=== PATIENT | male | born 1965 | race Caucasian/White ===

== ENCOUNTER 2024-08-27 12:40 | Inpatient (IN) | payer MEDICAID ==
[~2024-08-27] VITALS: Ht 188 cm; Wt 114.0 kg
[~2024-08-27 12:40] MED LIST: CARV25TA55 PO; DILT30TA PO; ENAL1TAB42 PO; FURO20TA3 PO; WARF2.5T PO
--- NOTE | 2024-08-27 13:01 | ED.PDOC ---
History of Present Illness HPI Comments 59-year-old male brought by paramedics because of shortness a breath which started this morning. Patient does have a history of atrial fibrillation hypertension CHF. Patient using accessory muscles. Placed on 8 L oxygen. Patient does take Eliquis for his atrial fibrillation. He is mentating well. Denies any other symptoms. Chief Complaint: Shortness of Breath Time Seen by MD: 12:45 Primary Care Provider: OUT OF AREA Reviewed Notes: Nurses Notes, Medications, Allergies Allergies: Coded Allergies: Iodine (Verified Allergy, 01/06/12) Home Meds Reported Medications Enalapril Maleate (Enalapril Maleate) 2.5 Mg Tab, 1 TAB PO BID 01/06/12 Warfarin Sodium (Coumadin) 2.5 Mg Tab, 1.5 TABS PO 01/06/12 Warfarin Sodium (Coumadin) 2.5 Mg Tab, 3 TABS PO DAILY 01/06/12 Diltiazem Hcl (Diltiazem Hcl) 30 Mg Tab, 30 MG PO Q 8 HOURS 01/06/12 Furosemide (Furosemide) 20 Mg Tab, 20 MG PO BID 01/06/12 Carvedilol (Carvedilol) 25 Mg Tab, 25 MG PO BID 01/06/12 Information Source: Patient, Emergency Med Personnel Mode of Arrival: EMS Severity: Moderate Timing: Hours Duration: Since onset Past Medical History PAST MEDICAL HISTORY: AFIB, CHF, High Lipids, HTN, Kidney Stones Surgical History: Denies all surgeries Family History Family History: No family hx of Heart simone Social History Smoker: Cigarettes, Less Than 1 Pack/Day Alcohol: Denies ETOH Use Drugs: Marijuana Lives In: Home Constitutional: denies: chills, diaphoresis, fatigue, fever, malaise, sweats, weakness, others EENTM: denies: blurred vision, double vision, ear bleeding, ear discharge, ear drainage, ear pain, ear ringing, eye pain, eye redness, hearing loss, mouth pain, mouth swelling, nasal discharge, nose bleeding, nose congestion, nose pain, photophobia, tearing, throat pain, throat swelling, voice changes, others Respiratory: reports: shortness of breath; denies: cough, hemoptysis, orthopnea, SOB at rest, SOB with excertion, stridor, wheezing, others Cardiovascular: denies: chest pain, dizzy spells, diaphoresis, Dyspnea on exertion, edema, irregular heart beat, left arm pain, lightheadedness, pa lpitations, PND, syncope, others Gastrointestinal: denies: abdomen distended, abdominal pain, blood streaked bowels, constipated, diarrhea, dysphagia, difficulty swallowing, hematemesis, melena, nausea, poor appetite, poor fluid intake, rectal bleeding, rectal pain, vomiting, others Genitourinary: denies: burning, dysuria, flank pain, frequency, hematuria, incontinence, penile discharge, penile sore, pain, testicle pain, testicle swelling, urgency, others Neurological: denies: dizziness, fainting, headache, left sided numbness, left sided weakness, numbness, paresthesia, pre-existing deficit, right sided numbness, right sided weakness, seizure, speech problems, tingling, tremors, weakness, others Musculoskeletal: denies: back pain, gout, joint pain, joint swelling, muscle pain, muscle stiffness, neck pain, others Integumetry: denies: bruises, change in color, change in hair/nails, dryness, laceration, lesions, lumps, rash, wounds, others Allergic/Immunocompromised: denies: Difficulty Healing, Frequent Infections, Hives, Itching, others Hematologic/Lymphatic: denies: anemia, blood clots, easy bleeding, easy br uising, swollen glands, others Endocrine: denies: excessive hunger, excessive sweating, excessive thirst, excessive urination, flushing, intolerance to cold, intolerance to heat, unexplained weight gain, unexplained weight loss, others Psychiatric: denies: anxiety, bipolar disorder, depression, hopeless, panic disorder, schizophrenia, sleepless, suicidal, others Physical Exam General Appearance: Moderate Distress HEENT: Normal ENT Inspection, Pharynx Normal, TMs Normal Neck: Full Range of Motion, Non-Tender, Normal, Normal Inspection Respiratory: Accessory Muscle Use Cardiovascular: Irregular Breast Exam: Deferred Gastrointestinal: No Organomegaly, Non Tender, No Pulsatile Mass, Normal Bowel Sounds, Soft Genitalia: Deferred Pelvic: Deferred Rectal: Deferred Extremities: No calf tenderness Musculoskeletal : Apperance: Normal Neurologic: Alert Cerebellar Function: NOT DONE Reflexes: NOT DONE Skin: Dry, Normal Color, Warm Peripheral Pulses: 3+ Radial (R), 3+ Radial (L) Lymphatic: No Adenopathy Was a procedure done? Was a procedure done?: No EKG EKG : Pulse Rate (adult): 140 Cardiac Rhythm: Afib Differential Dx Considerations may include: Atrial fibrillation Hypertension X-Ray, Labs, Meds, VS Vital Signs Date Time Temp Pulse Resp B/P (MAP) Pulse Ox O2 Delivery O2 Flow Rate FiO2 08/27/24 16:12 20 94 Simple Mask* 10 99 08/27/24 13:34 126/84 08/27/24 13:16 145 22 95 Simple Mask* 8 60 08/27/24 13:16 98.2 146 22 126/84 (98) 95 98.2 08/27/24 13:15 140 08/27/24 12:45 97.8 121 16 133/100 (111) 96 97.8 Lab Test 08/27/24 16:15 08/27/24 13:08 Range/Units POC Glucose 123 H 70-106 mg/dl White Blood Count 9.4 4.4-10.8 10^3/uL Red Blood Count 4.58 4.5-5.90 10^6/uL Hemoglobin 11.7 L 13.5-17.5 g/dL Hematocrit 38.6 L 41.0-53.0 % Mean Corpuscular Volume 84.4 80.0-100.0 fL Mean Corpuscular Hemoglobin 25.6 L 28.0-32.0 pg Mean Corpuscular Hemoglobin Concent 30.3 L 32.0-36.0 g/dL Red Cell Distribution Width 20.6 H 11.8-14.3 % Platelet Count 267 140-450 10^3/uL Mean Platelet Volume 7.9 6.9-10.8 fL Neutrophils (%) (Auto) 70.4 37.0-80.0 % Lymphocytes (%) (Auto) 16.4 10.0-50.0 % Monocytes (%) (Auto) 12.0 0.0-12.0 % Eosinophils (%) (Auto) 0.5 0.0-7.0 % Basophils (%) (Auto) 0.7 0.0-2.0 % Neutrophils # (Auto) 6.6 1.6-8.6 10 ^3/uL Lymphocytes # (Auto) 1.5 0.4-5.4 10 ^3/uL Monocytes # (Auto) 1.1 0-1.3 10 ^3/uL Eosinophils # (Auto) 0 0-0.8 10 ^3/uL Basophils # (Auto) 0.1 0-0.2 10 ^3/uL Nucleated Red Blood Cells 0.9 % Sodium Level 138 136-145 mmol/L Potassium Level 5.8 *H 3.5-5.1 mmol/L Chloride Level 97 L 98-107 mmol/L Carbon Dioxide Level 33 H 20-31 mmol/L Anion Gap 8 5-15 Blood Urea Nitrogen 54 H 9-23 mg/dL Creatinine 1.29 0.700-1.30 mg/dL Glomerular Filtration Rate Calc 63 >90 mL/min BUN/Creatinine Ratio 41.9 H 10.0-20.0 Serum Glucose 78 74-106 mg/dL Calcium Level 9.5 8.7-10.4 mg/dL Troponin I High Sensitivity 47 </=54 ng/L B-Type Natriuretic Peptide 1327.86 0-100 pg/mL Current Medications Medications (Trade) Dose Ordered Sig/Renetta Route Start Time Stop Time Status Last Admin Amiodarone HCl 100 ml @ 600 mls/hr ONCE ONCE IV 08/27/24 13:15 08/27/24 13:24 DC 08/27/24 13:33 Furosemide (Lasix Injection) 20 mg ONCE ONCE IV 08/27/24 13:15 08/27/24 13:17 DC 08/27/24 13:34 Methylprednisolone Sodium Succinate (Solu Medrol) 125 mg ONCE ONCE IV 08/27/24 13:15 08/27/24 13:17 DC 08/27/24 13:33 Insulin Human Regular (InsuLIN R) 10 units ONCE ONCE IV 08/27/24 16:00 08/27/24 16:01 DC 08/27/24 16:20 Dextrose 50 ml ONCE ONCE IV 08/27/24 16:00 08/27/24 16:01 DC 08/27/24 16:19 Albuterol (Ventolin Medneb) 20 mg ONCE ONCE NEB 08/27/24 16:00 08/27/24 16:01 DC 08/27/24 16:10 Sodium Bicarbonate 50 ml ONCE ONCE IV 08/27/24 16:00 08/27/24 16:01 DC 08/27/24 16:19 Calcium Gluconate/ Sodium Chloride 50 ml @ 120 mls/hr ONCE ONCE IV 08/27/24 16:00 08/27/24 16:24 DC 08/27/24 16:19 Zirconium Oxide (Lokelma) 10 gm ONCE ONCE PO 08/27/24 16:00 08/27/24 16:01 DC 08/27/24 16:19 Patient alert pain Placed on oxygen. Complaining of shortness a breath. Had to increase the oxygen content. CHF. Possible pneumonitis. Atrial fibrillation. Started amiodarone. He is on Eliquis. Reviewed his history. Continues to be in respiratory distress. Explained to the patient. Time of 1ST Reevaluation: 13:12 Reevaluation 1ST: Unchanged Patient Education/Counseling: Diagnosis, Treatment, Prognosis Family Education/Counseling: No Family Present Departure 1 Departure Time of Disposition: 13:23 Impression: Primary Impression: Acute respiratory failure Qualified Codes: J96.01 - Acute respiratory failure with hypoxia Additional Impressions: Atrial fibrillation Qualified Codes: I48.0 - Paroxysmal atrial fibrillation Congestive heart failure Qualified Codes: I50.43 - Acute on chronic combined systolic (congestive) and diastolic (congestive) heart failure Hyperkalemia Disposition: ADMITTED INPATIENT Admit to: Med Surg Condition: Guarded Critical Care Note Critical Care Time?: Yes (90 min-critical care time only) Critical care comment: Shortness a breath placed on oxygen was given Lasix started amiodarone Stability Stability form required: No Heart Score Heart Score: Heart Score Response (Comments) Value History Slightly Suspicious 0 EKG Normal 0 Age 45-64 1 Risk Factors >3 or Hx ASHD 2 Troponin Normal limit 0 Total 3 JENNIFER CERVANTES MD Aug 27, 2024 13:01
[2024-08-27 13:16] VITALS: PULSE 145; RESP 22; O2SAT 95
[2024-08-27 13:25] LABS: Basophils # (auto) 0.1 10 ^3/uL (0-0.2); Eosinophils # (auto) 0 10 ^3/uL (0-0.8); Hematocrit 38.6 % (41.0-53.0); Hemoglobin 11.7 g/dL (13.5-17.5); Lymphocytes # (auto) 1.5 10 ^3/uL (0.4-5.4); Mean Corpuscular Hgb Conc. 30.3 g/dL (32.0-36.0); Neutrophils # (auto) 6.6 10 ^3/uL (1.6-8.6); White Blood Cell 9.4 10^3/uL (4.4-10.8)
[2024-08-27 13:27] LABS: Basophils % (auto) 0.7 % (0.0-2.0); Eosinophils % (auto) 0.5 % (0.0-7.0); Lymphocytes % (auto) 16.4 % (10.0-50.0); Mean Corpuscular Hemoglobin 25.6 pg (28.0-32.0); Mean Corpuscular Volume 84.4 fL (80.0-100.0); Monocytes # (auto) 1.1 10 ^3/uL (0-1.3); Neutrophils % (auto) 70.4 % (37.0-80.0); Nucleated Red Blood Cells % 0.9 %; Platelet Count (auto) 267 10^3/uL (140-450); Red Blood Cells 4.58 10^6/uL (4.5-5.90); Red Cell Distribution Width 20.6 % (11.8-14.3)
[2024-08-27] MEDS: AMIODARONE BOLUS KIT 100 ML IV ONE (13:33)
[2024-08-27] MEDS: methylPREDNISolone SOD SUCC 125 MG/2 ML VL IV ONE (13:33)
[2024-08-27] MEDS: FUROSEMIDE 20 MG/2 ML VIAL IV ONE (13:34)
[2024-08-27 13:35] LABS: Sodium 138 mmol/L (136-145)
[2024-08-27 13:36] LABS: Anion Gap 8 (5-15); Calcium 9.5 mg/dL (8.7-10.4)
--- NOTE | 2024-08-27 13:38 | DVH ---
EXAM: XY CHEST PORTABLE Indication: sob Technique: Single frontal view of the chest was obtained Comparison: None FINDINGS: Lines and Tubes: None Lungs: Pulmonary vascular congestion. Pleura: Possible trace right pleural effusion. No pneumothorax. Cardiomediastinal contours: Cardiomegaly. Bones: No acute osseous abnormality. IMPRESSION: Cardiomegaly with pulmonary vascular congestion. Possible trace right pleural effusion.
[2024-08-27 13:41] LABS: BUN/Creatinine Ratio 41.9 (10.0-20.0); Glucose 78 mg/dL (74-106)
[2024-08-27 13:43] LABS: Blood Urea Nitrogen 54 mg/dL (9-23); Carbon Dioxide 33 mmol/L (20-31); Chloride 97 mmol/L (98-107)
[2024-08-27 13:47] LABS: Potassium 5.8 mmol/L (3.5-5.1)
[2024-08-27] MEDS: AMIODARONE 360mg/200mL PREMIX 200 ML IV ONE (13:56)
[2024-08-27] MEDS: ALBUTEROL SULF 2.5 MG/0.5ML(0.5%) NEB SOLN NEB ONE (16:10)
[2024-08-27] MEDS: SODIUM BICARB 8.4% 50Meq/50ml SYR INJ IV ONE (16:19)
[2024-08-27] MEDS: SODIUM ZIRCONIUM CYCL 10 GM PAK PO ONE (16:19)
[2024-08-27] MEDS: DEXTROSE (50%) 50ML SYRG IV ONE (16:19)
[2024-08-27] MEDS: CALCIUM GLUC 1,000mg/50ml-NS 50 ML IV ONE (16:19)
[2024-08-27] MEDS: InsuLIN REG 1unit/0.01ml Soln (100units/ml) IV ONE (16:20)
[2024-08-27] MEDS ORDERED: ONDANSETRON HCL 4 MG/2 ML VIAL IV PRN (18:45)
[2024-08-27] MEDS ORDERED: DOCUSATE SOD 100 MG CAP PO PRN (18:45)
[2024-08-27] MEDS ORDERED: MORPHINE SULFATE INJ 2 MG/ml SYRG IV PRN (19:30)
[2024-08-27] MEDS ORDERED: NITROGLYCERIN 0.4 MG SL TAB SL PRN (19:30)
--- NOTE | 2024-08-27 19:33 | DVHHP2 ---
History of Present Illness Reason for Visit: Acute on chronic systolic congestive heart failure History of Present Illness The patient is a 59-year-old male with past medical history of AFib, CHF, hype rlipidemia, kidney stones, and hypertension who presented to [facility] ED with complaint of shortness of breaths. Patient reports having difficulty breathing, using accessory muscles, increased work of breathing, getting worse that prompted this visit. Patient was seen and evaluated in the ED, laboratory data shows WBC 9.4, hemoglobin 11.7, hematocrit 38.6, platelets 2 67, sodium 138, potassium 5.8, BUN 54, creatinine 1.29, glucose 78, BNP 1327.86, troponin 47, blood pressure 114/90, heart rate 103, temperature 98.2 F, O2 saturation 92% on oxygen. Chest x-ray revealing cardiomegaly with pulmonary vascular congestion, possible trace right pleural effusion. Patient was started on IV Lasix, please see medication orders section in the computer. On my assessment, patient denied chest pain, no headache, no dizziness, currently on oxygen, no diaphoresis, no nausea, no vomiting, no fever, no chills. Patient was admitted for further evaluation and medical management. Past Medical History AFIB, CHF, High Lipids, HTN, Kidney Stones Past Surgical History Denies all surgeries Family History Reviewed, noncontributory to the management of this case. Past Social History The patient lives at home, denies drinking, smokes cigarettes less than 1 pack per day, uses marijuana. Review of Systems Constitutional: Yes: Weakness; No: Fever, Chills, Sweats, Malaise, Other Eyes: No: Pain, Vision change, Conjunctivae inflammation, Eyelid inflammation, Other, Redness ENT: No: Ear pain, Ear discharge, Nose pain, Nose discharge, Nose congestion, Mouth pain, Mouth swelling, Throat pain, Throat swelling, Other Respiratory: Shortness of breath, Other (SOB at rest); No: Cough, Dry, SOB with excertion, Wheezing, Hemoptysis, Pleuritic Pain, Sputum, Wheezing Cardiovascular: No: Chest Pain, Palpitations, Orthopnea, Paroxysmal Noc. Dyspnea, Edema, Lt Headedness, Other Gastrointestinal: No: Nausea, Vomiting, Abdominal Pain, Diarrhea, Constipation, Melena, Hematochezia, Other Genitourinary: No Dysuria, No Frequency, No Incontinence, No Hematuria, No Retention, No Other Musculoskeletal: No: other, neck pain, shoulder pain, arm pain, back pain, hand pain, leg pain, foot pain Skin: No: Rash, Lesions, Jaundice, Bruising, Other Neurological: No: Weakness, Numbness, Incoordination, Change in speech, Confusion, Seizures, Other Allergies: Coded Allergies: Iodine (Verified Allergy, Unknown, 08/27/24) Medications Current Medications Medications Dose Ordered Sig/Renetta Route Start Time Stop Time Status Last Admin Dose Admin Carvedilol 3.125 mg Q12HR PO 08/27/24 22:00 Diltiazem HCl 30 mg Q8HR PO 08/27/24 22:00 Warfarin Sodium RX PROTOCOL PER PHARMACY PO 08/27/24 18:45 UNV Furosemide 20 mg DAILY IV 08/28/24 10:00 Levalbuterol HCl 0.625 mg Q6HR NEB 08/28/24 00:00 Sodium Chloride 10 ml Q8HR IV 08/27/24 22:00 Acetaminophen/ Hydrocodone Bitart 1 tab Q4HP PRN PO 08/27/24 18:45 Ondansetron HCl 4 mg Q4HP PRN IV 08/27/24 18:45 Docusate Sodium 100 mg BIDPRN PRN PO 08/27/24 18:45 Acetaminophen 650 mg Q6HP PRN PO 08/27/24 18:45 Exam Vital Signs Vital Signs Date Time Temp Pulse Resp B/P (MAP) Pulse Ox O2 Delivery O2 Flow Rate FiO2 08/27/24 19:00 85 22 119/84 (96) 94 08/27/24 16:12 Simple Mask* 10 99 08/27/24 13:16 98.2 98.2 General Appearance: Alert, Oriented X3, Cooperative, No acute distress HEENT: Atraumatic, PERRLA, EOMI, Mucous membr. moist/pink Respiratory: Normal air movement, Other (Diminished breath sounds) Cardiovascular: Regular rate, Normal S1, Normal S2, No murmurs Abdominal: Normal bowel sounds, Soft, No tenderness, No hepatospenomegaly, No masses Extremities: No clubbing, No cyanosis, No edema, Normal pulses, No tenderness/swelling Skin: No rashes, No breakdown, No significant lesion Neuro: Normal speech, Normal tone, Sensation intact, Cranial nerves 3-12 NL, Reflexes 2+, Other (Generalized weakness) Psych/Mental Status: Mental status NL, Mood NL Labs/Xrays Labs Test 08/27/24 16:15 08/27/24 13:08 Range/Units POC Glucose 123 H 70-106 mg/dl White Blood Count 9.4 4.4-10.8 10^3/uL Red Blood Count 4.58 4.5-5.90 10^6/uL Hemoglobin 11.7 L 13.5-17.5 g/dL Hematocrit 38.6 L 41.0-53.0 % Mean Corpuscular Volume 84.4 80.0-100.0 fL Mean Corpuscular Hemoglobin 25.6 L 28.0-32.0 pg Mean Corpuscular Hemoglobin Concent 30.3 L 32.0-36.0 g/dL Red Cell Distribution Width 20.6 H 11.8-14.3 % Platelet Count 267 140-450 10^3/uL Mean Platelet Volume 7.9 6.9-10.8 fL Neutrophils (%) (Auto) 70.4 37.0-80.0 % Lymphocytes (%) (Auto) 16.4 10.0-50.0 % Monocytes (%) (Auto) 12.0 0.0-12.0 % Eosinophils (%) (Auto) 0.5 0.0-7.0 % Basophils (%) (Auto) 0.7 0.0-2.0 % Neutrophils # (Auto) 6.6 1.6-8.6 10 ^3/uL Lymphocytes # (Auto) 1.5 0.4-5.4 10 ^3/uL Monocytes # (Auto) 1.1 0-1.3 10 ^3/uL Eosinophils # (Auto) 0 0-0.8 10 ^3/uL Basophils # (Auto) 0.1 0-0.2 10 ^3/uL Nucleated Red Blood Cells 0.9 % Sodium Level 138 136-145 mmol/L Potassium Level 5.8 *H 3.5-5.1 mmol/L Chloride Level 97 L 98-107 mmol/L Carbon Dioxide Level 33 H 20-31 mmol/L Anion Gap 8 5-15 Blood Urea Nitrogen 54 H 9-23 mg/dL Creatinine 1.29 0.700-1.30 mg/dL Glomerular Filtration Rate Calc 63 >90 mL/min BUN/Creatinine Ratio 41.9 H 10.0-20.0 Serum Glucose 78 74-106 mg/dL Calcium Level 9.5 8.7-10.4 mg/dL Troponin I High Sensitivity 47 </=54 ng/L B-Type Natriuretic Peptide 1327.86 0-100 pg/mL PATIENT: EPHRAIM HOLT ACCT: [id number] UNIT: [id number] : 1965 LOC: ER ROOM / BED: / AGE / SEX: 59 / M ADM STATUS: REG ER SERVICE 1245 ORDERING PHYSICIAN: JENNIFER CERVANTES MD PROCEDURE(s): CXRP - CHEST PORTABLE REASON: sob ORDER NUMBER(s): [id number], ACCESSION NUMBER(s): [id number] EXAM: XY CHEST PORTABLE Indication: sob Technique: Single frontal view of the chest was obtained Comparison: None FINDINGS: Lines and Tubes: None Lungs: Pulmonary vascular congestion. Pleura: Possible trace right pleural effusion. No pneumothorax. Cardiomediastinal contours: Cardiomegaly. Bones: No acute osseous abnormality. IMPRESSION: Cardiomegaly with pulmonary vascular congestion. Possible trace right pleural effusion. Assessment/Plan Assessment/Plan Acute respiratory failure Acute respiratory failure with hypoxia Hyperkalemia Atrial fibrillation Paroxysmal atrial fibrillation Acute exacerbation congestive heart failure Plan 1. Admit to telemetry unit 2. Breathing treatment 3. Pain control management 4. Management of fluids and electrolytes 5. Consultation for hospitalist 6. Diagnostic tests chest x-ray 7. DVT prophylaxis-on Eliquis 8. Repeat labs CBC, CMP in a.m. 9. Continue with current medical management 10. Treatment plan discussed with patient and RN. Patient verbalized understanding. Plan discussed with: Patient, Other (RN) My Orders Orders - NATALIA VELA DNP Procedure Category Date Status Time Carvedilol Tablet PHA 08/27/24 In Process (Coreg Tablet) 22:00 Diltiazem Immediate PHA 08/27/24 In Process Releas Tab (Cardizem 22:00 Warfarin Per Rx PHA 08/27/24 Pending Protocol (Coumadin 18:45 Furosemide Injection PHA 08/28/24 In Process (Lasix Injection) 10:00 Levalbuterol Hcl PHA 08/28/24 In Process (Xopenex Medneb) 00:00 Allergies JOSE 08/27/24 In Process 18:44 Code Status CODE 08/27/24 Transmitted 18:44 Sodium Chloride Lock PHA 08/27/24 In Process (Saline Lock Ns) 22:00 Oxygen Per Hour RT 08/27/24 Transmitted 18:44 Hydrocodone-Acet PHA 08/27/24 In Process 5/325mg Tab (Devol 18:45 Ondansetron Hcl PHA 08/27/24 In Process (Zofran) 18:45 Docusate Sodium PHA 08/27/24 In Process Capsule (Colace 18:45 Complete Blood Count LAB 08/28/24 Verified 04:00 Comprehensive LAB 08/28/24 Verified Metabolic Panel 04:00 Cardiac DIET 08/28/24 Transmitted Diet-2gna,Lofat,Lochol Breakfast Condition: Serious JOSE 08/27/24 In Process 18:44 Acetaminophen Tablet PHA 08/27/24 In Process (Tylenol Tablet) 18:45 Bedrest With Bathroom JOSE 08/27/24 In Process Privileg 18:44 Sequential JOSE 08/27/24 In Process Compression Device Prothrombin Time W/ LAB 08/28/24 Verified INR 04:00 Prothrombin Time W/ LAB 08/27/24 Logged INR 19:30 Problem List: (1) Acute respiratory failure (2) Acute respiratory failure with hypoxia (3) Hyperkalemia (4) Atrial fibrillation (5) Paroxysmal atrial fibrillation (6) Acute exacerbation of congestive heart failure Date of Service: Aug 27, 2024 Billing Provider: NATALIA VELA DNP Common Visit Codes: 14855-HPSPOFG INP/OBS CARE (HIGH) NATALIA VELA DNP Aug 27, 2024 19:32
[2024-08-27 19:51] VITALS: PULSE 97; RESP 26; O2SAT 95
[2024-08-27 20:19] LABS: INR 1.84 (0.9-1.15); Prothrombin Time 18.4 sec (9.3-11.8)
[2024-08-27] MEDS: SODIUM CHLOR 0.9% PF (SALINE LOCK) 10ML VIAL/SYR IV SCH (21:50)
[2024-08-27] MEDS: APIXABAN 5 MG TAB PO SCH (21:50)
[2024-08-27] MEDS: dilTIAZem HCL 60 MG TAB PO SCH (21:51)
[2024-08-27] MEDS: CARVEDILOL 3.125 MG TAB PO SCH (21:52)
[2024-08-28] VITALS (18 sets, daily range): BP systolic 100–127; BP diastolic 58–93; PULSE 53–97; RESP 16–24; TEMP 97.7–98; O2SAT 82–97
[2024-08-28] MEDS: LEVALBUTEROL HCL 1.25 MG/3 ML NEB NEB SCH (00:19)
[2024-08-28 07:02] LABS: Basophils # (auto) 0 10 ^3/uL (0-0.2); Eosinophils # (auto) 0 10 ^3/uL (0-0.8); Hemoglobin 11.6 g/dL (13.5-17.5); Mean Corpuscular Hemoglobin 25.1 pg (28.0-32.0)
[2024-08-28 07:03] LABS: Prothrombin Time 19.8 sec (9.3-11.8)
[2024-08-28 07:04] LABS: Hematocrit 38.3 % (41.0-53.0); Lymphocytes # (auto) 0.7 10 ^3/uL (0.4-5.4); Lymphocytes % (auto) 9.2 % (10.0-50.0); Mean Corpuscular Hgb Conc. 30.3 g/dL (32.0-36.0); Mean Corpuscular Volume 82.7 fL (80.0-100.0); Monocytes # (auto) 0.3 10 ^3/uL (0-1.3); Monocytes % (auto) 4.5 % (0.0-12.0); Neutrophils # (auto) 6.6 10 ^3/uL (1.6-8.6); Neutrophils % (auto) 86.3 % (37.0-80.0); Nucleated Red Blood Cells % 0.3 %; Platelet Count (auto) 272 10^3/uL (140-450); Red Blood Cells 4.63 10^6/uL (4.5-5.90); Red Cell Distribution Width 21.1 % (11.8-14.3); White Blood Cell 7.6 10^3/uL (4.4-10.8)
[2024-08-28 07:10] LABS: Alkaline Phosphatase 98 U/L (46-116); Anion Gap 6 (5-15); BUN/Creatinine Ratio 33.7 (10.0-20.0); Calcium 9.6 mg/dL (8.7-10.4); Sodium 137 mmol/L (136-145); Total Protein 6.9 g/dL (5.7-8.2)
[2024-08-28 07:15] LABS: Carbon Dioxide 36 mmol/L (20-31); Chloride 95 mmol/L (98-107); Glucose 152 mg/dL (74-106); Potassium 5.5 mmol/L (3.5-5.1)
[2024-08-28 07:16] LABS: Alanine Aminotransferase 143 U/L (7-40); Aspartate Aminotransferase 223 U/L (13-40); Bilirubin, Total 2.8 mg/dL (0.2-1.0); Blood Urea Nitrogen 57 mg/dL (9-23)
[2024-08-28] MEDS: FUROSEMIDE 20 MG/2 ML VIAL IV SCH (10:53)
[2024-08-28] MEDS: SODIUM ZIRCONIUM CYCL 10 GM PAK PO ONE (12:05)
--- NOTE | 2024-08-28 13:05 | DVH ---
INDICATION: elevated LFTs,FARAZ TECHNIQUE: Multiple real-time sonographic images of the abdomen were obtained. COMPARISON: None FINDINGS: The liver is coarsened in echogenicity. The liver measures 17 cm. No intrahepatic biliary ductal dilatation is noted. Small volume ascites. Partially visualized small bilateral pleural effusi ons. The gallbladder wall measures 0.2 cm and is unremarkable. No gallstones or sludge is seen. The com mon duct is not well visualized due to obscuration from bowel gas. The right kidney measures 10.0 cm. No hydronephrosis. The left kidney measures 10.0cm. No hydroneph rosis. The spleen measures 9.0 cm, within normal limits. The echogenicity is within normal limits. The pancreas is not well visualized due to obscuration from bowel gas. The visualized portions of the IVC and aorta are grossly unremarkable. IMPRESSION: Coarsened liver echotexture suggestive of hepatic cirrhosis. Small volume ascites. Partially visuali zed small bilateral pleural effusions.
--- NOTE | 2024-08-28 15:07 | DVHINCON2 ---
Date of service: Aug 28, 2024 Referring Physician Jose Carlos Forde, nurse practitioner Reason for Consultation Acute kidney injury History of Present Illness Patient is 59-year-old male with past medical history significant for CHF, atrial fibrillation High Lipids, HTN, and Kidney Stones is admitted for shortness of breath. On admission patient found to have elevated BUN creatinine nephrology is consulted for acute kidney injury Past Medical History PAST MEDICAL HISTORY: AFIB, CHF, High Lipids, HTN, Kidney Stones Past Surgical History Surgical History: Denies all surgeries Allergies: Coded Allergies: Iodine (Verified Allergy, Unknown, 08/27/24) Home Meds Reported Medications Enalapril Maleate (Enalapril Maleate) 2.5 Mg Tab, 1 TAB PO BID 01/06/12 Warfarin Sodium (Coumadin) 2.5 Mg Tab, 1.5 TABS PO 01/06/12 Warfarin Sodium (Coumadin) 2.5 Mg Tab, 3 TABS PO DAILY 01/06/12 Diltiazem Hcl (Diltiazem Hcl) 30 Mg Tab, 30 MG PO Q 8 HOURS 01/06/12 Furosemide (Furosemide) 20 Mg Tab, 20 MG PO BID 01/06/12 Carvedilol (Carvedilol) 25 Mg Tab, 25 MG PO BID 01/06/12 Current Medications Current Medications Medications (Trade) Dose Ordered Sig/Renetta Route PRN Reason Start Time Stop Time Status Last Admin Bumetanide (Bumex Injection) 1 mg BIDD IV 08/28/24 15:00 08/29/24 06:54 Lactulose 30 ml BID PO 08/29/24 10:00 08/29/24 09:12 Review of Systems All 12 item review of systems reviewed with the patient nonsignificant except what is mentioned in the history of present illness H&P Exam Vital Signs/I&O Vital Sign Date Time Temp Pulse Resp B/P (MAP) Pulse Ox O2 Delivery O2 Flow Rate FiO2 08/29/24 09:13 99 123/72 08/29/24 09:00 98.0 20 99 98.0 08/29/24 02:54 Facial BiPAP Mask 50 08/28/24 20:00 6 Intake and Output 08/28/24 08/29/24 18:59 06:59 Intake Total 450 ml Output Total 500 ml 2400 ml Balance -500 ml -1950 ml Intake Oral 450 ml Output Urine Total 500 ml 2400 ml # Bowel Movements 1 Physical Exam Obese male moderate respiratory distress Lungs bibasilar crackles Cardiac exam tachycardia GI obese nontender normal Extremity 1+ pitting edema Neuro nonfocal Labs/Diagnostic Data Labs/Diagnostic Data Laboratory Tests Test 08/29/24 05:24 08/28/24 16:44 08/28/24 15:58 08/28/24 05:51 Range/Units White Blood Count 13.2 #H 7.6 4.4-10.8 10^3/uL Red Blood Count 4.31 L 4.63 4.5-5.90 10^6/uL Hemoglobin 10.8 L 11.6 L 13.5-17.5 g/dL Hematocrit 35.3 L 38.3 L 41.0-53.0 % Mean Corpuscular Volume 81.8 82.7 80.0-100.0 fL Mean Corpuscular Hemoglobin 25.0 L 25.1 L 28.0-32.0 pg Mean Corpuscular Hemoglobin Concent 30.6 L 30.3 L 32.0-36.0 g/dL Red Cell Distribution Width 20.2 H 21.1 H 11.8-14.3 % Platelet Count 255 272 140-450 10^3/uL Mean Platelet Volume 8.1 8.0 6.9-10.8 fL Neutrophils (%) (Auto) 90.3 H 86.3 H 37.0-80.0 % Lymphocytes (%) (Auto) 2.3 L 9.2 L 10.0-50.0 % Monocytes (%) (Auto) 7.3 4.5 0.0-12.0 % Eosinophils (%) (Auto) 0.0 0.0 0.0-7.0 % Basophils (%) (Auto) 0.1 0.0 0.0-2.0 % Neutrophils # (Auto) 11.9 H 6.6 1.6-8.6 10 ^3/uL Lymphocytes # (Auto) 0.3 L 0.7 0.4-5.4 10 ^3/uL Monocytes # (Auto) 1.0 0.3 0-1.3 10 ^3/uL Eosinophils # (Auto) 0 0 0-0.8 10 ^3/uL Basophils # (Auto) 0 0 0-0.2 10 ^3/uL Nucleated Red Blood Cells 0.2 0.3 % Sodium Level 140 137 136-145 mmol/L Potassium Level 4.8 5.5 H 3.5-5.1 mmol/L Chloride Level 95 L 95 L 98-107 mmol/L Carbon Dioxide Level > 40 *H 36 H 20-31 mmol/L Anion Gap 4.37890 L 6 5-15 Blood Urea Nitrogen 55 H 57 H 9-23 mg/dL Creatinine 1.25 1.69 H 0.700-1.30 mg/dL Glomerular Filtration Rate Calc 66 46 >90 mL/min BUN/Creatinine Ratio 44.0 H 33.7 H 10.0-20.0 Serum Glucose 149 H 152 H 74-106 mg/dL Calcium Level 9.1 9.6 8.7-10.4 mg/dL Total Bilirubin 1.6 H 2.8 H 0.2-1.0 mg/dL Aspartate Amino Transferase (AST) 170 H 223 H 13-40 U/L Alanine Aminotransferase (ALT) 146 H 143 H 7-40 U/L Alkaline Phosphatase 89 98 46-116 U/L Total Protein 6.3 6.9 5.7-8.2 g/dL Albumin 3.6 4.0 3.2-4.8 g/dL Triglycerides Level 74 < 150 mg/dL Cholesterol Level 68 < 200 mg/dL LDL Cholesterol 44 < 100 mg/dL HDL Cholesterol 10 L 40-59 mg/dL Urine Color Yellow Yellow Urine Clarity Clear Clear Urine pH 5.5 5.0-9.0 Urine Specific Purcell 1.013 1.001-1.035 Urine Protein Negative Negative Urine Ketones Negative Negative Urine Blood 2+ H Negative /uL Urine Nitrite Negative Negative Urine Bilirubin Negative Negative Urine Urobilinogen Normal Negative mg/dL Urine Leukocyte Esterase 3+ Negative /uL Urine RBC 43 0 - 3 /hpf Urine Microscopic WBC 42 H 0-3 /HPF Urine Squamous Epithelial Cells Few <5 /hpf Urine Bacteria Few H None Seen /hpf Urine Hyaline Casts Mod 0 - 2 /lpf Urine Creatinine 59.42 30.0-125.0 mg/dL Urine Protein/Creatinine Ratio 0.33 Urine Sodium < 10 L 40-220 mmol/L Urine Glucose Normal Normal mg/dL Urine Total Protein 19.7 H 1-14 mg/dL Urine Opiates Screen Neg NEGATIVE Urine Fentanyl Screen Neg NEGATIVE Urine Barbiturates Screen Neg NEGATIVE Urine Phencyclidine Screen Neg NEGATIVE Urine Amphetamines Screen Neg NEGATIVE Urine Benzodiazepines Screen Neg NEGATIVE Urine Cocaine Screen Neg NEGATIVE Urine Cannabinoids Screen Neg NEGATIVE Ammonia 68 H 11-32 umol/L Vitamin D 25-Hydroxy 35.6 30.0-100 ng/mL Prothrombin Time 19.8 H 9.3-11.8 sec Prothrombin Time INR 2.00 H 0.9-1.15 Hemoglobin A1c 5.8 H <5.7 % A1C Uric Acid 9.6 H 3.7-9.2 mg/dL Phosphorus Level 6.1 H 2.4-5.1 mg/dL Magnesium Level 2.2 1.6-2.6 mg/dL Parathyroid Hormone (Intact) 65.9 18.4-80.1 pg/mL Test 08/27/24 19:33 08/27/24 16:15 08/27/24 13:08 Range/Units Prothrombin Time 18.4 H 9.3-11.8 sec Prothrombin Time INR 1.84 H 0.9-1.15 POC Glucose 123 H 70-106 mg/dl White Blood Count 9.4 4.4-10.8 10^3/uL Red Blood Count 4.58 4.5-5.90 10^6/uL Hemoglobin 11.7 L 13.5-17.5 g/dL Hematocrit 38.6 L 41.0-53.0 % Mean Corpuscular Volume 84.4 80.0-100.0 fL Mean Corpuscular Hemoglobin 25.6 L 28.0-32.0 pg Mean Corpuscular Hemoglobin Concent 30.3 L 32.0-36.0 g/dL Red Cell Distribution Width 20.6 H 11.8-14.3 % Platelet Count 267 140-450 10^3/uL Mean Platelet Volume 7.9 6.9-10.8 fL Neutrophils (%) (Auto) 70.4 37.0-80.0 % Lymphocytes (%) (Auto) 16.4 10.0-50.0 % Monocytes (%) (Auto) 12.0 0.0-12.0 % Eosinophils (%) (Auto) 0.5 0.0-7.0 % Basophils (%) (Auto) 0.7 0.0-2.0 % Neutrophils # (Auto) 6.6 1.6-8.6 10 ^3/uL Lymphocytes # (Auto) 1.5 0.4-5.4 10 ^3/uL Monocytes # (Auto) 1.1 0-1.3 10 ^3/uL Eosinophils # (Auto) 0 0-0.8 10 ^3/uL Basophils # (Auto) 0.1 0-0.2 10 ^3/uL Nucleated Red Blood Cells 0.9 % Sodium Level 138 136-145 mmol/L Potassium Level 5.8 *H 3.5-5.1 mmol/L Chloride Level 97 L 98-107 mmol/L Carbon Dioxide Level 33 H 20-31 mmol/L Anion Gap 8 5-15 Blood Urea Nitrogen 54 H 9-23 mg/dL Creatinine 1.29 0.700-1.30 mg/dL Glomerular Filtration Rate Calc 63 >90 mL/min BUN/Creatinine Ratio 41.9 H 10.0-20.0 Serum Glucose 78 74-106 mg/dL Calcium Level 9.5 8.7-10.4 mg/dL Troponin I High Sensitivity 47 </=54 ng/L B-Type Natriuretic Peptide 1327.86 0-100 pg/mL Assessment Acute kidney injury superimposed Chronic Kidney Disease secondary hemodynamic mediated Acute respiratory failure, on high flow oxygen Acute on chronic systolic Congestive heart failure AFib with RVR Liver cirrhosis Jaundice Hyperkalemia Anemia of chronic kidney disease Recommendations Closely monitor fluid and electrolytes Avoid nephrotoxic medications Strict I&Os Check urinalysis urine electrolytes and protein excretion Kidneys reported within normal limit on ultrasound Bumex 1 mg IV b.i.d. Lokelma 10 g p.o. x1 Cardiology consult Renal diet We will continue to follow Patient seen and examined by myself. I discussed my plan of care with the patient and primary nurse at the bedside Plan discussed with: Patient EDU AL MD Aug 28, 2024 15:07
--- NOTE | 2024-08-28 15:38 | DVHPN2 ---
Subjective Patient is somewhat encephalopathic Reviewed: Care Plan, H&P, Labs, Medications Changes from previous H/P or p: No Changes General: Per HPI Eyes: No Pain, No Vision change, No Conjunctivae inflammation, No Eyelid inflammation, No Other, No Redness ENT: No Ear pain, No Ear discharge, No Nose pain, No Nose discharge, No Nose congestion, No Mouth pain, No Mouth swelling, No Throat pain, No Throat swelling, No Other Cardiovascular: No Chest Pain, No Palpitations, No Orthopnea, No Paroxysmal Noc. Dyspnea, No Edema, No Lt Headedness, No Other Respiratory: No Cough, No Dry; Shortness of breath; No SOB with excertion, No Wheezing, No Hemoptysis, No Pleuritic Pain, No Sputum; Other (SOB at rest) Gastrointestinal: No Nausea, No Vomiting, No Abdominal Pain, No Diarrhea, No Constipation, No Melena, No Hematochezia, No Other Genitourinary: No Dysuria, No Frequency, No Incontinence, No Hematuria, No Retention, No Other Musculoskeletal: No other, No neck pain, No shoulder pain, No arm pain, No back pain, No hand pain, No leg pain, No foot pain Skin: No Rash, No Lesions, No Jaundice, No Bruising, No Other Objective Vitals Vital Signs Date Time Temp Pulse Resp B/P (MAP) Pulse Ox O2 Delivery O2 Flow Rate FiO2 08/28/24 14:55 92 101/63 08/28/24 14:00 18 95 08/28/24 13:26 Room Air* 0 21 08/28/24 12:01 97.7 97.7 Intake/Output Intake and Output 08/28/24 07:00 Intake Total 135.542 ml Balance 135.542 ml Intake IV Total 135.542 ml General Appearance: Alert, moderate distress, Other (Encephalopathic) HEENT: Atraumatic, PERRLA Lungs: Clear to auscultation, Normal air movement Cardiovascular: Normal S1, Normal S2, Other (Atrial fibrillation) Medications Current Medications Medications Dose Ordered Sig/Renetta Route Start Time Stop Time Status Last Admin Dose Admin Carvedilol 3.125 mg Q12HR PO 08/27/24 22:00 08/28/24 10:54 3.125 MG Diltiazem HCl 30 mg Q8HR PO 08/27/24 22:00 08/28/24 14:55 30 MG Levalbuterol HCl 0.625 mg Q6HR NEB 08/28/24 00:00 08/28/24 13:25 0.625 MG Sodium Chloride 10 ml Q8HR IV 08/27/24 22:00 08/28/24 14:55 10 ML Acetaminophen/ Hydrocodone Bitart 1 tab Q4HP PRN PO 08/27/24 18:45 Ondansetron HCl 4 mg Q4HP PRN IV 08/27/24 18:45 Docusate Sodium 100 mg BIDPRN PRN PO 08/27/24 18:45 Acetaminophen 650 mg Q6HP PRN PO 08/27/24 18:45 Nitroglycerin 0.4 mg Q5MINP PRN SL 08/27/24 19:30 Morphine Sulfate 2 mg Q30M PRN IV 08/27/24 19:30 Apixaban 5 mg BID PO 08/27/24 22:00 08/28/24 10:53 5 MG Bumetanide 1 mg BIDD IV 08/28/24 15:00 UNV Laboratory Results Laboratory Tests 08/28/24 05:51 Chemistry Test 08/28/24 05:51 Albumin 4.0 g/dL (3.2-4.8) Calcium Level 9.6 mg/dL (8.7-10.4) Magnesium Level Pending Phosphorus Level Pending Total Protein 6.9 g/dL (5.7-8.2) Coagulation Test 08/27/24 19:33 08/28/24 05:51 Prothrombin Time 18.4 sec (9.3-11.8) H 19.8 sec (9.3-11.8) H Prothrombin Time INR 1.84 (0.9-1.15) H 2.00 (0.9-1.15) H LFT Test 08/28/24 05:51 Alanine Aminotransferase (ALT) 143 U/L (7-40) H Alkaline Phosphatase 98 U/L (46-116) Aspartate Amino Transferase (AST) 223 U/L (13-40) H Total Bilirubin 2.8 mg/dL (0.2-1.0) H HgA1c, TSH Test 08/28/24 05:51 Hemoglobin A1c 5.8 % A1C (<5.7) H Labs and/or images reviewed: Labs reviewed by me, Image(s) reviewed by me Assessment/Plan Assessment/Plan Impression: -acute hypoxic respiratory failure -probable acute decompensated systolic heart failure with pulmonary vascular congestion -obesity -probable cirrhosis -acute kidney injury,? V MN. -hyperkalemia -rule out hepatic encephalopathy -obesity -primary hypertension -atrial fibrillation -primary hypertension Plan: -CT scan of the head -check ammonia level -liver ultrasound: Reviewed -nephrology consultation -potassium lowering agents -IV diuresis -echocardiogram, pending -repeat labs in a.m. Total time spent with patient discussing and formulating plan of care: 35 minutes. This medical document was created using an electronic medical record system with [employer] dictation system. Although this document has been carefully reviewed, there may still be some phonetic and typographical errors. These areas are purely typographical due to imperfections of the software programs, and do not reflect any compromise in the patient's medical care. Plan discussed with: Patient, Other (RN) My Orders Orders - YUMIKO FRANCISCO NP Procedure Category Date Status Time *[facility] CONS 08/28/24 Transmitted -[place] 11:09 Abdomen Complete US 08/28/24 Resulted Sonogram 11:09 Parathyroid Hormone LAB 08/28/24 In Process Intact 14:57 Ammonia LAB 08/28/24 Transmitted 15:32 Lipid Panel LAB 08/29/24 Verified 04:00 Complete Blood Count LAB 08/29/24 Verified 04:00 Comprehensive LAB 08/29/24 Verified Metabolic Panel 04:00 Chest Portable XY 08/29/24 Transmitted 04:00 Date of Service: Aug 28, 2024 Billing Provider: YUMIKO FRANCISCO NP Common Visit Codes: [id number] INP/OBS CARE([facility]) YUMIKO FRANCISCO NP Aug 28, 2024 15:38
[2024-08-28 16:00] LABS: Magnesium 2.2 mg/dL (1.6-2.6)
[2024-08-28 16:04] LABS: Phosphorus 6.1 mg/dL (2.4-5.1)
[2024-08-28] MEDS: BUMETANIDE 1mg/4ml VIAL (0.25mg/ml) IV SCH (16:19)
--- NOTE | 2024-08-28 16:55 | DVH ---
Procedure: CT HEAD WITHOUT CONTRAST Study Date and Requested Time: 08/28/2024 04:00 PM History: altered mental status Comparison: None Dose: CTDI: 65.42 mGy DLP: 1419.73 mGycm Technique: Multiplanar images obtained through the brain without intravenous contrast. Findings: Normal brain volume and formation. Mild chronic small vessel ischemic changes. Left frontal lobe hypodensity with associated asymmetric prominence of the sulci which may represent an area of encephalomalacia. No hemorrhages, masses, mass effect, midline shift, or herniation. No intra-axial or extra-axial flui d collections. No evidence of hydrocephalus. The basal cisterns are patent. The pituitary gland, sella and parasellar regions are unremarkable. The cerebellar tonsils are in nor mal position. The cerebellum is unremarkable. The orbits and globes are unremarkable. Partially imaged mucous retention cysts within the left maxil brandon sinus with minimal mucoperiosteal thickening of the anterior ethmoid air cells. Mucosal thickeni ng of the left mastoid. The right mastoid is clear. There are no worrisome calvarial lesions. Mild Ri [id number]-left facial soft tissue edema. Impression: Suggested area of encephalomalacia over the left frontal lobe. Superimposed acute infarct can not be excluded. If there is concern for acute infarct, MRI should be considered for further evaluation.
[2024-08-28 17:06] LABS: Urine Bacteria FEW /hpf (None Seen); Urine Blood 2+ /uL (Negative); Urine Clarity Clear (Clear); Urine Color Yellow (Yellow); Urine Hyaline Cast MOD /lpf (0 - 2); Urine Protein, UAD Negative (Negative); Urine Specific Gravity 1.013 (1.001-1.035); Urine Squamous Epithelial Cell FEW /hpf (<5); Urine Urobilinogen Normal (Negative); Urine WBC 42 /HPF (0-3); Urine pH 5.5 (5.0-9.0)
[2024-08-28 17:08] LABS: Sodium Urine < 10 mmol/L (40-220)
[2024-08-28 17:11] LABS: Protein, Urine 19.7 mg/dL (1-14)
[2024-08-28 17:13] LABS: Amphetamine Screen, Urine Neg (NEGATIVE)
[2024-08-28 17:14] LABS: Barbiturate Scree,Urine Neg (NEGATIVE); Benzodiazephine Screen, Urine Neg (NEGATIVE); Cannabinoid Screen, Urine Neg (NEGATIVE); Cocaine Screen, Urine Neg (NEGATIVE); Creatinine, Urine 59.42 mg/dL (30.0-125.0); Opiate Scree,Urine Neg (NEGATIVE); Phencyclidine Screen, Urine Neg (NEGATIVE); Urine Protein/Creatinine Ratio 0.33
--- NOTE | 2024-08-28 21:18 | DVH ---
EXAM: MRI BRAIN HEAD WO CONTRAST CLINICAL HISTORY: RULE OUT CVA COMPARISON: CT brain 08/28/2024 TECHNIQUE: Multiplanar, multisequence magnetic resonance imaging of the brain was performed after the administra tion of intravenous contrast. FINDINGS: Redemonstration of left high convexity frontal lobe encephalomalacia with associated adjacent gliosis . Minimal peripheral blooming over the area of encephalomalacia on GRE with no corresponding T1 abnor mality which is most consistent with chronic hemorrhage. Normal brain volume and formation. No hemorrhages, masses, mass effect, midline shift, herniation or cytotoxic edema following a large vascular territory. No intra-axial or extra-axial fluid collections . No evidence of hydrocephalus. The basal cisterns are patent. The pituitary gland, sella and parasellar regions are unremarkable. The cerebellar tonsils are normal position. The cerebellum is unremarkable. The orbits and globes are unremarkable. Mild mucoperiosteal thickening of the ethmoid air cells. Othe rwise, the paranasal sinuses and right mastoid are clear. Mucosal thickening of the left mastoid. The right mastoid is clear. No worrisome calvarial lesions. IMPRESSION: No evidence of acute intracranial abnormalities. Left Frontal lobe encephalomalacia. Left mastoid disease.
[2024-08-29] VITALS (21 sets, daily range): BP systolic 107–127; BP diastolic 72–86; PULSE 84–113; RESP 18–20; TEMP 96.7–98; O2SAT 90–99
[2024-08-29 06:30] LABS: Basophils # (auto) 0 10 ^3/uL (0-0.2); Eosinophils # (auto) 0 10 ^3/uL (0-0.8); Hemoglobin 10.8 g/dL (13.5-17.5); Lymphocytes # (auto) 0.3 10 ^3/uL (0.4-5.4); Lymphocytes % (auto) 2.3 % (10.0-50.0); Neutrophils # (auto) 11.9 10 ^3/uL (1.6-8.6); White Blood Cell 13.2 10^3/uL (4.4-10.8)
[2024-08-29 06:32] LABS: Basophils % (auto) 0.1 % (0.0-2.0); Hematocrit 35.3 % (41.0-53.0); Mean Corpuscular Hgb Conc. 30.6 g/dL (32.0-36.0); Mean Corpuscular Volume 81.8 fL (80.0-100.0); Monocytes % (auto) 7.3 % (0.0-12.0); Neutrophils % (auto) 90.3 % (37.0-80.0); Nucleated Red Blood Cells % 0.2 %; Platelet Count (auto) 255 10^3/uL (140-450); Red Blood Cells 4.31 10^6/uL (4.5-5.90); Red Cell Distribution Width 20.2 % (11.8-14.3)
[2024-08-29 06:33] LABS: Albumin 3.6 g/dL (3.2-4.8); Alkaline Phosphatase 89 U/L (46-116); Calcium 9.1 mg/dL (8.7-10.4); Potassium 4.8 mmol/L (3.5-5.1); Sodium 140 mmol/L (136-145); Total Protein 6.3 g/dL (5.7-8.2)
--- NOTE | 2024-08-29 06:46 | DVH ---
CHEST RADIOGRAPH Indication: chf Technique: Single frontal view of the chest was obtained Comparison: XY CHEST PORTABLE on DOS: 08/27/24 FINDINGS: Lines and Tubes: None Lungs: Bilateral interstitial prominence. No focal consolidation. Pleura: There is a layering right pleural effusion. No pneumothorax. Cardiomediastinal contours: Cardiomegaly. Bones: No acute osseous abnormality. IMPRESSION: 1. Pulmonary congestion. 2. Right pleural effusion. 3. Cardiomegaly.
[2024-08-29 07:05] LABS: Alanine Aminotransferase 146 U/L (7-40); Anion Gap 4.99999 (5-15); Aspartate Aminotransferase 170 U/L (13-40); Bilirubin, Total 1.6 mg/dL (0.2-1.0); Blood Urea Nitrogen 55 mg/dL (9-23); Chloride 95 mmol/L (98-107); Glucose 149 mg/dL (74-106)
[2024-08-29 07:07] LABS: Carbon Dioxide > 40 mmol/L (20-31)
[2024-08-29 07:37] LABS: Triglycerides 74 mg/dL (< 150)
[2024-08-29 07:38] LABS: LDL Cholesterol 44 mg/dL (< 100)
[2024-08-29 07:39] LABS: Cholesterol 68 mg/dL (< 200)
[2024-08-29 07:40] LABS: HDL Cholesterol 10 mg/dL (40-59)
[2024-08-29] MEDS: LACTULOSE 20Gm/30ML SOLN PO SCH (09:12)
[2024-08-29 11:24] LABS: Base Excess 16.1 mmol/L (-2.0-3.0)
--- NOTE | 2024-08-29 11:26 | DVHPN2 ---
Progress Note Date Seen: Aug 29, 2024 Medical Necessity Reason Pt with a Central, PICC or Fol: No Subjective Review of Systems: RESPIRATORY:Abnormal, NEURO:Abnormal Other Systems: Patient seen and examined by myself today in follow-up Objective vital signs Vital Sign Date Time Temp Pulse Resp B/P (MAP) Pulse Ox O2 Delivery O2 Flow Rate FiO2 08/29/24 09:13 99 123/72 08/29/24 09:00 98.0 20 99 98.0 08/29/24 02:54 Facial BiPAP Mask 50 08/28/24 20:00 6 Total Intake and Output 08/28/24 08/28/24 08/29/24 14:59 22:59 06:59 Intake Total 450 ml Output Total 500 ml 2400 ml Balance -500 ml -1950 ml medications Current Medications Medications Dose Ordered Sig/Renetta Route Start Time Stop Time Status Last Admin Dose Admin Carvedilol 3.125 mg Q12HR PO 08/27/24 22:00 08/29/24 09:13 Diltiazem HCl 30 mg Q8HR PO 08/27/24 22:00 08/29/24 06:49 Levalbuterol HCl 0.625 mg Q6HR NEB 08/28/24 00:00 08/29/24 06:36 Sodium Chloride 10 ml Q8HR IV 08/27/24 22:00 08/29/24 06:48 Acetaminophen/ Hydrocodone Bitart 1 tab Q4HP PRN PO 08/27/24 18:45 Ondansetron HCl 4 mg Q4HP PRN IV 08/27/24 18:45 Docusate Sodium 100 mg BIDPRN PRN PO 08/27/24 18:45 Acetaminophen 650 mg Q6HP PRN PO 08/27/24 18:45 Nitroglycerin 0.4 mg Q5MINP PRN SL 08/27/24 19:30 Morphine Sulfate 2 mg Q30M PRN IV 08/27/24 19:30 Apixaban 5 mg BID PO 08/27/24 22:00 08/29/24 09:13 Bumetanide 1 mg BIDD IV 08/28/24 15:00 08/29/24 06:54 Lactulose 30 ml BID PO 08/29/24 10:00 08/29/24 09:12 Examination: LUNGS:Normal, CVS:Normal, MSK:Abnormal laboratory and microbiology Laboratory Tests 08/29/24 05:24 Test 08/29/24 05:24 Range/Units Serum Glucose 149 H 74-106 mg/dL Problem List/Assessment/Plan Problem List/Assessment/Plan Acute kidney injury superimposed Chronic Kidney Disease secondary hemodynamic mediated, FeNa <1% Acute respiratory failure, on high flow oxygen Acute on chronic systolic Congestive heart failure Encephalopathy likely due to CO2 narcosis AFib with RVR Liver cirrhosis Jaundice Hyperkalemia Anemia of chronic kidney disease Metabolic alkalosis Recommendations Kidney function is improving Increased urine output Hyperkalemia resolved Strict I&Os Kidneys reported within normal limit on ultrasound Bumex 1 mg IV b.i.d. Check ABG rule out CO2 narcosis Pulmonary consult Renal diet We will continue to follow Plan discussed with: Other (Nurse) My Orders My Orders Orders - EDU AL MD Procedure Category Date Status Time Bumetanide Injection PHA 08/28/24 In Process (Bumex Injection) 15:00 Obtain Abg JOSE 08/29/24 In Process 10:06 EDU AL MD Aug 29, 2024 11:26
--- NOTE | 2024-08-29 12:58 | DVHSR ---
APPROVED REPORT EXAM: Two-dimensional and M-mode echocardiogram with Doppler, color Doppler and Bubble Study. Blood Pressure: 109/76 mmHg INDICATION chf exacerbation RISK FACTORS Obesity: Height: 5'11, Weight: 230 DIMENSIONS LVDd6.3 (3.8-5.7cm)LA (2D)5.7 (1.9-4.0cm)Aortic Root4.3 (2.0-3.7cm) LVDs4.7 (2.5-4.0cm)LA (MM) (1.9-4.0cm)Aortic Cusp Exc2.2 (1.5-2.0cm) EF (%) 50.5 (55-70%)Rt. Atrium7.5 (1.9-4.0cm)Asc. Aorta4.0 cm IVSd1.2 (0.7-1.1cm)RV (D)7.6 (1.8-2.4cm) PWd1.7 (0.7-1.1cm) Mitral Valve MitralMitral Stenosis E wavem/sMV Mean GR.5mmHg A wavem/sMV Peak GR.114mmHg E/A ratio0.02D MVAcm2 Aortic Valve Aortic ValveAortic Stenosis V10.94m/Kylie Mean GR.5mmHg V21.37m/Kylie Peak GR.8mmHg LVOT Diameter2.4 (1.8-2.4cm)Doppler AVA3.10cm2 Pulmonic Valve V20.78m/s Tricuspid Valve TR Velocity3.63m/s [id number] Other Information Technically limited study due to bubble at end of study Conclusion lvef 45% mild LV dysfunction RV not well seen severe biatrial enlargement moderate mitral stenosis, mean gradient 4.5 mmhg at least moderate eccentric posterior MR noted severe tricuspid regurg moderate pulm htn
[2024-08-29 13:48] LABS: Base Excess 15.4 mmol/L (-2.0-3.0)
--- NOTE | 2024-08-29 14:02 | DVHPN2 ---
Subjective Patient is somewhat encephalopathic Reviewed: Care Plan, H&P, Labs, Medications Changes from previous H/P or p: No Changes General: Per HPI Eyes: No Pain, No Vision change, No Conjunctivae inflammation, No Eyelid inflammation, No Other, No Redness ENT: No Ear pain, No Ear discharge, No Nose pain, No Nose discharge, No Nose congestion, No Mouth pain, No Mouth swelling, No Throat pain, No Throat swelling, No Other Cardiovascular: No Chest Pain, No Palpitations, No Orthopnea, No Paroxysmal Noc. Dyspnea, No Edema, No Lt Headedness, No Other Respiratory: No Cough, No Dry; Shortness of breath; No SOB with excertion, No Wheezing, No Hemoptysis, No Pleuritic Pain, No Sputum; Other (SOB at rest) Gastrointestinal: No Nausea, No Vomiting, No Abdominal Pain, No Diarrhea, No Constipation, No Melena, No Hematochezia, No Other Genitourinary: No Dysuria, No Frequency, No Incontinence, No Hematuria, No Retention, No Other Musculoskeletal: No other, No neck pain, No shoulder pain, No arm pain, No back pain, No hand pain, No leg pain, No foot pain Skin: No Rash, No Lesions, No Jaundice, No Bruising, No Other Objective Vitals Vital Signs Date Time Temp Pulse Resp B/P (MAP) Pulse Ox O2 Delivery O2 Flow Rate FiO2 08/29/24 13:00 98.0 84 20 127/74 (91) 96 98.0 08/29/24 12:35 Facial BiPAP Mask 30 08/29/24 08:00 6 Intake/Output Intake and Output 08/29/24 07:00 Intake Total 450 ml Output Total 2900 ml Balance -2450 ml Intake Oral 450 ml Output Urine Total 2900 ml # Bowel Movements 1 General Appearance: Alert, moderate distress, Other (Encephalopathic) HEENT: Atraumatic, PERRLA Lungs: Clear to auscultation, Normal air movement Cardiovascular: Normal S1, Normal S2, Other (Atrial fibrillation) Psych/Mental Status: Mental status NL, Mood NL Medications Current Medications Medications Dose Ordered Sig/Renetta Route Start Time Stop Time Status Last Admin Dose Admin Carvedilol 3.125 mg Q12HR PO 08/27/24 22:00 08/29/24 09:13 3.125 MG Diltiazem HCl 30 mg Q8HR PO 08/27/24 22:00 08/29/24 06:49 30 MG Levalbuterol HCl 0.625 mg Q6HR NEB 08/28/24 00:00 08/29/24 11:46 0.625 MG Sodium Chloride 10 ml Q8HR IV 08/27/24 22:00 08/29/24 06:48 10 ML Acetaminophen/ Hydrocodone Bitart 1 tab Q4HP PRN PO 08/27/24 18:45 Ondansetron HCl 4 mg Q4HP PRN IV 08/27/24 18:45 Docusate Sodium 100 mg BIDPRN PRN PO 08/27/24 18:45 Acetaminophen 650 mg Q6HP PRN PO 08/27/24 18:45 Nitroglycerin 0.4 mg Q5MINP PRN SL 08/27/24 19:30 Morphine Sulfate 2 mg Q30M PRN IV 08/27/24 19:30 Apixaban 5 mg BID PO 08/27/24 22:00 08/29/24 09:13 5 MG Bumetanide 1 mg BIDD IV 08/28/24 15:00 08/29/24 06:54 1 MG Lactulose 30 ml BID PO 08/29/24 10:00 08/29/24 09:12 30 ML Laboratory Results Laboratory Tests 08/29/24 05:24 Chemistry Test 08/29/24 05:24 Albumin 3.6 g/dL (3.2-4.8) Calcium Level 9.1 mg/dL (8.7-10.4) Total Protein 6.3 g/dL (5.7-8.2) Lipid panel Test 08/29/24 05:24 Cholesterol Level 68 mg/dL (< 200) HDL Cholesterol 10 mg/dL (40-59) L Triglycerides Level 74 mg/dL (< 150) LFT Test 08/29/24 05:24 Alanine Aminotransferase (ALT) 146 U/L (7-40) H Alkaline Phosphatase 89 U/L (46-116) Aspartate Amino Transferase (AST) 170 U/L (13-40) H Total Bilirubin 1.6 mg/dL (0.2-1.0) H Urinalysis Test 08/28/24 16:44 Urine Color Yellow (Yellow) Urine Clarity Clear (Clear) Urine pH 5.5 (5.0-9.0) Urine Specific [place] 1.013 (1.001-1.035) Urine Protein Negative (Negative) Urine Ketones Negative (Negative) Urine Blood 2+ /uL (Negative) H Urine Nitrite Negative (Negative) Urine Bilirubin Negative (Negative) Urine Urobilinogen Normal mg/dL (Negative) Urine Leukocyte Esterase 3+ /uL (Negative) Urine RBC 43 /hpf (0 - 3) Urine Microscopic WBC 42 /HPF (0-3) H Urine Squamous Epithelial Cells Few /hpf (<5) Urine Bacteria Few /hpf (None Seen) H Urine Hyaline Casts Mod /lpf (0 - 2) Urine Creatinine 59.42 mg/dL (30.0-125.0) Urine Protein/Creatinine Ratio 0.33 Urine Sodium < 10 mmol/L (40-220) L Urine Glucose Normal mg/dL (Normal) Urine Total Protein 19.7 mg/dL (1-14) H Blood Gas Results Test 08/29/24 11:16 08/29/24 13:29 Arterial Blood pH 7.302 (7.350-7.450) 7.347 (7.350-7.450) FiO2 % 52.0 40.0 Labs and/or images reviewed: Labs reviewed by me, Image(s) reviewed by me Assessment/Plan Assessment/Plan Impression: -acute hypoxic respiratory failure -probable acute decompensated systolic heart failure with pulmonary vascular congestion -obesity -probable cirrhosis -acute kidney injury,? V MN. -hyperkalemia -rule out hepatic encephalopathy -obesity -primary hypertension -atrial fibrillation -primary hypertension -pulmonary hypertension -acute hypercarbic respiratory failure with metabolic encephalopathy Plan: Events: CT scan of the head with questionable changes to the frontal lobe. MRI of the brain ruled out acute CVA and bleed. Patient had persistent altered mental status this a.m.. ABG reveals that the patient has hypercarbic respiratory failure. Patient placed on BiPAP. Reassess with the patient now alert and following commands. -liver ultrasound: Reviewed -nephrology consultation -potassium lowering agents -IV diuresis -echocardiogram reviewed Continue BiPAP at current settings -repeat labs in a.m. Total time spent with patient discussing and formulating plan of care: 35 minutes. This medical document was created using an electronic medical record system with [employer] dictation system. Although this document has been carefully reviewed, there may still be some phonetic and typographical errors. These areas are purely typographical due to imperfections of the software programs, and do not reflect any compromise in the patient's medical care. Plan discussed with: Patient, Other (RN) My Orders Orders - YUMIKO FRANCISCO NP Procedure Category Date Status Time Chest Portable XY 08/29/24 Resulted 04:[address] 08/28/24 Resulted 15:34 Brain Head Wo Contrast MRI 08/28/24 Resulted 17:37 Lactulose Oral PHA 08/29/24 In Process 10:00 Date of Service: Aug 29, 2024 Billing Provider: YUMIKO FRANCISCO NP Common Visit Codes: [id number] CARE 30-74 MIN YUMIKO FRANCISCO NP Aug 29, 2024 14:02
[2024-08-29] MEDS: HYDROcodone-ACET 5/325MG TAB PO PRN (20:40)
[2024-08-30] VITALS (17 sets, daily range): BP systolic 106–127; BP diastolic 69–81; PULSE 81–105; RESP 18–21; TEMP 98.1–98.7; O2SAT 90–98
--- NOTE | 2024-08-30 07:04 | ECG ---
[facility] Test Date: 2024-08-27 Test Time: 12:57:07 Pat Name: EPHRAIM HOLT Department: ED Room: [facility]6T B Gender: M Net M[employer] Developer: DR SMITH: 1965 Requested By: JENNIFER CERVANTES Order Number: [id number] Reading MD: Tj Ochoa Measurements Intervals [place] Rate: 145 P: 0 [place]: 0 QRS: 241 QRSD: 99 T: 38 QT: 280 QTc: 435 Interpretive Statements Atrial fibrillation Inferior infarct, old Electronically Signed On 08-30-2024 9:33:52 PDT by Tj Ochoa Please click the below link to view image of tracing.
[2024-08-30 07:20] LABS: Sodium 139 mmol/L (136-145)
[2024-08-30 07:21] LABS: Calcium 8.8 mg/dL (8.7-10.4)
[2024-08-30 07:26] LABS: BUN/Creatinine Ratio 43.3 (10.0-20.0); Glucose 91 mg/dL (74-106)
[2024-08-30 07:44] LABS: Anion Gap 8.99999 (5-15); Blood Urea Nitrogen 45 mg/dL (9-23); Chloride 90 mmol/L (98-107)
[2024-08-30 07:46] LABS: Carbon Dioxide > 40 mmol/L (20-31)
[2024-08-30 08:45] LABS: Base Excess 21.9 mmol/L (-2.0-3.0)
--- NOTE | 2024-08-30 10:30 | DVHPN2 ---
Progress Note Date Seen: Aug 30, 2024 Medical Necessity Reason Pt with a Central, PICC or Fol: No Subjective Review of Systems: RESPIRATORY:Abnormal Other Systems: Patient seen and examined by myself today in follow-up Objective vital signs Vital Sign Date Time Temp Pulse Resp B/P (MAP) Pulse Ox O2 Delivery O2 Flow Rate FiO2 08/30/24 10:19 89 128/80 08/30/24 09:03 98.7 18 97 98.7 08/30/24 06:42 Oxymizer 4 N/A Total Intake and Output 08/29/24 08/29/24 08/30/24 14:59 22:59 06:59 Intake Total 2280 ml 1040 ml Output Total 1550 ml 1200 ml Balance 730 ml -160 ml medications Current Medications Medications Dose Ordered Sig/Renetta Route Start Time Stop Time Status Last Admin Dose Admin Carvedilol 3.125 mg Q12HR PO 08/27/24 22:00 08/30/24 10:19 3.125 MG Diltiazem HCl 30 mg Q8HR PO 08/27/24 22:00 08/30/24 06:46 30 MG Levalbuterol HCl 0.625 mg Q6HR NEB 08/28/24 00:00 08/30/24 06:42 0.625 MG Sodium Chloride 10 ml Q8HR IV 08/27/24 22:00 08/30/24 06:45 10 ML Acetaminophen/ Hydrocodone Bitart 1 tab Q4HP PRN PO 08/27/24 18:45 08/29/24 20:40 1 TAB Ondansetron HCl 4 mg Q4HP PRN IV 08/27/24 18:45 Docusate Sodium 100 mg BIDPRN PRN PO 08/27/24 18:45 Acetaminophen 650 mg Q6HP PRN PO 08/27/24 18:45 Nitroglycerin 0.4 mg Q5MINP PRN SL 08/27/24 19:30 Morphine Sulfate 2 mg Q30M PRN IV 08/27/24 19:30 Apixaban 5 mg BID PO 08/27/24 22:00 08/30/24 10:19 5 MG Bumetanide 1 mg BIDD IV 08/28/24 15:00 08/30/24 06:44 1 MG Lactulose 30 ml BID PO 08/29/24 10:00 08/30/24 10:18 30 ML Examination: LUNGS:Normal, CVS:Normal, MSK:Abnormal laboratory and microbiology Laboratory Tests 08/30/24 05:44 08/29/24 05:24 Test 08/30/24 05:44 Range/Units Serum Glucose 91 74-106 mg/dL Problem List/Assessment/Plan Problem List/Assessment/Plan 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 Lactulose Pulmonary consult I will sign off this case, please reconsult as needed Thank you for the consult Plan discussed with: Patient, Other (Nurse) My Orders My Orders Orders - EDU AL MD Procedure Category Date Status Time BIPAP RT 08/29/24 Logged 11:26 Abg W/ Co-Ox RT 08/29/24 Logged 12:30 Abg W/ Co-Ox RT 08/29/24 Logged 11:00 EDU AL MD Aug 30, 2024 10:30
--- NOTE | 2024-08-30 17:10 | DVHPN2 ---
Subjective Patient is somewhat encephalopathic Reviewed: Care Plan, H&P, Labs, Medications Changes from previous H/P or p: No Changes General: Per HPI Eyes: No Pain, No Vision change, No Conjunctivae inflammation, No Eyelid inflammation, No Other, No Redness ENT: No Ear pain, No Ear discharge, No Nose pain, No Nose discharge, No Nose congestion, No Mouth pain, No Mouth swelling, No Throat pain, No Throat swelling, No Other Cardiovascular: No Chest Pain, No Palpitations, No Orthopnea, No Paroxysmal Noc. Dyspnea, No Edema, No Lt Headedness, No Other Respiratory: No Cough, No Dry; Shortness of breath; No SOB with excertion, No Wheezing, No Hemoptysis, No Pleuritic Pain, No Sputum; Other (SOB at rest) Gastrointestinal: No Nausea, No Vomiting, No Abdominal Pain, No Diarrhea, No Constipation, No Melena, No Hematochezia, No Other Genitourinary: No Dysuria, No Frequency, No Incontinence, No Hematuria, No Retention, No Other Musculoskeletal: No other, No neck pain, No shoulder pain, No arm pain, No back pain, No hand pain, No leg pain, No foot pain Skin: No Rash, No Lesions, No Jaundice, No Bruising, No Other Objective Vitals Vital Signs Date Time Temp Pulse Resp B/P (MAP) Pulse Ox O2 Delivery O2 Flow Rate FiO2 08/30/24 16:01 82 127/62 08/30/24 13:09 98.7 18 94 98.7 08/30/24 12:11 Oxymizer 3.0 08/30/24 12:11 32 Intake/Output Intake and Output 08/30/24 07:00 Intake Total 3320 ml Output Total 2750 ml Balance 570 ml Intake Oral 3320 ml Output Urine Total 2750 ml # Bowel Movements 2 General Appearance: Alert, Oriented X3, mild distress, Other (Encephalopathic) HEENT: Atraumatic, PERRLA Lungs: Clear to auscultation, Normal air movement Cardiovascular: Normal S1, Normal S2, Other (Atrial fibrillation) Skin: Dry, Intact Psych/Mental Status: Mental status NL, Mood NL Medications Current Medications Medications Dose Ordered Sig/Renetta Route Start Time Stop Time Status Last Admin Dose Admin Carvedilol 3.125 mg Q12HR PO 08/27/24 22:00 08/30/24 10:19 3.125 MG Diltiazem HCl 30 mg Q8HR PO 08/27/24 22:00 08/30/24 16:01 30 MG Levalbuterol HCl 0.625 mg Q6HR NEB 08/28/24 00:00 08/30/24 12:11 0.625 MG Sodium Chloride 10 ml Q8HR IV 08/27/24 22:00 08/30/24 14:00 10 ML Acetaminophen/ Hydrocodone Bitart 1 tab Q4HP PRN PO 08/27/24 18:45 08/29/24 20:40 1 TAB Ondansetron HCl 4 mg Q4HP PRN IV 08/27/24 18:45 Docusate Sodium 100 mg BIDPRN PRN PO 08/27/24 18:45 Acetaminophen 650 mg Q6HP PRN PO 08/27/24 18:45 Nitroglycerin 0.4 mg Q5MINP PRN SL 08/27/24 19:30 Morphine Sulfate 2 mg Q30M PRN IV 08/27/24 19:30 Apixaban 5 mg BID PO 08/27/24 22:00 08/30/24 10:19 5 MG Bumetanide 1 mg BIDD IV 08/28/24 15:00 08/30/24 06:44 1 MG Lactulose 30 ml BID PO 08/29/24 10:00 08/30/24 10:18 30 ML Diphenhydramine HCl 25 mg Q8HP PRN PO 08/30/24 17:15 UNV Laboratory Results Laboratory Tests 08/29/24 05:24 08/30/24 05:44 Chemistry Test 08/30/24 05:44 Calcium Level 8.8 mg/dL (8.7-10.4) Urinalysis Test 08/28/24 16:44 Urine Color Yellow (Yellow) Urine Clarity Clear (Clear) Urine pH 5.5 (5.0-9.0) Urine Specific [place] 1.013 (1.001-1.035) Urine Protein Negative (Negative) Urine Ketones Negative (Negative) Urine Blood 2+ /uL (Negative) H Urine Nitrite Negative (Negative) Urine Bilirubin Negative (Negative) Urine Urobilinogen Normal mg/dL (Negative) Urine Leukocyte Esterase 3+ /uL (Negative) Urine RBC 43 /hpf (0 - 3) Urine Microscopic WBC 42 /HPF (0-3) H Urine Squamous Epithelial Cells Few /hpf (<5) Urine Bacteria Few /hpf (None Seen) H Urine Hyaline Casts Mod /lpf (0 - 2) Urine Creatinine 59.42 mg/dL (30.0-125.0) Urine Protein/Creatinine Ratio 0.33 Urine Sodium < 10 mmol/L (40-220) L Urine Glucose Normal mg/dL (Normal) Urine Total Protein 19.7 mg/dL (1-14) H Blood Gas Results Test 08/30/24 08:26 Arterial Blood pH 7.376 (7.350-7.450) FiO2 % 36.0 Labs and/or images reviewed: Labs reviewed by me, Image(s) reviewed by me Assessment/Plan Assessment/Plan Impression: -acute hypoxic respiratory failure -probable acute decompensated systolic heart failure with pulmonary vascular congestion -obesity -probable cirrhosis -acute kidney injury,? V MN. -hyperkalemia -rule out hepatic encephalopathy -obesity -primary hypertension -atrial fibrillation -primary hypertension -pulmonary hypertension -acute hypercarbic respiratory failure with metabolic encephalopathy Plan: Events: Hypercarbic failure, compensated. Awake and following commands. -Bipap at night. O2 at 2-3 liters per minute to keep saturation between 88-91% -liver ultrasound: Reviewed -nephrology consultation -IV abx -IV diuresis -echocardiogram reviewed Continue BiPAP at current settings -repeat labs in a.m. Total time spent with patient discussing and formulating plan of care: 35 minutes. This medical document was created using an electronic medical record system with [employer] dictation system. Although this document has been carefully reviewed, there may still be some phonetic and typographical errors. These areas are purely typographical due to imperfections of the software programs, and do not reflect any compromise in the patient's medical care. Plan discussed with: Patient, Other (RN) My Orders Orders - YUMIKO FRANCISCO NP Procedure Category Date Status Time Abg W/ Co-Ox RT 08/30/24 Logged 08:15 Diphenhdramine PHA 08/30/24 Logged Capsule (Benadryl 17:15 Communication Order ORDERS 08/30/24 Transmitted 17:02 Date of Service: Aug 30, 2024 Billing Provider: YUMIKO FRANCISCO NP Common Visit Codes: [id number] INP/OBS CARE(HIGH) YUMIKO FRANCISCO NP Aug 30, 2024 17:10
[2024-08-30] MEDS ORDERED: diphenhdrAMINE HCL 25 MG CAP PO PRN (17:15)
[2024-08-31] VITALS (15 sets, daily range): BP systolic 106–127; BP diastolic 61–88; PULSE 80–105; RESP 18–24; TEMP 97.4–98.9; O2SAT 90–100
[2024-08-31 06:17] LABS: Basophils # (auto) 0 10 ^3/uL (0-0.2); Eosinophils # (auto) 0 10 ^3/uL (0-0.8); Eosinophils % (auto) 0.5 % (0.0-7.0); Lymphocytes # (auto) 0.7 10 ^3/uL (0.4-5.4); Mean Corpuscular Volume 81.4 fL (80.0-100.0); Neutrophils # (auto) 7.1 10 ^3/uL (1.6-8.6); Nucleated Red Blood Cells % 0.4 %; White Blood Cell 8.9 10^3/uL (4.4-10.8)
[2024-08-31 06:23] LABS: Basophils % (auto) 0.2 % (0.0-2.0); Hematocrit 36.1 % (41.0-53.0); Hemoglobin 11.1 g/dL (13.5-17.5); Mean Corpuscular Hgb Conc. 30.8 g/dL (32.0-36.0); Neutrophils % (auto) 80.3 % (37.0-80.0); Platelet Count (auto) 198 10^3/uL (140-450); Red Blood Cells 4.43 10^6/uL (4.5-5.90); Red Cell Distribution Width 20.4 % (11.8-14.3)
[2024-08-31 06:44] LABS: Potassium 3.9 mmol/L (3.5-5.1); Sodium 141 mmol/L (136-145)
[2024-08-31 06:45] LABS: Calcium 8.8 mg/dL (8.7-10.4)
[2024-08-31 06:50] LABS: BUN/Creatinine Ratio 36.2 (10.0-20.0); Glucose 92 mg/dL (74-106)
[2024-08-31 07:09] LABS: Anion Gap 12.99999 (5-15); Blood Urea Nitrogen 34 mg/dL (9-23); Chloride 88 mmol/L (98-107)
[2024-08-31 07:19] LABS: Carbon Dioxide > 40 mmol/L (20-31)
[2024-08-31] MEDS: cefTRIAXone 1GM/50ML D5W 50 ML IV SCH (09:46)
--- NOTE | 2024-08-31 10:17 | DVH ---
CHEST RADIOGRAPH Indication: pna Technique: Single frontal view of the chest was obtained Comparison: XY CHEST PORTABLE on DOS: 08/29/24, XY CHEST PORTABLE on DOS: 08/27/24, XY CHEST PORTABLE on DOS: 08/29/24 FINDINGS: Lines and Tubes: None Lungs: Bilateral interstitial prominence. No focal consolidation. Pleura: There is a layering right pleural effusion. No pneumothorax. Cardiomediastinal contours: Cardiomegaly. Bones: No acute osseous abnormality. IMPRESSION: 1. Pulmonary congestion. 2. Right pleural effusion. 3. Cardiomegaly.
[2024-08-31] MEDS: AZITHROMYCIN 500MG/ 250ML 250 ML IV SCH (11:34)
--- NOTE | 2024-08-31 13:19 | DVHPN2 ---
Subjective Patient is somewhat encephalopathic Reviewed: Care Plan, H&P, Labs, Medications Changes from previous H/P or p: No Changes General: Per HPI Eyes: No Pain, No Vision change, No Conjunctivae inflammation, No Eyelid inflammation, No Other, No Redness ENT: No Ear pain, No Ear discharge, No Nose pain, No Nose discharge, No Nose congestion, No Mouth pain, No Mouth swelling, No Throat pain, No Throat swelling, No Other Cardiovascular: No Chest Pain, No Palpitations, No Orthopnea, No Paroxysmal Noc. Dyspnea, No Edema, No Lt Headedness, No Other Respiratory: No Cough, No Dry; Shortness of breath; No SOB with excertion, No Wheezing, No Hemoptysis, No Pleuritic Pain, No Sputum; Other (SOB at rest) Gastrointestinal: No Nausea, No Vomiting, No Abdominal Pain, No Diarrhea, No Constipation, No Melena, No Hematochezia, No Other Genitourinary: No Dysuria, No Frequency, No Incontinence, No Hematuria, No Retention, No Other Musculoskeletal: No other, No neck pain, No shoulder pain, No arm pain, No back pain, No hand pain, No leg pain, No foot pain Skin: No Rash, No Lesions, No Jaundice, No Bruising, No Other Objective Vitals Vital Signs Date Time Temp Pulse Resp B/P (MAP) Pulse Ox O2 Delivery O2 Flow Rate FiO2 08/31/24 13:13 80 109/72 08/31/24 12:58 97.7 18 97 97.7 08/31/24 08:00 Oxymizer 4 N/A Intake/Output Intake and Output 08/31/24 07:00 Intake Total 3325 ml Output Total 5800 ml Balance -2475 ml Intake Oral 3325 ml Output Urine Total 5800 ml # Bowel Movements 1 General Appearance: Alert, Oriented X3, mild distress, Other (Encephalopathic) HEENT: Atraumatic, PERRLA Lungs: Clear to auscultation, Normal air movement Cardiovascular: Normal S1, Normal S2, Other (Atrial fibrillation) Skin: Dry, Intact Psych/Mental Status: Mental status NL, Mood NL Medications Current Medications Medications Dose Ordered Sig/Renetta Route Start Time Stop Time Status Last Admin Dose Admin Carvedilol 3.125 mg Q12HR PO 08/27/24 22:00 08/31/24 09:45 3.125 MG Diltiazem HCl 30 mg Q8HR PO 08/27/24 22:00 08/31/24 13:11 30 MG Levalbuterol HCl 0.625 mg Q6HR NEB 08/28/24 00:00 08/31/24 12:03 0.625 MG Sodium Chloride 10 ml Q8HR IV 08/27/24 22:00 08/31/24 05:10 10 ML Acetaminophen/ Hydrocodone Bitart 1 tab Q4HP PRN PO 08/27/24 18:45 08/31/24 05:15 1 TAB Ondansetron HCl 4 mg Q4HP PRN IV 08/27/24 18:45 Docusate Sodium 100 mg BIDPRN PRN PO 08/27/24 18:45 Acetaminophen 650 mg Q6HP PRN PO 08/27/24 18:45 Nitroglycerin 0.4 mg Q5MINP PRN SL 08/27/24 19:30 Morphine Sulfate 2 mg Q30M PRN IV 08/27/24 19:30 Apixaban 5 mg BID PO 08/27/24 22:00 08/31/24 09:45 5 MG Bumetanide 1 mg BIDD IV 08/28/24 15:00 08/31/24 05:16 1 MG Lactulose 30 ml BID PO 08/29/24 10:00 08/31/24 09:43 30 ML Diphenhydramine HCl 25 mg Q8HP PRN PO 08/30/24 17:15 Ceftriaxone Sodium 50 ml @ 100 mls/hr DAILY@09 IV 08/31/24 09:00 08/31/24 09:46 100 MLS/HR Azithromycin 250 ml @ 125 mls/hr DAILY IV 08/31/24 10:00 08/31/24 11:34 125 MLS/HR Laboratory Results Laboratory Tests 08/31/24 05:30 Chemistry Test 08/31/24 05:30 Calcium Level 8.8 mg/dL (8.7-10.4) Urinalysis Test 08/28/24 16:44 Urine Color Yellow (Yellow) Urine Clarity Clear (Clear) Urine pH 5.5 (5.0-9.0) Urine Specific [place] 1.013 (1.001-1.035) Urine Protein Negative (Negative) Urine Ketones Negative (Negative) Urine Blood 2+ /uL (Negative) H Urine Nitrite Negative (Negative) Urine Bilirubin Negative (Negative) Urine Urobilinogen Normal mg/dL (Negative) Urine Leukocyte Esterase 3+ /uL (Negative) Urine RBC 43 /hpf (0 - 3) Urine Microscopic WBC 42 /HPF (0-3) H Urine Squamous Epithelial Cells Few /hpf (<5) Urine Bacteria Few /hpf (None Seen) H Urine Hyaline Casts Mod /lpf (0 - 2) Urine Creatinine 59.42 mg/dL (30.0-125.0) Urine Protein/Creatinine Ratio 0.33 Urine Sodium < 10 mmol/L (40-220) L Urine Glucose Normal mg/dL (Normal) Urine Total Protein 19.7 mg/dL (1-14) H Labs and/or images reviewed: Labs reviewed by me, Image(s) reviewed by me Assessment/Plan Assessment/Plan Impression: -acute hypoxic respiratory failure -probable acute decompensated systolic heart failure with pulmonary vascular congestion -obesity -probable cirrhosis -acute kidney injury,? V MN. -hyperkalemia -rule out hepatic encephalopathy -obesity -primary hypertension -atrial fibrillation -primary hypertension -pulmonary hypertension -acute hypercarbic respiratory failure with metabolic encephalopathy Plan: Events: Patient oxygen saturation noted to be 98% while he was assessed on 3 L while sitting in a chair. Patient was more alert and oriented and following commands. Oxygen was decreased to 2 L by myself. Repeat ABG and ammonia level will be assessed. Continue current treatment plan. -Bipap at night. O2 at 2-3 liters per minute to keep saturation between 88-91% -liver ultrasound: Reviewed -nephrology consultation -IV abx -IV diuresis -echocardiogram reviewed Continue BiPAP at current settings -repeat labs in a.m. Total time spent with patient discussing and formulating plan of care: 35 minutes. This medical document was created using an electronic medical record system with [employer] dictation system. Although this document has been carefully reviewed, there may still be some phonetic and typographical errors. These areas are purely typographical due to imperfections of the software programs, and do not reflect any compromise in the patient's medical care. Plan discussed with: Patient, Other (RN) My Orders Orders - YUMIKO FRANCISCO NP Procedure Category Date Status Time Diphenhdramine PHA 08/30/24 In Process Capsule (Benadryl 17:15 Communication Order ORDERS 08/30/24 Transmitted 17:02 Ceftriaxone 1gm/50ml PHA 08/31/24 In Process D5w (Rocephin) 09:00 Azithromycin 500mg/ PHA 08/31/24 In Process 250ml (Zithromax 50 10:00 Chest Xray 1 View XY 08/31/24 Resulted 04:00 Abg W/ Co-Ox RT 08/31/24 Logged 12:27 Ammonia LAB 08/31/24 Logged 12:42 Date of Service: Aug 31, 2024 Billing Provider: YUMIKO FRANCISCO [employer]IA MARKETING COORDINATOR Common Visit Codes: [id number] INP/OBS CARE(HIGH) YUMIKO FRANCISCO NP Aug 31, 2024 13:19
[2024-08-31 15:30] LABS: Base Excess 16.7 mmol/L (-2.0-3.0)
[2024-09-01] VITALS (15 sets, daily range): BP systolic 106–129; BP diastolic 64–88; PULSE 84–117; RESP 17–20; TEMP 97.5–98.1; O2SAT 90–100
--- NOTE | 2024-09-01 17:02 | DVHPN2 ---
Subjective Feels better Reviewed: Care Plan, H&P, Labs, Medications, Previous Orders, Radiology Changes from previous H/P or p: No Changes General: Per HPI Objective Vitals Vital Signs Date Time Temp Pulse Resp B/P (MAP) Pulse Ox O2 Delivery O2 Flow Rate FiO2 09/01/24 16:51 97.7 85 18 129/85 (100) 96 97.7 09/01/24 11:35 Nasal Cannula* 3 32 Intake/Output Intake and Output 09/01/24 07:00 Intake Total 6430 ml Output Total 3975 ml Balance 2455 ml Intake Oral 6130 ml IV Total 300 ml Output Urine Total 3975 ml # Bowel Movements 2 General Appearance: Alert, Oriented X3, No acute distress HEENT: Atraumatic Lungs: Other (Few crackles bilateral lungs. Fair to good air entry) Cardiovascular: Other (Borderline tachycardia/irregular) Abdomen: Normal bowel sounds, Soft, No tenderness Extremities: Other (Bilateral lower extremity edema) Medications Current Medications Medications Dose Ordered Sig/Renetta Route Start Time Stop Time Status Last Admin Dose Admin Carvedilol 3.125 mg Q12HR PO 08/27/24 22:00 09/01/24 09:35 3.125 MG Diltiazem HCl 30 mg Q8HR PO 08/27/24 22:00 09/01/24 05:59 30 MG Levalbuterol HCl 0.625 mg Q6HR NEB 08/28/24 00:00 09/01/24 11:35 0.625 MG Sodium Chloride 10 ml Q8HR IV 08/27/24 22:00 09/01/24 06:00 10 ML Acetaminophen/ Hydrocodone Bitart 1 tab Q4HP PRN PO 08/27/24 18:45 09/01/24 04:47 1 TAB Ondansetron HCl 4 mg Q4HP PRN IV 08/27/24 18:45 Docusate Sodium 100 mg BIDPRN PRN PO 08/27/24 18:45 Acetaminophen 650 mg Q6HP PRN PO 08/27/24 18:45 Nitroglycerin 0.4 mg Q5MINP PRN SL 08/27/24 19:30 Morphine Sulfate 2 mg Q30M PRN IV 08/27/24 19:30 Apixaban 5 mg BID PO 08/27/24 22:00 09/01/24 09:35 5 MG Bumetanide 1 mg BIDD IV 08/28/24 15:00 09/01/24 05:59 1 MG Lactulose 30 ml BID PO 08/29/24 10:00 09/01/24 09:38 30 ML Diphenhydramine HCl 25 mg Q8HP PRN PO 08/30/24 17:15 Ceftriaxone Sodium 50 ml @ 100 mls/hr DAILY@09 IV 08/31/24 09:00 09/01/24 09:34 100 MLS/HR Azithromycin 250 ml @ 125 mls/hr DAILY IV 08/31/24 10:00 09/01/24 10:53 125 MLS/HR Laboratory Results Laboratory Tests 08/31/24 05:30 Urinalysis Test 08/28/24 16:44 Urine Color Yellow (Yellow) Urine Clarity Clear (Clear) Urine pH 5.5 (5.0-9.0) Urine Specific [place] 1.013 (1.001-1.035) Urine Protein Negative (Negative) Urine Ketones Negative (Negative) Urine Blood 2+ /uL (Negative) H Urine Nitrite Negative (Negative) Urine Bilirubin Negative (Negative) Urine Urobilinogen Normal mg/dL (Negative) Urine Leukocyte Esterase 3+ /uL (Negative) Urine RBC 43 /hpf (0 - 3) Urine Microscopic WBC 42 /HPF (0-3) H Urine Squamous Epithelial Cells Few /hpf (<5) Urine Bacteria Few /hpf (None Seen) H Urine Hyaline Casts Mod /lpf (0 - 2) Urine Creatinine 59.42 mg/dL (30.0-125.0) Urine Protein/Creatinine Ratio 0.33 Urine Sodium < 10 mmol/L (40-220) L Urine Glucose Normal mg/dL (Normal) Urine Total Protein 19.7 mg/dL (1-14) H Assessment/Plan Assessment/Plan Acute respiratory failure with hypoxemia Acute on chronic systolic heart failure UTI Pulmonary hypertension Hypertension AFib Acute kidney injury Obesity Questionable cirrhosis Pleural effusion and cardiomegaly Plan: Continue current plan of care. Further plan per orders Plan discussed with: Patient Date of Service: Sep 01, 2024 Billing Provider: SUSAN HERNANDEZ MD Common Visit Codes: [id number] INP/OBS CARE(HIGH) SUSAN HERNANDEZ MD Sep 01, 2024 17:02
[2024-09-02] VITALS (16 sets, daily range): BP systolic 113–128; BP diastolic 82–94; PULSE 85–113; RESP 18–20; TEMP 97.6–98.2; O2SAT 94–99
[2024-09-02] MEDS: ACETAMINOPHEN 325 MG TAB PO PRN (05:13)
[2024-09-02 06:11] LABS: Albumin 3.8 g/dL (3.2-4.8); Alkaline Phosphatase 102 U/L (46-116); BUN/Creatinine Ratio 28.4 (10.0-20.0); Blood Urea Nitrogen 23 mg/dL (9-23); Calcium 9.1 mg/dL (8.7-10.4); Glucose 86 mg/dL (74-106); Potassium 4.1 mmol/L (3.5-5.1); Sodium 139 mmol/L (136-145); Total Protein 6.6 g/dL (5.7-8.2)
[2024-09-02 06:27] LABS: Anion Gap 14.99999 (5-15); Chloride 84 mmol/L (98-107)
[2024-09-02 06:28] LABS: Alanine Aminotransferase 87 U/L (7-40); Aspartate Aminotransferase 61 U/L (13-40); Carbon Dioxide > 40 mmol/L (20-31)
--- NOTE | 2024-09-02 10:31 | DVH ---
CHEST RADIOGRAPH Indication: fu Technique: Single frontal view of the chest was obtained Comparison: XY CHEST XRAY 1 VIEW on DOS: 08/31/24 FINDINGS: Lines and Tubes: None Lungs: Bilateral interstitial prominence similar to prior study. Pleura: Stable right pleural effusion. No pneumothorax. Cardiomediastinal contours: Stable cardiomegaly. Bones: No acute osseous abnormality. IMPRESSION: 1. Pulmonary vascular congestion and right pleural effusion similar to prior study. 2. Stable cardiomegaly.
--- NOTE | 2024-09-02 16:10 | DVHPN2 ---
Subjective Feels better Reviewed: Care Plan, H&P, Labs, Medications, Previous Orders, Radiology Changes from previous H/P or p: No Changes General: Per HPI Objective Vitals Vital Signs Date Time Temp Pulse Resp B/P (MAP) Pulse Ox O2 Delivery O2 Flow Rate FiO2 09/02/24 14:55 95 120/85 09/02/24 12:54 97.6 18 97 97.6 09/02/24 12:03 Nasal Cannula 3.0 09/02/24 12:03 32 Intake/Output Intake and Output 09/02/24 07:00 Intake Total 2100 ml Output Total 4800 ml Balance -2700 ml Intake Oral 1800 ml IV Total 300 ml Output Urine Total 4800 ml # Bowel Movements 2 General Appearance: Alert, Oriented X3, No acute distress HEENT: Atraumatic Lungs: Other (Few crackles bilateral lungs. Fair to good air entry) Cardiovascular: Other (Irregular heart rhythm. Borderline tachycardia) Abdomen: Normal bowel sounds, Soft, No tenderness Extremities: Other (Bilateral lower extremity edema) Medications Current Medications Medications Dose Ordered Sig/Renetta Route Start Time Stop Time Status Last Admin Dose Admin Carvedilol 3.125 mg Q12HR PO 08/27/24 22:00 09/02/24 09:39 3.125 MG Diltiazem HCl 30 mg Q8HR PO 08/27/24 22:00 09/02/24 14:55 30 MG Levalbuterol HCl 0.625 mg Q6HR NEB 08/28/24 00:00 09/02/24 12:03 0.625 MG Sodium Chloride 10 ml Q8HR IV 08/27/24 22:00 09/02/24 14:55 10 ML Acetaminophen/ Hydrocodone Bitart 1 tab Q4HP PRN PO 08/27/24 18:45 09/02/24 01:57 1 TAB Ondansetron HCl 4 mg Q4HP PRN IV 08/27/24 18:45 Docusate Sodium 100 mg BIDPRN PRN PO 08/27/24 18:45 Acetaminophen 650 mg Q6HP PRN PO 08/27/24 18:45 09/02/24 05:13 650 MG Nitroglycerin 0.4 mg Q5MINP PRN SL 08/27/24 19:30 Morphine Sulfate 2 mg Q30M PRN IV 08/27/24 19:30 Apixaban 5 mg BID PO 08/27/24 22:00 09/02/24 09:38 5 MG Bumetanide 1 mg BIDD IV 08/28/24 15:00 09/02/24 05:38 1 MG Lactulose 30 ml BID PO 08/29/24 10:00 09/02/24 09:38 30 ML Diphenhydramine HCl 25 mg Q8HP PRN PO 08/30/24 17:15 Ceftriaxone Sodium 50 ml @ 100 mls/hr DAILY@09 IV 08/31/24 09:00 09/02/24 09:38 100 MLS/HR Azithromycin 250 ml @ 125 mls/hr DAILY IV 08/31/24 10:00 09/02/24 10:46 125 MLS/HR Laboratory Results Laboratory Tests 08/31/24 05:30 09/02/24 05:07 Chemistry Test 09/02/24 05:07 Albumin 3.8 g/dL (3.2-4.8) Calcium Level 9.1 mg/dL (8.7-10.4) Total Protein 6.6 g/dL (5.7-8.2) Cardiac Markers Test 09/02/24 05:07 B-Type Natriuretic Peptide 479.04 pg/mL (0-100) LFT Test 09/02/24 05:07 Alanine Aminotransferase (ALT) 87 U/L (7-40) H Alkaline Phosphatase 102 U/L (46-116) Aspartate Amino Transferase (AST) 61 U/L (13-40) H Total Bilirubin 2.0 mg/dL (0.2-1.0) H Urinalysis Test 08/28/24 16:44 Urine Color Yellow (Yellow) Urine Clarity Clear (Clear) Urine pH 5.5 (5.0-9.0) Urine Specific [place] 1.013 (1.001-1.035) Urine Protein Negative (Negative) Urine Ketones Negative (Negative) Urine Blood 2+ /uL (Negative) H Urine Nitrite Negative (Negative) Urine Bilirubin Negative (Negative) Urine Urobilinogen Normal mg/dL (Negative) Urine Leukocyte Esterase 3+ /uL (Negative) Urine RBC 43 /hpf (0 - 3) Urine Microscopic WBC 42 /HPF (0-3) H Urine Squamous Epithelial Cells Few /hpf (<5) Urine Bacteria Few /hpf (None Seen) H Urine Hyaline Casts Mod /lpf (0 - 2) Urine Creatinine 59.42 mg/dL (30.0-125.0) Urine Protein/Creatinine Ratio 0.33 Urine Sodium < 10 mmol/L (40-220) L Urine Glucose Normal mg/dL (Normal) Urine Total Protein 19.7 mg/dL (1-14) H Assessment/Plan Assessment/Plan Acute respiratory failure with hypoxemia Acute on chronic systolic heart failure UTI Pulmonary hypertension Hypertension AFib Acute kidney injury Obesity Questionable cirrhosis Pleural effusion and cardiomegaly Plan: Possible home tomorrow if stable Plan discussed with: Patient My Orders Orders - SUSAN HERNANDEZ MD Procedure Category Date Status Time Chest Portable XY 09/02/24 Resulted 06:00 Date of Service: Sep 02, 2024 Billing Provider: SUSAN HERNANDEZ MD Common Visit Codes: [id number] INP/OBS CARE(HIGH) SUSAN HERNANDEZ MD Sep 02, 2024 16:10
[2024-09-03] VITALS (14 sets, daily range): BP systolic 123–139; BP diastolic 86–98; PULSE 84–106; RESP 16–22; TEMP 97.4–98.8; O2SAT 90–100
[2024-09-03] MEDS ORDERED: CARV-214 OR (10:57)
[2024-09-03] MEDS ORDERED: LACT10SO3 PO (10:57)
[2024-09-03] MEDS ORDERED: APIX5TAB PO (10:57)
--- NOTE | 2024-09-03 11:02 | DVHDS2 ---
Discharge Summary Date of Admission Aug 27, 2024 at 19:30 Date of Discharge: Sep 03, 2024 Admitting Diagnosis Acute on chronic decompensated systolic and diastolic heart failure Labs/Diagnostic Data: Laboratory Results Test 09/02/24 05:07 08/31/24 13:27 08/31/24 13:25 08/31/24 05:30 Sodium Level 139 mmol/L (136-145) Potassium Level 4.1 mmol/L (3.5-5.1) Chloride Level 84 mmol/L (98-107) Carbon Dioxide Level > 40 mmol/L (20-31) Anion Gap 14.95715 (5-15) Blood Urea Nitrogen 23 mg/dL (9-23) Creatinine 0.81 mg/dL (0.700-1.30) Glomerular Filtration Rate Calc 100 mL/min (>90) BUN/Creatinine Ratio 28.4 (10.0-20.0) Serum Glucose 86 mg/dL (74-106) Calcium Level 9.1 mg/dL (8.7-10.4) Total Bilirubin 2.0 mg/dL (0.2-1.0) Aspartate Amino Transferase (AST) 61 U/L (13-40) Alanine Aminotransferase (ALT) 87 U/L (7-40) Alkaline Phosphatase 102 U/L (46-116) B-Type Natriuretic Peptide 479.04 pg/mL (0-100) Total Protein 6.6 g/dL (5.7-8.2) Albumin 3.8 g/dL (3.2-4.8) Blood Gas Specimen Type Arterial Blood Gas Sample Site Right radial Blood Gas Patient Temperature 37.0 Arterial Blood Date Drawn [id number] Arterial Blood pH 7.381 (7.350-7.450) Arterial Blood Partial Pressure CO2 78.0 mmHg (35.0-48.0) Arterial Blood Partial Pressure O2 59.9 mmHg (83.0-108.0) Arterial Blood HCO3 45.2 mmol/L (21.0-28.0) Arterial Blood Oxygen Saturation 89.4 % (94.0-98.0) Arterial Blood Base Excess 16.7 mmol/L (-2.0-3.0) Arterial Blood Oxyhemoglobin 87.9 % (94.0-98.0) Arterial Blood Carboxyhemoglobin 1.4 % (0.5-1.5) Arterial Blood Methemoglobin 0.3 % (0.0-1.5) Gerardo Test Yes Blood Gas Total Hemoglobin 11.60 g/dL (13.5-17.5) Blood Gas Liter Flow 2.00 Blood Gas Modality Nasal cannula FiO2 % 28.0 Blood Gas Critical Value Read Back Yes Blood Gas Notified Whom [employer] ron francisco Blood Gas Notified Time [id number] Blood Gas Notified By Ammonia 38 umol/L (11-32) White Blood Count 8.9 10^3/uL (4.4-10.8) Red Blood Count 4.43 10^6/uL (4.5-5.90) Hemoglobin 11.1 g/dL (13.5-17.5) Hematocrit 36.1 % (41.0-53.0) Mean Corpuscular Volume 81.4 fL (80.0-100.0) Mean Corpuscular Hemoglobin 25.0 pg (28.0-32.0) Mean Corpuscular Hemoglobin Concent 30.8 g/dL (32.0-36.0) Red Cell Distribution Width 20.4 % (11.8-14.3) Platelet Count 198 10^3/uL (140-450) Mean Platelet Volume 7.8 fL (6.9-10.8) Neutrophils (%) (Auto) 80.3 % (37.0-80.0) Lymphocytes (%) (Auto) 8.0 % (10.0-50.0) Monocytes (%) (Auto) 11.0 % (0.0-12.0) Eosinophils (%) (Auto) 0.5 % (0.0-7.0) Basophils (%) (Auto) 0.2 % (0.0-2.0) Neutrophils # (Auto) 7.1 10 ^3/uL (1.6-8.6) Lymphocytes # (Auto) 0.7 10 ^3/uL (0.4-5.4) Monocytes # (Auto) 1.0 10 ^3/uL (0-1.3) Eosinophils # (Auto) 0 10 ^3/uL (0-0.8) Basophils # (Auto) 0 10 ^3/uL (0-0.2) Nucleated Red Blood Cells 0.4 % Test 08/29/24 13:29 6/4/25 05:24 08/28/24 16:44 08/28/24 15:58 Blood Gas Set Respiration Rate 14.0 Blood Gas Spontaneous Rate 28 Blood Gas Spontaneous Tidal Volume 658 Blood Gas EPAP 7 Blood Gas IPAP 14 Triglycerides Level 74 mg/dL (< 150) Cholesterol Level 68 mg/dL (< 200) LDL Cholesterol 44 mg/dL (< 100) HDL Cholesterol 10 mg/dL (40-59) Urine Color Yellow (Yellow) Urine Clarity Clear (Clear) Urine pH 5.5 (5.0-9.0) Urine Specific [place] 1.013 (1.001-1.035) Urine Protein Negative (Negative) Urine Ketones Negative (Negative) Urine Blood 2+ /uL (Negative) Urine Nitrite Negative (Negative) Urine Bilirubin Negative (Negative) Urine Urobilinogen Normal mg/dL (Negative) Urine Leukocyte Esterase 3+ /uL (Negative) Urine RBC 43 /hpf (0 - 3) Urine Microscopic WBC 42 /HPF (0-3) Urine Squamous Epithelial Cells Few /hpf (<5) Urine Bacteria Few /hpf (None Seen) Urine Hyaline Casts Mod /lpf (0 - 2) Urine Creatinine 59.42 mg/dL (30.0-125.0) Urine Protein/Creatinine Ratio 0.33 Urine Sodium < 10 mmol/L (40-220) Urine Glucose Normal mg/dL (Normal) Urine Total Protein 19.7 mg/dL (1-14) Urine Opiates Screen Neg (NEGATIVE) Urine Fentanyl Screen Neg (NEGATIVE) Urine Barbiturates Screen Neg (NEGATIVE) Urine Phencyclidine Screen Neg (NEGATIVE) Urine Amphetamines Screen Neg (NEGATIVE) Urine Benzodiazepines Screen Neg (NEGATIVE) Urine Cocaine Screen Neg (NEGATIVE) Urine Cannabinoids Screen Neg (NEGATIVE) Vitamin D 25-Hydroxy 35.6 ng/mL (30.0-100) Test 08/28/24 05:51 08/27/24 16:15 08/27/24 13:08 Prothrombin Time 19.8 sec (9.3-11.8) Prothrombin Time INR 2.00 (0.9-1.15) Hemoglobin A1c 5.8 % A1C (<5.7) Uric Acid 9.6 mg/dL (3.7-9.2) Phosphorus Level 6.1 mg/dL (2.4-5.1) Magnesium Level 2.2 mg/dL (1.6-2.6) Parathyroid Hormone (Intact) 65.9 pg/mL (18.4-80.1) POC Glucose 123 mg/dl (70-106) Troponin I High Sensitivity 47 ng/L (</=54) Other Laboratory Tests 09/02/24 05:07 08/31/24 05:30 Brief Hx & Hospital Course: History of Present Illness The patient is a 59-year-old male with past medical history of AFib, CHF, hyperlipidemia, kidney stones, and hypertension who presented to [facility] ED with complaint of shortness of breaths. Patient reports having difficulty breathing, using accessory muscles, increased work of breathing, getting worse that prompted this visit. Patient was seen and evaluated in the ED, laboratory data shows WBC 9.4, hemoglobin 11.7, hematocrit 38.6, platelets 267, sodium 138, potassium 5.8, BUN 54, creatinine 1.29, glucose 78, BNP 1327.86, troponin 47, blood pressure 114/90, heart rate 103, temperature 98.2 F, O2 saturation 92% on oxygen. Chest x-ray revealing cardiomegaly with pulmonary vascular congestion, possible trace right pleural effusion. Patient was started on IV Lasix, please see medication orders section in the computer. On my assessment, patient denied chest pain, no headache, no dizziness, currently on oxygen, no diaphoresis, no nausea, no vomiting, no fever, no chills. Patient was admitted for further evaluation and medical management. Course of hospitalization: After assuming care of the patient, he was found to be somewhat obtunded. Patient has CT scan, followed by MRI with findings of encephalomalacia. Patient also had ABG which revealed the patient had hypercarbic respiratory failure. Patient was also assessed to have cirrhosis, on ultrasound in addition to having a component of hepatic encephalopathy with elevated ammonia level. All the previously mentioned conditions were addressed with the patient now alert and oriented, following commands, as well as on 2 L via nasal cannula. Patient states that he is stable to be discharged back to his facility. Patient will be discharged to [facility], and after having his medications reconciled, patient is Lasix and Vasotec will be continued. Anticoagulation we will be continued with Eliquis. Patient will also be continued on carvedilol at a lower dose of 3.125 mg p.o. b.i.d., as well as being prescribed lactulose 15 mL twice a day. Patient states that he has an oxygen concentrator at home as well as for transportation. Patient also reports having a BiPAP machine at home. He is instructed to follow up with the discharge Clinic in 1-2 weeks as well as his PCP at next available appointment. Patient was agreeable with discharge plan. All questions answered. Physical examination General: Alert and Oriented x3. No acute distress. Well-nourished. Eyes: EOMI. Anicteric. HENT: Moist mucous membranes. Lungs: Clear to auscultation bilaterally. No accessory muscle use. Cardiovascular: Regular rate and rhythm. No murmur. No JVD. Abdomen: Soft, non-tender and non-distended. No palpable masses. Extremities: No edema. Non-tender. Skin: No rashes or lesions. Warm. Neurologic: No focal neurological deficits. CN II-XII grossly intact, but not individually tested. Psychiatric: Cooperative. Appropriate mood and affect. Total time spent with patient discussing and formulating plan of care: 35 minutes. This medical document was created using an electronic medical record system with [employer] dictation system. Although this document has been carefully reviewed, there may still be some phonetic and typographical errors. These areas are purely typographical due to imperfections of the software programs, and do not reflect any compromise in the patient's medical care. Consults/Reason for consult Nephrology: Acute kidney injury Condition at Discharge: Guarded Final Diagnosis/Problems List Acute hypoxic and hypercarbic respiratory failure Secondary diagnosis: -acute hypoxic respiratory failure -probable acute decompensated systolic heart failure with pulmonary vascular congestion -obesity -probable cirrhosis -acute kidney injury,? V MN. -hyperkalemia -rule out hepatic encephalopathy -obesity -primary hypertension -atrial fibrillation -primary hypertension -pulmonary hypertension -acute hypercarbic respiratory failure with metabolic encephalopathy Discharge Disposition: Home Discharge Instruct/Medications Diet: Consistent carbohydrate, Cardiac 2g Na,low cholest Diet comment: Recommend fluid restriction of 1500 mL daily Activity: No Restrictions, As Tolerated Follow Up/Referral: Follow up with PCP in 1-2 weeks Follow up with discharge Clinic in one week Medications: Continue all medications per medication reconciliation form 36 Discharge Statement: "Patient was advised to return to the ER or call 911 if any headaches, dizziness, shortness of breath, chest pain, abdominal pain, bleeding, fevers, or worsening of medical condition. Patient was counseled about treatment plan, medications, possible side effects, patientverbalized understanding. All questions were answered to the best of my ability. This discharge took greater then 30 minutes in planning, reviewing documentation, counseling the patient, and discussing with other team members." ASSESSMENT ASSESSMENT Assessment Acute hypoxic and hypercarbic respiratory failure Date of Service: Sep 03, 2024 Billing Provider: YUMIKO FRANCISCO NP Common Visit Codes: [id number] DISCH DAY >30min YUMIKO FRANCISCO NP Sep 03, 2024 11:02
== END 2024-09-03 17:20 | disposition home or self-care (01) | DRG 133 ==
LOC: ER 12:40 → EDBD 12:40 → OVERFLOW 19:30 → TELE-WESTW 08-28 17:41
PROVIDERS: ADMIT Nurse Practitioner Acute Care; ATTEND Nurse Practitioner Acute Care
PROC: 5A09357 Assistance with Respiratory Ventilation, Less than 24 Consecutive Hours, Continuous Positive Airway Pressure (ICD-10-PCS; principal; 2024-08-28)
PROC: 5A09357 Assistance with Respiratory Ventilation, Less than 24 Consecutive Hours, Continuous Positive Airway Pressure (ICD-10-PCS; 2024-08-29)
PROC: 5A09357 Assistance with Respiratory Ventilation, Less than 24 Consecutive Hours, Continuous Positive Airway Pressure (ICD-10-PCS; 2024-09-02)
PROC: 5A09357 Assistance with Respiratory Ventilation, Less than 24 Consecutive Hours, Continuous Positive Airway Pressure (ICD-10-PCS; 2024-09-03)
DX: J96.01 Acute respiratory failure with hypoxia (principal); N17.0 Acute kidney failure with tubular necrosis; G93.41 Metabolic encephalopathy; I50.23 Acute on chronic systolic (congestive) heart failure; K76.82 Hepatic encephalopathy; I27.20 Pulmonary hypertension, unspecified; E87.3 Alkalosis; D63.1 Anemia in chronic kidney disease; G93.89 Other specified disorders of brain; I13.0 Hypertensive heart and chronic kidney disease with heart failure and stage 1 through stage 4 chronic kidney disease, or unspecified chronic kidney disease; K74.60 Unspecified cirrhosis of liver; N18.9 Chronic kidney disease, unspecified; E66.9 Obesity, unspecified; E87.5 Hyperkalemia; I48.0 Paroxysmal atrial fibrillation; N39.0 Urinary tract infection, site not specified; J96.02 Acute respiratory failure with hypercapnia; F17.210 Nicotine dependence, cigarettes, uncomplicated; E78.5 Hyperlipidemia, unspecified; Z68.29 Body mass index [BMI] 29.0-29.9, adult; Z91.041 Radiographic dye allergy status; Z87.442 Personal history of urinary calculi
CPT/HCPCS: 36415; 36600; 70450; 70551; 71045; 76700; 80048; 80053; 80061; 80307; 81001; 82140; 82306; 82570; 82805; 82962; 83036; 83735; 83880; 83970; 84100; 84156; 84300; 84484; 84550; 85025; 85610; 93005; 93306; 94640; 94660; 99291; 99292; G0378; J1815

== ENCOUNTER 2024-09-16 17:11 | Inpatient (IN) | payer MEDICAID ==
[~2024-09-16] VITALS: Ht 193 cm; Wt 109.7 kg
[2024-09-16] VITALS (7 sets, daily range): BP systolic 105–126; BP diastolic 73–92; PULSE 83–98; RESP 24; O2SAT 95–100
[~2024-09-16 17:11] MED LIST changes: +APIX5TAB PO; +CARV-214 OR; -CARV25TA55 PO; -DILT30TA PO; +LACT10SO3 PO; -WARF2.5T PO
[2024-09-16] MEDS: NOREPINEPHRINE 8 MG/250ML KIT 250 ML IV ONE (17:20)
[2024-09-16] MEDS: SODIUM CHLORIDE 0.9% 1,000 ML IV ONE (17:30)
[2024-09-16] MEDS: PROPOFOL 100 ML IV ONE (17:53)
[2024-09-16 17:54] LABS: Hemoglobin 11.4 g/dL (13.5-17.5)
[2024-09-16] MEDS: fentaNYL Drip 2500mCg/250mlNS 250 ML IV ONE (17:54)
[2024-09-16] MEDS: fentaNYL Drip 2500mCg/250mlNS 250 ML IV SCH (17:54)
[2024-09-16 17:55] LABS: Hematocrit 39.5 % (41.0-53.0); Mean Corpuscular Hemoglobin 24.9 pg (28.0-32.0); Mean Corpuscular Volume 85.8 fL (80.0-100.0)
[2024-09-16] MEDS: PROPOFOL 100 ML IV SCH (17:55)
--- NOTE | 2024-09-16 17:55 | ED.PDOC ---
CPR-HPI HPI Comments 59 y.o male with a PMHx of CHF, AFIB, hyperlipidemia, HTN and kidney stones, presents to the ED via EMS s/p cardiac arrest following ROSC en route. EMS reports patient initially experienced SOB prior to collapsing with a 5-7 minute down time before CPR was initiated. Resuscitation efforts included 4 doses of epinephrine and successful intubation with a 8.0 ETT secured at 24 at the lip. Total downtime approximately 15 minutes prior to medic arrival to the ER at which point ROSC was achieved while the ambulance as being parked in the ambulance bay. Point of care glucose 99 on arrival to the ER. History limited given patient condition. Chief Complaint: CPR Time Seen by MD: 17:13 Primary Care Provider: OUT OF AREA Reviewed Notes: Nurses Notes, Government Program Manager Notes, Medications, Allergies Allergies: Coded Allergies: Iodine (Verified Allergy, Unknown, 08/27/24) Home Meds Active Scripts Carvedilol (COREG) 3.125 Mg Tab, 3.125 MG OR BID for 30 Days, #60 TAB 2 Refills Prov:YUMIKO FRANCISCO CDL PROGRAM COORDINATOR 09/03/24 Apixaban Base (ELIQUIS) 5 Mg Tab, 5 MG PO BID for 30 Days, #60 TAB Prov:YUMIKO FRANCISCO CDL PROGRAM COORDINATOR 09/03/24 Lactulose (Lactulose) 10 Gm/15 Ml Jackeline, 30 ML PO BID for 30 Days, #15 ML 1 Refill Prov:YUMIKO FRANCISCO CDL PROGRAM COORDINATOR 09/03/24 Reported Medications Enalapril Maleate (Enalapril Maleate) 2.5 Mg Tab, 1 TAB PO BID 01/06/12 Furosemide (Furosemide) 20 Mg Tab, 20 MG PO BID 01/06/12 Information Source: Emergency Med Personnel Mode of Arrival: EMS Treatment: CPR, Intubation, Epinephrine (4) Response: Transient return of pulse Associated signs and symptoms: Dyspnea, Other (SOB ) Past Medical History PAST MEDICAL HISTORY: AFIB, CHF, High Lipids, HTN, Kidney Stones Surgical History: Denies all surgeries Family History Family History: No family hx of Heart simone Social History Smoker: Cigarettes, Less Than 1 Pack/Day Alcohol: Denies ETOH Use Drugs: Marijuana Lives In: Home Constitutional: reports: others (ROS limited given patient condition) Unable to Obtain due to: Medical Urgency, Intubated Physical Exam General Appearance: Other (Unresponsive, being ventilated via ETT and bag valve mask, GCS three) HEENT: Other (Pupils 4 mm bilaterally and nonreactive) Neck: Normal Inspection Respiratory: Other (Bilateral breath sounds via ET tube and bag valve mask, scattered crackles) Cardiovascular: Other (Irregularly irregular, tachycardic) Breast Exam: Deferred Gastrointestinal: Other (Abdomen soft, mildly distended, apparent right inguinal hernia without overlying skin changes) Genitalia: Other (Right inguinal hernia as above, otherwise unremarkable) Pelvic: None Rectal: None Extremities: Other (No trauma or evidence of rash or infection) Neurologic: Other (GCS of three, intubated and making minimal movements) Cerebellar Function: NOT DONE Reflexes: NOT DONE Skin: Other (Cool to touch) Lymphatic: NOT DONE EKG EKG : Comments EKG done at 5:56 p.m. with evidence of AFib at a rate of approximately 116, no STEMI Was a procedure done? Was a procedure done?: Yes Sedation Sedation?: No Central Line Recorder of insertion practice: Emissions Inspector Occupation of therapist radiation: Attending Physician Room prepared for procedure: Yes Emissions Inspector performed hand hygien: Yes Maximal sterile barrier precau: Mask/Eye shield, Cap, Sterlie gloves, Large sterlie drape Skin Preparation: Providine iodine Skin preparation completely dr: Yes Insertion site: Femoral Central line catheter type: [id number] dialysis Central line exchanged over a: Yes Antiseptic ointment applied to: Yes Post Assessment: Chest X-Ray, Proper placement Informed consent obtained: No (Emergent- patient is intubated ) Risks/benefits/alt described: No (Emergent- patient is intubated ) Differential Dx CPR Differential Diagnosis: Cardiopulmonary arrest, Electrolyte disorder, Heart Block, Myocardial Infarction, Pulmonary Embolus, Respiratory Failure X-Ray, Labs, Meds, VS Vital Signs Date Time Temp Pulse Resp B/P (MAP) Pulse Ox O2 Delivery O2 Flow Rate FiO2 09/16/24 18:45 98 18 81/49 (60) 99 09/16/24 18:30 104 18 90/70 (77) 99 09/16/24 18:15 111 17 91/60 (70) 99 09/16/24 18:00 118 13 93/72 (79) 97 09/16/24 17:55 117/80 09/16/24 17:54 117/80 09/16/24 17:51 121 09/16/24 17:45 115 17 106/84 (91) 98 09/16/24 17:30 104 13 122/72 (89) 98 09/16/24 17:28 111 19 122/72 (89) 99 100 09/16/24 17:25 117 13 117/80 (92) 98 09/16/24 17:20 97.8 127 17 88/74 (79) 86 97.8 09/16/24 17:11 97.0 125 15 88/74 (79) 100 97.0 Lab Test 09/16/24 17:44 Range/Units White Blood Count 7.8 4.4-10.8 10^3/uL Red Blood Count 4.60 4.5-5.90 10^6/uL Hemoglobin 11.4 L 13.5-17.5 g/dL Hematocrit 39.5 L 41.0-53.0 % Mean Corpuscular Volume 85.8 80.0-100.0 fL Mean Corpuscular Hemoglobin 24.9 L 28.0-32.0 pg Mean Corpuscular Hemoglobin Concent 29.0 L 32.0-36.0 g/dL Red Cell Distribution Width 23.0 H 11.8-14.3 % Platelet Count 270 140-450 10^3/uL Mean Platelet Volume 8.3 6.9-10.8 fL Neutrophils (%) (Auto) 37.0-80.0 % Lymphocytes (%) (Auto) 10.0-50.0 % Monocytes (%) (Auto) 0.0-12.0 % Basophils (%) (Auto) 0.0-2.0 % Neutrophils # (Auto) 1.6-8.6 10 ^3/uL Lymphocytes # (Auto) 0.4-5.4 10 ^3/uL Monocytes # (Auto) 0-1.3 10 ^3/uL Differential Total Cells Counted 100.0 100 Neutrophils % (Manual) 45 37.0-80.0 Band Neutrophils % (Manual) 4 Lymphocytes % (Manual) 37 10.0-50.0 Monocytes % (Manual) 14 H 0-12 Eosinophils % (Manual) 0 0-7 Basophils % (Manual) 0 0.0-2.0 Metamyelocytes % (manual) 0 Myelocytes % (Manual) 0 Promyelocytes % (Manual) 0 Blast Cells % (Manual) 0 Nucleated Red Blood Cells 4.0 % Reactive Lymphocytes 0 Platelet Estimate Adequate Hypochromasia (manual) Slight Anisocytosis (manual) Slight Prothrombin Time 14.9 H 9.3-11.8 sec Prothrombin Time INR 1.46 H 0.9-1.15 Activated Partial Thromboplast Time 27.4 24.5-34.5 SEC Sodium Level 143 136-145 mmol/L Potassium Level 5.3 H 3.5-5.1 mmol/L Chloride Level 98 98-107 mmol/L Carbon Dioxide Level 34 H 20-31 mmol/L Anion Gap 11 5-15 Blood Urea Nitrogen 43 H 9-23 mg/dL Creatinine 1.23 0.700-1.30 mg/dL Glomerular Filtration Rate Calc 67 >90 mL/min BUN/Creatinine Ratio 35.0 H 10.0-20.0 Serum Glucose 119 H 74-106 mg/dL Calcium Level 9.0 8.7-10.4 mg/dL Total Bilirubin 1.6 H 0.2-1.0 mg/dL Aspartate Amino Transferase (AST) 39 H <34 U/L Alanine Aminotransferase (ALT) 33 7-40 U/L Alkaline Phosphatase 140 H 46-116 U/L Troponin I High Sensitivity 46 </=54 ng/L B-Type Natriuretic Peptide 1337.19 0-100 pg/mL Total Protein 6.7 5.7-8.2 g/dL Albumin 3.8 3.2-4.8 g/dL Current Medications Medications (Trade) Dose Ordered Sig/Renetta Route Start Time Stop Time Status Last Admin Propofol 100 ml @ 2.658 mls/ hr Q24H IV 09/16/24 17:45 09/16/24 17:55 Fentanyl Citrate 250 ml @ 2.5 mls/hr Q24H IV 09/16/24 17:45 09/16/24 17:54 Sodium Chloride 1,000 ml @ 1,000 mls/hr Q1H ONCE IV 09/16/24 17:45 09/16/24 18:44 DC 09/16/24 17:30 X-Ray, Labs, Meds, VS Comment 59-year-old male here today status post witnessed cardiac arrest while at a nearby clinic. Initial rhythm was PEA. Total downtime approximately 15 minutes. Point of care glucose 99. Patient was intubated by EMS prior to arrival to the ER. I placed a right femoral central line as per procedure note above without complication. Patient had soft blood pressure so started on norepinephrine after receiving 1 L of normal saline. Patient was not given any further fluids given history of CHF. BNP 1300. No STEMI on EKG. Patient to be admitted to the ICU. Images Reviewed?: Images reviewed and evaluated by me Time of 1ST Reevaluation: 17:33 Reevaluation 1ST: Unchanged Time of 2ND Reevaluation: 19:19 Reevaluation 2ND: Improved Patient Education/Counseling: Pt Unresponsive Family Education/Counseling: No Family Present SEPSIS Sepsis Screen Physician Orders Chest Xray 1 View (09/16/24 17:17) Respiratory Culture W/ Gs (09/16/24 17:22) Abg W/ Co-Ox (09/16/24 18:00) Ventilator Orders (09/16/24 17:22) Norepinephrine 8 Mg/250ml Kit (Levophed) (09/16/24 17:45) Propofol (Diprivan) (09/16/24 17:45) Fentanyl Drip 2500mcg/250mlns (09/16/24 17:45) Rass Sedation Scale Q1HR (09/16/24 17:38) Bed Manager (09/16/24 17:43) Electrocardigram (09/16/24 18:43) Electrocardigram (09/16/24 20:43) Troponin-I Hs (09/16/24 18:43) Troponin-I Hs (09/16/24 20:43) Head Without Contrast (09/16/24 17:51) Vancomycin Per Pharmacy (09/16/24 18:00) Chst Ab Pel Wo Con-No Iv/Oral (09/16/24 17:51) Chest Portable (09/16/24 17:57) Vancomycin 1gm/200ml Pm (09/16/24 18:00) Basic Metabolic Panel (09/17/24 04:00) Vital Signs Date Time Temp Pulse Resp B/P (MAP) Pulse Ox O2 Delivery O2 Flow Rate FiO2 09/16/24 18:45 98 18 81/49 (60) 99 09/16/24 18:30 104 18 90/70 (77) 99 09/16/24 18:15 111 17 91/60 (70) 99 09/16/24 18:00 118 13 93/72 (79) 97 09/16/24 17:55 117/80 09/16/24 17:54 117/80 09/16/24 17:51 121 09/16/24 17:45 115 17 106/84 (91) 98 09/16/24 17:30 104 13 122/72 (89) 98 09/16/24 17:28 111 19 122/72 (89) 99 100 09/16/24 17:25 117 13 117/80 (92) 98 09/16/24 17:20 97.8 127 17 88/74 (79) 86 97.8 09/16/24 17:11 97.0 125 15 88/74 (79) 100 97.0 Laboratory Tests Test 09/16/24 17:44 White Blood Count 7.8 10^3/uL (4.4-10.8) Medications Medications Dose Ordered Sig/Renetta Route Start Time Stop Time Status Last Admin Dose Admin Fentanyl Citrate 250 ml @ 2.5 mls/hr Q24H IV 09/16/24 17:45 09/16/24 17:54 Propofol 100 ml @ 2.658 mls/ hr Q24H IV 09/16/24 17:45 09/16/24 17:55 Sodium Chloride 1,000 ml @ 1,000 mls/hr Q1H ONCE IV 09/16/24 17:45 09/16/24 18:44 DC 09/16/24 17:30 Departure 1 Departure Time of Disposition: 19:19 Impression: Primary Impression: Signs of return of spontaneous circulation Additional Impressions: Acute respiratory failure Atrial fibrillation Congestive heart failure Hyperkalemia Disposition: 02 SHORT TERM HOSPITAL Admit to: ICU Condition: Critical Critical Care Note Critical Care Time?: Yes (35 min-critical care time only) Heart Score Heart Score: Heart Score Response (Comments) Value History N/A 0 EKG N/A 0 Age N/A 0 Risk Factors N/A 0 Troponin N/A 0 Total 0 Stability Stability form required: No I personally scribed for BATSHEVA CARBAJAL MD ([email or web address]) on 09/16/24 at 17:55. Electronically submitted by Karen Rodrigez ([facility]). BATSHEVA CARBAJAL MD Sep 16, 2024 17:55
--- NOTE | 2024-09-16 17:57 | DVH ---
CHEST RADIOGRAPH Indication: ETT placement Technique: Single frontal view of the chest was obtained Comparison: XY CHEST PORTABLE on DOS: 09/02/24, XY CHEST XRAY 1 VIEW on DOS: 08/31/24, XY CHEST PORTABLE on DOS: 08/29/24 FINDINGS: Lines and Tubes: Tracheal tube in place 3.9 cm above the forest. Lungs: Airspace disease right lower lung field May actually represent a AED pad. Pleura: No effusion. No pneumothorax. Cardiomediastinal contours: Cardiomegaly Bones: No acute osseous abnormality. IMPRESSION: 1. Endotracheal tube 3.9 cm above the forest 2. Possible AED pads over the right lower lung field correlate clinically. HS:Y
--- NOTE | 2024-09-16 17:57 | ECG ---
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
[2024-09-16] MEDS ORDERED: VANCOMYCIN PER PHARMACY 0 MG IV SCH (18:00)
[2024-09-16] MEDS: VANCOMYCIN 1GM/200ML PM 250 ML IV SCH (18:00)
[2024-09-16 18:04] LABS: Alanine Aminotransferase 33 U/L (7-40); Anion Gap 11 (5-15); BUN/Creatinine Ratio 35.0 (10.0-20.0); Calcium 9.0 mg/dL (8.7-10.4); Sodium 143 mmol/L (136-145); Total Protein 6.7 g/dL (5.7-8.2)
[2024-09-16 18:05] LABS: Albumin 3.8 g/dL (3.2-4.8)
[2024-09-16 18:07] LABS: INR 1.46 (0.9-1.15); Partial Thromboplastin Time 27.4 SEC (24.5-34.5); Prothrombin Time 14.9 sec (9.3-11.8)
[2024-09-16 18:10] LABS: Alkaline Phosphatase 140 U/L (46-116); Bilirubin, Total 1.6 mg/dL (0.2-1.0); Blood Urea Nitrogen 43 mg/dL (9-23); Carbon Dioxide 34 mmol/L (20-31); Chloride 98 mmol/L (98-107); Glucose 119 mg/dL (74-106); Potassium 5.3 mmol/L (3.5-5.1)
[2024-09-16 18:22] LABS: Anisocytosis Slight; Nucleated Red Blood Cells % 4.0 %; Total Cells Counted 100.0 (100)
--- NOTE | 2024-09-16 18:35 | DVH ---
CHEST RADIOGRAPH Indication: S/P OG PLACEMENT VERIFICATION Technique: Single frontal view of the chest was obtained Comparison: XY CHEST XRAY 1 VIEW on DOS: 09/16/24, XY CHEST PORTABLE on DOS: 09/02/24, XY CHEST XRAY 1 V IEW on DOS: 08/31/24 FINDINGS: Lines and Tubes: Endotracheal tube 5 cm above the forest Lungs: Prominent pulmonary vascularity Pleura: No effusion. No pneumothorax. Cardiomediastinal contours: Cardiomegaly Bones: No acute osseous abnormality. IMPRESSION: 1. Findings may represent congestive failure 2. Endotracheal tube in place 5 cm above the forest. HS:Y
[2024-09-16] MEDS: NOREPINEPHRINE 8 MG/250ML KIT 250 ML IV SCH (18:45)
--- NOTE | 2024-09-16 19:18 | ECG ---
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
[2024-09-16 19:20] LABS: Base Excess 9.1 mmol/L (-2.0-3.0)
--- NOTE | 2024-09-16 19:23 | DVH ---
EXAM: CT HEAD WITHOUT CONTRAST INDICATION: rosc TECHNIQUE: CT of the head without intravenous contrast. Radiation Dose Information: CT Dose: CTDI volume is 48.65 mGy. Dose-length product is 1001.95 mGy*cm The dose indicators for CT are the volume Computed Tomography (CT) Dose Index (CTDIvol) and the Dose Length Product (DLP), and are measured in units of mGy and mGy-cm, respectively. These indicators are not patient dose, but values generated from the CT scanner acquisition factors. The report includes radiation exposure data for exposures received during this examination. COMPARISON: CT HEAD WITHOUT CONTRAST on DOS: 08/28/24 FINDINGS: There is no evidence of acute intracranial hemorrhage, extra-axial collection, mass effect, midline s hift, herniation or hydrocephalus. Encephalomalacia in the left frontal lobe unchanged from 08/28/2024. The ventricles, sulci and cisterns are age appropriate. The giron-white differentiation is intact. Patchy periventricular and subcortical white matter hypoattenuation is nonspecific but may be related to small vessel ischemic disease. The visualized paranasal sinuses and mastoid air cells are clear. The surrounding soft tissues and osseous structures are unremarkable. IMPRESSION: 1. No acute intracranial abnormality. 2. No significant change from 08/28/2024. HS:Y
[2024-09-16] MEDS: PIPERACILLIN-TAZOB 3.375GM 100 ML IV ONE (19:30)
--- NOTE | 2024-09-16 19:39 | DVH ---
COMPUTERIZED TOMOGRAPHY CHEST/ABDOMEN/PELVIS WITHOUT INTRAVENOUS CONTRAST CLINICAL HISTORY: rosc. Cardiac arrest. COMPARISON: None TECHNIQUE: Axial CT images of the chest, abdomen and pelvis were obtained. 2-D coronal and sagittal r eformatted images were provided. Radiation optimization: All CT scans at this facility use at least o ne of these dose optimization techniques: Automated exposure control mA and/or kV adjustment per mili ent size (includes targeted exams where dose is matched to clinical indication) or iterative reconstr uction. RADIATION DOSE: CTDI: 28 mGy DLP: 1988 mGy-cm FINDINGS: CHEST: There is moderate pulmonary edema. There is partial consolidation of bilateral lower lobes especially in the dependent portions, with air bronchograms. There is trace left and small to moderate-sized ri ght pleural effusion. There is no significant pericardial effusion. There are coronary artery calcif ications. There is no thoracic aortic aneurysm. The visualized thyroid gland is unremarkable. There is an endotracheal tube terminating in the upper trachea. There is an enteric tube coursing within th e esophagus and terminating within the stomach. No pathologic lymphadenopathy is identified in the ch est by size criteria. There is subtly increased density of the mediastinal fat which may represent mi cross roller nodularity versus edema. The heart is significantly enlarged. ABDOMEN/PELVIS: Evaluation of the abdomen and pelvis is degraded by the absence of intravenous contrast and streak ar tifact from the patient's arms. The spleen is not enlarged. The liver is normal in size and contour. The gallbladder is mostly collapsed. There is no calcified gallstone. There is a small amount of fr ee fluid distributed throughout the abdomen and pelvis and within the right inguinal canal. Unenhance d appearance of the pancreas is grossly unremarkable. There is a small diverticulum off the 2nd part of the duodenum. There is no pathologic distention of the small bowel to suggest obstruction. There i s no abdominal aortic aneurysm. The urinary bladder is collapsed about a [place] catheter balloon. Ther e are coarse calcifications within the prostate. The colonic stool burden is small. The appendix is n ot seen. No pathologic lymphadenopathy is identified in the abdomen or pelvis. No free air is identif ied in the abdomen or pelvis. There is partial visualization of right femur fixation hardware. There are acute fractures of the right 2nd, 3rd, 4th, 5th, 6th, 7th, and 8th ribs. There are acute fractur es of the left 1st, 2nd, 3rd, 4th, 5th, 6th, 7th, 8th, 9th, and 10th ribs. The left 6th, 9th, and 10t h ribs are fractured in 2 places. No acute fracture of the spine is identified. IMPRESSION: Moderate pulmonary edema. Trace left and small to moderate-sized right pleural effusions. Cardiomegaly. No significant pericardial effusion. Numerous acute rib fractures bilaterally, as described above. Small amount of free fluid in the abdomen and pelvis. No free air is identified in the abdomen or pel vis. Fluid in the right inguinal canal secondary to inguinal hernia.
[2024-09-16] MEDS: MIDAZOLAM DRIP 50 mg/50mL 50 ML IV SCH (19:45)
[2024-09-16] MEDS: MIDAZOLAM DRIP 50 mg/50mL 50 ML IV ONE (19:53)
[2024-09-16] MEDS ORDERED: ONDANSETRON HCL 4 MG/2 ML VIAL IV PRN (20:00)
[2024-09-16] MEDS ORDERED: MORPHINE SULFATE INJ 2 MG/ml SYRG IV PRN (20:00)
[2024-09-16] MEDS ORDERED: NITROGLYCERIN 0.4 MG SL TAB SL PRN (20:00)
[2024-09-16] MEDS ORDERED: ACETAMINOPHEN 325 MG TAB PO PRN (20:00)
[2024-09-16 20:37] LABS: Lactic Acid w/Reflex 8.0 mmol/L (0.4-2.0)
--- NOTE | 2024-09-16 20:45 | DVHHP2 ---
History of Present Illness Reason for Visit: Cardiopulmonary arrest History of Present Illness 59-year-old male presents for evaluation of cardiopulmonary arrest. Patient resides at a longterm. Patient was found unresponsive had a downtime of the proximally 5 minutes prior to EMS arriving. Patient was intubated on the field. No family at the bedside to provide further history. Past Medical History Congestive heart failure, dyslipidemia, hypertension, atrial fibrillation Past Surgical History None Family History Noncontributory Smoke: <1 pack per day ALCOHOL: none Drugs: Marijuana Lives: [facility] Review of Systems Review of Systems Unable to complete review of systems, patient is sedated and intubated. Allergies: Coded Allergies: Iodine (Verified Allergy, Unknown, 08/27/24) Medications Current Medications Medications Dose Ordered Sig/Renetta Route Start Time Stop Time Status Last Admin Dose Admin Norepinephrine Bitartrate 250 ml @ 3.75 mls/hr Q24H IV 09/16/24 17:45 09/16/24 18:45 3.75 MLS/HR Propofol 100 ml @ 2.658 mls/ hr Q24H IV 09/16/24 17:45 09/16/24 17:55 2.658 MLS/HR Fentanyl Citrate 250 ml @ 2.5 mls/hr Q24H IV 09/16/24 17:45 09/16/24 17:54 2.5 MLS/HR Midazolam HCl 50 ml @ 1 mls/hr Q24H IV 09/16/24 19:45 09/16/24 19:45 1 MLS/HR Nitroglycerin 0.4 mg Q5MINP PRN SL 09/16/24 20:00 Morphine Sulfate 2 mg Q30M PRN IV 09/16/24 20:00 Furosemide 20 mg BIDD IV 09/17/24 06:00 Ondansetron HCl 4 mg Q4HP PRN IV 09/16/24 20:00 Enoxaparin Sodium 40 mg DAILY SC 09/17/24 10:00 Acetaminophen 650 mg Q6HP PRN PO 09/16/24 20:00 Exam Vital Signs Vital Signs Date Time Temp Pulse Resp B/P (MAP) Pulse Ox O2 Delivery O2 Flow Rate FiO2 09/16/24 20:15 75 24 115/74 (88) 95 09/16/24 19:53 95 09/16/24 19:15 97.9 97.9 Exam Gen: 59-year-old male in mild distress Skin: Warm, dry, normal color and texture, no rash. HEENT: Normocephalic atraumatic, mucous membranes moist and pink. Neck: Cervical and supraclavicular nodes normal without enlargement, trachea is midline, thyroid gland is normal without masses. Pulmonary: Intubated, diminished breath sounds bilaterally Cardiac: Regular rate and rhythm. No murmur Abdomen: Soft, nontender, nondistended, bowel sounds present all 4 quadrants, no guarding, no rigidity, no organomegaly. Extremities: No cyanosis, clubbing, plus two bilateral pedal edema Neuro: Sedated, pupils equal and reactive. Labs/Xrays ORDERING PHYSICIAN: BATSHEVA CARBAJAL MD PROCEDURE(s): CTCAP - CHST AB PEL WO CON-NO IV/ORAL REASON: rosc ORDER NUMBER(s): [id number], ACCESSION NUMBER(s): [id number] COMPUTERIZED TOMOGRAPHY CHEST/ABDOMEN/PELVIS WITHOUT INTRAVENOUS CONTRAST CLINICAL HISTORY: rosc. Cardiac arrest. COMPARISON: None TECHNIQUE: Axial CT images of the chest, abdomen and pelvis were obtained. 2-D coronal and sagittal reformatted images were provided. Radiation optimization: All CT scans at this facility use at least one of these dose optimization techniques: Automated exposure control mA and/or kV adjustment per patient size (includes targeted exams where dose is matched to clinical indication) or iterat artemio reconstruction. RADIATION DOSE: CTDI: 28 mGy DLP: 1988 mGy-cm FINDINGS: CHEST: There is moderate pulmonary edema. There is partial consolidation of bilateral lower lobes especially in the dependent portions, with air bronchograms. There is trace left and small to moderate-sized right pleural effusion. There is no significant pericardial effusion. There are coronary artery calcifications. There is no thoracic aortic aneurysm. The visualized thyroid gland is unremarkable. There is an endotracheal tube terminating in the upper trachea. There is an enteric tube coursing within the esophagus and terminating within the stomach. No pathologic lymphadenopathy is identified in the chest by size criteria. There is subtly increased density of the mediastinal fat which may represent micro nodularity versus edema. The heart is significantly enlarged. ABDOMEN/PELVIS: Evaluation of the abdomen and pelvis is degraded by the absence of intravenous contrast and streak artifact from the patient's arms. The spleen is not enlarged. The liver is normal in size and contour. The gallbladder is mostly collapsed. There is no calcified gallstone. There is a small amount of free fluid distributed throughout the abdomen and pelvis and within the right inguin al canal. Unenhanced appearance of the pancreas is grossly unremarkable. There is a small diverticulum off the 2nd part of the duodenum. There is no pathologic distention of the small bowel to suggest obstruction. There is no abdominal aortic aneurysm. The urinary bladder is collapsed about a Mills catheter balloon. There are coarse calcifications within the prostate. The colonic stool burden is small. The appendix is not seen. No pathologic lymphadenopathy is identified in the abdomen or pelvis. No free air is identified in the abdomen or pelvis. There is partial visualization of right femur fixation hardware. There are acute fractures of the right 2nd, 3rd, 4th, 5th, 6th, 7th, and 8th ribs. There are acute fractures of the left 1st, 2nd, 3rd, 4th, 5th, 6th, 7th, 8th, 9th, and 10th ribs. The left 6th, 9th, and 10th ribs are fractured in 2 places. No acute fracture of the spine is identified. IMPRESSION: Moderate pulmonary edema. Trace left and small to moderate-sized right pleural effusions. Cardiomegaly. No significant pericardial effusion. Numerous acute rib fractures bilaterally, as described above. Small amount of free fluid in the abdomen and pelvis. No free air is identified in the abdomen or pelvis. Fluid in the right inguinal canal secondary to inguinal hernia. RING PHYSICIAN: BATSHEVA CARBAJAL MD PROCEDURE(s): HWOCT - HEAD WITHOUT CONTRAST REASON: rosc ORDER NUMBER(s): [id number], ACCESSION NUMBER(s): [id number] EXAM: CT HEAD WITHOUT CONTRAST INDICATION: rosc TECHNIQUE: CT of the head without intravenous contrast. Radiation Dose Information: CT Dose: CTDI volume is 48.65 mGy. Dose-length product is 1001.95 mGy*cm The dose indicators for CT are the volume Computed Tomography (CT) Dose Index (CTDIvol) and the Dose Length Product (DLP), and are measured in units of mGy and mGy-cm, respectively. These indicators are not patient dose, but values generated from the CT scanner acquisition factors. The report includes radiation exposure data for exposures received during this examination. COMPARISON: CT HEAD WITHOUT CONTRAST on DOS: 08/28/24 FINDINGS: There is no evidence of acute intracranial hemorrhage, extra-axial collection, mass effect, midline shift, herniation or hydrocephalus. Encephalomalacia in the left frontal lobe unchanged from 08/28/2024. The ventricles, sulci and cisterns are age appropriate. The giron-white differentiation is intact. Patchy periventricular and subcortical white matter hypoattenuation is nonspecific but may be related to small vessel ischemic disease. The visualized paranasal sinuses and mastoid air cells are clear. The surrounding soft tissues and osseous structures are unremarkable. IMPRESSION: 1. No acute intracranial abnormality. 2. No significant change from 08/28/2024. HS:Y RING PHYSICIAN: BATSHEVA CARBAJAL MD PROCEDURE(s): CXR1 - CHEST XRAY 1 VIEW REASON: ETT placement ORDER NUMBER(s): [id number], ACCESSION NUMBER(s): [id number] CHEST RADIOGRAPH Indication: ETT placement Technique: Single frontal view of the chest was obtained Comparison: XY CHEST PORTABLE on DOS: 09/02/24, XY CHEST XRAY 1 VIEW on DOS: 08/31/24, XY CHEST PORTABLE on DOS: 08/29/24 FINDINGS: Lines and Tubes: Tracheal tube in place 3.9 cm above the forest. Lungs: Airspace disease right lower lung field May actually represent a AED pad. Pleura: No effusion. No pneumothorax. Cardiomediastinal contours: Cardiomegaly Bones: No acute osseous abnormality. IMPRESSION: 1. Endotracheal tube 3.9 cm above the forest 2. Possible AED pads over the right lower lung field correlate clinically. HS:Y ATED BY: SOTERO ANTONY Jr., DO ORDERING PHYSICIAN: NATALIA VELA DNP PROCEDURE(s): ECIDC - ECHO 2D MODE CARDIAC DOP REASON: CHF exacerbation ORDER NUMBER(s): [id number], ACCESSION NUMBER(s): [id number] APPROVED REPORT EXAM: Two-dimensional and M-mode echocardiogram with Doppler, color Doppler and Bubble Study. Blood Pressure: 109/76 mmHg INDICATION chf exacerbation RISK FACTORS Obesity: Height: 5'11, Weight: 230 DIMENSIONS LVDd 6.3 (3.8-5.7cm) LA (2D) 5.7 (1.9-4.0cm) Aortic Root 4.3 (2.0- 3.7cm) LVDs 4.7 (2.5-4.0cm) LA (MM) (1.9-4.0cm) Aortic Cusp Exc 2.2 (1.5-2.0cm) EF (%) 50.5 (55-70%) Rt. Atrium 7.5 (1.9-4.0cm) Asc. Aorta 4.0 cm IVSd 1.2 (0.7-1.1cm) RV (D) 7.6 (1.8-2.4cm) PWd 1.7 (0.7-1.1cm) Mitral Valve Mitral Mitral Stenosis E wave m/s MV Mean GR. 5mmHg A wave m/s MV Peak GR. 114mmHg E/A ratio 0.0 2D MVA cm2 Aortic Valve Aortic Valve Aortic Stenosis V1 0.94m/s AO Mean GR. 5mmHg V2 1.37m/s AO Peak GR. 8mmHg LVOT Diameter 2.4 (1.8-2.4cm) Doppler MODE 3.10cm2 Pulmonic Valve V2 0.78m/s Tricuspid Valve TR Velocity 3.63m/s RVSP 78mmHg Other Information Technically limited study due to bubble at end of study Conclusion lvef 45% mild LV dysfunction RV not well seen severe biatrial enlargement moderate mitral stenosis, mean gradient 4.5 mmhg at least moderate eccentric posterior MR noted severe tricuspid regurg moderate pulm htn Labs Test 09/16/24 19:13 09/16/24 19:09 09/16/24 17:44 Range/Units Troponin I High Sensitivity 53 </=54 ng/L Blood Gas Specimen Type Arterial Blood Gas Sample Site Right radial Blood Gas Patient Temperature 37.0 Arterial Blood Date Drawn [id number] Arterial Blood pH 7.322 L 7.350-7.450 Arterial Blood Partial Pressure CO2 74.2 *H 35.0-48.0 mmHg Arterial Blood Partial Pressure O2 100.6 83.0-108.0 mmHg Arterial Blood HCO3 37.5 H 21.0-28.0 mmol/L Arterial Blood Oxygen Saturation 96.9 94.0-98.0 % Arterial Blood Base Excess 9.1 H -2.0-3.0 mmol/L Arterial Blood Oxyhemoglobin 94.4 94.0-98.0 % Arterial Blood Carboxyhemoglobin 2.0 H 0.5-1.5 % Arterial Blood Methemoglobin 0.6 0.0-1.5 % Gerardo Test Modified Blood Gas Total Hemoglobin 11.70 L 13.5-17.5 g/dL Blood Gas Set Respiration Rate 18.0 Blood Gas Modality Vent - ac Blood Gas Spontaneous Rate 18 FiO2 % 100.0 Blood Gas Tidal Volume 500.0 Blood Gas Spontaneous Tidal Volume 530 Blood Gas PEEP or CPAP 5.0 Bl Gas Inspiratory/Expiratory Ratio 1:2.7 Blood Gas Critical Value Read Back Yes Blood Gas Notified Whom barbara Mclean Blood Gas Notified Time [id number] Blood Gas Notified By marky Biswas White Blood Count 7.8 4.4-10.8 10^3/uL Red Blood Count 4.60 4.5-5.90 10^6/uL Hemoglobin 11.4 L 13.5-17.5 g/dL Hematocrit 39.5 L 41.0-53.0 % Mean Corpuscular Volume 85.8 80.0-100.0 fL Mean Corpuscular Hemoglobin 24.9 L 28.0-32.0 pg Mean Corpuscular Hemoglobin Concent 29.0 L 32.0-36.0 g/dL Red Cell Distribution Width 23.0 H 11.8-14.3 % Platelet Count 270 140-450 10^3/uL Mean Platelet Volume 8.3 6.9-10.8 fL Neutrophils (%) (Auto) 37.0-80.0 % Lymphocytes (%) (Auto) 10.0-50.0 % Monocytes (%) (Auto) 0.0-12.0 % Basophils (%) (Auto) 0.0-2.0 % Neutrophils # (Auto) 1.6-8.6 10 ^3/uL Lymphocytes # (Auto) 0.4-5.4 10 ^3/uL Monocytes # (Auto) 0-1.3 10 ^3/uL Differential Total Cells Counted 100.0 100 Neutrophils % (Manual) 45 37.0-80.0 Band Neutrophils % (Manual) 4 Lymphocytes % (Manual) 37 10.0-50.0 Monocytes % (Manual) 14 H 0-12 Eosinophils % (Manual) 0 0-7 Basophils % (Manual) 0 0.0-2.0 Metamyelocytes % (manual) 0 Myelocytes % (Manual) 0 Promyelocytes % (Manual) 0 Blast Cells % (Manual) 0 Nucleated Red Blood Cells 4.0 % Reactive Lymphocytes 0 Platelet Estimate Adequate Hypochromasia (manual) Slight Anisocytosis (manual) Slight Prothrombin Time 14.9 H 9.3-11.8 sec Prothrombin Time INR 1.46 H 0.9-1.15 Activated Partial Thromboplast Time 27.4 24.5-34.5 SEC Sodium Level 143 136-145 mmol/L Potassium Level 5.3 H 3.5-5.1 mmol/L Chloride Level 98 98-107 mmol/L Carbon Dioxide Level 34 H 20-31 mmol/L Anion Gap 11 5-15 Blood Urea Nitrogen 43 H 9-23 mg/dL Creatinine 1.23 0.700-1.30 mg/dL Glomerular Filtration Rate Calc 67 >90 mL/min BUN/Creatinine Ratio 35.0 H 10.0-20.0 Serum Glucose 119 H 74-106 mg/dL Calcium Level 9.0 8.7-10.4 mg/dL Total Bilirubin 1.6 H 0.2-1.0 mg/dL Aspartate Amino Transferase (AST) 39 H <34 U/L Alanine Aminotransferase (ALT) 33 7-40 U/L Alkaline Phosphatase 140 H 46-116 U/L B-Type Natriuretic Peptide 1337.19 0-100 pg/mL Total Protein 6.7 5.7-8.2 g/dL Albumin 3.8 3.2-4.8 g/dL Assessment/Plan Assessment/Plan Assessment Cardiopulmonary arrest Acute on chronic congestive heart failure Acute hypoxic hypercapnic respiratory failure History of atrial fibrillation Plan Admit the patient to ICU to the hospitalist Pulmonary consult Cardiology consult IV Lasix Continue treatment per orders Total critical care time excluding procedures performed this 50 minutes. Plan discussed with: Patient My Orders Orders - VAIL,GLADYS AGACNP Procedure Category Date Status Time Midazolam Drip 50 PHA 09/16/24 In Process Mg/50ml (Versed Drip 5 19:45 Rass Sedation Scale JOSE 09/16/24 In Process 19:40 Admit ADMIT 09/16/24 Transmitted 19:58 Nitroglycerin PHA 09/16/24 In Process Sublingual (Ntrostat 20:00 Morphine Sulfate PHA 09/16/24 In Process Injection 20:00 Stat Ekg For Chest JOSE 09/16/24 In Process Pain 19:58 Notify Of Changes JOSE 09/16/24 In Process From Base 19:58 Delivery Rn For JOSE 09/16/24 In Process 24 Hours 19:58 Emergency Dysrhythmia JOSE 09/16/24 In Process Protocol 19:58 Rhythm Strips Once JOSE 09/16/24 In Process Every Shift 19:58 Oxygen By Nasal RT 09/16/24 Transmitted Cannula 19:58 Lactic Acid W/ Reflex LAB 09/16/24 In Process Order 19:58 Furosemide Injection PHA 09/17/24 In Process (Lasix Injection) 06:00 * Cardiology Consult CONS 09/16/24 Transmitted 19:58 *Consult CONS 09/16/24 Transmitted / 19:58 Ondansetron Hcl PHA 09/16/24 In Process (Zofran) 20:00 Enoxaparin Sodium PHA 09/17/24 In Process (Lovenox) 10:00 Complete Blood Count LAB 09/17/24 Verified 04:00 Comprehensive LAB 09/17/24 Verified Metabolic Panel 04:00 Condition: Unstable JOSE 09/16/24 In Process 19:58 Acetaminophen Tablet PHA 09/16/24 In Process (Tylenol Tablet) 20:00 Maintain Bed Rest JOSE 09/16/24 In Process 19:58 Albuterol Medneb PHA 09/16/24 Verified (Ventolin Medneb) 20:45 Date of Service: Sep 16, 2024 Billing Provider: BECKY VAIL Common Visit Codes: [id number] CARE 30-74 MIN BECKY VAIL Sep 16, 2024 20:45
[2024-09-16 20:50] LABS: Base Excess 10.1 mmol/L (-2.0-3.0)
[2024-09-16] MEDS: FUROSEMIDE 40 MG/4 ML VIAL IV ONE (20:51)
[2024-09-16] MEDS: ALBUTEROL SULF 2.5 MG/0.5ML(0.5%) NEB SOLN NEB PRN (22:11)
[2024-09-16] MEDS: PIPERACILLIN-TAZOB 3.375GM 100 ML IV SCH (22:46)
[2024-09-17] VITALS (104 sets, daily range): BP systolic 85–124; BP diastolic 54–91; PULSE 86–140; RESP 16–25; TEMP 97.9–98.7; O2SAT 81–100
--- NOTE | 2024-09-17 05:36 | DVH ---
CHEST RADIOGRAPH Indication: intubated and sedated Technique: Single frontal view of the chest was obtained COMPARISON: XY CHEST PORTABLE on DOS: 09/16/24, XY CHEST XRAY 1 VIEW on DOS: 09/16/24, XY CHEST PORTABL E on DOS: 09/02/24, XY CHEST XRAY 1 VIEW on DOS: 08/31/24, XY CHEST PORTABLE on DOS: 08/29/24 FINDINGS: Lines and Tubes: Endotracheal tube and enteric catheter in satisfactory position Lungs: Right lower lobe airspace disease. Pleura: No effusion. No pneumothorax. Cardiomediastinal contours: Cardiomegaly Bones: Unremarkable IMPRESSION: Lines and tubes in satisfactory position. No significant interval change.
[2024-09-17] MEDS: FUROSEMIDE 20 MG/2 ML VIAL IV SCH (05:38)
[2024-09-17] MEDS: levETIRAcetam 1000 mg/100ml 100 ML IV ONE (05:38)
[2024-09-17 05:58] LABS: Hematocrit 33.5 % (41.0-53.0); Hemoglobin 10.3 g/dL (13.5-17.5); Mean Corpuscular Hemoglobin 24.8 pg (28.0-32.0); Mean Corpuscular Volume 80.3 fL (80.0-100.0); Nucleated Red Blood Cells % 0.5 %
[2024-09-17 06:14] LABS: Alanine Aminotransferase 30 U/L (7-40); Albumin 3.0 g/dL (3.2-4.8); Alkaline Phosphatase 91 U/L (46-116); Anion Gap 7 (5-15); BUN/Creatinine Ratio 33.9 (10.0-20.0); Bilirubin, Total 3.6 mg/dL (0.2-1.0); Blood Urea Nitrogen 42 mg/dL (9-23); Calcium 8.5 mg/dL (8.7-10.4); Carbon Dioxide 38 mmol/L (20-31); Chloride 99 mmol/L (98-107); Glucose 106 mg/dL (74-106); Potassium 4.2 mmol/L (3.5-5.1); Sodium 144 mmol/L (136-145); Total Protein 5.3 g/dL (5.7-8.2)
[2024-09-17 07:11] LABS: Base Excess 12.9 mmol/L (-2.0-3.0)
--- NOTE | 2024-09-17 08:56 | DVHINCON2 ---
Date of service: Sep 17, 2024 Referring Physician Morteza Reason for Consultation Seizure activity History of Present Illness Mr. Herrera is a 59 years old gentleman with a history of hypertension, dyslipidemia, cardiomyopathy, congestive heart failure, AFib, kidney stone, he was brought to the [facility] on 09/16/2024 with a chief company of cardiopulmonary arrest/status post CPR, the patient is intubated, no family is available for the history Apparently, the patient developed shortness breath, followed by collapsing with 5-7 minutes down before CPR was initiated. The patient's resuscitated on route. Overnight, three seizure activity was documented by his nurse, 09/17/2024 0045: Witnessed seizure-like activity, tremor in both shoulders and a hand, eyes looking upward, event was 1 minute. 09/17/2024 0120: Two episodes of generalized mild tonic clonic seizure lasting 1.5 minutes with heart rate up to 105-112. 09/14/2024 03:45: Another two episodes of generalized mild tonic- clonic seizure lasting 1 minute [phone], not in service. [phone] no answer ABG, 09/16/2024: Respiratory acidosis, WBC/HB/PLT/MCV, 09/17/2024: 8.9/10.3/248/80.3 PT/INR/PTT, 09/16/2024: 14.9/1.46/27.4 BUN/CR, 09/17/2019 43/1.23, 09/17/2024: 42/1.24 HCO3, 09/16/2024: 34, 09/17/2024: 38 GFR, 09/17/24: 66 TBI/AST/ALT/AP, 09/16/2024: 1.6/39/33/140, 09/17/2024: 3.6/46/30/91 Lactic acid, 09/16/24: 8, 2 TG/HDL/LDL/HDL, 08/29/24: 74/68/44/10 Chest X-ray, 09/17/2024: Lines and tubes in satisfactory position. No significant interval change. CT head, 09/16/2024: 1. No acute intracranial abnormality. 2. No significant change from 08/28/2024. (Encephalomalacia in the left frontal lobe unchanged from 08/28/2024) Past Medical History Hypertension, dyslipidemia, cardiomyopathy, congestive heart failure, AFib, kidney stone Past Surgical History Leg surgery Family History: Patient reports no known family medical history. Family History Heart disease Social History Smoker: Cigarettes, Less Than 1 Pack/Day Alcohol: Denies ETOH Use Drugs: Marijuana Lives In: Home Allergies: Coded Allergies: Iodine (Verified Allergy, Unknown, 08/27/24) Home Meds Active Scripts Carvedilol (COREG) 3.125 Mg Tab, 3.125 MG OR BID for 30 Days, #60 TAB 2 Refills Prov:YUMIKO FRANCISCO SUPERVISOR HARVESTING 09/03/24 Apixaban Base (ELIQUIS) 5 Mg Tab, 5 MG PO BID for 30 Days, #60 TAB Prov:YUMIKO FRANCISCO SUPERVISOR [employer] 09/03/24 Lactulose (Lactulose) 10 Gm/15 Ml Jackeline, 30 ML PO BID for 30 Days, #15 ML 1 Refill Prov:YUMIKO FRANCISCO SUPERVISOR [employer] 09/03/24 Reported Medications Enalapril Maleate (Enalapril Maleate) 2.5 Mg Tab, 1 TAB PO BID 01/06/12 Furosemide (Furosemide) 20 Mg Tab, 20 MG PO BID 01/06/12 Current Medications Current Medications Medications (Trade) Dose Ordered Sig/Renetta Route PRN Reason Start Time Stop Time Status Last Admin Norepinephrine Bitartrate 250 ml @ 3.75 mls/hr Q24H IV 09/16/24 17:45 09/16/24 18:45 Propofol 100 ml @ 2.658 mls/ hr Q24H IV 09/16/24 17:45 09/16/24 17:55 Fentanyl Citrate 250 ml @ 2.5 mls/hr Q24H IV 09/16/24 17:45 09/16/24 17:54 Vancomycin HCl 0 ml @ 0 mls/hr UD IV 09/16/24 18:00 09/16/24 20:03 DC Vancomycin HCl 250 ml @ 250 mls/hr Q1H IV 09/16/24 18:00 09/16/24 19:59 DC 09/16/24 21:53 Midazolam HCl 50 ml @ 1 mls/hr Q24H IV 09/16/24 19:45 09/17/24 07:30 Nitroglycerin (Ntrostat Sublingual) 0.4 mg Q5MINP PRN SL FOR CHEST PAIN 09/16/24 20:00 Morphine Sulfate 2 mg Q30M PRN IV FOR CHEST PAIN 09/16/24 20:00 Furosemide (Lasix Injection) 20 mg BIDD IV 09/17/24 06:00 09/17/24 05:38 Ondansetron HCl (Zofran) 4 mg Q4HP PRN IV NAUSEA / VOMITING 09/16/24 20:00 Enoxaparin Sodium (Lovenox) 40 mg DAILY SC 09/17/24 10:00 Acetaminophen (Tylenol Tablet) 650 mg Q6HP PRN PO PAIN SCALE 1-3 OR TEMP>100.4 09/16/24 20:00 Albuterol (Ventolin Medneb) 2.5 mg Q6HPRN PRN NEB SHORTNESS OF BREATH 09/16/24 20:45 09/17/24 05:52 Piperacillin Sod/ Tazobactam Sod 100 ml @ 25 mls/hr Q8HR IV 09/16/24 22:00 09/17/24 05:40 Levetiracetam 100 ml @ 400 mls/hr BID IV 09/17/24 22:00 Review of Systems Unobtainable Vital Signs Vital Signs Date Time Temp Pulse Resp B/P (MAP) Pulse Ox O2 Delivery O2 Flow Rate FiO2 09/17/24 07:30 112 24 103/76 (85) 97 09/17/24 07:05 40 09/17/24 06:00 Mechanical Ventilator+ 09/17/24 04:57 97.9 97.9 Physical Exam The patient is well-nourished and well-developed with no distress. The patient is intubated HEENT: Normocephalic, neck supple, no carotid bruits Lungs: Clear to auscultation Cardiovascular: Regular rate and region, S1, S2, no murmurs Abdomen: Soft, nontender, normal bowel sounds MENTAL STATUS: HPI CRANIAL NERVES: Pupils are equal, round and reactive.There are corneal reflexes and doll's eyes phenomenon. No signs of facial weakness. There are gagging or coughing reflexes SENSATION: No responses to pain stimuli. MOTOR: Normal tone in the upper and lower extremity. Normal muscle bulk. No fasciculations. No spontaneous movement. REFLEXES: Deep tendon reflexes are symmetrical. No pathological reflexes. CEREBELLAR/COORDINATION: Deferred GAIT/STATION: deferred. Labs/Diagnostic Data Labs Test 09/17/24 07:04 09/17/24 05:51 09/16/24 20:46 09/16/24 20:40 Range/Units Blood Gas Specimen Type Arterial Blood Gas Sample Site Left radial Blood Gas Patient Temperature 37.0 Arterial Blood Date Drawn [id number] Arterial Blood pH 7.504 H 7.350-7.450 Arterial Blood Partial Pressure CO2 49.0 H 35.0-48.0 mmHg Arterial Blood Partial Pressure O2 58.3 L 83.0-108.0 mmHg Arterial Blood HCO3 37.7 H 21.0-28.0 mmol/L Arterial Blood Oxygen Saturation 90.0 L 94.0-98.0 % Arterial Blood Base Excess 12.9 H -2.0-3.0 mmol/L Arterial Blood Oxyhemoglobin 88.2 L 94.0-98.0 % Arterial Blood Carboxyhemoglobin 1.9 H 0.5-1.5 % Arterial Blood Methemoglobin 0.1 0.0-1.5 % Gerardo Test Modified Blood Gas Total Hemoglobin 11.50 L 13.5-17.5 g/dL Blood Gas Set Respiration Rate 24.0 Blood Gas Modality Vent - ac FiO2 % 40.0 Blood Gas Tidal Volume 500.0 Blood Gas PEEP or CPAP 5.0 White Blood Count 8.9 4.4-10.8 10^3/uL Red Blood Count 4.17 L 4.5-5.90 10^6/uL Hemoglobin 10.3 L 13.5-17.5 g/dL Hematocrit 33.5 #L 41.0-53.0 % Mean Corpuscular Volume 80.3 # 80.0-100.0 fL Mean Corpuscular Hemoglobin 24.8 L 28.0-32.0 pg Mean Corpuscular Hemoglobin Concent 30.9 L 32.0-36.0 g/dL Red Cell Distribution Width 22.6 H 11.8-14.3 % Platelet Count 248 140-450 10^3/uL Mean Platelet Volume 7.6 6.9-10.8 fL Neutrophils (%) (Auto) 85.2 H 37.0-80.0 % Lymphocytes (%) (Auto) 5.8 L 10.0-50.0 % Monocytes (%) (Auto) 7.9 0.0-12.0 % Eosinophils (%) (Auto) 0.3 0.0-7.0 % Basophils (%) (Auto) 0.8 0.0-2.0 % Neutrophils # (Auto) 7.6 1.6-8.6 10 ^3/uL Lymphocytes # (Auto) 0.5 0.4-5.4 10 ^3/uL Monocytes # (Auto) 0.7 0-1.3 10 ^3/uL Eosinophils # (Auto) 0 0-0.8 10 ^3/uL Basophils # (Auto) 0.1 0-0.2 10 ^3/uL Nucleated Red Blood Cells 0.5 % Sodium Level 144 136-145 mmol/L Potassium Level 4.2 3.5-5.1 mmol/L Chloride Level 99 98-107 mmol/L Carbon Dioxide Level 38 H 20-31 mmol/L Anion Gap 7 5-15 Blood Urea Nitrogen 42 H 9-23 mg/dL Creatinine 1.24 0.700-1.30 mg/dL Glomerular Filtration Rate Calc 66 >90 mL/min BUN/Creatinine Ratio 33.9 H 10.0-20.0 Serum Glucose 106 74-106 mg/dL Calcium Level 8.5 L 8.7-10.4 mg/dL Total Bilirubin 3.6 H 0.2-1.0 mg/dL Aspartate Amino Transferase (AST) 46 H <34 U/L Alanine Aminotransferase (ALT) 30 7-40 U/L Alkaline Phosphatase 91 46-116 U/L Total Protein 5.3 L 5.7-8.2 g/dL Albumin 3.0 L 3.2-4.8 g/dL Lactic Acid Level 2.0 0.4-2.0 mmol/L Troponin I High Sensitivity 92 *H </=54 ng/L Blood Gas Spontaneous Rate 24 Blood Gas Spontaneous Tidal Volume 526 Bl Gas Inspiratory/Expiratory Ratio 1:2 Test 09/16/24 19:09 09/16/24 17:44 Range/Units Blood Gas Critical Value Read Back Yes Blood Gas Notified Whom barbara Mclean Blood Gas Notified Time [id number] Blood Gas Notified By marky Biswas Differential Total Cells Counted 100.0 100 Neutrophils % (Manual) 45 37.0-80.0 Band Neutrophils % (Manual) 4 Lymphocytes % (Manual) 37 10.0-50.0 Monocytes % (Manual) 14 H 0-12 Eosinophils % (Manual) 0 0-7 Basophils % (Manual) 0 0.0-2.0 Metamyelocytes % (manual) 0 Myelocytes % (Manual) 0 Promyelocytes % (Manual) 0 Blast Cells % (Manual) 0 Reactive Lymphocytes 0 Platelet Estimate Adequate Hypochromasia (manual) Slight Anisocytosis (manual) Slight Prothrombin Time 14.9 H 9.3-11.8 sec Prothrombin Time INR 1.46 H 0.9-1.15 Activated Partial Thromboplast Time 27.4 24.5-34.5 SEC B-Type Natriuretic Peptide 1337.19 0-100 pg/mL Assessment Coma Hypoxic encephalopathy Metabolic encephalopathy Toxic encephalopathy Cardiopulmonary arrest Respiratory failure Kidney failure Coagulopathy Elevated liver function tests Witnessed seizure/seizure-like activity Chronic stroke per CT scan AFib Plan/Recommendation Monitoring Supportive treatment ICU care Follow-up lab Stabilize vitals/pressor drip Referred support/vent management EEG MR head or Follow-up CT head Keppra 500 mg IV b.i.d. Ativan for seizure breakthrough IV antibiotics Lovenox 40 mg daily Pulmonary consultation Nephrology consultation More recommendation per clinical course Critical care time spent 45 minutes This medical document was created using an electronic medical record system with [employer] computerized dictation system. Although this document has been carefully reviewed, there may still be some phonetic and typographical errors. These areas are purely typographical due to imperfections of the software programs, and do not reflect any compromise in the patient's medical care. Plan discussed with: Other JOHNATHAN BRICEÑO MD Sep 17, 2024 08:56
[2024-09-17] MEDS: ENOXAPARIN SOD 40 MG/0.4 ML SYRINGE SC SCH (10:16)
--- NOTE | 2024-09-17 10:24 | DVHINCON2 ---
Date Seen: Sep 17, 2024 Referring Physician BARRETT Jensen Reason for Consultation Cardiopulmonary arrest History of Present Illness This is a 59-year-old male patient who presents to the emergency room status post cardiopulmonary arrest with return of spontaneous circulation. At the time of assessment, the patient is chemically sedated and mechanically ventilated. Patient's ex-girlfriend at bedside. History obtained from his ex-girlfriend, bedside RN and medical records. According to documentation, the patient was brought in via EMS status post cardiopulmonary arrest with CPR and return of spontaneous circulation. The patient was intubated in the field and given four rounds of epinephrine. ROS was achieved prior to emergency room arrival. Approximate downtime 5-7 minutes per documentation. Initial twelve lead electrocardiogram obtained in the emergency room reveals atrial fibrillation with prolonged QTc interval. Significant past medical history includes congestive heart failure, atrial fibrillation s/p cardioversion in 2011 (on Eliquis), hypertension, pulmonary hypertension, liver cirrhosis, and obesity. According to the patients ex-girlfriend, he follows up with a hot frame tender in [place]. Past Medical History Past medical history reviewed. No other significant than mentioned above. Past Surgical History Hernia repair-per patient's ex-girlfriend Family History: Patient reports no known family medical history. Family History Unable to obtain Social History Patient has a 22.5 pack-year history, quit smoking approximately one year ago- per patient's ex-girlfriend Denies alcohol or illicit drug use Allergies: Coded Allergies: Iodine (Verified Allergy, Unknown, 08/27/24) Home Meds Active Scripts Carvedilol (COREG) 3.125 Mg Tab, 3.125 MG OR BID for 30 Days, #60 TAB 2 Refills Prov:YUMIKO FRANCISCO BINDING PRINTER 09/03/24 Apixaban Base (ELIQUIS) 5 Mg Tab, 5 MG PO BID for 30 Days, #60 TAB Prov:YUMIKO FRANCISCO BINDING PRINTER 09/03/24 Lactulose (Lactulose) 10 Gm/15 Ml Jackeline, 30 ML PO BID for 30 Days, #15 ML 1 Refill Prov:YUMIKO FRANCISCO BINDING PRINTER 09/03/24 Reported Medications Pcpcscsrizm-Yemqsqeobrmr-Bgecz (Trelegy Ellipta 200-62.5-25 Mcg/INH) 1 Aer Aer, 1 AER IN DAILY, AER 09/17/24 Tamsulosin Hcl (Tamsulosin Hcl) 0.4 Mg Cap, 0.4 MG PO QPM for 30 Days, MG 09/17/24 Sildenafil Citrate (Viagra) 50 Mg Tab, 20 MG PO BID, TAB 09/17/24 Potassium Chloride (POTASSIUM CHLORIDE CR) 10 Meq Tb, 10 MEQ PO BID, TAB 09/17/24 Losartan Potassium (Losartan Potassium) 25 Mg Tab, 25 MG PO DAILY for 30 Days, MG 09/17/24 Donepezil Hydrochloride (DONEPEZIL HCL) 5 Mg Tab, 5 MG PO HS for 30 Days, MG 09/17/24 Digoxin (Digoxin) 250 Mcg Tab, 250 MCG PO DAILY, TAB 09/17/24 Atorvastatin Calcium (ATORVASTATIN CALCIUM) 40 Mg Tab, 1 TAB PO DAILY, #30 TAB 5 Refills 09/17/24 Aspirin (Aspir-Low) 81 Mg Tab, 81 MG PO DAILY for 30 Days, MG 09/17/24 Enalapril Maleate (Enalapril Maleate) 2.5 Mg Tab, 1 TAB PO BID 01/06/12 Furosemide (Furosemide) 20 Mg Tab, 40 MG PO BID 01/06/12 Home Meds Home medications reviewed. Current Medications Current Medications Medications (Trade) Dose Ordered Sig/Renetta Route PRN Reason Start Time Stop Time Status Last Admin Norepinephrine Bitartrate 250 ml @ 3.75 mls/hr Q24H IV 09/16/24 17:45 09/16/24 18:45 Propofol 100 ml @ 2.658 mls/ hr Q24H IV 09/16/24 17:45 09/16/24 17:55 Fentanyl Citrate 250 ml @ 2.5 mls/hr Q24H IV 09/16/24 17:45 09/16/24 17:54 Vancomycin HCl 0 ml @ 0 mls/hr UD IV 09/16/24 18:00 09/16/24 20:03 DC Vancomycin HCl 250 ml @ 250 mls/hr Q1H IV 09/16/24 18:00 09/16/24 19:59 DC 09/16/24 21:53 Midazolam HCl 50 ml @ 1 mls/hr Q24H IV 09/16/24 19:45 09/17/24 07:30 Nitroglycerin (Ntrostat Sublingual) 0.4 mg Q5MINP PRN SL FOR CHEST PAIN 09/16/24 20:00 Morphine Sulfate 2 mg Q30M PRN IV FOR CHEST PAIN 09/16/24 20:00 Furosemide (Lasix Injection) 20 mg BIDD IV 09/17/24 06:00 09/17/24 05:38 Ondansetron HCl (Zofran) 4 mg Q4HP PRN IV NAUSEA / VOMITING 09/16/24 20:00 Enoxaparin Sodium (Lovenox) 40 mg DAILY SC 09/17/24 10:00 Acetaminophen (Tylenol Tablet) 650 mg Q6HP PRN PO PAIN SCALE 1-3 OR TEMP>100.4 09/16/24 20:00 Albuterol (Ventolin Medneb) 2.5 mg Q6HPRN PRN NEB SHORTNESS OF BREATH 09/16/24 20:45 09/17/24 05:52 Piperacillin Sod/ Tazobactam Sod 100 ml @ 25 mls/hr Q8HR IV 09/16/24 22:00 09/17/24 05:40 Levetiracetam 100 ml @ 400 mls/hr BID IV 09/17/24 22:00 Review of Systems Constitutional: No symptom reported Ears, Nose, & Throat: No symptom reported Eyes: No symptom reported Neurological: No symptoms reported Pulmonary/Respiratory: Cardiopulmonary arrest Cardiovascular: Cardiopulmonary arrest Gastrointestinal: No symptom reported Genitourinary: No symptom reported Musculoskeletal: No symptom reported Skin: No symptom reported Psychiatric: No symptom reported Endocrine: No symptom reported Hematologic/Lymphatic: No symptom reported Vital Signs Vital Signs Date Time Temp Pulse Resp B/P (MAP) Pulse Ox O2 Delivery O2 Flow Rate FiO2 09/17/24 09:51 114 24 107/73 (84) 95 45 09/17/24 08:30 Mechanical Ventilator+ 09/17/24 04:57 97.9 97.9 Physical Exam General Appearance: Calm, relaxed. Obese Pulmonary/Respiratory: Clear, bilateral breaths sounds. Mechanically ventilated Cardiovascular/Chest: Irregularly irregular and rhythm. Peripheral Pulses: 2+ Radial (R). 2+ Radial (L). 2+ Pedal (R). 2+ Pedal (L) Abdominal Exam: Normal bowel sounds. Ankle Exam: 4+ pitting edema Lower extremities: 4+ pitting edema Neuro/Mental Status: Chemically sedated Thoughts/Psych: Deferred Appearance: No acute distress. Skin Exam: Normal inspection. Normal color. Warm and dry. Labs/Diagnostic Data Labs Test 09/17/24 07:04 09/17/24 05:51 09/16/24 20:46 09/16/24 20:40 Range/Units Blood Gas Specimen Type Arterial Blood Gas Sample Site Left radial Blood Gas Patient Temperature 37.0 Arterial Blood Date Drawn [id number] Arterial Blood pH 7.504 H 7.350-7.450 Arterial Blood Partial Pressure CO2 49.0 H 35.0-48.0 mmHg Arterial Blood Partial Pressure O2 58.3 L 83.0-108.0 mmHg Arterial Blood HCO3 37.7 H 21.0-28.0 mmol/L Arterial Blood Oxygen Saturation 90.0 L 94.0-98.0 % Arterial Blood Base Excess 12.9 H -2.0-3.0 mmol/L Arterial Blood Oxyhemoglobin 88.2 L 94.0-98.0 % Arterial Blood Carboxyhemoglobin 1.9 H 0.5-1.5 % Arterial Blood Methemoglobin 0.1 0.0-1.5 % Gerardo Test Modified Blood Gas Total Hemoglobin 11.50 L 13.5-17.5 g/dL Blood Gas Set Respiration Rate 24.0 Blood Gas Modality Vent - ac FiO2 % 40.0 Blood Gas Tidal Volume 500.0 Blood Gas PEEP or CPAP 5.0 White Blood Count 8.9 4.4-10.8 10^3/uL Red Blood Count 4.17 L 4.5-5.90 10^6/uL Hemoglobin 10.3 L 13.5-17.5 g/dL Hematocrit 33.5 #L 41.0-53.0 % Mean Corpuscular Volume 80.3 # 80.0-100.0 fL Mean Corpuscular Hemoglobin 24.8 L 28.0-32.0 pg Mean Corpuscular Hemoglobin Concent 30.9 L 32.0-36.0 g/dL Red Cell Distribution Width 22.6 H 11.8-14.3 % Platelet Count 248 140-450 10^3/uL Mean Platelet Volume 7.6 6.9-10.8 fL Neutrophils (%) (Auto) 85.2 H 37.0-80.0 % Lymphocytes (%) (Auto) 5.8 L 10.0-50.0 % Monocytes (%) (Auto) 7.9 0.0-12.0 % Eosinophils (%) (Auto) 0.3 0.0-7.0 % Basophils (%) (Auto) 0.8 0.0-2.0 % Neutrophils # (Auto) 7.6 1.6-8.6 10 ^3/uL Lymphocytes # (Auto) 0.5 0.4-5.4 10 ^3/uL Monocytes # (Auto) 0.7 0-1.3 10 ^3/uL Eosinophils # (Auto) 0 0-0.8 10 ^3/uL Basophils # (Auto) 0.1 0-0.2 10 ^3/uL Nucleated Red Blood Cells 0.5 % Sodium Level 144 136-145 mmol/L Potassium Level 4.2 3.5-5.1 mmol/L Chloride Level 99 98-107 mmol/L Carbon Dioxide Level 38 H 20-31 mmol/L Anion Gap 7 5-15 Blood Urea Nitrogen 42 H 9-23 mg/dL Creatinine 1.24 0.700-1.30 mg/dL Glomerular Filtration Rate Calc 66 >90 mL/min BUN/Creatinine Ratio 33.9 H 10.0-20.0 Serum Glucose 106 74-106 mg/dL Calcium Level 8.5 L 8.7-10.4 mg/dL Total Bilirubin 3.6 H 0.2-1.0 mg/dL Aspartate Amino Transferase (AST) 46 H <34 U/L Alanine Aminotransferase (ALT) 30 7-40 U/L Alkaline Phosphatase 91 46-116 U/L Total Protein 5.3 L 5.7-8.2 g/dL Albumin 3.0 L 3.2-4.8 g/dL Lactic Acid Level 2.0 0.4-2.0 mmol/L Troponin I High Sensitivity 92 *H </=54 ng/L Blood Gas Spontaneous Rate 24 Blood Gas Spontaneous Tidal Volume 526 Bl Gas Inspiratory/Expiratory Ratio 1:2 Test 09/16/24 19:09 09/16/24 17:44 Range/Units Blood Gas Critical Value Read Back Yes Blood Gas Notified Whom barbara Mclean Blood Gas Notified Time [id number] Blood Gas Notified By marky Biswas Differential Total Cells Counted 100.0 100 Neutrophils % (Manual) 45 37.0-80.0 Band Neutrophils % (Manual) 4 Lymphocytes % (Manual) 37 10.0-50.0 Monocytes % (Manual) 14 H 0-12 Eosinophils % (Manual) 0 0-7 Basophils % (Manual) 0 0.0-2.0 Metamyelocytes % (manual) 0 Myelocytes % (Manual) 0 Promyelocytes % (Manual) 0 Blast Cells % (Manual) 0 Reactive Lymphocytes 0 Platelet Estimate Adequate Hypochromasia (manual) Slight Anisocytosis (manual) Slight Prothrombin Time 14.9 H 9.3-11.8 sec Prothrombin Time INR 1.46 H 0.9-1.15 Activated Partial Thromboplast Time 27.4 24.5-34.5 SEC B-Type Natriuretic Peptide 1337.19 0-100 pg/mL Microbiology Date/Time Source Procedure Growth Status 09/16/24 17:22 Trachea Gram Stain - Final Resulted 09/16/24 17:22 Trachea Respiratory Culture - Preliminary Resulted Assessment Cardiopulmonary arrest status post CPR with ROSC Sepsis with pneumonia NSTEMI, likely type II secondary to above Atrial fibrillation, likely persistent (on Eliquis) Acute on chronic decompensated HFmrEF, NYHA class IV Moderate mitral stenosis Severe tricuspid regurgitation Moderate mitral regurgitation Hypertension Pulmonary hypertension Liver cirrhosis Seizures, ?new onset Obesity History of tobacco use Plan/Recommendation We will continue with the following plan/recommendations (Dr. Murrieta): * Echocardiogram to evaluate cardiac function * Echocardiogram from 08/28/2024 reveals an EF of 45% * Vasopressors for hemodynamic support * Unable to initiate guideline directed medical therapy for CHF as patient is on vasopressors * Strict intake and output, daily weights, maintain fluid restriction * Diuresis as tolerated * Avoid medications that prolong QTc interval * [id number] VASc score: 2 points, HAS-BLED score: 1 point * Therapeutic Lovenox while inpatient, transition back to Eliquis when appropriate * Initiate beta-vanessa when off of vasopressors * Close Cardiac surveillance Case reviewed and discussed with .At the time of assessment, the patient does not have a cough or gag reflex. Pupils appear fixed bilaterally. Given possible neurological insult, no plans for invasive cardiac workup at this time. Continue with conservative medical management for the time being. Neurology on board, plans for EEG and brain/head CT later today. Further recommendations per clinical course and progression. Thank you for allowing us to care for this patient. Please call with any questions or concerns. Critical care time spent: 44 minutes This medical document was created using an electronic medical record system with voice recognition software and computerized dictation system. Although this document has been carefully reviewed, there might still be some phonetic and typographical errors. Occasional wrong-word or ``sound-alike substitutions may have occurred due to the inherent limitations of voice recognition software. These areas are purely typographical due to imperfections of the software programs and do not reflect any compromise in the patient's medical care. Please read the chart carefully and recognize, using context, where these substitutions have occurred. Plan discussed with: Other (Bedside RN) NYHA Physical activity limitations: Class4(Severe)discomfort (w any activit,symptoms at rest) Date of Service: Sep 17, 2024 Billing Provider: SARBJIT WADE Cardiology Common Codes: 55369-ZMOWHQN INP/OBS CARE (High) Cardiology Consultation Codes: [id number] CONSULT <45MIN SARBJIT WADE Sep 17, 2024 10:24
[2024-09-17] MEDS ORDERED: DIGO0.25 PO (11:25)
[2024-09-17] MEDS ORDERED: FLUT1AER17 IN (11:25)
[2024-09-17] MEDS ORDERED: DONE5TAB80 PO (11:25)
[2024-09-17] MEDS ORDERED: ASPI-543 PO (11:25)
[2024-09-17] MEDS ORDERED: TAMS0.4C39 PO (11:25)
[2024-09-17] MEDS ORDERED: SILD50TA PO (11:25)
[2024-09-17] MEDS ORDERED: LOSA-533 PO (11:25)
[2024-09-17] MEDS ORDERED: POTA-36 PO (11:25)
[2024-09-17] MEDS ORDERED: ATOR40TA52 PO (11:25)
--- NOTE | 2024-09-17 12:39 | DVHPN2 ---
Progress Note Date Seen: Sep 17, 2024 Medical Necessity Reason Pt with a Central, PICC or Fol: Yes The following are medically ne: Central Line, Craft Catheter Reason for craft catheter: Strict I&O Subjective Patient reports: No new complaints Review of Systems: HEENT:Normal, CVS:Normal, RESPIRATORY:Normal, GI:Normal, :Normal, MSK:Normal, NEURO:Normal Objective vital signs Vital Sign Date Time Temp Pulse Resp B/P (MAP) Pulse Ox O2 Delivery O2 Flow Rate FiO2 09/17/24 11:38 102 24 103/71 (82) 96 45 09/17/24 10:30 Mechanical Ventilator+ 09/17/24 08:00 98.3 98.3 Total Intake and Output 09/16/24 09/16/24 09/17/24 15:00 23:00 07:00 Intake Total 178.4705 ml 569.5 ml Output Total 0 ml 3001 ml Balance 178.4705 ml -2431.5 ml medications Current Medications Medications Dose Ordered Sig/Renetta Route Start Time Stop Time Status Last Admin Dose Admin Norepinephrine Bitartrate 250 ml @ 3.75 mls/hr Q24H IV 09/16/24 17:45 09/16/24 18:45 3.75 MLS/HR Propofol 100 ml @ 2.658 mls/ hr Q24H IV 09/16/24 17:45 09/16/24 17:55 2.658 MLS/HR Fentanyl Citrate 250 ml @ 2.5 mls/hr Q24H IV 09/16/24 17:45 09/16/24 17:54 2.5 MLS/HR Midazolam HCl 50 ml @ 1 mls/hr Q24H IV 09/16/24 19:45 09/17/24 07:30 10 MLS/HR Nitroglycerin 0.4 mg Q5MINP PRN SL 09/16/24 20:00 Morphine Sulfate 2 mg Q30M PRN IV 09/16/24 20:00 Furosemide 20 mg BIDD IV 09/17/24 06:00 09/17/24 05:38 20 MG Ondansetron HCl 4 mg Q4HP PRN IV 09/16/24 20:00 Acetaminophen 650 mg Q6HP PRN PO 09/16/24 20:00 Albuterol 2.5 mg Q6HPRN PRN NEB 09/16/24 20:45 09/17/24 05:52 2.5 MG Piperacillin Sod/ Tazobactam Sod 100 ml @ 25 mls/hr Q8HR IV 09/16/24 22:00 09/17/24 05:40 25 MLS/HR Levetiracetam 100 ml @ 400 mls/hr BID IV 09/17/24 22:00 Enoxaparin Sodium 90 mg Q12HR SC 09/17/24 22:00 Examination: GENERAL:Normal, HEENT:Normal, NECK:Normal, LUNGS:Normal, LUNGS:Abnormal (intubated), CVS:Normal, ABDOMEN:Normal, MSK:Normal, MSK:Abnormal (edema++), SKIN:Normal, NEURO:Normal, NEURO:Abnormal (pupils 1 mm, sluggish reaction), :Normal laboratory and microbiology Laboratory Tests 09/17/24 05:51 Test 09/17/24 05:51 Range/Units Serum Glucose 106 74-106 mg/dL Microbiology Date/Time Source Procedure Growth Status 09/16/24 17:22 Trachea Gram Stain - Final Resulted 09/16/24 17:22 Trachea Respiratory Culture - Preliminary Resulted Problem List/Assessment/Plan Problem List/Assessment/Plan #1 acute resp failure: cont acv #2 s/p cpr: neuro following #3 acute on chronic systolic/diastolic heart failure: on lasix iv #4 shock ? cardiac ?septic: iv antibiotics, pressors #5 right pneumonia ?aspiration: on zosyn #6 a fib with rvr: adjust meds, lovenox #7 rib fractures #8 liver cirrhosis: check hep panel #9 seizures; on keppra #10 anemia dw girlfriend at bedside Plan discussed with: Other (rn) My Orders My Orders Orders - BECKY PAT MD Procedure Category Date Status Time Pantoprazole PHA 09/17/24 Verified (Protonix) 12:45 Pantoprazole PHA 09/18/24 Verified (Protonix) 10:00 Complete Blood Count LAB 09/18/24 Verified 06:00 Comprehensive LAB 09/18/24 Verified Metabolic Panel 06:00 Chest Portable XY 09/18/24 Verified 06:00 Abg W/ Co-Ox RT 09/18/24 Verified 06:00 Acute Hepatitis Panel LAB 09/17/24 Verified 12:32 Respiratory Culture PETEY 09/17/24 Verified W/ Gs 12:32 Urinalysis LAB 09/17/24 Uncollected 12:32 Critical Care Time (mins): 82 (critical care time excluding procedures is 82 mins) Date of Service: Sep 17, 2024 Billing Provider: BECKY PAT MD Common Visit Codes: [id number] CARE 30-74 MIN, 86676-VUGIANDL CARE-EACH +30MIN BECKY PAT MD Sep 17, 2024 12:39
[2024-09-17] MEDS ORDERED: MORPHINE SULFATE 4 MG/ML SYR/VIAL IV PRN (13:00)
[2024-09-17 14:05] LABS: Hepatitis B Surface Antigen Negative (Negative)
[2024-09-17 14:06] LABS: Hepatitis C Antibody Negative (Negative)
[2024-09-17] MEDS: PANTOPRAZOLE 40 MG/10 ML VIAL INJ IV ONE (14:48)
[2024-09-17 15:19] LABS: Amphetamine Screen, Urine Neg (NEGATIVE); Barbiturate Scree,Urine Neg (NEGATIVE)
[2024-09-17 15:20] LABS: Benzodiazephine Screen, Urine Pos (NEGATIVE); Cannabinoid Screen, Urine Neg (NEGATIVE); Cocaine Screen, Urine Neg (NEGATIVE); Opiate Scree,Urine Neg (NEGATIVE); Phencyclidine Screen, Urine Neg (NEGATIVE)
[2024-09-17 17:29] LABS: Urine Protein, UAD Negative (Negative)
[2024-09-17] MEDS: ENOXAPARIN SOD 100 MG/1 ML SYRINGE SC SCH (22:41)
[2024-09-17] MEDS: levETIRAcetam 500 mg/100ml 100 ML IV SCH (22:42)
[2024-09-18] VITALS (106 sets, daily range): BP systolic 81–112; BP diastolic 53–82; PULSE 83–160; RESP 17–25; TEMP 97.9–98.7; O2SAT 44–100
--- NOTE | 2024-09-18 01:00 | DVHEEG2 ---
Neurology EEG Procedural Note Procedural Note EXAM DATE: 09/17/2024 REFERRING DOCTOR: Dr. Briceño TECHNIQUE: Eighteen channels of EEG, 2 channels of EOG, and 1 channel of EKG were recorded using the International 10/20 system. CLINICAL DATA: The patient was referred for an EEG evaluation for the evidence of seizure disorder. MEDICATIONS: See the chart BACKGROUND ACTIVITY: This record showed diffuse low amplitude semirhythmic theta activity over both hemispheres, that was reactive to external stimuli ACTIVATION: Hyperventilation: Not done Photic Stimulation: Not done Sleep: Nonresponsiveness IMPRESSION: This is a mildly abnormal EEG, this EEG is seen in mild cerebral dysfunction due to metabolic/hypoxic encephalopathy or medication effects, please correlate clinically The EKG channel showed a regular heart rate of 108 [place] [address] JOHNATHAN BRICEÑO MD Sep 18, 2024 01:00
[2024-09-18 03:46] LABS: Nucleated Red Blood Cells % 0.5 %
[2024-09-18 03:48] LABS: Alanine Aminotransferase 28 U/L (7-40); Alkaline Phosphatase 86 U/L (46-116); Anion Gap 8 (5-15); BUN/Creatinine Ratio 28.5 (10.0-20.0); Chloride 99 mmol/L (98-107); Glucose 89 mg/dL (74-106); Potassium 3.7 mmol/L (3.5-5.1)
[2024-09-18 03:52] LABS: Hematocrit 34.6 % (41.0-53.0); Hemoglobin 10.9 g/dL (13.5-17.5); Mean Corpuscular Hemoglobin 25.0 pg (28.0-32.0); Mean Corpuscular Volume 79.4 fL (80.0-100.0)
[2024-09-18 03:56] LABS: Albumin 3.0 g/dL (3.2-4.8); Bilirubin, Total 3.5 mg/dL (0.2-1.0); Blood Urea Nitrogen 37 mg/dL (9-23); Calcium 8.4 mg/dL (8.7-10.4); Carbon Dioxide 39 mmol/L (20-31); Sodium 146 mmol/L (136-145); Total Protein 5.3 g/dL (5.7-8.2)
--- NOTE | 2024-09-18 05:34 | DVH ---
EXAM: XY CHEST PORTABLE Indication: chf Technique: Single frontal view of the chest was obtained Comparison: XY CHEST PORTABLE on DOS: 09/17/24, XY CHEST PORTABLE on DOS: 09/16/24, XY CHEST XRAY 1 VIE W on DOS: 09/16/24, XY CHEST PORTABLE on DOS: 09/02/24, XY CHEST XRAY 1 VIEW on DOS: 08/31/24, XY CHEST PO RTABLE on DOS: 09/17/24 FINDINGS: Lines and Tubes: Endotracheal tube and enteric catheter in satisfactory position Lungs: Right lower lobe airspace disease. Pleura: Possible small left pleural effusion. No pneumothorax. Cardiomediastinal contours: Cardiomegaly Bones: Unremarkable IMPRESSION: Lines and tubes in satisfactory position. No significant interval change.
[2024-09-18 06:43] LABS: Base Excess 11.9 mmol/L (-2.0-3.0)
[2024-09-18] MEDS: PANTOPRAZOLE 40 MG/10 ML VIAL INJ IV SCH (09:44)
--- NOTE | 2024-09-18 10:35 | DVHPN2 ---
Progress Note - Dictate Date Seen: Sep 18, 2024 Medical Necessity Reason Pt with a Central, PICC or Fol: Yes The following are medically ne: Central Line, Craft Catheter Reason for craft catheter: Strict I&O Subjective Mr. Herrera is a 59 years old gentleman with a history of hypertension, dyslipidemia, cardiomyopathy, congestive heart failure, AFib, kidney stone, he was brought to the [facility] on 09/16/2024 with a chief company of cardiopulmonary arrest/status post CPR I have seen and examined the patient, discussed with his nurse, no seizure-like activity noticed, the patient is intubated, sedated, but is responsive to painful stimuli, pupils are small and minimally reactive He desaturated with repositioning Levo 2 mcg/minute, fentanyl 200 mcg/hour, FiO2: 70% ABG, 09/16/2024: Respiratory acidosis, WBC/HB/PLT/MCV, 09/17/2024: 8.9/10.3/248/80.3 PT/INR/PTT, 09/16/2024: 14.9/1.46/27.4 BUN/CR, 09/17/2019 43/1.23, 09/17/2024: 42/1.24 HCO3, 09/16/2024: 34, 09/17/2024: 38 GFR, 09/17/24: 66 TBI/AST/ALT/AP, 09/16/2024: 1.6/39/33/140, 09/17/2024: 3.6/46/30/91 Lactic acid, 09/16/24: 8, 2 TG/HDL/LDL/HDL, 08/29/24: 74/68/44/10 EEG, 09/17/2024: Mildly abnormal Chest X-ray, 09/17/2024: Lines and tubes in satisfactory position. No significant interval change. CT head, 09/16/2024: 1. No acute intracranial abnormality. 2. No significant change from 08/28/2024. (Encephalomalacia in the left frontal lobe unchanged from 08/28/2024) vital signs Vital Sign Date Time Temp Pulse Resp B/P (MAP) Pulse Ox O2 Delivery O2 Flow Rate FiO2 09/18/24 10:15 98/67 09/18/24 09:22 92 24 99 75 09/18/24 06:00 Mechanical Ventilator+ 09/18/24 04:00 98.4 98.4 Total Intake and Output 09/17/24 09/17/24 09/18/24 15:00 23:00 07:00 Intake Total 287.5 ml 325.0 ml 248.00 ml Output Total 200 ml 1300 ml Balance 287.5 ml 125.0 ml -1052.00 ml medications Current Medications Medications Dose Ordered Sig/Renetta Route Start Time Stop Time Status Last Admin Dose Admin Norepinephrine Bitartrate 250 ml @ 3.75 mls/hr Q24H IV 09/16/24 17:45 09/18/24 00:42 3.75 MLS/HR Propofol 100 ml @ 2.658 mls/ hr Q24H IV 09/16/24 17:45 09/16/24 17:55 2.658 MLS/HR Fentanyl Citrate 250 ml @ 2.5 mls/hr Q24H IV 09/16/24 17:45 09/18/24 04:06 20 MLS/HR Midazolam HCl 50 ml @ 1 mls/hr Q24H IV 09/16/24 19:45 09/18/24 06:22 9 MLS/HR Nitroglycerin 0.4 mg Q5MINP PRN SL 09/16/24 20:00 Morphine Sulfate 2 mg Q30M PRN IV 09/16/24 20:00 Cancel Furosemide 20 mg BIDD IV 09/17/24 06:00 09/18/24 05:24 20 MG Ondansetron HCl 4 mg Q4HP PRN IV 09/16/24 20:00 Acetaminophen 650 mg Q6HP PRN PO 09/16/24 20:00 Albuterol 2.5 mg Q6HPRN PRN NEB 09/16/24 20:45 09/17/24 05:52 2.5 MG Piperacillin Sod/ Tazobactam Sod 100 ml @ 25 mls/hr Q8HR IV 09/16/24 22:00 09/18/24 05:26 25 MLS/HR Levetiracetam 100 ml @ 400 mls/hr BID IV 09/17/24 22:00 09/18/24 09:45 400 MLS/HR Enoxaparin Sodium 90 mg Q12HR SC 09/17/24 22:00 09/18/24 09:51 90 MG Pantoprazole Sodium 40 mg DAILY IV 09/18/24 10:00 09/18/24 09:44 40 MG Morphine Sulfate 2 mg Q30M PRN IV 09/17/24 13:00 objective The patient is well-nourished and well-developed with no distress. The patient is intubated MENTAL STATUS: Subjective CRANIAL NERVES: Pupils are equal, round and reactive.There are corneal reflexes and doll's eyes phenomenon. No signs of facial weakness. There are gagging or coughing reflexes SENSATION: No responses to pain stimuli. MOTOR: Normal tone in the upper and lower extremity. Normal muscle bulk. No fasciculations. No spontaneous movement. REFLEXES: Deep tendon reflexes are symmetrical. No pathological reflexes. CEREBELLAR/COORDINATION: Deferred GAIT/STATION: deferred. laboratory and microbiology Laboratory Tests 09/18/24 03:00 Test 09/18/24 03:00 Range/Units Serum Glucose 89 74-106 mg/dL Problem List Coma Hypoxic encephalopathy Metabolic encephalopathy Toxic encephalopathy Cardiopulmonary arrest Respiratory failure Kidney failure Coagulopathy Elevated liver function tests Witnessed seizure/seizure-like activity Chronic stroke per CT scan AFib Assessment/Plan Monitoring Supportive treatment ICU care Follow-up lab Stabilize vitals/pressor drip Respiratory support/vent management MR head or Follow-up CT head Keppra 500 mg IV b.i.d. Ativan for seizure breakthrough IV antibiotics Lovenox 40 mg daily Pulmonary consultation Nephrology consultation More recommendation per clinical course This medical document was created using an electronic medical record system with [employer] dictation system. Although this document has been carefully reviewed, there may still be some phonetic and typographical errors. These areas are purely typographical due to imperfections of the software programs, and do not reflect any compromise in the patient's medical care. Prognosis guarded Dietary Evaluation Review Comments: 1) TF Pivot 1.5 Guy @ 55ml/hr. Start @ 20ml/hr, increase 10ml/hr Q4H until goal is reached. TF @ goal volume provides 1980 kcal (100% energy needs), 124 gm protein (100% protein needs), 1002 ml free water. 2) Water flush 250ml Q6H 3) TPN if NPO > 7 days 4) Monitor NPO status, lab values, wt trend, I/O Expected Outcomes/Goals: To meet at [place] 75% estimated needs within 7 days Fu 2-3 days Plan discussed with: Other Critical Care Time(min): 35 JOHNATHAN BRICEÑO MD Sep 18, 2024 10:35
--- NOTE | 2024-09-18 11:32 | DVHPN2 ---
Consult Progress Note Date Seen: Sep 18, 2024 Subjective Other Systems: No overnight cardiac events reported Objective vital signs Vital Sign Date Time Temp Pulse Resp B/P (MAP) Pulse Ox O2 Delivery O2 Flow Rate FiO2 09/18/24 10:37 106/73 09/18/24 09:22 92 24 99 75 09/18/24 06:00 Mechanical Ventilator+ 09/18/24 04:00 98.4 98.4 Total Intake and Output 09/17/24 09/17/24 09/18/24 15:00 23:00 07:00 Intake Total 287.5 ml 325.0 ml 248.00 ml Output Total 200 ml 1300 ml Balance 287.5 ml 125.0 ml -1052.00 ml medications Current Medications Medications Dose Ordered Sig/Renetta Route Start Time Stop Time Status Last Admin Dose Admin Norepinephrine Bitartrate 250 ml @ 3.75 mls/hr Q24H IV 09/16/24 17:45 09/18/24 00:42 3.75 MLS/HR Propofol 100 ml @ 2.658 mls/ hr Q24H IV 09/16/24 17:45 09/16/24 17:55 2.658 MLS/HR Fentanyl Citrate 250 ml @ 2.5 mls/hr Q24H IV 09/16/24 17:45 09/18/24 04:06 20 MLS/HR Midazolam HCl 50 ml @ 1 mls/hr Q24H IV 09/16/24 19:45 09/18/24 10:37 9 MLS/HR Nitroglycerin 0.4 mg Q5MINP PRN SL 09/16/24 20:00 Morphine Sulfate 2 mg Q30M PRN IV 09/16/24 20:00 Cancel Furosemide 20 mg BIDD IV 09/17/24 06:00 09/18/24 05:24 20 MG Ondansetron HCl 4 mg Q4HP PRN IV 09/16/24 20:00 Acetaminophen 650 mg Q6HP PRN PO 09/16/24 20:00 Albuterol 2.5 mg Q6HPRN PRN NEB 09/16/24 20:45 09/17/24 05:52 2.5 MG Piperacillin Sod/ Tazobactam Sod 100 ml @ 25 mls/hr Q8HR IV 09/16/24 22:00 09/18/24 05:26 25 MLS/HR Levetiracetam 100 ml @ 400 mls/hr BID IV 09/17/24 22:00 09/18/24 09:45 400 MLS/HR Enoxaparin Sodium 90 mg Q12HR SC 09/17/24 22:00 09/18/24 09:51 90 MG Pantoprazole Sodium 40 mg DAILY IV 09/18/24 10:00 09/18/24 09:44 40 MG Morphine Sulfate 2 mg Q30M PRN IV 09/17/24 13:00 Examination: GENERAL:Abnormal, LUNGS:Abnormal (Endotracheally intubated 75% FiO2), CVS:Abnormal (A-fib with RVR 120s bpm. On low-dose single vasopressor), MSK:Abnormal (BLE edema 1+), NEURO:Abnormal (Chemically sedated. Intact cough reflex, reactive pinpoint pupils bilaterally) laboratory and microbiology Laboratory Tests 09/18/24 03:00 Test 09/18/24 03:00 Range/Units Serum Glucose 89 74-106 mg/dL Problem List/Assessment/Plan Problem List/Assessment/Plan Sepsis with pneumonia Cardiopulmonary arrestwith ROSC Non ST-elevation Myocardial Infarction, questionable Type I Atrial fibrillation, likely persistent (on Eliquis) Acute on chronic decompensated HFmrEF, NYHA class IV Mitral valve stenosis/regurgitation, moderate degree Tricuspid valve regurgitation, severe degree Pulmonary hypertension Liver cirrhosis Seizures, ?new onset Obesity History of tobacco use Plan/Recommendation (Dr. Murrieta) * Echocardiogram to evaluate cardiac function * Echocardiogram from 08/28/2024 reveals an EF of 45% * Vasopressors for hemodynamic support * Preload reduction as tolerated * Strict intake and output, daily weights, maintain fluid restriction * Therapeutic Lovenox, transition back to Eliquis when appropriate * [id number] VASc score: 2 points, HAS-BLED score: 1 point * Avoid antiarrhythmics, likely persistent A-fib * Replete electrolytes as necessary, K>4 and Mg>2 * Mg and TSH levels pending at this time * Close Cardiac surveillance Improved neurological status. Brain MRI pending at this time. Further recommendations per clinical course and progression. Thank you for allowing us to care for this patient. Please call with any questions or concerns. Critical care time spent: 35 minutes. This medical document was created using an electronic medical record system with voice recognition software and computerized dictation system. Although this document has been carefully reviewed, there might still be some phonetic and typographical errors. Occasional wrong-word or ``sound-alike substitutions may have occurred due to the inherent limitations of voice recognition software. These areas are purely typographical due to imperfections of the software programs and do not reflect any compromise in the patient's medical care. Please read the chart carefully and recognize, using context, where these substitutions have occurred. Plan discussed with: Other Dietary Evaluation Review Comments: 1) TF Pivot 1.5 Guy @ 55ml/hr. Start @ 20ml/hr, increase 10ml/hr Q4H until goal is reached. TF @ goal volume provides 1980 kcal (100% energy needs), 124 gm protein (100% protein needs), 1002 ml free water. 2) Water flush 250ml Q6H 3) TPN if NPO > 7 days 4) Monitor NPO status, lab values, wt trend, I/O Expected Outcomes/Goals: To meet at [place] 75% estimated needs within 7 days Fu 2-3 days Date of Service: Sep 18, 2024 Billing Provider: WILLA TOBAR Cardiology Common Codes: [id number] CARE 30-74 MIN WILLA TOBAR Sep 18, 2024 11:32
[2024-09-18 12:25] LABS: Triglycerides 78.0 mg/dL (< 150)
[2024-09-18 12:27] LABS: Cholesterol 69.0 mg/dL (< 200)
[2024-09-18 12:28] LABS: HDL Cholesterol 9.0 mg/dL (40-59)
[2024-09-18 12:39] LABS: Magnesium 1.6 mg/dL (1.6-2.6)
[2024-09-18] MEDS: POTASSIUM CHL 20MEQ/100ML 100 ML IV ONE (13:06)
--- NOTE | 2024-09-18 14:50 | DVHPN2 ---
Progress Note Date Seen: Sep 18, 2024 Medical Necessity Reason Pt with a Central, PICC or Fol: Yes The following are medically ne: Central Line, Craft Catheter Reason for craft catheter: Strict I&O Subjective Patient reports: No new complaints Review of Systems: HEENT:Normal, CVS:Normal, RESPIRATORY:Normal, GI:Normal, :Normal, MSK:Normal, NEURO:Normal Objective vital signs Vital Sign Date Time Temp Pulse Resp B/P (MAP) Pulse Ox O2 Delivery O2 Flow Rate FiO2 09/18/24 14:34 108/80 09/18/24 14:24 91 24 100 75 09/18/24 12:00 Mechanical Ventilator+ 09/18/24 08:00 98.7 98.7 Total Intake and Output 09/17/24 09/17/24 09/18/24 15:00 23:00 07:00 Intake Total 287.5 ml 325.0 ml 248.00 ml Output Total 200 ml 1300 ml Balance 287.5 ml 125.0 ml -1052.00 ml medications Current Medications Medications Dose Ordered Sig/Renetta Route Start Time Stop Time Status Last Admin Dose Admin Norepinephrine Bitartrate 250 ml @ 3.75 mls/hr Q24H IV 09/16/24 17:45 09/18/24 00:42 3.75 MLS/HR Propofol 100 ml @ 2.658 mls/ hr Q24H IV 09/16/24 17:45 09/16/24 17:55 2.658 MLS/HR Fentanyl Citrate 250 ml @ 2.5 mls/hr Q24H IV 09/16/24 17:45 09/18/24 14:34 25 MLS/HR Midazolam HCl 50 ml @ 1 mls/hr Q24H IV 09/16/24 19:45 09/18/24 10:37 9 MLS/HR Nitroglycerin 0.4 mg Q5MINP PRN SL 09/16/24 20:00 Morphine Sulfate 2 mg Q30M PRN IV 09/16/24 20:00 Cancel Furosemide 20 mg BIDD IV 09/17/24 06:00 09/18/24 05:24 20 MG Ondansetron HCl 4 mg Q4HP PRN IV 09/16/24 20:00 Acetaminophen 650 mg Q6HP PRN PO 09/16/24 20:00 Albuterol 2.5 mg Q6HPRN PRN NEB 09/16/24 20:45 09/18/24 12:20 2.5 MG Piperacillin Sod/ Tazobactam Sod 100 ml @ 25 mls/hr Q8HR IV 09/16/24 22:00 09/18/24 05:26 25 MLS/HR Levetiracetam 100 ml @ 400 mls/hr BID IV 09/17/24 22:00 09/18/24 09:45 400 MLS/HR Enoxaparin Sodium 90 mg Q12HR SC 09/17/24 22:00 09/18/24 09:51 90 MG Pantoprazole Sodium 40 mg DAILY IV 09/18/24 10:00 09/18/24 09:44 40 MG Morphine Sulfate 2 mg Q30M PRN IV 09/17/24 13:00 Examination: GENERAL:Normal, HEENT:Normal, NECK:Normal, LUNGS:Normal, LUNGS:Abnormal (intubated), CVS:Normal, ABDOMEN:Normal, MSK:Normal, MSK:Abnormal (edema++), SKIN:Normal, NEURO:Normal, :Normal laboratory and microbiology Laboratory Tests 09/18/24 03:00 Test 09/18/24 03:00 Range/Units Serum Glucose 89 74-106 mg/dL Microbiology Date/Time Source Procedure Growth Status 09/17/24 03:28 Nose MRSA Screen - Final Complete Problem List/Assessment/Plan Problem List/Assessment/Plan #1 acute resp failure: cont acv #2 s/p cpr: neuro following, brain mri #3 acute on chronic systolic/diastolic heart failure: on lasix iv #4 shock ? cardiac ?septic: iv antibiotics, off pressors #5 right pneumonia ?aspiration: on zosyn #6 a fib with rvr: adjust meds, lovenox #7 rib fractures #8 liver cirrhosis: check hep panel #9 seizures; on keppra #10 anemia #11 nutrition: tube feedings dw girlfriend at bedside Plan discussed with: Other (rn) Dietary Evaluation Review Comments: 1) TF Pivot 1.5 Guy @ 55ml/hr. Start @ 20ml/hr, increase 10ml/hr Q4H until goal is reached. TF @ goal volume provides 1980 kcal (100% energy needs), 124 gm protein (100% protein needs), 1002 ml free water. 2) Water flush 250ml Q6H 3) TPN if NPO > 7 days 4) Monitor NPO status, lab values, wt trend, I/O Expected Outcomes/Goals: To meet at [place] 75% estimated needs within 7 days Fu 2-3 days Critical Care Time (mins): 46 (critical care time excluding procedures is 46 mins) Date of Service: Sep 18, 2024 Billing Provider: BECKY PAT MD Common Visit Codes: [id number] CARE 30-74 MIN BECKY PAT MD Sep 18, 2024 14:50
[2024-09-18] MEDS: DIGOXIN (250MCG/ML) 2 ML AMPULE IV ONE (16:17)
[2024-09-18] MEDS: MAGNESIUM SULFATE 1GM/100ML 100 ML IV ONE (16:23)
[2024-09-18] MEDS: Jevity 1.2 Cal/Fiber 1 Liter GT SCH (18:43)
--- NOTE | 2024-09-18 19:02 | DVHSR ---
APPROVED REPORT EXAM: LIMITED Two-dimensional and M-mode echocardiogram with Doppler and color Doppler. Blood Pressure: 103/71 mmHg INDICATION S/P CPR RISK FACTORS Height: 6'4", Weight: 195 DIMENSIONS LVDd5.3 (3.8-5.7cm)LA (2D)6.9 (1.9-4.0cm)Aortic Root (2.0-3.7cm) LVDs3.5 (2.5-4.0cm)LA (MM) (1.9-4.0cm)Aortic Cusp Exc (1.5-2.0cm) EF (%) 64.0 (55-70%)Rt. Atrium6.0 (1.9-4.0cm)Asc. Aorta cm IVSd1.8 (0.7-1.1cm)RV (D)5.1 (1.8-2.4cm) PWd1.6 (0.7-1.1cm) Mitral Valve MitralMitral Stenosis E/A ratio0.02D MVAcm2 Tricuspid Valve TR Velocity3.01m/s [id number] Conclusion Technically good study. Atrial fibrillation. Biatrial enlargement with severe left atrial enlargement and concentric LVH. RV enlargement. Mild mitral annular calcification. The aortic is within normal limits. The tricuspid and pulmonic n ormal. Left ventricular systolic performance is preserved. EF is approximately 55%. Right ventricular func tion is mildly diminished. [id number] tricuspid insufficiency with mild to moderate mitral insufficiency. No pericardial effusion masses or vegetations.
[2024-09-19] VITALS (104 sets, daily range): BP systolic 89–123; BP diastolic 60–90; PULSE 75–152; RESP 10–21; TEMP 98–99.2; O2SAT 87–100
[2024-09-19 03:47] LABS: Hematocrit 34.0 % (41.0-53.0); Hemoglobin 10.6 g/dL (13.5-17.5); Mean Corpuscular Hemoglobin 24.7 pg (28.0-32.0); Mean Corpuscular Volume 78.9 fL (80.0-100.0); Nucleated Red Blood Cells % 0.2 %
[2024-09-19 03:50] LABS: INR 1.3 (0.9-1.15); Partial Thromboplastin Time 34.7 SEC (24.5-34.5); Prothrombin Time 13.4 sec (9.3-11.8)
[2024-09-19 04:06] LABS: Alanine Aminotransferase 22 U/L (7-40); Alkaline Phosphatase 77 U/L (46-116); Anion Gap 8 (5-15); BUN/Creatinine Ratio 24.8 (10.0-20.0); Chloride 101 mmol/L (98-107); Glucose 84 mg/dL (74-106); Magnesium 1.8 mg/dL (1.6-2.6); Potassium 3.7 mmol/L (3.5-5.1)
[2024-09-19 04:22] LABS: Albumin 2.9 g/dL (3.2-4.8); Bilirubin, Total 3.3 mg/dL (0.2-1.0); Blood Urea Nitrogen 32 mg/dL (9-23); Calcium 8.1 mg/dL (8.7-10.4); Carbon Dioxide 37 mmol/L (20-31); Sodium 146 mmol/L (136-145); Total Protein 5.2 g/dL (5.7-8.2)
--- NOTE | 2024-09-19 05:06 | DVH ---
EXAM: XY CHEST PORTABLE HISTORY: chf COMPARISON: XY CHEST PORTABLE on DOS: 09/18/24, XY CHEST PORTABLE on DOS: 09/17/24, XY CHEST PORTABLE o n DOS: 09/16/24, XY CHEST XRAY 1 VIEW on DOS: 09/16/24, XY CHEST PORTABLE on DOS: 09/02/24, CT scan of th e chest dated 09/16/2024. TECHNIQUE: Portable upright AP view of the chest was performed. FINDINGS: Endotracheal tube is re-identified with its tip 3.3 cm above the forest. OG tube is re-identified. Th ere are diffuse bilateral pulmonary opacities and bilateral pleural effusions obscuring the hemidiaph ragms. No pneumothorax. Emphysematous changes are better characterized on prior CT scan. The heart is enlarged. The central pulmonary arteries are ectatic. IMPRESSION: 1. Mechanical ventilation. 2. Diffuse bilateral pulmonary opacities and bilateral pleural effusions which may be due to pneumoni a and/or CHF. 3. Emphysema. 4. Cardiomegaly and pulmonary arterial hypertension.
[2024-09-19 07:29] LABS: Base Excess 11.0 mmol/L (-2.0-3.0)
--- NOTE | 2024-09-19 08:57 | DVHPN2 ---
Progress Note - Dictate Date Seen: Sep 19, 2024 Medical Necessity Reason Pt with a Central, PICC or Fol: Yes The following are medically ne: Central Line, Craft Catheter Reason for craft catheter: Strict I&O Subjective Mr. Herrera is a 59 years old gentleman with a history of hypertension, dyslipidemia, cardiomyopathy, congestive heart failure, AFib, kidney stone, he was brought to the [facility] on 09/16/2024 with a chief company of cardiopulmonary arrest/status post CPR I have seen and examined the patient, discussed with his nurse, no seizure-like activity noticed, the patient is intubated, sedated, but is responsive to light painful stimuli, there is intermittent blinking any jaw movement, but the pupils are small and minimally reactive He desaturated with repositioning RN: He may not stable enough for MR scan Fentanyl 125 mcg/hour, FiO2: 45% ABG, 09/16/2024: Respiratory acidosis, WBC/HB/PLT/MCV, 09/17/2024: 8.9/10.3/248/80.3 PT/INR/PTT, 09/16/2024: 14.9/1.46/27.4 BUN/CR, 09/17/2019 43/1.23, 09/17/2024: 42/1.24 HCO3, 09/16/2024: 34, 09/17/2024: 38 GFR, 09/17/24: 66 TBI/AST/ALT/AP, 09/16/2024: 1.6/39/33/140, 09/17/2024: 3.6/46/30/91 Lactic acid, 09/16/24: 8, 2 TG/HDL/LDL/HDL, 08/29/24: 74/68/44/10 EEG, 09/17/2024: Mildly abnormal Chest X-ray, 09/17/2024: Lines and tubes in satisfactory position. No significant interval change Chest x-ray, 09/19/2024: 1. Mechanical ventilation. 2. Diffuse bilateral pulmonary opacities and bilateral pleural effusions which may be due to pneumonia and/or CHF. 3. Emphysema. 4. Cardiomegaly and pulmonary arterial hypertension. CT head, 09/16/2024: 1. No acute intracranial abnormality. 2. No significant change from 08/28/2024. (Encephalomalacia in the left frontal lobe unchanged from 08/28/2024) vital signs Vital Sign Date Time Temp Pulse Resp B/P (MAP) Pulse Ox O2 Delivery O2 Flow Rate FiO2 09/19/24 08:15 89 20 109/70 (83) 97 45 09/19/24 06:00 Mechanical Ventilator+ 09/19/24 04:00 99.1 99.1 Total Intake and Output 09/18/24 09/18/24 09/19/24 15:00 23:00 07:00 Intake Total 485 ml 275 ml 432.5 ml Output Total 1000 ml 1200 ml Balance 485 ml -725 ml -767.5 ml medications Current Medications Medications Dose Ordered Sig/Renetta Route Start Time Stop Time Status Last Admin Dose Admin Norepinephrine Bitartrate 250 ml @ 3.75 mls/hr Q24H IV 09/16/24 17:45 09/18/24 00:42 3.75 MLS/HR Propofol 100 ml @ 2.658 mls/ hr Q24H IV 09/16/24 17:45 09/16/24 17:55 2.658 MLS/HR Fentanyl Citrate 250 ml @ 2.5 mls/hr Q24H IV 09/16/24 17:45 09/19/24 04:15 20 MLS/HR Midazolam HCl 50 ml @ 1 mls/hr Q24H IV 09/16/24 19:45 09/18/24 10:37 9 MLS/HR Nitroglycerin 0.4 mg Q5MINP PRN SL 09/16/24 20:00 Morphine Sulfate 2 mg Q30M PRN IV 09/16/24 20:00 Cancel Furosemide 20 mg BIDD IV 09/17/24 06:00 09/19/24 06:08 20 MG Ondansetron HCl 4 mg Q4HP PRN IV 09/16/24 20:00 Acetaminophen 650 mg Q6HP PRN PO 09/16/24 20:00 Albuterol 2.5 mg Q6HPRN PRN NEB 09/16/24 20:45 09/19/24 00:39 2.5 MG Piperacillin Sod/ Tazobactam Sod 100 ml @ 25 mls/hr Q8HR IV 09/16/24 22:00 09/19/24 06:08 25 MLS/HR Levetiracetam 100 ml @ 400 mls/hr BID IV 09/17/24 22:00 09/18/24 21:42 400 MLS/HR Enoxaparin Sodium 90 mg Q12HR SC 09/17/24 22:00 09/18/24 21:45 90 MG Pantoprazole Sodium 40 mg DAILY IV 09/18/24 10:00 09/18/24 09:44 40 MG Morphine Sulfate 2 mg Q30M PRN IV 09/17/24 13:00 Enteral Nutritional Formula 1,000 ml 30ML/HR GT 09/18/24 15:00 09/18/24 18:43 1,000 ML Digoxin 125 mcg DAILY IV 09/19/24 10:00 objective The patient is well-nourished and well-developed with no distress. The patient is intubated MENTAL STATUS: Subjective CRANIAL NERVES: Pupils are equal, round and reactive.There are corneal reflexes and doll's eyes phenomenon. No signs of facial weakness. There are gagging or coughing reflexes SENSATION: No responses to pain stimuli. MOTOR: Normal tone in the upper and lower extremity. Normal muscle bulk. No fasciculations. No spontaneous movement. REFLEXES: Deep tendon reflexes are symmetrical. No pathological reflexes. CEREBELLAR/COORDINATION: Deferred GAIT/STATION: deferred. laboratory and microbiology Laboratory Tests 09/19/24 02:40 Test 09/19/24 02:40 Range/Units Serum Glucose 84 74-106 mg/dL Problem List Coma Hypoxic encephalopathy Metabolic encephalopathy Toxic encephalopathy Cardiopulmonary arrest Respiratory failure Kidney failure Coagulopathy Elevated liver function tests Witnessed seizure/seizure-like activity Chronic stroke per CT scan AFib Assessment/Plan Monitoring Supportive treatment ICU care Follow-up lab Stabilize vitals/pressor drip Respiratory support/vent management Follow-up CT head Keppra 500 mg IV b.i.d. Ativan for seizure breakthrough IV antibiotics Lovenox 40 mg daily Pulmonary consultation Nephrology consultation More recommendation per clinical course This medical document was created using an electronic medical record system with [employer] dictation system. Although this document has been carefully reviewed, there may still be some phonetic and typographical errors. These areas are purely typographical due to imperfections of the software programs, and do not reflect any compromise in the patient's medical care. Prognosis guarded Dietary Evaluation Review Comments: 1) TF Pivot 1.5 Guy @ 55ml/hr. Start @ 20ml/hr, increase 10ml/hr Q4H until goal is reached. TF @ goal volume provides 1980 kcal (100% energy needs), 124 gm protein (100% protein needs), 1002 ml free water. 2) Water flush 250ml Q6H 3) TPN if NPO > 7 days 4) Monitor NPO status, lab values, wt trend, I/O Expected Outcomes/Goals: To meet at [facility] 75% estimated needs within 7 days Fu 2-3 days Plan discussed with: Other Critical Care Time(min): 30 JOHNATHAN BRICEÑO MD Sep 19, 2024 08:57
[2024-09-19] MEDS: DIGOXIN (250MCG/ML) 2 ML AMPULE IV SCH (09:48)
--- NOTE | 2024-09-19 10:05 | DVHPN2 ---
Consult Progress Note Date Seen: Sep 19, 2024 Subjective Other Systems: No overnight cardiac events reported Objective vital signs Vital Sign Date Time Temp Pulse Resp B/P (MAP) Pulse Ox O2 Delivery O2 Flow Rate FiO2 09/19/24 09:48 103 09/19/24 08:15 20 109/70 (83) 97 45 09/19/24 06:00 Mechanical Ventilator+ 09/19/24 04:00 99.1 99.1 Total Intake and Output 09/18/24 09/18/24 09/19/24 15:00 23:00 07:00 Intake Total 485 ml 275 ml 470.0 ml Output Total 1000 ml 1200 ml Balance 485 ml -725 ml -730.0 ml medications Current Medications Medications Dose Ordered Sig/Renetta Route Start Time Stop Time Status Last Admin Dose Admin Norepinephrine Bitartrate 250 ml @ 3.75 mls/hr Q24H IV 09/16/24 17:45 09/18/24 00:42 3.75 MLS/HR Propofol 100 ml @ 2.658 mls/ hr Q24H IV 09/16/24 17:45 09/16/24 17:55 2.658 MLS/HR Fentanyl Citrate 250 ml @ 2.5 mls/hr Q24H IV 09/16/24 17:45 09/19/24 04:15 20 MLS/HR Midazolam HCl 50 ml @ 1 mls/hr Q24H IV 09/16/24 19:45 09/18/24 10:37 9 MLS/HR Nitroglycerin 0.4 mg Q5MINP PRN SL 09/16/24 20:00 Morphine Sulfate 2 mg Q30M PRN IV 09/16/24 20:00 Cancel Furosemide 20 mg BIDD IV 09/17/24 06:00 09/19/24 06:08 20 MG Ondansetron HCl 4 mg Q4HP PRN IV 09/16/24 20:00 Acetaminophen 650 mg Q6HP PRN PO 09/16/24 20:00 Albuterol 2.5 mg Q6HPRN PRN NEB 09/16/24 20:45 09/19/24 00:39 2.5 MG Piperacillin Sod/ Tazobactam Sod 100 ml @ 25 mls/hr Q8HR IV 09/16/24 22:00 09/19/24 06:08 25 MLS/HR Levetiracetam 100 ml @ 400 mls/hr BID IV 09/17/24 22:00 09/19/24 09:34 400 MLS/HR Enoxaparin Sodium 90 mg Q12HR SC 09/17/24 22:00 09/19/24 09:36 90 MG Pantoprazole Sodium 40 mg DAILY IV 09/18/24 10:00 09/19/24 09:36 40 MG Morphine Sulfate 2 mg Q30M PRN IV 09/17/24 13:00 Enteral Nutritional Formula 1,000 ml 30ML/HR GT 09/18/24 15:00 09/18/24 18:43 1,000 ML Digoxin 125 mcg DAILY IV 09/19/24 10:00 09/19/24 09:48 125 MCG Examination: GENERAL:Abnormal, LUNGS:Abnormal (Endotracheally intubated 45% FiO2), CVS:Normal (A-fib controlled rate low 100s bpm. Off vasopressors), NEURO:Abnormal (Chemically sedated. +gag reflex. Reactive bilateral pupils, pinpoint) laboratory and microbiology Laboratory Tests 09/19/24 02:40 Test 09/19/24 02:40 Range/Units Serum Glucose 84 74-106 mg/dL Problem List/Assessment/Plan Problem List/Assessment/Plan Sepsis with pneumonia Cardiopulmonary arrest with ROSC Non ST-elevation Myocardial Infarction, questionable Type I Atrial fibrillation, likely persistent, controlled rate (on Eliquis) 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 Ochoa) * Transthoracic echocardiogram revealed LVEF 55% * Moderate to severe tricuspid insufficiency with mild to moderate mitral insufficiency * Preload reduction as tolerated * Strict intake and output, daily weights, maintain fluid restriction * Therapeutic Lovenox, transition back to Eliquis when appropriate * [id number] VASc score: 2 points, HAS-BLED score: 1 point * Avoid antiarrhythmics, likely persistent A-fib * Replete electrolytes as necessary, K>4 and Mg>2 * Close Cardiac surveillance Improved neurological status. Head CT pending at this time. Further recommendations per clinical course and progression. Thank you for allowing us to care for this patient. Please call with any questions or concerns. Critical care time spent: 35 minutes. This medical document was created using an electronic medical record system with voice recognition software and computerized dictation system. Although this document has been carefully reviewed, there might still be some phonetic and typographical errors. Occasional wrong-word or ``sound-alike substitutions may have occurred due to the inherent limitations of voice recognition software. These areas are purely typographical due to imperfections of the software programs and do not reflect any compromise in the patient's medical care. Please read the chart carefully and recognize, using context, where these substitutions have occurred. Plan discussed with: Other Dietary Evaluation Review Comments: 1) TF Pivot 1.5 Guy @ 55ml/hr. Start @ 20ml/hr, increase 10ml/hr Q4H until goal is reached. TF @ goal volume provides 1980 kcal (100% energy needs), 124 gm protein (100% protein needs), 1002 ml free water. 2) Water flush 250ml Q6H 3) TPN if NPO > 7 days 4) Monitor NPO status, lab values, wt trend, I/O Expected Outcomes/Goals: To meet at [facility] 75% estimated needs within 7 days Fu 2-3 days Date of Service: Sep 19, 2024 Billing Provider: WILLA TOBAR Cardiology Common Codes: [id number] CARE 30-74 MIN WILLA TOBAR Sep 19, 2024 10:05
--- NOTE | 2024-09-19 11:18 | DVH ---
CT HEAD WITHOUT CONTRAST INDICATION: S/P CPR, R/O ANOXIA/CVA EXAM DATE: 09/19/2024 10:38 AM COMPARISON: CT HEAD WITHOUT CONTRAST on DOS: 09/16/24, CT HEAD WITHOUT CONTRAST on DOS: 08/28/24 RADIATION DOSE: CTDIvol: 69.08 mGy, DLP: 1360.96 mGy*cm PROCEDURE: CT scans of the head were obtained from the vertex to the skull base. Sagittal and coronal reconstructions were provided. All CT scans at this medical facility are performed using dose modulation techniques as appropriate t o a performed exam including the following: Automated exposure control was utilized; adjustment of th e MA and/or KV according to patient size; and use of iterative reconstruction technique. FINDINGS: Similar encaphalomalacia of the left frontal lobe from an old infarct. There is sulcal and ventricular prominence. The brain otherwise shows normal morphology and giron-white matter differenti ation, without intracranial hemorrhage, extra-axial fluid collection, mass effect or acute large vess el infarct. The ventricles are normal in size. The basal cisterns are patent. The skull and visible f acial bones are intact. The paranasal sinuses, mastoid air cells and middle ear cavities are well-aer ated. The soft tissues of the scalp are unremarkable. 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 No acute intracranial abnormality. No acute interval change.
[2024-09-19] MEDS: MAGNESIUM SULFATE 1GM/100ML 100 ML IV ONE (12:49)
[2024-09-19] MEDS: POTASSIUM CHL 20MEQ/100ML 100 ML IV ONE (13:52)
--- NOTE | 2024-09-19 16:05 | DVHPN2 ---
Progress Note Date Seen: Sep 19, 2024 Medical Necessity Reason Pt with a Central, PICC or Fol: Yes The following are medically ne: Central Line, Craft Catheter Reason for craft catheter: Strict I&O Subjective Patient reports: No new complaints Review of Systems: HEENT:Normal, CVS:Normal, RESPIRATORY:Normal, GI:Normal, :Normal, MSK:Normal, NEURO:Normal Objective vital signs Vital Sign Date Time Temp Pulse Resp B/P (MAP) Pulse Ox O2 Delivery O2 Flow Rate FiO2 09/19/24 15:55 85 20 110/71 (84) 96 45 09/19/24 14:00 Mechanical Ventilator+ 09/19/24 12:00 98.6 98.6 Total Intake and Output 09/18/24 09/18/24 09/19/24 15:00 23:00 07:00 Intake Total 485 ml 275 ml 470.0 ml Output Total 1000 ml 1200 ml Balance 485 ml -725 ml -730.0 ml medications Current Medications Medications Dose Ordered Sig/Renetta Route Start Time Stop Time Status Last Admin Dose Admin Norepinephrine Bitartrate 250 ml @ 3.75 mls/hr Q24H IV 09/16/24 17:45 09/18/24 00:42 3.75 MLS/HR Propofol 100 ml @ 2.658 mls/ hr Q24H IV 09/16/24 17:45 09/16/24 17:55 2.658 MLS/HR Fentanyl Citrate 250 ml @ 2.5 mls/hr Q24H IV 09/16/24 17:45 09/19/24 04:15 20 MLS/HR Midazolam HCl 50 ml @ 1 mls/hr Q24H IV 09/16/24 19:45 09/18/24 10:37 9 MLS/HR Nitroglycerin 0.4 mg Q5MINP PRN SL 09/16/24 20:00 Morphine Sulfate 2 mg Q30M PRN IV 09/16/24 20:00 Cancel Furosemide 20 mg BIDD IV 09/17/24 06:00 09/19/24 06:08 20 MG Ondansetron HCl 4 mg Q4HP PRN IV 09/16/24 20:00 Acetaminophen 650 mg Q6HP PRN PO 09/16/24 20:00 Albuterol 2.5 mg Q6HPRN PRN NEB 09/16/24 20:45 09/19/24 00:39 2.5 MG Piperacillin Sod/ Tazobactam Sod 100 ml @ 25 mls/hr Q8HR IV 09/16/24 22:00 09/19/24 15:44 25 MLS/HR Levetiracetam 100 ml @ 400 mls/hr BID IV 09/17/24 22:00 09/19/24 09:34 400 MLS/HR Enoxaparin Sodium 90 mg Q12HR SC 09/17/24 22:00 09/19/24 09:36 90 MG Pantoprazole Sodium 40 mg DAILY IV 09/18/24 10:00 09/19/24 09:36 40 MG Morphine Sulfate 2 mg Q30M PRN IV 09/17/24 13:00 Enteral Nutritional Formula 1,000 ml 30ML/HR GT 09/18/24 15:00 09/18/24 18:43 1,000 ML Digoxin 125 mcg DAILY IV 09/19/24 10:00 09/19/24 09:48 125 MCG Examination: GENERAL:Normal, HEENT:Normal, NECK:Normal, LUNGS:Normal, LUNGS:Abnormal (intubated), CVS:Normal, ABDOMEN:Normal, MSK:Normal, SKIN:Normal, NEURO:Normal, :Normal laboratory and microbiology Laboratory Tests 09/19/24 02:40 Test 09/19/24 02:40 Range/Units Serum Glucose 84 74-106 mg/dL Microbiology Date/Time Source Procedure Growth Status 09/17/24 03:28 Nose MRSA Screen - Final Complete Problem List/Assessment/Plan Problem List/Assessment/Plan #1 acute resp failure: cont acv #2 s/p cpr: neuro following, brain mri #3 acute on chronic systolic/diastolic heart failure: increase lasix iv #4 shock ? cardiac ?septic: iv antibiotics, off pressors #5 right pneumonia ?aspiration: on zosyn #6 a fib with rvr: adjust meds, lovenox #7 rib fractures #8 liver cirrhosis: check hep panel #9 seizures; on keppra #10 anemia #11 nutrition: tube feedings dw girlfriend at bedside Plan discussed with: Other (rn) My Orders My Orders Orders - BECKY PAT MD Procedure Category Date Status Time Furosemide Injection PHA 09/19/24 Verified (Lasix Injection) 18:00 Free Water PHA 09/19/24 Verified 18:00 Basic Metabolic Panel LAB 09/20/24 Verified 06:00 Complete Blood Count LAB 09/20/24 Verified 06:00 Magnesium LAB 09/20/24 Verified 05:00 Chest Portable XY 09/20/24 Verified 06:00 Abg W/ Co-Ox RT 09/20/24 Verified 06:00 Dietary Evaluation Review Comments: 1) TF Pivot 1.5 Guy @ 55ml/hr. Start @ 20ml/hr, increase 10ml/hr Q4H until goal is reached. TF @ goal volume provides 1980 kcal (100% energy needs), 124 gm protein (100% protein needs), 1002 ml free water. 2) Water flush 250ml Q6H 3) TPN if NPO > 7 days 4) Monitor NPO status, lab values, wt trend, I/O Expected Outcomes/Goals: To meet at [facility] 75% estimated needs within 7 days Fu 2-3 days Critical Care Time (mins): 48 (critical care time excluding procedures is 48mins) Date of Service: Sep 19, 2024 Billing Provider: BECKY PAT MD Common Visit Codes: [id number] CARE 30-74 MIN BECKY PAT MD Sep 19, 2024 16:05
[2024-09-19] MEDS: FREE WATER GT SCH (17:27)
[2024-09-19] MEDS: FUROSEMIDE 40 MG/4 ML VIAL IV SCH (17:27)
[2024-09-20] VITALS (102 sets, daily range): BP systolic 99–139; BP diastolic 63–94; PULSE 74–181; RESP 19–22; TEMP 97.8–98.9; O2SAT 91–100
[2024-09-20] MEDS: LABETALOL HCL 20 MG/4 ML VL IV ONE (01:14)
[2024-09-20 03:27] LABS: Anion Gap 6 (5-15); Chloride 103 mmol/L (98-107); Potassium 3.7 mmol/L (3.5-5.1)
[2024-09-20 03:33] LABS: Glucose 98 mg/dL (74-106)
[2024-09-20 03:34] LABS: BUN/Creatinine Ratio 23.7 (10.0-20.0); Magnesium 2.0 mg/dL (1.6-2.6)
[2024-09-20 03:51] LABS: Hematocrit 34.4 % (41.0-53.0); Hemoglobin 10.5 g/dL (13.5-17.5); Mean Corpuscular Hemoglobin 24.5 pg (28.0-32.0); Mean Corpuscular Volume 80.2 fL (80.0-100.0); Nucleated Red Blood Cells % 0.4 %
[2024-09-20 03:53] LABS: Blood Urea Nitrogen 27 mg/dL (9-23); Calcium 8.3 mg/dL (8.7-10.4); Carbon Dioxide 38 mmol/L (20-31); Sodium 147 mmol/L (136-145)
--- NOTE | 2024-09-20 05:29 | DVH ---
EXAM: XR Chest, 1 View CLINICAL INDICATION: CHF TECHNIQUE: Frontal view of the chest. COMPARISON: No relevant prior studies available. FINDINGS: LUNGS AND PLEURAL SPACES: See below. HEART: Cardiomegaly with pulmonary congestion and edema. Superimposed pneumonia cannot be excluded. MEDIASTINUM: Unremarkable. Normal mediastinal contour. BONES/JOINTS: Unremarkable. No acute fracture. TUBES, LINES AND DEVICES: ETT is 2.7 cm from the forest. Enteric tube tip in the stomach. OTHER FINDINGS: Comparison XY CHEST PORTABLE on DOS: 09/19/24, XY CHEST PORTABLE on DOS: 09/18/24, XY CHEST PORTABLE on DOS: 09/17/24, XY CHEST PORTABLE on DOS: 09/16/24, XY CHEST XRAY 1 VIEW on DOS: 09/16. . IMPRESSION: 1. ETT is 2.7 cm from the forest. 2. Cardiomegaly with pulmonary congestion and edema. Superimposed pneumonia cannot be excluded. HS:Y
[2024-09-20 07:37] LABS: Base Excess 10.7 mmol/L (-2.0-3.0)
--- NOTE | 2024-09-20 10:11 | DVHPN2 ---
Progress Note - Dictate Date Seen: Sep 20, 2024 Medical Necessity Reason Pt with a Central, PICC or Fol: Yes The following are medically ne: Central Line, Craft Catheter Reason for craft catheter: Strict I&O Subjective Mr. Herrera is a 59 years old gentleman with a history of hypertension, dyslipidemia, cardiomyopathy, congestive heart failure, AFib, kidney stone, he was brought to the [facility] on 09/16/2024 with a chief company of cardiopulmonary arrest/status post CPR I have seen and examined the patient, discussed with his nurse, no seizure-like activity noticed, the patient is intubated, sedated, questionably responsive to light painful stimuli, there is occasional blinking and jaw movement, eyes are rolling back, but not as but not as much as before, the pupils are small and minimally reactive Fentanyl 25 mcg/hour, FiO2: 45% ABG, 09/16/2024: Respiratory acidosis, WBC/HB/PLT/MCV, 09/17/2024: 8.9/10.3/248/80.3 PT/INR/PTT, 09/16/2024: 14.9/1.46/27.4 BUN/CR, 09/17/2019 43/1.23, 09/17/2024: 42/1.24 HCO3, 09/16/2024: 34, 09/17/2024: 38 GFR, 09/17/24: 66 TBI/AST/ALT/AP, 09/16/2024: 1.6/39/33/140, 09/17/2024: 3.6/46/30/91 Lactic acid, 09/16/24: 8, 2 TG/HDL/LDL/HDL, 08/29/24: 74/68/44/10 EEG, 09/17/2024: Mildly abnormal Chest X-ray, 09/17/2024: Lines and tubes in satisfactory position. No significant interval change Chest x-ray, 09/19/2024: 1. Mechanical ventilation. 2. Diffuse bilateral pulmonary opacities and bilateral pleural effusions which may be due to pneumonia and/or CHF. 3. Emphysema. 4. Cardiomegaly and pulmonary arterial hypertension. CT head, 09/16/2024: 1. No acute intracranial abnormality. 2. No significant change from 08/28/2024. 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 No acute intracranial abnormality. No acute interval change. vital signs Vital Sign Date Time Temp Pulse Resp B/P (MAP) Pulse Ox O2 Delivery O2 Flow Rate FiO2 09/20/24 09:47 103 20 121/85 (97) 100 45 09/20/24 08:00 97.8 97.8 09/20/24 08:00 Mechanical Ventilator+ Total Intake and Output 09/19/24 09/19/24 09/20/24 15:00 23:00 07:00 Intake Total 265.06 ml 535.5 ml 705.0 ml Output Total 1300 ml 1600 ml Balance 265.06 ml -764.5 ml -895.0 ml medications Current Medications Medications Dose Ordered Sig/Renetta Route Start Time Stop Time Status Last Admin Dose Admin Norepinephrine Bitartrate 250 ml @ 3.75 mls/hr Q24H IV 09/16/24 17:45 09/18/24 00:42 3.75 MLS/HR Propofol 100 ml @ 2.658 mls/ hr Q24H IV 09/16/24 17:45 09/16/24 17:55 2.658 MLS/HR Fentanyl Citrate 250 ml @ 2.5 mls/hr Q24H IV 09/16/24 17:45 09/19/24 04:15 20 MLS/HR Midazolam HCl 50 ml @ 1 mls/hr Q24H IV 09/16/24 19:45 09/18/24 10:37 9 MLS/HR Nitroglycerin 0.4 mg Q5MINP PRN SL 09/16/24 20:00 Morphine Sulfate 2 mg Q30M PRN IV 09/16/24 20:00 Cancel Ondansetron HCl 4 mg Q4HP PRN IV 09/16/24 20:00 Acetaminophen 650 mg Q6HP PRN PO 09/16/24 20:00 Albuterol 2.5 mg Q6HPRN PRN NEB 09/16/24 20:45 09/19/24 00:39 2.5 MG Piperacillin Sod/ Tazobactam Sod 100 ml @ 25 mls/hr Q8HR IV 09/16/24 22:00 09/20/24 06:04 25 MLS/HR Levetiracetam 100 ml @ 400 mls/hr BID IV 09/17/24 22:00 09/20/24 09:09 400 MLS/HR Enoxaparin Sodium 90 mg Q12HR SC 09/17/24 22:00 09/20/24 09:10 90 MG Pantoprazole Sodium 40 mg DAILY IV 09/18/24 10:00 09/20/24 09:09 40 MG Morphine Sulfate 2 mg Q30M PRN IV 09/17/24 13:00 Enteral Nutritional Formula 1,000 ml 30ML/HR GT 09/18/24 15:00 09/18/24 18:43 1,000 ML Digoxin 125 mcg DAILY IV 09/19/24 10:00 09/20/24 09:09 125 MCG Furosemide 40 mg BIDD IV 09/19/24 18:00 09/20/24 06:05 40 MG Purified Water 100 ml Q6HR GT 09/19/24 18:00 09/20/24 06:05 100 ML objective The patient is well-nourished and well-developed with no distress. The patient is intubated MENTAL STATUS: Subjective CRANIAL NERVES: Pupils are equal, round and reactive.There are corneal reflexes and doll's eyes phenomenon. No signs of facial weakness. There are gagging or coughing reflexes SENSATION: No responses to pain stimuli. MOTOR: Normal tone in the upper and lower extremity. Normal muscle bulk. No fasciculations. No spontaneous movement. REFLEXES: Deep tendon reflexes are symmetrical. No pathological reflexes. CEREBELLAR/COORDINATION: Deferred GAIT/STATION: deferred. laboratory and microbiology Laboratory Tests 09/20/24 02:40 Test 09/20/24 02:40 Range/Units Serum Glucose 98 74-106 mg/dL Problem List Coma Hypoxic encephalopathy Metabolic encephalopathy Toxic encephalopathy Cardiopulmonary arrest Respiratory failure Kidney failure Coagulopathy Elevated liver function tests Witnessed seizure/seizure-like activity Chronic stroke per CT scan AFib Assessment/Plan Monitoring Supportive treatment ICU care Follow-up lab Stabilize vitals/pressor drip Respiratory support/vent management Keppra 500 mg IV b.i.d. Ativan for seizure breakthrough IV antibiotics Lovenox 40 mg daily Pulmonary consultation Nephrology consultation More recommendation per clinical course This medical document was created using an electronic medical record system with [employer] dictation system. Although this document has been carefully reviewed, there may still be some phonetic and typographical errors. These areas are purely typographical due to imperfections of the software programs, and do not reflect any compromise in the patient's medical care. Prognosis guarded Dietary Evaluation Review Comments: 1) TF Pivot 1.5 Guy @ 55ml/hr. Start @ 20ml/hr, increase 10ml/hr Q4H until goal is reached. TF @ goal volume provides 1980 kcal (100% energy needs), 124 gm protein (100% protein needs), 1002 ml free water. 2) Water flush 250ml Q6H 3) TPN if NPO > 7 days 4) Monitor NPO status, lab values, wt trend, I/O Expected Outcomes/Goals: To meet at [facility] 75% estimated needs within 7 days Fu 2-3 days Plan discussed with: Other Critical Care Time(min): 30 JOHNATHAN BRICEÑO MD Sep 20, 2024 10:11
--- NOTE | 2024-09-20 12:38 | DVHPN2 ---
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 Objective vital signs Vital Sign Date Time Temp Pulse Resp B/P (MAP) Pulse Ox O2 Delivery O2 Flow Rate FiO2 09/20/24 12:30 98 20 107/80 (89) 100 09/20/24 12:00 45 09/20/24 12:00 97.8 97.8 09/20/24 12:00 Mechanical Ventilator+ Total Intake and Output 09/19/24 09/19/24 09/20/24 15:00 23:00 07:00 Intake Total 265.06 ml 535.5 ml 705.0 ml Output Total 1300 ml 1600 ml Balance 265.06 ml -764.5 ml -895.0 ml medications Current Medications Medications Dose Ordered Sig/Renetta Route Start Time Stop Time Status Last Admin Dose Admin Norepinephrine Bitartrate 250 ml @ 3.75 mls/hr Q24H IV 09/16/24 17:45 09/18/24 00:42 3.75 MLS/HR Propofol 100 ml @ 2.658 mls/ hr Q24H IV 09/16/24 17:45 09/16/24 17:55 2.658 MLS/HR Fentanyl Citrate 250 ml @ 2.5 mls/hr Q24H IV 09/16/24 17:45 09/20/24 12:10 2.5 MLS/HR Midazolam HCl 50 ml @ 1 mls/hr Q24H IV 09/16/24 19:45 09/18/24 10:37 9 MLS/HR Nitroglycerin 0.4 mg Q5MINP PRN SL 09/16/24 20:00 Morphine Sulfate 2 mg Q30M PRN IV 09/16/24 20:00 Cancel Ondansetron HCl 4 mg Q4HP PRN IV 09/16/24 20:00 Acetaminophen 650 mg Q6HP PRN PO 09/16/24 20:00 Albuterol 2.5 mg Q6HPRN PRN NEB 09/16/24 20:45 09/19/24 00:39 2.5 MG Piperacillin Sod/ Tazobactam Sod 100 ml @ 25 mls/hr Q8HR IV 09/16/24 22:00 09/20/24 06:04 25 MLS/HR Levetiracetam 100 ml @ 400 mls/hr BID IV 09/17/24 22:00 09/20/24 09:09 400 MLS/HR Enoxaparin Sodium 90 mg Q12HR SC 09/17/24 22:00 09/20/24 09:10 90 MG Pantoprazole Sodium 40 mg DAILY IV 09/18/24 10:00 09/20/24 09:09 40 MG Morphine Sulfate 2 mg Q30M PRN IV 09/17/24 13:00 Enteral Nutritional Formula 1,000 ml 30ML/HR GT 09/18/24 15:00 09/18/24 18:43 1,000 ML Digoxin 125 mcg DAILY IV 09/19/24 10:00 09/20/24 09:09 125 MCG Furosemide 40 mg BIDD IV 09/19/24 18:00 09/20/24 06:05 40 MG Purified Water 100 ml Q6HR GT 09/19/24 18:00 09/20/24 12:10 100 ML Examination: GENERAL:Abnormal, LUNGS:Abnormal (Mechanically ventilated), CVS:Abnormal (Atrial fibrillation with periods of uncontrolled rate), NEURO:Abnormal (Chemically sedated) laboratory and microbiology Laboratory Tests 09/20/24 02:40 Test 09/20/24 02:40 Range/Units Serum Glucose 98 74-106 mg/dL Problem List/Assessment/Plan Problem List/Assessment/Plan Sepsis with pneumonia Cardiopulmonary arrest with ROSC Non ST-elevation Myocardial Infarction, questionable Type I Atrial fibrillation, likely persistent, controlled rate (on Eliquis) 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 Ochoa) * Transthoracic echocardiogram revealed LVEF 55% * Moderate to severe tricuspid insufficiency with mild to moderate mitral insufficiency * Preload reduction as tolerated * Strict intake and output, daily weights, maintain fluid restriction * Therapeutic Lovenox, transition back to Eliquis when appropriate * [id number] VASc score: 2 points, HAS-BLED score: 1 point * Avoid antiarrhythmics, likely persistent A-fib * Initiate beta-vanessa for rate control; up titrate as tolerated by BP * Replete electrolytes as necessary, K>4 and Mg>2 * Close Cardiac surveillance Case discussed with Dr. Ochoa. Improved neurological status noted (bilateral pupils reactive and positive cough and gag reflex). The patient is still not awake. We will plan for possible coronary angiogram with left heart catheterization on 09/25/24 with proven intact neurological function. Further recommendations per clinical course and progression. Thank you for allowing us to care for this patient. Please call with any questions or concerns. Critical care time spent: 35 minutes. This medical document was created using an electronic medical record system with voice recognition software and computerized dictation system. Although this document has been carefully reviewed, there might still be some phonetic and typographical errors. Occasional wrong-word or ``sound-alike substitutions may have occurred due to the inherent limitations of voice recognition software. These areas are purely typographical due to imperfections of the software programs and do not reflect any compromise in the patient's medical care. Please read the chart carefully and recognize, using context, where these substitutions have occurred. Plan discussed with: Other (Bedside RN) Dietary Evaluation Review Comments: 1) TF Pivot 1.5 Guy @ 55ml/hr. Start @ 20ml/hr, increase 10ml/hr Q4H until goal is reached. TF @ goal volume provides 1980 kcal (100% energy needs), 124 gm protein (100% protein needs), 1002 ml free water. 2) Water flush 250ml Q6H 3) TPN if NPO > 7 days 4) Monitor NPO status, lab values, wt trend, I/O Expected Outcomes/Goals: To meet at [facility] 75% estimated needs within 7 days Fu 2-3 days Date of Service: Sep 20, 2024 Billing Provider: SARBJIT WADE Common Visit Codes: [id number] CARE 30-74 MIN SARBJIT WADE Sep 20, 2024 12:38
--- NOTE | 2024-09-20 15:33 | DVHPN2 ---
Progress Note Date Seen: Sep 20, 2024 Medical Necessity Reason Pt with a Central, PICC or Fol: Yes The following are medically ne: Central Line, Craft Catheter Reason for craft catheter: Strict I&O Subjective Patient reports: No new complaints Review of Systems: HEENT:Normal, CVS:Normal, RESPIRATORY:Normal, GI:Normal, :Normal, MSK:Normal, NEURO:Normal Objective vital signs Vital Sign Date Time Temp Pulse Resp B/P (MAP) Pulse Ox O2 Delivery O2 Flow Rate FiO2 09/20/24 15:15 98.6 83 20 110/76 (87) 98 98.6 09/20/24 14:03 45 09/20/24 14:00 Mechanical Ventilator+ Total Intake and Output 09/19/24 09/19/24 09/20/24 15:00 23:00 07:00 Intake Total 265.06 ml 535.5 ml 705.0 ml Output Total 1300 ml 1600 ml Balance 265.06 ml -764.5 ml -895.0 ml medications Current Medications Medications Dose Ordered Sig/Renetta Route Start Time Stop Time Status Last Admin Dose Admin Norepinephrine Bitartrate 250 ml @ 3.75 mls/hr Q24H IV 09/16/24 17:45 09/18/24 00:42 3.75 MLS/HR Propofol 100 ml @ 2.658 mls/ hr Q24H IV 09/16/24 17:45 09/16/24 17:55 2.658 MLS/HR Fentanyl Citrate 250 ml @ 2.5 mls/hr Q24H IV 09/16/24 17:45 09/20/24 12:10 2.5 MLS/HR Midazolam HCl 50 ml @ 1 mls/hr Q24H IV 09/16/24 19:45 09/18/24 10:37 9 MLS/HR Nitroglycerin 0.4 mg Q5MINP PRN SL 09/16/24 20:00 Morphine Sulfate 2 mg Q30M PRN IV 09/16/24 20:00 Cancel Ondansetron HCl 4 mg Q4HP PRN IV 09/16/24 20:00 Acetaminophen 650 mg Q6HP PRN PO 09/16/24 20:00 Albuterol 2.5 mg Q6HPRN PRN NEB 09/16/24 20:45 09/19/24 00:39 2.5 MG Piperacillin Sod/ Tazobactam Sod 100 ml @ 25 mls/hr Q8HR IV 09/16/24 22:00 09/20/24 13:48 25 MLS/HR Levetiracetam 100 ml @ 400 mls/hr BID IV 09/17/24 22:00 09/20/24 09:09 400 MLS/HR Enoxaparin Sodium 90 mg Q12HR SC 09/17/24 22:00 09/20/24 09:10 90 MG Pantoprazole Sodium 40 mg DAILY IV 09/18/24 10:00 09/20/24 09:09 40 MG Morphine Sulfate 2 mg Q30M PRN IV 09/17/24 13:00 Enteral Nutritional Formula 1,000 ml 30ML/HR GT 09/18/24 15:00 09/18/24 18:43 1,000 ML Digoxin 125 mcg DAILY IV 09/19/24 10:00 09/20/24 09:09 125 MCG Furosemide 40 mg BIDD IV 09/19/24 18:00 09/20/24 06:05 40 MG Purified Water 100 ml Q6HR GT 09/19/24 18:00 09/20/24 12:10 100 ML Metoprolol Tartrate 25 mg BID PO 09/20/24 22:00 Examination: GENERAL:Normal, HEENT:Normal, NECK:Normal, LUNGS:Normal, LUNGS:Abnormal (intubated), CVS:Normal, ABDOMEN:Normal, MSK:Normal, MSK:Abnormal (anasarca), SKIN:Normal, NEURO:Normal, :Normal laboratory and microbiology Laboratory Tests 09/20/24 02:40 Test 09/20/24 02:40 Range/Units Serum Glucose 98 74-106 mg/dL Microbiology Date/Time Source Procedure Growth Status 09/17/24 03:28 Nose MRSA Screen - Final Complete Problem List/Assessment/Plan Problem List/Assessment/Plan #1 acute resp failure: cont acv #2 s/p cpr: neuro following, brain mri #3 acute on chronic systolic/diastolic heart failure: increase lasix iv #4 shock ? cardiac ?septic: iv antibiotics, off pressors #5 right pneumonia ?aspiration: on zosyn #6 a fib with rvr: adjust meds, lovenox #7 rib fractures #8 liver cirrhosis: check hep panel #9 seizures; on keppra #10 anemia #11 nutrition: tube feedings dw girlfriend at bedside Plan discussed with: Other (rn) My Orders My Orders Orders - BECKY PAT MD Procedure Category Date Status Time Free Water PHA 09/19/24 In Process 18:00 Chest Portable XY 09/20/24 Resulted 06:00 Abg W/ Co-Ox RT 09/20/24 Logged 06:00 Furosemide Injection PHA 09/19/24 In Process (Lasix Injection) 18:00 Dietary Evaluation Review Comments: 1) TF Pivot 1.5 Guy @ 55ml/hr. Start @ 20ml/hr, increase 10ml/hr Q4H until goal is reached. TF @ goal volume provides 1980 kcal (100% energy needs), 124 gm protein (100% protein needs), 1002 ml free water. 2) Water flush 250ml Q6H 3) TPN if NPO > 7 days 4) Monitor NPO status, lab values, wt trend, I/O Expected Outcomes/Goals: To meet at [facility] 75% estimated needs within 7 days Fu 2-3 days Critical Care Time (mins): 49 (critical care time excluding procedures 49 mins) Date of Service: Sep 20, 2024 Billing Provider: BECKY PAT MD Common Visit Codes: [id number] CARE 30-74 MIN BECKY PAT MD Sep 20, 2024 15:33
[2024-09-20] MEDS: POTASSIUM EFFERVESENT TAB 25 MEQ GT ONE (16:21)
[2024-09-20] MEDS: METOPROLOL TARTRATE 25 MG TAB PO SCH (21:01)
[2024-09-21] VITALS (116 sets, daily range): BP systolic 91–131; BP diastolic 63–98; PULSE 86–140; RESP 16–25; TEMP 98.2–100.5; O2SAT 81–100
[2024-09-21 02:34] LABS: Hematocrit 35.6 % (41.0-53.0); Hemoglobin 10.8 g/dL (13.5-17.5); Mean Corpuscular Hemoglobin 24.1 pg (28.0-32.0); Mean Corpuscular Volume 79.7 fL (80.0-100.0); Nucleated Red Blood Cells % 0.3 %
[2024-09-21 02:55] LABS: Alanine Aminotransferase 26 U/L (7-40); Alkaline Phosphatase 74 U/L (46-116); Anion Gap 6 (5-15); BUN/Creatinine Ratio 19.3 (10.0-20.0); Blood Urea Nitrogen 23 mg/dL (9-23); Chloride 103 mmol/L (98-107); Glucose 90 mg/dL (74-106); Potassium 4.1 mmol/L (3.5-5.1)
[2024-09-21 03:30] LABS: Albumin 3.0 g/dL (3.2-4.8); Bilirubin, Total 4.0 mg/dL (0.2-1.0); Calcium 8.4 mg/dL (8.7-10.4); Carbon Dioxide 36 mmol/L (20-31); Sodium 145 mmol/L (136-145); Total Protein 5.5 g/dL (5.7-8.2)
[2024-09-21] MEDS: Jevity 1.2 Cal/Fiber 1 Liter GT SCH (04:48)
--- NOTE | 2024-09-21 05:34 | DVH ---
CHEST RADIOGRAPH Indication: chf Technique: Single frontal view of the chest was obtained COMPARISON: XY CHEST PORTABLE on DOS: 09/20/24, XY CHEST PORTABLE on DOS: 09/19/24, XY CHEST PORTABLE o n DOS: 09/18/24, XY CHEST PORTABLE on DOS: 09/17/24, XY CHEST PORTABLE on DOS: 09/16/24 FINDINGS: Lines and Tubes: Endotracheal tube and enteric catheter in satisfactory position. Lungs: Congestion Pleura: Small bilateral pleural effusions. No pneumothorax. Cardiomediastinal contours: Cardiomegaly Bones: Unremarkable IMPRESSION: Pulmonary edema
[2024-09-21 06:59] LABS: Base Excess 10.8 mmol/L (-2.0-3.0)
--- NOTE | 2024-09-21 15:53 | DVHPN2 ---
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 Objective vital signs Vital Sign Date Time Temp Pulse Resp B/P (MAP) Pulse Ox O2 Delivery O2 Flow Rate FiO2 09/21/24 15:25 115 25 115/80 (92) 100 30 09/21/24 08:00 Mechanical Ventilator+ 09/21/24 06:45 98.2 98.2 Total Intake and Output 09/20/24 09/20/24 09/21/24 15:00 23:00 07:00 Intake Total 567.5 ml 958.0 ml 652.5 ml Output Total 2350 ml 1000 ml Balance 567.5 ml -1392.0 ml -347.5 ml medications Current Medications Medications Dose Ordered Sig/Renetta Route Start Time Stop Time Status Last Admin Dose Admin Norepinephrine Bitartrate 250 ml @ 3.75 mls/hr Q24H IV 09/16/24 17:45 09/18/24 00:42 3.75 MLS/HR Propofol 100 ml @ 2.658 mls/ hr Q24H IV 09/16/24 17:45 09/16/24 17:55 2.658 MLS/HR Fentanyl Citrate 250 ml @ 2.5 mls/hr Q24H IV 09/16/24 17:45 09/20/24 12:10 2.5 MLS/HR Midazolam HCl 50 ml @ 1 mls/hr Q24H IV 09/16/24 19:45 09/18/24 10:37 9 MLS/HR Nitroglycerin 0.4 mg Q5MINP PRN SL 09/16/24 20:00 Morphine Sulfate 2 mg Q30M PRN IV 09/16/24 20:00 Cancel Ondansetron HCl 4 mg Q4HP PRN IV 09/16/24 20:00 Acetaminophen 650 mg Q6HP PRN PO 09/16/24 20:00 Albuterol 2.5 mg Q6HPRN PRN NEB 09/16/24 20:45 09/19/24 00:39 2.5 MG Piperacillin Sod/ Tazobactam Sod 100 ml @ 25 mls/hr Q8HR IV 09/16/24 22:00 09/21/24 14:27 25 MLS/HR Levetiracetam 100 ml @ 400 mls/hr BID IV 09/17/24 22:00 09/21/24 10:15 400 MLS/HR Enoxaparin Sodium 90 mg Q12HR SC 09/17/24 22:00 09/21/24 10:16 90 MG Pantoprazole Sodium 40 mg DAILY IV 09/18/24 10:00 09/21/24 10:14 40 MG Morphine Sulfate 2 mg Q30M PRN IV 09/17/24 13:00 Digoxin 125 mcg DAILY IV 09/19/24 10:00 09/21/24 10:15 125 MCG Furosemide 40 mg BIDD IV 09/19/24 18:00 09/21/24 05:01 40 MG Purified Water 100 ml Q6HR GT 09/19/24 18:00 09/21/24 05:01 100 ML Metoprolol Tartrate 25 mg BID PO 09/20/24 22:00 09/21/24 10:15 25 MG Enteral Nutritional Formula 1,000 ml 40ML/HR GT 09/20/24 15:30 09/21/24 04:48 1,000 ML Examination: GENERAL:Abnormal, LUNGS:Abnormal (Mechanically ventilated, Fio2 30%, PEEP 5.0), CVS:Abnormal (Atrial fibrillation), NEURO:Abnormal (Chemically sedated) laboratory and microbiology Laboratory Tests 09/21/24 02:17 Test 09/21/24 02:17 Range/Units Serum Glucose 90 74-106 mg/dL Problem List/Assessment/Plan Problem List/Assessment/Plan Sepsis with pneumonia Cardiopulmonary arrest with ROSC Non ST-elevation Myocardial Infarction, questionable Type I Atrial fibrillation, likely persistent, controlled rate (on Eliquis) 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 Ochoa) * Transthoracic echocardiogram revealed LVEF 55% * Moderate to severe tricuspid insufficiency with mild to moderate mitral insufficiency * Preload reduction as tolerated * Strict intake and output, daily weights, maintain fluid restriction * Therapeutic Lovenox, transition back to Eliquis when appropriate * [id number] VASc score: 2 points, HAS-BLED score: 1 point * Avoid antiarrhythmics, likely persistent A-fib * Initiate beta-vanessa for rate control; up titrate as tolerated by BP * Replete electrolytes as necessary, K>4 and Mg>2 * Close Cardiac surveillance Case discussed with Dr. Ochoa. Improved neurological status noted (bilateral pupils reactive and positive cough and gag reflex). The patient is still not awake or able to follow commands. We will plan for possible coronary angiogram with left heart catheterization on 09/25/24 with proven intact neurological function. Pending possible brain MRI. Further recommendations per clinical course and progression. Thank you for allowing us to care for this patient. Please call with any questions or concerns. Critical care time spent: 35 minutes. This medical document was created using an electronic medical record system with voice recognition software and computerized dictation system. Although this document has been carefully reviewed, there might still be some phonetic and typographical errors. Occasional wrong-word or ``sound-alike substitutions may have occurred due to the inherent limitations of voice recognition software. These areas are purely typographical due to imperfections of the software programs and do not reflect any compromise in the patient's medical care. Please read the chart carefully and recognize, using context, where these substitutions have occurred. Plan discussed with: Other (Bedside RN) Dietary Evaluation Review Comments: 1) TF Pivot 1.5 Guy @ 55ml/hr. Start @ 20ml/hr, increase 10ml/hr Q4H until goal is reached. TF @ goal volume provides 1980 kcal (100% energy needs), 124 gm protein (100% protein needs), 1002 ml free water. 2) Water flush 250ml Q6H 3) TPN if NPO > 7 days 4) Monitor NPO status, lab values, wt trend, I/O Expected Outcomes/Goals: To meet at [facility] 75% estimated needs within 7 days Fu 2-3 days Date of Service: Sep 21, 2024 Billing Provider: SABRJIT WADE Common Visit Codes: [id number] CARE 30-74 MIN SARBJIT WADE Sep 21, 2024 15:53
--- NOTE | 2024-09-21 22:24 | DVHPN2 ---
Progress Note - Dictate Date Seen: Sep 21, 2024 Medical Necessity Reason Pt with a Central, PICC or Fol: Yes The following are medically ne: Central Line, Craft Catheter Reason for craft catheter: Strict I&O Subjective Mr. Herrera is a 59 years old gentleman with a history of hypertension, dyslipidemia, cardiomyopathy, congestive heart failure, AFib, kidney stone, he was brought to the [facility] on 09/16/2024 with a chief company of cardiopulmonary arrest/status post CPR I have seen and examined the patient, discussed with his nurse, no seizure-like activity noticed, the patient is intubated, sedated, responsive to light painful stimuli, RN reports that the patient woke up early but did not follow verbal commands Fentanyl 25 mcg/hour, ABG, 09/16/2024: Respiratory acidosis, WBC/HB/PLT/MCV, 09/17/2024: 8.9/10.3/248/80.3 PT/INR/PTT, 09/16/2024: 14.9/1.46/27.4 BUN/CR, 09/17/2019 43/1.23, 09/17/2024: 42/1.24 HCO3, 09/16/2024: 34, 09/17/2024: 38 GFR, 09/17/24: 66 TBI/AST/ALT/AP, 09/16/2024: 1.6/39/33/140, 09/17/2024: 3.6/46/30/91 Lactic acid, 09/16/24: 8, 2 TG/HDL/LDL/HDL, 08/29/24: 74/68/44/10 EEG, 09/17/2024: Mildly abnormal Chest X-ray, 09/17/2024: Lines and tubes in satisfactory position. No significant interval change Chest x-ray, 09/19/2024: 1. Mechanical ventilation. 2. Diffuse bilateral pulmonary opacities and bilateral pleural effusions which may be due to pneumonia and/or CHF. 3. Emphysema. 4. Cardiomegaly and pulmonary arterial hypertension. CT head, 09/16/2024: 1. No acute intracranial abnormality. 2. No significant change from 08/28/2024. 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 No acute intracranial abnormality. No acute interval change. vital signs Vital Sign Date Time Temp Pulse Resp B/P (MAP) Pulse Ox O2 Delivery O2 Flow Rate FiO2 09/21/24 22:00 108 20 105/78 (87) 97 09/21/24 21:43 Mechanical Ventilator+ 30 30 09/21/24 20:30 98.2 98.2 Total Intake and Output 09/20/24 09/20/24 09/21/24 15:00 23:00 07:00 Intake Total 567.5 ml 958.0 ml 680.0 ml Output Total 2350 ml 1000 ml Balance 567.5 ml -1392.0 ml -320.0 ml medications Current Medications Medications Dose Ordered Sig/Renetta Route Start Time Stop Time Status Last Admin Dose Admin Norepinephrine Bitartrate 250 ml @ 3.75 mls/hr Q24H IV 09/16/24 17:45 09/18/24 00:42 3.75 MLS/HR Propofol 100 ml @ 2.658 mls/ hr Q24H IV 09/16/24 17:45 09/16/24 17:55 2.658 MLS/HR Fentanyl Citrate 250 ml @ 2.5 mls/hr Q24H IV 09/16/24 17:45 09/21/24 18:37 2.5 MLS/HR Midazolam HCl 50 ml @ 1 mls/hr Q24H IV 09/16/24 19:45 09/18/24 10:37 9 MLS/HR Nitroglycerin 0.4 mg Q5MINP PRN SL 09/16/24 20:00 Morphine Sulfate 2 mg Q30M PRN IV 09/16/24 20:00 Cancel Ondansetron HCl 4 mg Q4HP PRN IV 09/16/24 20:00 Acetaminophen 650 mg Q6HP PRN PO 09/16/24 20:00 Albuterol 2.5 mg Q6HPRN PRN NEB 09/16/24 20:45 09/19/24 00:39 2.5 MG Piperacillin Sod/ Tazobactam Sod 100 ml @ 25 mls/hr Q8HR IV 09/16/24 22:00 09/21/24 22:04 25 MLS/HR Levetiracetam 100 ml @ 400 mls/hr BID IV 09/17/24 22:00 09/21/24 21:34 400 MLS/HR Enoxaparin Sodium 90 mg Q12HR SC 09/17/24 22:00 09/21/24 10:16 90 MG Pantoprazole Sodium 40 mg DAILY IV 09/18/24 10:00 09/21/24 10:14 40 MG Morphine Sulfate 2 mg Q30M PRN IV 09/17/24 13:00 Digoxin 125 mcg DAILY IV 09/19/24 10:00 09/21/24 10:15 125 MCG Furosemide 40 mg BIDD IV 09/19/24 18:00 09/21/24 18:45 40 MG Purified Water 100 ml Q6HR GT 09/19/24 18:00 09/21/24 18:00 100 ML Metoprolol Tartrate 25 mg BID PO 09/20/24 22:00 09/21/24 21:34 25 MG Enteral Nutritional Formula 1,000 ml 40ML/HR GT 09/20/24 15:30 09/21/24 04:48 1,000 ML objective The patient is well-nourished and well-developed with no distress. The patient is intubated MENTAL STATUS: Subjective CRANIAL NERVES: Pupils are equal, round and reactive.There are corneal reflexes and doll's eyes phenomenon. No signs of facial weakness. There are gagging or coughing reflexes SENSATION: No responses to pain stimuli. MOTOR: Normal tone in the upper and lower extremity. Normal muscle bulk. No fasciculations. No spontaneous movement. REFLEXES: Deep tendon reflexes are symmetrical. No pathological reflexes. CEREBELLAR/COORDINATION: Deferred GAIT/STATION: deferred. laboratory and microbiology Laboratory Tests 09/21/24 02:17 Test 09/21/24 02:17 Range/Units Serum Glucose 90 74-106 mg/dL Problem List Coma Hypoxic encephalopathy Metabolic encephalopathy Toxic encephalopathy Cardiopulmonary arrest Respiratory failure Kidney failure Coagulopathy Elevated liver function tests Witnessed seizure/seizure-like activity Chronic stroke per CT scan AFib Assessment/Plan Monitoring Supportive treatment ICU care Follow-up lab Stabilize vitals/pressor drip Respiratory support/vent management Keppra 500 mg IV b.i.d. Ativan for seizure breakthrough IV antibiotics Lovenox 40 mg daily Pulmonary consultation Nephrology consultation More recommendation per clinical course This medical document was created using an electronic medical record system with Dragon computerized dictation system. Although this document has been carefully reviewed, there may still be some phonetic and typographical errors. These areas are purely typographical due to imperfections of the software programs, and do not reflect any compromise in the patient's medical care. Prognosis guarded Dietary Evaluation Review Comments: 1) TF Pivot 1.5 Guy @ 55ml/hr. Start @ 20ml/hr, increase 10ml/hr Q4H until goal is reached. TF @ goal volume provides 1980 kcal (100% energy needs), 124 gm protein (100% protein needs), 1002 ml free water. 2) Water flush 250ml Q6H 3) TPN if NPO > 7 days 4) Monitor NPO status, lab values, wt trend, I/O Expected Outcomes/Goals: To meet at [place] 75% estimated needs within 7 days Fu 2-3 days Plan discussed with: Other JOHNATHAN BRICEÑO MD Sep 21, 2024 22:24
[2024-09-21] MEDS ORDERED: LORazepam 2MG/ML-1ML VIAL IV PRN (22:30)
[2024-09-22] VITALS (111 sets, daily range): BP systolic 91–153; BP diastolic 52–99; PULSE 95–162; RESP 17–26; TEMP 97.7–99.8; O2SAT 88–100
[2024-09-22 04:29] LABS: Hematocrit 27.4 % (41.0-53.0); Hemoglobin 8.8 g/dL (13.5-17.5); Mean Corpuscular Hemoglobin 25.1 pg (28.0-32.0); Mean Corpuscular Volume 78.6 fL (80.0-100.0); Nucleated Red Blood Cells % 0.0 %
[2024-09-22 04:46] LABS: Chloride 103 mmol/L (98-107); Potassium 3.6 mmol/L (3.5-5.1)
[2024-09-22 04:47] LABS: Anion Gap 5 (5-15); Calcium 9.1 mg/dL (8.7-10.4)
[2024-09-22 04:53] LABS: BUN/Creatinine Ratio 23.9 (10.0-20.0); Magnesium 2.1 mg/dL (1.6-2.6)
[2024-09-22 04:57] LABS: Blood Urea Nitrogen 27 mg/dL (9-23); Carbon Dioxide 37 mmol/L (20-31); Glucose 122 mg/dL (74-106); Sodium 145 mmol/L (136-145)
--- NOTE | 2024-09-22 05:51 | DVH ---
CHEST RADIOGRAPH Indication: RE-CHECK PULM EDEMA, PLEURAL EFFUSIONS Technique: Single frontal view of the chest was obtained COMPARISON: XY CHEST PORTABLE on DOS: 09/21/24, XY CHEST PORTABLE on DOS: 09/20/24, XY CHEST PORTABLE o n DOS: 09/19/24, XY CHEST PORTABLE on DOS: 09/18/24, XY CHEST PORTABLE on DOS: 09/17/24 FINDINGS: Lines and Tubes: Endotracheal tube and enteric catheter in satisfactory position. Lungs: Multifocal airspace disease Pleura: No effusion. No pneumothorax. Cardiomediastinal contours: Cardiomegaly Bones: Unremarkable IMPRESSION: Lines and tubes in satisfactory position. No significant interval change.
[2024-09-22 06:26] LABS: Base Excess 12.0 mmol/L (-2.0-3.0)
[2024-09-22] MEDS: dilTIAZem 25 MG/5 ML VIAL IV ONE ×2 (06:55→06:56)
[2024-09-22] MEDS: POTASSIUM CHL 20 Meq TABLET PO ONE (07:15)
[2024-09-22] MEDS: POTASSIUM CHL 20MEQ/100ML 100 ML IV SCH ×2 (09:15→16:41)
[2024-09-22] MEDS: LIDOCAINE 1% (LOCAL ANESTH.) PF 5ml SDV ID ONE (10:35)
--- NOTE | 2024-09-22 11:05 | DVH ---
Right lower extremity venous duplex Clinical History: SWELLING Comparison: None Findings and technique: Duplex doppler evaluation of the deep venous system of the right lower extremity from the common femo ral vein to the popliteal vein including color doppler and spectral/pulsed waveform analysis was perf ormed. Right lower extremity central venous catheter in place significantly limits evaluation of the right c ommon femoral and proximal femoral veins. No definite deep venous thrombus seen in the right femoral or profound femoral veins. The popliteal vein demonstrates appropriate compressibility and waveform variability. There is normal compressibility at the tibioperoneal trunk. There is a 2.1 x 2.5 cm anechoic fluid collection in the right lower extremity . The location of this fluid collection was not described on the ultrasound. There is a small subcutaneous hematoma in the proximal right thigh. Impression: 1. Significantly limited evaluation with poor visualization of the right common femoral and proximal femoral veins due to the central venous catheter. No definite evidence of deep venous thrombosis on t his significantly limited study. If clinical concern/symptoms persist or worsen, short-interval follo w-up study is suggested. 2. A 2.1 x 2.5 cm anechoic fluid collection in the right lower extremity, the location of which was n ot described on the ultrasound. 3. Small subcutaneous hematoma in the proximal right thigh.
--- NOTE | 2024-09-22 11:57 | DVHPN2 ---
Consult Progress Note Subjective Patient reports: Other (intubated) Objective vital signs Vital Sign Date Time Temp Pulse Resp B/P (MAP) Pulse Ox O2 Delivery O2 Flow Rate FiO2 09/22/24 11:20 128 20 109/78 (88) 100 30 09/22/24 05:54 Mechanical Ventilator+ 09/22/24 04:00 99.8 99.8 Total Intake and Output 09/21/24 09/21/24 09/22/24 15:00 23:00 07:00 Intake Total 95.0 ml 1165.0 ml 812.5 ml Output Total 1500 ml 1450 ml Balance 95.0 ml -335.0 ml -637.5 ml medications Current Medications Medications Dose Ordered Sig/Renetta Route Start Time Stop Time Status Last Admin Dose Admin Norepinephrine Bitartrate 250 ml @ 3.75 mls/hr Q24H IV 09/16/24 17:45 09/18/24 00:42 3.75 MLS/HR Propofol 100 ml @ 2.658 mls/ hr Q24H IV 09/16/24 17:45 09/16/24 17:55 2.658 MLS/HR Fentanyl Citrate 250 ml @ 2.5 mls/hr Q24H IV 09/16/24 17:45 09/21/24 18:37 2.5 MLS/HR Midazolam HCl 50 ml @ 1 mls/hr Q24H IV 09/16/24 19:45 09/18/24 10:37 9 MLS/HR Nitroglycerin 0.4 mg Q5MINP PRN SL 09/16/24 20:00 Morphine Sulfate 2 mg Q30M PRN IV 09/16/24 20:00 Cancel Ondansetron HCl 4 mg Q4HP PRN IV 09/16/24 20:00 Acetaminophen 650 mg Q6HP PRN PO 09/16/24 20:00 Albuterol 2.5 mg Q6HPRN PRN NEB 09/16/24 20:45 09/22/24 11:24 2.5 MG Piperacillin Sod/ Tazobactam Sod 100 ml @ 25 mls/hr Q8HR IV 09/16/24 22:00 09/22/24 05:43 25 MLS/HR Levetiracetam 100 ml @ 400 mls/hr BID IV 09/17/24 22:00 09/21/24 21:34 400 MLS/HR Enoxaparin Sodium 90 mg Q12HR SC 09/17/24 22:00 09/21/24 10:16 90 MG Pantoprazole Sodium 40 mg DAILY IV 09/18/24 10:00 09/21/24 10:14 40 MG Morphine Sulfate 2 mg Q30M PRN IV 09/17/24 13:00 Digoxin 125 mcg DAILY IV 09/19/24 10:00 09/21/24 10:15 125 MCG Furosemide 40 mg BIDD IV 09/19/24 18:00 09/22/24 05:42 40 MG Purified Water 100 ml Q6HR GT 09/19/24 18:00 09/22/24 05:43 100 ML Metoprolol Tartrate 25 mg BID PO 09/20/24 22:00 09/21/24 21:34 25 MG Enteral Nutritional Formula 1,000 ml 40ML/HR GT 09/20/24 15:30 09/22/24 05:42 1,000 ML Lorazepam 1 mg ONCE PRN IV 09/21/24 22:30 Diltiazem HCl 100 ml @ 5 mls/hr Q20H IV 09/22/24 06:45 09/22/24 07:07 5 MLS/HR Potassium Chloride 100 ml @ 50 mls/hr Q2H IV 09/22/24 09:15 09/22/24 13:14 Sodium Chloride 10 ml QSHIFT@10,22 IV 09/22/24 22:00 Examination: LUNGS:Abnormal (vent, Fio2 30%), CVS:Abnormal, NEURO:Abnormal laboratory and microbiology Laboratory Tests 09/22/24 03:18 Test 09/22/24 03:18 Range/Units Serum Glucose 122 H 74-106 mg/dL Problem List/Assessment/Plan Problem List/Assessment/Plan Sepsis with pneumonia Cardiopulmonary arrest with ROSC Non ST-elevation Myocardial Infarction, questionable Type I Atrial fibrillation, likely persistent, controlled rate (on Eliquis), episode of RVR 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 Ochoa) * Transthoracic echocardiogram revealed LVEF 55% * Moderate to severe tricuspid insufficiency with mild to moderate mitral insufficiency * Preload reduction as tolerated * Strict intake and output, daily weights, maintain fluid restriction * Therapeutic Lovenox, transition back to Eliquis when appropriate * [id number] VASc score: 2 points, HAS-BLED score: 1 point * Avoid antiarrhythmics, likely persistent A-fib * Initiate beta-vanessa for rate control; up titrate as tolerated by BP * Replete electrolytes as necessary, K>4 and Mg>2 * Close Cardiac surveillance * Continue on Cardizem drip, titrate as tolerated. Case discussed with Dr. Ochoa. Improved neurological status noted (bilateral pupils reactive and positive cough and gag reflex). The patient is still not awake or able to follow commands. We will plan for possible coronary angiogram with left heart catheterization on 09/25/24 with proven intact neurological function. Pending possible brain MRI. Further recommendations per clinical course and progression. Patient with episode of RVR, initiated on Cardizem drip titrate as tolerated. Patient also found to have increased edema to the right thigh area, possible infiltration from central venous line versus occlusion. Good pulses. Ultrasound pending. Thank you for allowing us to care for this patient. Please call with any questions or concerns. Critical care time spent: 35 minutes. This medical document was created using an electronic medical record system with voice recognition software and computerized dictation system. Although this document has been carefully reviewed, there might still be some phonetic and typographical errors. Occasional wrong-word or ``sound-alike substitutions may have occurred due to the inherent limitations of voice recognition software. These areas are purely typographical due to imperfections of the software programs and do not reflect any compromise in the patient's medical care. Please read the chart carefully and recognize, using context, where these substitutions have occurred. Plan discussed with: Other (bedside RN Kaity) Dietary Evaluation Review Comments: 1) TF Pivot 1.5 Guy @ 55ml/hr. Start @ 20ml/hr, increase 10ml/hr Q4H until goal is reached. TF @ goal volume provides 1980 kcal (100% energy needs), 124 gm protein (100% protein needs), 1002 ml free water. 2) Water flush 250ml Q6H 3) TPN if NPO > 7 days 4) Monitor NPO status, lab values, wt trend, I/O Expected Outcomes/Goals: To meet at leasy 75% estimated needs within 7 days Fu 2-3 days Date of Service: Sep 22, 2024 Billing Provider: GIL OLMSTEAD Common Visit Codes: [id number] INP/OBS CARE(HIGH), [id number] CARE 30-74 MIN GIL OLMSTEAD Sep 22, 2024 11:57
--- NOTE | 2024-09-22 12:42 | DVH ---
CHEST RADIOGRAPH Indication: CHECK PLACEMENT OF PICC LINE AND NG TUBE Technique: Single frontal view of the chest was obtained COMPARISON: XY CHEST PORTABLE on DOS: 09/22/24, XY CHEST PORTABLE on DOS: 09/21/24, XY CHEST PORTABLE o n DOS: 09/20/24, XY CHEST PORTABLE on DOS: 09/19/24, XY CHEST PORTABLE on DOS: 09/18/24 FINDINGS: Lines and Tubes: Endotracheal tube 6. cm above the forest. Lungs: Clear Pleura: No effusion. No pneumothorax. Cardiomediastinal contours: Severe cardiomegaly, stable Bones: Unremarkable IMPRESSION: 1. No acute changes
--- NOTE | 2024-09-22 15:59 | DVH ---
INDICATION: RIGHT GROIN/THIGH SWELLING COMPARISON: None TECHNIQUE: CT of the right was performed without contrast. Volume transverse images were obtained and reconstructed in multiple planes using bone and soft tissue algorithms. CONTRAST: None Radiation Dose Information: CT Dose: CTDI volume is 21.84 mGy. Dose-length product is 1023.75 mGy*cm FINDINGS: The alignment is normal. The joint spaces are normal. There is no fracture, dislocation, or focal osseous lesions. Large heterogeneous soft tissue mass in the proximal medial aspect of the thigh adjacent to the femor al prosthesis suggestive of a hematoma. Measures a proximally 26.3 cm length and 11.6 cm in transvers e dimension and 12 cm in AP dimension. Most likely represents a large soft tissue hematoma. There is extensive subcutaneous edema associated with this. IMPRESSION: 1. Large heterogeneous soft tissue mass in the proximal medial thigh adjacent to the femoral prosthes is measuring 26 cm in length by 11.6 cm in transverse dimension 12 cm in AP dimension. This most like ly represents a large hematoma. 2. All CT scans at this medical facility are performed using dose modulation techniques as appropriat e to a performed exam including the following: Automated exposure control was utilized; adjustment of the MA and/or KV according to patient size; and use of iterative reconstruction technique.
[2024-09-22] MEDS: levETIRAcetam 500 mg/100ml 100 ML IV SCH (16:04)
--- NOTE | 2024-09-22 16:49 | DVHPN2 ---
Progress Note - Dictate Date Seen: Sep 22, 2024 Medical Necessity Reason Pt with a Central, PICC or Fol: Yes The following are medically ne: Central Line, Craft Catheter Reason for craft catheter: Strict I&O Subjective Mr. Herrera is a 59 years old gentleman with a history of hypertension, dyslipidemia, cardiomyopathy, congestive heart failure, AFib, kidney stone, he was brought to the [facility] on 09/16/2024 with a chief company of cardiopulmonary arrest/status post CPR I have seen and examined the patient, discussed with his nurse, no seizure-like activity noticed, the patient is intubated, sedated, she open her eyes to touch, he blinks, and moves the jaw, but he is nonresponsive to verbal stimuli RN reports and confirmed swelling and firm feeling in the right thigh Fentanyl 25 mcg/hour, ABG, 09/16/2024: Respiratory acidosis, WBC/HB/PLT/MCV, 09/17/2024: 8.9/10.3/248/80.3 PT/INR/PTT, 09/16/2024: 14.9/1.46/27.4 BUN/CR, 09/17/2019 43/1.23, 09/17/2024: 42/1.24 HCO3, 09/16/2024: 34, 09/17/2024: 38 GFR, 09/17/24: 66 TBI/AST/ALT/AP, 09/16/2024: 1.6/39/33/140, 09/17/2024: 3.6/46/30/91 Lactic acid, 09/16/24: 8, 2 TG/HDL/LDL/HDL, 08/29/24: 74/68/44/10 EEG, 09/17/2024: Mildly abnormal Chest X-ray, 09/17/2024: Lines and tubes in satisfactory position. No significant interval change Chest x-ray, 09/19/2024: 1. Mechanical ventilation. 2. Diffuse bilateral pulmonary opacities and bilateral pleural effusions which may be due to pneumonia and/or CHF. 3. Emphysema. 4. Cardiomegaly and pulmonary arterial hypertension. CT head, 09/16/2024: 1. No acute intracranial abnormality. 2. No significant change from 08/28/2024. 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 No acute intracranial abnormality. No acute interval change. CT, right thigh 09/22/2024: Large heterogeneous soft tissue mass in the proximal medial thigh adjacent to the femoral prosthesis measuring 26 cm in length by 11.6 cm in transverse dimension 12 cm in AP dimension. This most likely represents a large hematoma. vital signs Vital Sign Date Time Temp Pulse Resp B/P (MAP) Pulse Ox O2 Delivery O2 Flow Rate FiO2 09/22/24 15:36 113 09/22/24 15:25 20 105/73 (84) 96 30 09/22/24 08:00 Mechanical Ventilator+ 09/22/24 04:00 99.8 99.8 Total Intake and Output 09/21/24 09/21/24 09/22/24 14:59 22:59 06:59 Intake Total 95.0 ml 1165.0 ml 840.0 ml Output Total 1500 ml 1450 ml Balance 95.0 ml -335.0 ml -610.0 ml medications Current Medications Medications Dose Ordered Sig/Renetta Route Start Time Stop Time Status Last Admin Dose Admin Norepinephrine Bitartrate 250 ml @ 3.75 mls/hr Q24H IV 09/16/24 17:45 09/18/24 00:42 3.75 MLS/HR Propofol 100 ml @ 2.658 mls/ hr Q24H IV 09/16/24 17:45 09/16/24 17:55 2.658 MLS/HR Fentanyl Citrate 250 ml @ 2.5 mls/hr Q24H IV 09/16/24 17:45 09/21/24 18:37 2.5 MLS/HR Midazolam HCl 50 ml @ 1 mls/hr Q24H IV 09/16/24 19:45 09/18/24 10:37 9 MLS/HR Nitroglycerin 0.4 mg Q5MINP PRN SL 09/16/24 20:00 Morphine Sulfate 2 mg Q30M PRN IV 09/16/24 20:00 Cancel Ondansetron HCl 4 mg Q4HP PRN IV 09/16/24 20:00 Acetaminophen 650 mg Q6HP PRN PO 09/16/24 20:00 Albuterol 2.5 mg Q6HPRN PRN NEB 09/16/24 20:45 09/22/24 11:24 2.5 MG Piperacillin Sod/ Tazobactam Sod 100 ml @ 25 mls/hr Q8HR IV 09/16/24 22:00 09/22/24 16:41 25 MLS/HR Enoxaparin Sodium 90 mg Q12HR SC 09/17/24 22:00 09/21/24 10:16 90 MG Pantoprazole Sodium 40 mg DAILY IV 09/18/24 10:00 09/22/24 14:15 40 MG Morphine Sulfate 2 mg Q30M PRN IV 09/17/24 13:00 Digoxin 125 mcg DAILY IV 09/19/24 10:00 09/22/24 15:36 125 MCG Furosemide 40 mg BIDD IV 09/19/24 18:00 09/22/24 05:42 40 MG Purified Water 100 ml Q6HR GT 09/19/24 18:00 09/22/24 05:43 100 ML Metoprolol Tartrate 25 mg BID PO 09/20/24 22:00 09/21/24 21:34 25 MG Enteral Nutritional Formula 1,000 ml 40ML/HR GT 09/20/24 15:30 09/22/24 05:42 1,000 ML Lorazepam 1 mg ONCE PRN IV 09/21/24 22:30 Diltiazem HCl 100 ml @ 5 mls/hr Q20H IV 09/22/24 06:45 09/22/24 07:07 5 MLS/HR Sodium Chloride 10 ml QSHIFT@10,22 IV 09/22/24 22:00 Levetiracetam 100 ml @ 400 mls/hr Q12H IV 09/22/24 15:00 09/22/24 16:04 400 MLS/HR Potassium Chloride 100 ml @ 50 mls/hr Q2H IV 09/22/24 16:15 09/22/24 20:14 09/22/24 16:41 50 MLS/HR objective The patient is well-nourished and well-developed with no distress. The patient is intubated MENTAL STATUS: Subjective CRANIAL NERVES: Pupils are equal, round and reactive.There are corneal reflexes and doll's eyes phenomenon. No signs of facial weakness. There are gagging or coughing reflexes SENSATION: No responses to pain stimuli. MOTOR: Normal tone in the upper and lower extremity. Normal muscle bulk. No fasciculations. No spontaneous movement. REFLEXES: Deep tendon reflexes are symmetrical. No pathological reflexes. CEREBELLAR/COORDINATION: Deferred GAIT/STATION: deferred. laboratory and microbiology Laboratory Tests 09/22/24 03:18 Test 09/22/24 03:18 Range/Units Serum Glucose 122 H 74-106 mg/dL Problem List Coma Hypoxic encephalopathy Metabolic encephalopathy Toxic encephalopathy Cardiopulmonary arrest Respiratory failure Kidney failure Coagulopathy Elevated liver function tests Witnessed seizure/seizure-like activity Chronic stroke per CT scan AFib Right-sided swelling, cellulitis versus hematoma Assessment/Plan Monitoring Supportive treatment ICU care Follow-up lab Stabilize vitals/pressor drip Respiratory support/vent management Keppra 500 mg IV b.i.d. Ativan for seizure breakthrough IV antibiotics Lovenox 40 mg daily Pulmonary consultation Nephrology consultation More recommendation per clinical course This medical document was created using an electronic medical record system with [employer] dictation system. Although this document has been carefully reviewed, there may still be some phonetic and typographical errors. These areas are purely typographical due to imperfections of the software programs, and do not reflect any compromise in the patient's medical care. Prognosis guarded Dietary Evaluation Review Comments: 1) TF Pivot 1.5 Guy @ 55ml/hr. Start @ 20ml/hr, increase 10ml/hr Q4H until goal is reached. TF @ goal volume provides 1980 kcal (100% energy needs), 124 gm protein (100% protein needs), 1002 ml free water. 2) Water flush 250ml Q6H 3) TPN if NPO > 7 days 4) Monitor NPO status, lab values, wt trend, I/O Expected Outcomes/Goals: To meet at leasy 75% estimated needs within 7 days Fu 2-3 days Plan discussed with: Other Critical Care Time(min): 30 JOHNATHAN BRICEÑO MD Sep 22, 2024 16:49
[2024-09-22 17:16] LABS: Nucleated Red Blood Cells % 0.1 %
[2024-09-22 17:18] LABS: Hematocrit 23.3 % (41.0-53.0); Hemoglobin 7.2 g/dL (13.5-17.5); Mean Corpuscular Hemoglobin 24.4 pg (28.0-32.0); Mean Corpuscular Volume 79.4 fL (80.0-100.0)
[2024-09-22 17:28] LABS: INR 1.16 (0.9-1.15); Partial Thromboplastin Time 28.2 SEC (24.5-34.5); Prothrombin Time 12.1 sec (9.3-11.8)
--- NOTE | 2024-09-22 17:28 | DVH ---
EXAM: US RT LOW EXT ART DUPLEX INDICATION: <[id number]:Reason For Study> TECHNIQUE: Grayscale and color Doppler sonographic imaging evaluation of the right lower extremity ar terial system. Spectral analysis was performed. COMPARISON: None available at the time of dictation. FINDINGS: RIGHT LOWER EXTREMITY ARTERIES: Common femoral artery: 154 cm/s, biphasic Proximal femoral artery: 88 cm/s, monophasic Mid femoral artery: 39 cm/s, biphasic Distal femoral artery: 31 cm/s, biphasic Popliteal artery: 50 cm/s, biphasic Posterior tibial artery: 84 cm/s, triphasic Dorsalis pedis artery: 40 cm/s, biphasic REFERENCE VALUES: Normal velocity ranges (in cm/sec) are as follows: WINE STEWARD 95-140, SFA 75-105, popliteal 54-84, tibial 41-81 cm/sec. Stenosis categories: 1.5-2.0 x normal velocity = 30-49%, 2.0-4.0 x normal velocity = 50-75%, >4.0 x normal velocity = >75%. IMPRESSION: 1. Difficult examination due to subcutaneous edema. 2. Greater than 50% stenosis at the common femoral artery. 3. No occlusion seen at this time.
[2024-09-22 20:17] LABS: Urine Protein, UAD TRACE (Negative)
[2024-09-22 20:52] LABS: Hematocrit 22.8 % (41.0-53.0); Hemoglobin 7.2 g/dL (13.5-17.5)
[2024-09-22] MEDS: SODIUM CHLOR 0.9% PF (SALINE LOCK) 10ML VIAL/SYR IV SCH (21:41)
--- NOTE | 2024-09-22 23:53 | DVHINCON2 ---
Date of service: Sep 22, [address] Cobb Reason for Consultation Acute hypoxic respiratory failure requiring mechanical ventilator and pneumonia. History of Present Illness A 59-year-old man with past medical history of congestive heart failure, dyslipidemia, hypertension, and atrial fibrillation who was brought in to ED via EMS on 09/16/24 status post cardiopulmonary arrest. Patient resides at a [facility] where he was found unresponsive. Apparently, the patient developed shortness breath followed by collapsing, with 5-7 minutes down time before CPR was initiated. Patient was resuscitated en route, brought in to ED and admitted for further care. Pulmonary consultation is requested for evaluation and management due to acute hypoxic respiratory failure requiring mechanical ventila tor and pneumonia. Review of Systems: Unable to obtain d/t intubated status. Past Medical History: Congestive heart failure, dyslipidemia, hypertension, atrial fibrillation Past Surgical History: None Medications: Reviewed. Allergies: Iodine. Family History: No family history of premature CAD. No family history of lung disorders. Social History: Former smoker. No alcohol use. No illicit drug use Family History: Patient reports no known family medical history. Allergies: Coded Allergies: Iodine (Verified Allergy, Unknown, 08/27/24) Home Meds Active Scripts Carvedilol (COREG) 3.125 Mg Tab, 3.125 MG OR BID for 30 Days, #60 TAB 2 Refills Prov:YUMIKO FRANCISCO COMPUTER ASSISTANT 09/03/24 Apixaban Base (ELIQUIS) 5 Mg Tab, 5 MG PO BID for 30 Days, #60 TAB Prov:YUMIKO FRANCISCO COMPUTER ASSISTANT 09/03/24 Lactulose (Lactulose) 10 Gm/15 Ml Jackeline, 30 ML PO BID for 30 Days, #15 ML 1 Refill Prov:YUMIKO FRANCISCO COMPUTER ASSISTANT 09/03/24 Reported Medications Ixyxapvnion-Vydgobccnglb-Usnjn (Trelegy Ellipta 200-62.5-25 Mcg/INH) 1 Aer Aer, 1 AER IN DAILY, AER 09/17/24 Tamsulosin Hcl (Tamsulosin Hcl) 0.4 Mg Cap, 0.4 MG PO QPM for 30 Days, MG 09/17/24 Sildenafil Citrate (Viagra) 50 Mg Tab, 20 MG PO BID, TAB 09/17/24 Potassium Chloride (POTASSIUM CHLORIDE CR) 10 Meq Tb, 10 MEQ PO BID, TAB 09/17/24 Losartan Potassium (Losartan Potassium) 25 Mg Tab, 25 MG PO DAILY for 30 Days, MG 09/17/24 Donepezil Hydrochloride (DONEPEZIL HCL) 5 Mg Tab, 5 MG PO HS for 30 Days, MG 09/17/24 Digoxin (Digoxin) 250 Mcg Tab, 250 MCG PO DAILY, TAB 09/17/24 Atorvastatin Calcium (ATORVASTATIN CALCIUM) 40 Mg Tab, 1 TAB PO DAILY, #30 TAB 5 Refills 09/17/24 Aspirin (Aspir-Low) 81 Mg Tab, 81 MG PO DAILY for 30 Days, MG 09/17/24 Enalapril Maleate (Enalapril Maleate) 2.5 Mg Tab, 1 TAB PO BID 01/06/12 Furosemide (Furosemide) 20 Mg Tab, 40 MG PO BID 01/06/12 Current Medications Current Medications Medications (Trade) Dose Ordered Sig/Renetta Route PRN Reason Start Time Stop Time Status Last Admin Diltiazem HCl 100 ml @ 5 mls/hr Q20H IV 09/22/24 06:45 09/22/24 18:47 Potassium Chloride 100 ml @ 50 mls/hr Q2H IV 09/22/24 09:15 09/22/24 13:14 DC Sodium Chloride (Saline Lock Ns) 10 ml QSHIFT@10,22 IV 09/22/24 22:00 09/22/24 21:41 Levetiracetam 100 ml @ 400 mls/hr Q12H IV 09/22/24 15:00 09/22/24 16:04 Potassium Chloride 100 ml @ 50 mls/hr Q2H IV 09/22/24 16:15 09/22/24 20:14 DC 09/22/24 18:48 Ceftriaxone Sodium 50 ml @ 100 mls/hr DAILY@09 IV 09/23/24 09:00 Vital Signs Vital Signs Date Time Temp Pulse Resp B/P (MAP) Pulse Ox O2 Delivery O2 Flow Rate FiO2 09/22/24 22:27 101 107/71 09/22/24 22:15 26 97 09/22/24 22:15 30 09/22/24 22:00 Mechanical Ventilator+ 09/22/24 20:00 98.6 98.6 Physical Exam Gen.: Patient lying in bed in medical ICU. Sedated, intubated on mechanical ventilator. Head: Normocephalic, atraumatic. Eyes: PERRLA. Ears: Normal external anatomy. Throat: Endotracheal tube and orogastric tube in place. Neck: Supple, trachea midline. Chest: Transmitted breath sounds bilaterally. Decreased air entry bilaterally. No wheezing. Bibasilar crackles. Cardiovascular: Positive S1, positive S2. Regular rate and rhythm. Abdomen: Positive bowel sounds in all 4 quadrants. Soft, nontender, nondistended. : Mills in place. Normal external genitalia. Rectal: Deferred. Skin: Warm, dry. Intact. Extremities: 2+ radial pulses bilaterally. No lower extremity edema. Neuro: Sedated. Labs/Diagnostic Data Labs Test 09/22/24 20:16 09/22/24 19:40 09/22/24 16:40 09/22/24 13:40 Range/Units Hemoglobin 7.2 L 13.5-17.5 g/dL Hematocrit 22.8 L 41.0-53.0 % Urine Color Dark-yellow Yellow Urine Clarity Turbid H Clear Urine pH 5.0 5.0-9.0 Urine Specific [place] 1.022 1.001-1.035 Urine Protein Trace H Negative Urine Ketones Negative Negative Urine Blood 2+ H Negative /uL Urine Nitrite Negative Negative Urine Bilirubin Negative Negative Urine Urobilinogen Normal Negative mg/dL Urine Leukocyte Esterase 1+ Negative /uL Urine RBC 103 0 - 3 /hpf Urine Microscopic WBC 24 H 0-3 /HPF Urine Squamous Epithelial Cells None seen <5 /hpf Urine Bacteria None seen None Seen /hpf Urine Glucose Normal Normal mg/dL White Blood Count 11.2 #H 4.4-10.8 10^3/uL Red Blood Count 2.93 L 4.5-5.90 10^6/uL Mean Corpuscular Volume 79.4 L 80.0-100.0 fL Mean Corpuscular Hemoglobin 24.4 L 28.0-32.0 pg Mean Corpuscular Hemoglobin Concent 30.7 L 32.0-36.0 g/dL Red Cell Distribution Width 24.2 H 11.8-14.3 % Platelet Count 149 140-450 10^3/uL Mean Platelet Volume 8.5 6.9-10.8 fL Neutrophils (%) (Auto) 76.9 37.0-80.0 % Lymphocytes (%) (Auto) 10.6 10.0-50.0 % Monocytes (%) (Auto) 11.7 0.0-12.0 % Eosinophils (%) (Auto) 0.4 0.0-7.0 % Basophils (%) (Auto) 0.4 0.0-2.0 % Neutrophils # (Auto) 8.6 1.6-8.6 10 ^3/uL Lymphocytes # (Auto) 1.2 0.4-5.4 10 ^3/uL Monocytes # (Auto) 1.3 0-1.3 10 ^3/uL Eosinophils # (Auto) 0 0-0.8 10 ^3/uL Basophils # (Auto) 0 0-0.2 10 ^3/uL Nucleated Red Blood Cells 0.1 % Prothrombin Time 12.1 H 9.3-11.8 sec Prothrombin Time INR 1.16 H 0.9-1.15 Activated Partial Thromboplast Time 28.2 24.5-34.5 SEC Lactic Acid Level 1.3 0.4-2.0 mmol/L Test 09/22/24 06:05 09/22/24 03:18 09/21/24 02:17 09/20/24 07:29 Range/Units Blood Gas Specimen Type Arterial Blood Gas Sample Site Left radial Blood Gas Patient Temperature 37.0 Arterial Blood Date Drawn [id number] Arterial Blood pH 7.495 H 7.350-7.450 Arterial Blood Partial Pressure CO2 48.6 H 35.0-48.0 mmHg Arterial Blood Partial Pressure O2 60.9 L 83.0-108.0 mmHg Arterial Blood HCO3 36.6 H 21.0-28.0 mmol/L Arterial Blood Oxygen Saturation 89.4 L 94.0-98.0 % Arterial Blood Base Excess 12.0 H -2.0-3.0 mmol/L Arterial Blood Oxyhemoglobin 88.1 L 94.0-98.0 % Arterial Blood Carboxyhemoglobin 1.1 0.5-1.5 % Arterial Blood Methemoglobin 0.3 0.0-1.5 % Gerardo Test Modified Blood Gas Total Hemoglobin 9.50 L 13.5-17.5 g/dL Blood Gas Set Respiration Rate 20.0 Blood Gas Modality Vent - ac FiO2 % 30.0 Blood Gas Tidal Volume 500.0 Blood Gas PEEP or CPAP 5.0 Sodium Level 145 136-145 mmol/L Potassium Level 3.6 3.5-5.1 mmol/L Chloride Level 103 98-107 mmol/L Carbon Dioxide Level 37 H 20-31 mmol/L Anion Gap 5 5-15 Blood Urea Nitrogen 27 H 9-23 mg/dL Creatinine 1.13 0.700-1.30 mg/dL Glomerular Filtration Rate Calc 74 >90 mL/min BUN/Creatinine Ratio 23.9 H 10.0-20.0 Serum Glucose 122 H 74-106 mg/dL Calcium Level 9.1 8.7-10.4 mg/dL Magnesium Level 2.1 1.6-2.6 mg/dL Total Bilirubin 4.0 H 0.2-1.0 mg/dL Aspartate Amino Transferase (AST) 62 H <34 U/L Alanine Aminotransferase (ALT) 26 7-40 U/L Alkaline Phosphatase 74 46-116 U/L Total Protein 5.5 L 5.7-8.2 g/dL Albumin 3.0 L 3.2-4.8 g/dL Blood Gas Spontaneous Rate 20 Test 09/20/24 02:40 09/19/24 02:40 09/18/24 06:32 09/18/24 03:00 Range/Units Digoxin Level 0.91 0.8-2 ng/mL Ammonia 31 11-32 umol/L Blood Gas Critical Value Read Back Yes Blood Gas Notified Whom sujit Lord md Blood Gas Notified Time [id number] Blood Gas Notified By Remedios yeh i. Triglycerides Level 78 < 150 mg/dL Cholesterol Level 69 < 200 mg/dL LDL Cholesterol 48 < 100 mg/dL HDL Cholesterol 9 L 40-59 mg/dL Thyroid Stimulating Hormone (TSH) 3.05 0.55-4.78 uIU/mL Test 09/17/24 12:52 09/17/24 12:30 09/16/24 20:46 09/16/24 20:40 Range/Units Urine Opiates Screen Neg NEGATIVE Urine Fentanyl Screen Pos NEGATIVE Urine Barbiturates Screen Neg NEGATIVE Urine Phencyclidine Screen Neg NEGATIVE Urine Amphetamines Screen Neg NEGATIVE Urine Benzodiazepines Screen Pos NEGATIVE Urine Cocaine Screen Neg NEGATIVE Urine Cannabinoids Screen Neg NEGATIVE Hepatitis A IgM Antibody Negative Hepatitis B Surface Antigen Negative Negative Hepatitis B Core IgM Antibody Negative Negative Hepatitis C Antibody Negative Negative Troponin I High Sensitivity 92 *H </=54 ng/L Blood Gas Spontaneous Tidal Volume 526 Bl Gas Inspiratory/Expiratory Ratio 1:2 Test 09/16/24 17:44 Range/Units Differential Total Cells Counted 100.0 100 Neutrophils % (Manual) 45 37.0-80.0 Band Neutrophils % (Manual) 4 Lymphocytes % (Manual) 37 10.0-50.0 Monocytes % (Manual) 14 H 0-12 Eosinophils % (Manual) 0 0-7 Basophils % (Manual) 0 0.0-2.0 Metamyelocytes % (manual) 0 Myelocytes % (Manual) 0 Promyelocytes % (Manual) 0 Blast Cells % (Manual) 0 Reactive Lymphocytes 0 Platelet Estimate Adequate Hypochromasia (manual) Slight Anisocytosis (manual) Slight B-Type Natriuretic Peptide 1337.19 0-100 pg/mL Microbiology Date/Time Source Procedure Growth Status 09/17/24 03:28 Nose MRSA Screen - Final Complete Assessment Impression: Acute hypoxic respiratory failure On mechanical ventilator Cardiopulmonary arrest, s/p CPR with ROSC. Acute on chronic systolic/diastolic CHF Pneumonia Atrial fibrillation with RVR Liver cirrhosis Hx of nicotine dependence Obesity Plan: s/p intubation on mechanical ventilator. CXR image and report reviewed. Devices in place. No acute changes. ABG reviewed, notable for alkalemia. On AC mode; RR 20-->18, VT 500, PEEP 5, FiO2 30% Titrate FIO2 to keep O2 saturation above 90%. VAP bundle. Daily ABG and CXR while intubated Sedate for ventilator synchrony NGT in place. Bronchodilators PRN Continue antibiotics. F/u cultures. Follow up Cardiology recommendations. Diltiazem drip Monitor blood pressure Antiepileptic - on Keppra Monitor hemoglobin - currently 8.8 g/dL Pressors as necessary for hemodynamic support Titrate to keep mean arterial pressure greater than 65 mmHg. Diurese with Lasix BID Monitor renal function Monitor electrolytes. Supplement as necessary. Monitor ins and outs. Free water via NGT. Therapeutic Lovenox. Obesity - complicates all care. GI prophylaxis - Protonix. DVT prophylaxis - Lovenox. Prognosis: Poor given patient's multiple co-morbidities. Condition: Critical Rest of plan per hospitalist and other consultants. A total of 35 minutes of critical care time was spent reviewing the patient record, examining the patient, making a diagnostic and therapeutic plan, discussing this plan with the medical personnel, following up on diagnostic studies and following the patient for clinical stability excluding any and all procedures. At least 50% of this time was spent in direct, [id number] contact. Thank you, Dr. Cobb, for allowing me to participate in this patient's care. Further recommendations will depend on the patient's clinical course. Please do not hesitate to contact me if you have any questions or concerns. This medical document was created using an electronic medical record system with [employer] dictation system. Although these documentations are being carefully reviewed, there may still be some phonetic and typographical changes. The errors are purely typographical, due to imperfection on the software program, and do not reflect any compromise in the patient's medical care. Plan discussed with: Other (DELPHINE Loya/Dr. Cobb) TIBURCIO GAITAN MD Sep 22, 2024 23:53
[2024-09-23] VITALS (110 sets, daily range): BP systolic 66–125; BP diastolic 52–79; PULSE 70–128; RESP 15–30; TEMP 98.4–99.4; O2SAT 90–100
[2024-09-23 03:45] LABS: Nucleated Red Blood Cells % 0.2 %
[2024-09-23 03:48] LABS: Hematocrit 21.2 % (41.0-53.0); Mean Corpuscular Hemoglobin 25.0 pg (28.0-32.0); Mean Corpuscular Volume 79.5 fL (80.0-100.0)
[2024-09-23 04:09] LABS: Hemoglobin 6.7 g/dL (13.5-17.5)
[2024-09-23 04:15] LABS: Alanine Aminotransferase 38 U/L (7-40); Alkaline Phosphatase 83 U/L (46-116); Anion Gap 7 (5-15); BUN/Creatinine Ratio 23.2 (10.0-20.0); Calcium 9.0 mg/dL (8.7-10.4); Chloride 103 mmol/L (98-107); Potassium 4.4 mmol/L (3.5-5.1)
[2024-09-23 04:20] LABS: Albumin 2.8 g/dL (3.2-4.8); Bilirubin, Total 2.7 mg/dL (0.2-1.0); Blood Urea Nitrogen 38 mg/dL (9-23); Carbon Dioxide 36 mmol/L (20-31); Glucose 132 mg/dL (74-106); Sodium 146 mmol/L (136-145); Total Protein 5.0 g/dL (5.7-8.2)
[2024-09-23 06:46] LABS: Base Excess 7.5 mmol/L (-2.0-3.0)
--- NOTE | 2024-09-23 08:47 | DVHINCON2 ---
Date of service: Sep 23, 2024 Family History: Patient reports no known family medical history. Allergies: Coded Allergies: Iodine (Verified Allergy, Unknown, 08/27/24) Home Meds Active Scripts Carvedilol (COREG) 3.125 Mg Tab, 3.125 MG OR BID for 30 Days, #60 TAB 2 Refills Prov:YUMIKO FRANCISCO POKE IN 09/03/24 Apixaban Base (ELIQUIS) 5 Mg Tab, 5 MG PO BID for 30 Days, #60 TAB Prov:YUMIKO FRANCISCO POKE IN 09/03/24 Lactulose (Lactulose) 10 Gm/15 Ml Jackeline, 30 ML PO BID for 30 Days, #15 ML 1 Refill Prov:YUMIKO FRANCISCO POKE IN 09/03/24 Reported Medications Zhwldjztlms-Wugpnyfurheo-Dyvom (Trelegy Ellipta 200-62.5-25 Mcg/INH) 1 Aer Aer, 1 AER IN DAILY, AER 09/17/24 Tamsulosin Hcl (Tamsulosin Hcl) 0.4 Mg Cap, 0.4 MG PO QPM for 30 Days, MG 09/17/24 Sildenafil Citrate (Viagra) 50 Mg Tab, 20 MG PO BID, TAB 09/17/24 Potassium Chloride (POTASSIUM CHLORIDE CR) 10 Meq Tb, 10 MEQ PO BID, TAB 09/17/24 Losartan Potassium (Losartan Potassium) 25 Mg Tab, 25 MG PO DAILY for 30 Days, MG 09/17/24 Donepezil Hydrochloride (DONEPEZIL HCL) 5 Mg Tab, 5 MG PO HS for 30 Days, MG 09/17/24 Digoxin (Digoxin) 250 Mcg Tab, 250 MCG PO DAILY, TAB 09/17/24 Atorvastatin Calcium (ATORVASTATIN CALCIUM) 40 Mg Tab, 1 TAB PO DAILY, #30 TAB 5 Refills 09/17/24 Aspirin (Aspir-Low) 81 Mg Tab, 81 MG PO DAILY for 30 Days, MG 09/17/24 Enalapril Maleate (Enalapril Maleate) 2.5 Mg Tab, 1 TAB PO BID 01/06/12 Furosemide (Furosemide) 20 Mg Tab, 40 MG PO BID 01/06/12 Current Medications Current Medications Medications (Trade) Dose Ordered Sig/Renetta Route PRN Reason Start Time Stop Time Status Last Admin Potassium Chloride 100 ml @ 50 mls/hr Q2H IV 09/22/24 09:15 09/22/24 13:14 DC Sodium Chloride (Saline Lock Ns) 10 ml QSHIFT@10,22 IV 09/22/24 22:00 09/22/24 21:41 Levetiracetam 100 ml @ 400 mls/hr Q12H IV 09/22/24 15:00 09/23/24 02:30 Potassium Chloride 100 ml @ 50 mls/hr Q2H IV 09/22/24 16:15 09/22/24 20:14 DC 09/22/24 18:48 Ceftriaxone Sodium 50 ml @ 100 mls/hr DAILY@09 IV 09/23/24 09:00 Vital Signs Vital Signs Date Time Temp Pulse Resp B/P (MAP) Pulse Ox O2 Delivery O2 Flow Rate FiO2 09/23/24 08:03 98.4 101 23 110/78 98.4 09/23/24 07:20 100 30 09/23/24 06:00 Mechanical Ventilator+ Labs/Diagnostic Data Labs Test 09/23/24 06:35 09/23/24 03:23 09/22/24 19:40 09/22/24 16:40 Range/Units Blood Gas Specimen Type Arterial Blood Gas Sample Site Left radial Blood Gas Patient Temperature 37.0 Arterial Blood Date Drawn [id number] Arterial Blood pH 7.432 7.350-7.450 Arterial Blood Partial Pressure CO2 50.3 H 35.0-48.0 mmHg Arterial Blood Partial Pressure O2 61.3 L 83.0-108.0 mmHg Arterial Blood HCO3 32.8 H 21.0-28.0 mmol/L Arterial Blood Oxygen Saturation 88.9 L 94.0-98.0 % Arterial Blood Base Excess 7.5 H -2.0-3.0 mmol/L Arterial Blood Oxyhemoglobin 87.2 L 94.0-98.0 % Arterial Blood Carboxyhemoglobin 1.6 H 0.5-1.5 % Arterial Blood Methemoglobin 0.3 0.0-1.5 % Gerardo Test Modified Blood Gas Total Hemoglobin 9.10 L 13.5-17.5 g/dL Blood Gas Set Respiration Rate 18.0 Blood Gas Modality Vent - ac FiO2 % 30.0 Blood Gas Tidal Volume 500.0 Blood Gas PEEP or CPAP 5.0 White Blood Count 10.5 4.4-10.8 10^3/uL Red Blood Count 2.67 L 4.5-5.90 10^6/uL Hemoglobin 6.7 *L 13.5-17.5 g/dL Hematocrit 21.2 L 41.0-53.0 % Mean Corpuscular Volume 79.5 L 80.0-100.0 fL Mean Corpuscular Hemoglobin 25.0 L 28.0-32.0 pg Mean Corpuscular Hemoglobin Concent 31.4 L 32.0-36.0 g/dL Red Cell Distribution Width 24.2 H 11.8-14.3 % Platelet Count 136 L 140-450 10^3/uL Mean Platelet Volume 8.6 6.9-10.8 fL Neutrophils (%) (Auto) 77.2 37.0-80.0 % Lymphocytes (%) (Auto) 10.0 10.0-50.0 % Monocytes (%) (Auto) 11.6 0.0-12.0 % Eosinophils (%) (Auto) 0.8 0.0-7.0 % Basophils (%) (Auto) 0.4 0.0-2.0 % Neutrophils # (Auto) 8.1 1.6-8.6 10 ^3/uL Lymphocytes # (Auto) 1.1 0.4-5.4 10 ^3/uL Monocytes # (Auto) 1.2 0-1.3 10 ^3/uL Eosinophils # (Auto) 0.1 0-0.8 10 ^3/uL Basophils # (Auto) 0 0-0.2 10 ^3/uL Nucleated Red Blood Cells 0.2 % Sodium Level 146 H 136-145 mmol/L Potassium Level 4.4 3.5-5.1 mmol/L Chloride Level 103 98-107 mmol/L Carbon Dioxide Level 36 H 20-31 mmol/L Anion Gap 7 5-15 Blood Urea Nitrogen 38 #H 9-23 mg/dL Creatinine 1.64 H 0.700-1.30 mg/dL Glomerular Filtration Rate Calc 47 >90 mL/min BUN/Creatinine Ratio 23.2 H 10.0-20.0 Serum Glucose 132 H 74-106 mg/dL Calcium Level 9.0 8.7-10.4 mg/dL Total Bilirubin 2.7 H 0.2-1.0 mg/dL Aspartate Amino Transferase (AST) 75 H <34 U/L Alanine Aminotransferase (ALT) 38 7-40 U/L Alkaline Phosphatase 83 46-116 U/L Total Protein 5.0 L 5.7-8.2 g/dL Albumin 2.8 L 3.2-4.8 g/dL Urine Color Dark-yellow Yellow Urine Clarity Turbid H Clear Urine pH 5.0 5.0-9.0 Urine Specific [place] 1.022 1.001-1.035 Urine Protein Trace H Negative Urine Ketones Negative Negative Urine Blood 2+ H Negative /uL Urine Nitrite Negative Negative Urine Bilirubin Negative Negative Urine Urobilinogen Normal Negative mg/dL Urine Leukocyte Esterase 1+ Negative /uL Urine RBC 103 0 - 3 /hpf Urine Microscopic WBC 24 H 0-3 /HPF Urine Squamous Epithelial Cells None seen <5 /hpf Urine Bacteria None seen None Seen /hpf Urine Glucose Normal Normal mg/dL Prothrombin Time 12.1 H 9.3-11.8 sec Prothrombin Time INR 1.16 H 0.9-1.15 Activated Partial Thromboplast Time 28.2 24.5-34.5 SEC Test 09/22/24 13:40 09/22/24 03:18 09/20/24 07:29 09/20/24 02:40 Range/Units Lactic Acid Level 1.3 0.4-2.0 mmol/L Magnesium Level 2.1 1.6-2.6 mg/dL Blood Gas Spontaneous Rate 20 Digoxin Level 0.91 0.8-2 ng/mL Test 09/19/24 02:40 09/18/24 06:32 09/18/24 03:00 09/17/24 12:52 Range/Units Ammonia 31 11-32 umol/L Blood Gas Critical Value Read Back Yes Blood Gas Notified Whom sujit Lord md Blood Gas Notified Time [id number] Blood Gas Notified By Remedios yeh i. Triglycerides Level 78 < 150 mg/dL Cholesterol Level 69 < 200 mg/dL LDL Cholesterol 48 < 100 mg/dL HDL Cholesterol 9 L 40-59 mg/dL Thyroid Stimulating Hormone (TSH) 3.05 0.55-4.78 uIU/mL Urine Opiates Screen Neg NEGATIVE Urine Fentanyl Screen Pos NEGATIVE Urine Barbiturates Screen Neg NEGATIVE Urine Phencyclidine Screen Neg NEGATIVE Urine Amphetamines Screen Neg NEGATIVE Urine Benzodiazepines Screen Pos NEGATIVE Urine Cocaine Screen Neg NEGATIVE Urine Cannabinoids Screen Neg NEGATIVE Test 09/17/24 12:30 6/22/25 20:46 09/16/24 20:40 09/16/24 17:44 Range/Units Hepatitis A IgM Antibody Negative Hepatitis B Surface Antigen Negative Negative Hepatitis B Core IgM Antibody Negative Negative Hepatitis C Antibody Negative Negative Troponin I High Sensitivity 92 *H </=54 ng/L Blood Gas Spontaneous Tidal Volume 526 Bl Gas Inspiratory/Expiratory Ratio 1:2 Differential Total Cells Counted 100.0 100 Neutrophils % (Manual) 45 37.0-80.0 Band Neutrophils % (Manual) 4 Lymphocytes % (Manual) 37 10.0-50.0 Monocytes % (Manual) 14 H 0-12 Eosinophils % (Manual) 0 0-7 Basophils % (Manual) 0 0.0-2.0 Metamyelocytes % (manual) 0 Myelocytes % (Manual) 0 Promyelocytes % (Manual) 0 Blast Cells % (Manual) 0 Reactive Lymphocytes 0 Platelet Estimate Adequate Hypochromasia (manual) Slight Anisocytosis (manual) Slight B-Type Natriuretic Peptide 1337.19 0-100 pg/mL Microbiology Date/Time Source Procedure Growth Status 09/17/24 03:28 Nose MRSA Screen - Final Complete Assessment patient had triple lumen venous catheter inserted into the femoral vein the ER and now has significant swelling in the right thigh, probably a mixture of hematoma and fluid extravasation. his distal arterial perfusion seems to be intact.Complete evacuation of the blood and fluid from the thigh would require an operation for which this patient s/p cardiac arrest and CPR, is a poor candidate. There has been suggestion that the patient's family want to stop any further treatments and make patient DNR (verbal communication from nurse).consideration could be given to I.R. attempt at evacuating the fluid however I do not believe that would be entirely successful as some of the hematoma is probably organized. If family decides to continue aggressive therapy I would reconsider evacuating the swelling surgically.Please advise. Plan discussed with: Other GENARO ROLAND MD Sep 23, 2024 08:47
[2024-09-23] MEDS ORDERED: cefTRIAXone 1GM/50ML D5W 50 ML IV SCH (09:00)
--- NOTE | 2024-09-23 10:33 | DVHPN2 ---
Consult Progress Note Subjective Review of Systems: Not Done (Intubated) Objective vital signs Vital Sign Date Time Temp Pulse Resp B/P (MAP) Pulse Ox O2 Delivery O2 Flow Rate FiO2 09/23/24 09:19 95 21 115/69 (84) 99 30 09/23/24 09:18 98.7 98.7 09/23/24 06:00 Mechanical Ventilator+ Total Intake and Output 09/22/24 09/22/24 09/23/24 15:00 23:00 07:00 Intake Total 145.0 ml 725.0 ml 947.5 ml Output Total 325 ml 450 ml Balance 145.0 ml 400.0 ml 497.5 ml medications Current Medications Medications Dose Ordered Sig/Renetta Route Start Time Stop Time Status Last Admin Dose Admin Norepinephrine Bitartrate 250 ml @ 3.75 mls/hr Q24H IV 09/16/24 17:45 09/18/24 00:42 3.75 MLS/HR Propofol 100 ml @ 2.658 mls/ hr Q24H IV 09/16/24 17:45 09/16/24 17:55 2.658 MLS/HR Fentanyl Citrate 250 ml @ 2.5 mls/hr Q24H IV 09/16/24 17:45 09/22/24 20:37 2.5 MLS/HR Midazolam HCl 50 ml @ 1 mls/hr Q24H IV 09/16/24 19:45 09/18/24 10:37 9 MLS/HR Nitroglycerin 0.4 mg Q5MINP PRN SL 09/16/24 20:00 Morphine Sulfate 2 mg Q30M PRN IV 09/16/24 20:00 Cancel Ondansetron HCl 4 mg Q4HP PRN IV 09/16/24 20:00 Acetaminophen 650 mg Q6HP PRN PO 09/16/24 20:00 Albuterol 2.5 mg Q6HPRN PRN NEB 09/16/24 20:45 09/23/24 09:26 2.5 MG Piperacillin Sod/ Tazobactam Sod 100 ml @ 25 mls/hr Q8HR IV 09/16/24 22:00 09/23/24 05:42 25 MLS/HR Enoxaparin Sodium 90 mg Q12HR SC 09/17/24 22:00 09/21/24 10:16 90 MG Pantoprazole Sodium 40 mg DAILY IV 09/18/24 10:00 09/22/24 14:15 40 MG Morphine Sulfate 2 mg Q30M PRN IV 09/17/24 13:00 Digoxin 125 mcg DAILY IV 09/19/24 10:00 09/22/24 15:36 125 MCG Furosemide 40 mg BIDD IV 09/19/24 18:00 09/23/24 05:41 40 MG Purified Water 100 ml Q6HR GT 09/19/24 18:00 09/23/24 05:42 100 ML Metoprolol Tartrate 25 mg BID PO 09/20/24 22:00 09/22/24 21:41 25 MG Enteral Nutritional Formula 1,000 ml 40ML/HR GT 09/20/24 15:30 09/22/24 05:42 1,000 ML Lorazepam 1 mg ONCE PRN IV 09/21/24 22:30 Diltiazem HCl 100 ml @ 5 mls/hr Q20H IV 09/22/24 06:45 09/22/24 18:47 5 MLS/HR Sodium Chloride 10 ml QSHIFT@10,22 IV 09/22/24 22:00 09/22/24 21:41 10 ML Levetiracetam 100 ml @ 400 mls/hr Q12H IV 09/22/24 15:00 09/23/24 02:30 400 MLS/HR Ceftriaxone Sodium 50 ml @ 100 mls/hr DAILY@09 IV 09/23/24 09:00 Examination: LUNGS:Abnormal (Vent, FiO2 30%.), CVS:Abnormal (Telemetry consistent with atrial fibrillation controlled rate at 89 beats per minute), MSK:Abnormal (Right thigh edema suspected hematoma), NEURO:Abnormal (Intubated) laboratory and microbiology Laboratory Tests 09/23/24 03:23 Test 09/23/24 03:23 Range/Units Serum Glucose 132 H 74-106 mg/dL Problem List/Assessment/Plan Problem List/Assessment/Plan Sepsis with pneumonia Cardiopulmonary arrest with ROSC Non ST-elevation Myocardial Infarction, questionable Type I Atrial fibrillation, likely persistent, controlled rate (on Eliquis), episode of RVR Acute on chronic decompensated HFimprEF, NYHA class IV Mitral valve stenosis/regurgitation, moderate degree Tricuspid valve regurgitation, severe degree Pulmonary hypertension Liver cirrhosis Seizures, ?new onset Obesity History of tobacco use Right thigh hematoma, extravasation, triple-lumen catheter placement FARAZ Plan/Recommendation (Dr. Ochoa) * Transthoracic echocardiogram revealed LVEF 55% * Moderate to severe tricuspid insufficiency with mild to moderate mitral insufficiency * Preload reduction as tolerated * Strict intake and output, daily weights, maintain fluid restriction * Therapeutic Lovenox, transition back to Eliquis when appropriate * [id number] VASc score: 2 points, HAS-BLED score: 1 point * Avoid antiarrhythmics, likely persistent A-fib * Initiate beta-vanessa for rate control; up titrate as tolerated by BP * Replete electrolytes as necessary, K>4 and Mg>2 * Close Cardiac surveillance * Continue on Cardizem drip, titrate as tolerated. * Elevated kidney function this morning, Lasix decreased to 40 mg IV daily. Case discussed with Dr. Ochoa. Improved neurological status noted (bilateral pupils reactive and positive cough and gag reflex). The patient is still not awake or able to follow commands. We will plan for possible coronary angiogram with left heart catheterization on 09/25/24 with proven intact neurological function. Pending possible brain MRI. Further recommendations per clinical course and progression. Patient with episode of RVR, initiated on Cardizem drip titrate as tolerated. Continue metoprolol via OGT as BP allows. Titrate Cardizem as needed. Patient also found to have increased edema to the right thigh area, possible infiltration from central venous line versus occlusion. CT showing suspected hematoma, no bruising noted, surgical consult with Dr. Jacobsen at this time not candidate for intervention. Good pulses. Thank you for allowing us to care for this patient. Please call with any questions or concerns. Critical care time spent: 35 minutes. This medical document was created using an electronic medical record system with voice recognition software and computerized dictation system. Although this document has been carefully reviewed, there might still be some phonetic and typographical errors. Occasional wrong-word or ``sound-alike substitutions may have occurred due to the inherent limitations of voice recognition software. These areas are purely typographical due to imperfections of the software programs and do not reflect any compromise in the patient's medical care. Please read the chart carefully and recognize, using context, where these substitutions have occurred. Plan discussed with: Other (Bedside RN) Dietary Evaluation Review Comments: 1) TF Pivot 1.5 Guy @ 55ml/hr. Start @ 20ml/hr, increase 10ml/hr Q4H until goal is reached. TF @ goal volume provides 1980 kcal (100% energy needs), 124 gm protein (100% protein needs), 1002 ml free water. 2) Water flush 250ml Q6H 3) TPN if NPO > 7 days 4) Monitor NPO status, lab values, wt trend, I/O Expected Outcomes/Goals: To meet at leasy 75% estimated needs within 7 days Fu 2-3 days Date of Service: Sep 23, 2024 Billing Provider: GIL OLMSTEAD Common Visit Codes: [id number] INP/OBS CARE(HIGH), [id number] CARE 30-74 MIN GIL OLMSTEAD Sep 23, 2024 10:33
--- NOTE | 2024-09-23 12:02 | MEDREC ---
[facility] Intervention Section I [facility] Intervention: Review courses of therapy (DUPLICATION CEFTRIAXONE / ZOSYN - PLEASE CONSIDER D/C ZOSYN ) JIMBO JACKSON PHARMACIST Sep 23, 2024 12:02
[2024-09-23] MEDS ORDERED: InsuLIN REG 1unit/0.01ml Soln (100units/ml) ONE (12:45)
[2024-09-23 13:05] LABS: Hemoglobin 8.0 g/dL (13.5-17.5)
[2024-09-23 13:06] LABS: Hematocrit 24.6 % (41.0-53.0); Mean Corpuscular Hemoglobin 26.1 pg (28.0-32.0); Mean Corpuscular Volume 80.6 fL (80.0-100.0); Nucleated Red Blood Cells % 0.3 %
--- NOTE | 2024-09-23 14:47 | DVH ---
EXAM: MRI BRAIN HEAD WO CONTRAST HISTORY: ALOC TECHNIQUE: Multiplanar and multisequence MR imaging of the head was performed. COMPARISON: MRI BRAIN HEAD WO CONTRAST on DOS: 08/28/24 FINDINGS: There is a tiny acute/ recent infarct in the right caudate body on series 6, image 43. Tiny acute/rec ent acute cortical infarct in the high right parietal lobe on series 6, image 49. There are multiple tiny scattered acute bilateral cerebellar infarcts. There is a tiny slightly water restricting lesion in the left caudate head on series 6, image 42 likely a recent/subacute infarct. Tiny recent appeari ng infarct is seen in the posterior left occipital lobe on series 6, image 37. There is a tiny acute/ recent cortical infarct in the left parietal lobe on series 6, image 46. Small acute/ recent infarct in the anterior right frontal lobe on series 6, image 47. The ventricles and subarachnoid spaces are normal in size and configuration. There is a small chronic infarct in the left frontal lobe. Mild patchy FLAIR hyperintensities in the supratentorial white mat ter consistent with nonspecific white matter disease. There is no midline shift or mass effect. The v ascular flow-voids are unremarkable. Bilateral mastoid air cell effusions in trace paranasal sinus m ucosal thickening. IMPRESSION: 1. Multiple scattered Tiny acute/recent infarcts: Right caudate body, high right parietal lobe, multi ple in the bilateral cerebellar hemispheres, left caudate head, posterior left occipital lobe, high l eft parietal lobe, and anterior right frontal lobe. 2. Small chronic infarct in the left frontal lobe. 3. Mild chronic microvascular ischemic change. 4. Bilateral mastoid air cell effusions.
--- NOTE | 2024-09-23 19:47 | DVH ---
EXAM: MRI MRI R FEMUR WO CONTRAST INDICATION: RIGHT GROIN/THIGH SWELLING with abnormal CT TECHNIQUE: Multiplanar, multisequence imaging of the right femur without contrast COMPARISON: None FINDINGS: BONES: No MR evidence of an acute fracture, osseous contusion, or aggressive focal osseous lesion. Capellan sceptibility artifact related to hardware placement of the proximal femur. MUSCLES: Large intramuscular hematoma predominantly along the right adductor compartment limited eval uation without axial plane of view. Hematoma measures 12.6 cm and imaging finding likely related to h igh-grade tear of the presumably adductor ashwin. JOINT SPACES: No joint effusion. NEUROVASCULAR: Limited evaluation of the sciatic nerve OTHER: Mills catheter in place. IMPRESSION: 1. Large intramuscular hematoma predominantly along the right adductor compartment limited evaluation without axial plane of view. Hematoma measures 12.6 cm and imaging finding likely related to high-gr gladis tear of the presumably adductor ashwin.
--- NOTE | 2024-09-23 23:52 | DVHPN2 ---
Progress Note - Dictate Date Seen: Sep 23, 2024 Medical Necessity Reason Pt with a Central, PICC or Fol: Yes The following are medically ne: Central Line, Craft Catheter Reason for craft catheter: Strict I&O Subjective Patient seen and examined at bedside. Intubated on mechanical ventilator. Overnight events reviewed. vital signs Vital Sign Date Time Temp Pulse Resp B/P (MAP) Pulse Ox O2 Delivery O2 Flow Rate FiO2 09/23/24 22:16 75 20 90/61 (71) 95 30 09/23/24 22:00 Mechanical Ventilator+ 09/23/24 20:00 98.8 98.8 Total Intake and Output 09/22/24 09/22/24 09/23/24 15:00 23:00 07:00 Intake Total 145.0 ml 725.0 ml 980.0 ml Output Total 325 ml 450 ml Balance 145.0 ml 400.0 ml 530.0 ml medications Current Medications Medications Dose Ordered Sig/Renetta Route Start Time Stop Time Status Last Admin Dose Admin Norepinephrine Bitartrate 250 ml @ 3.75 mls/hr Q24H IV 09/16/24 17:45 09/23/24 21:21 3.75 MLS/HR Fentanyl Citrate 250 ml @ 2.5 mls/hr Q24H IV 09/16/24 17:45 09/22/24 20:37 2.5 MLS/HR Midazolam HCl 50 ml @ 1 mls/hr Q24H IV 09/16/24 19:45 09/18/24 10:37 9 MLS/HR Nitroglycerin 0.4 mg Q5MINP PRN SL 09/16/24 20:00 Morphine Sulfate 2 mg Q30M PRN IV 09/16/24 20:00 Cancel Ondansetron HCl 4 mg Q4HP PRN IV 09/16/24 20:00 Acetaminophen 650 mg Q6HP PRN PO 09/16/24 20:00 Albuterol 2.5 mg Q6HPRN PRN NEB 09/16/24 20:45 09/23/24 09:26 2.5 MG Piperacillin Sod/ Tazobactam Sod 100 ml @ 25 mls/hr Q8HR IV 09/16/24 22:00 09/23/24 21:54 25 MLS/HR Enoxaparin Sodium 90 mg Q12HR SC 09/17/24 22:00 09/23/24 21:49 90 MG Pantoprazole Sodium 40 mg DAILY IV 09/18/24 10:00 09/23/24 11:00 40 MG Morphine Sulfate 2 mg Q30M PRN IV 09/17/24 13:00 Digoxin 125 mcg DAILY IV 09/19/24 10:00 09/23/24 10:59 125 MCG Purified Water 100 ml Q6HR GT 09/19/24 18:00 09/23/24 18:46 100 ML Metoprolol Tartrate 25 mg BID PO 09/20/24 22:00 09/23/24 11:04 25 MG Enteral Nutritional Formula 1,000 ml 40ML/HR GT 09/20/24 15:30 09/23/24 11:22 1,000 ML Lorazepam 1 mg ONCE PRN IV 09/21/24 22:30 Diltiazem HCl 100 ml @ 5 mls/hr Q20H IV 09/22/24 06:45 09/22/24 18:47 5 MLS/HR Sodium Chloride 10 ml QSHIFT@10,22 IV 09/22/24 22:00 09/23/24 22:05 10 ML Levetiracetam 100 ml @ 400 mls/hr Q12H IV 09/22/24 15:00 09/23/24 18:42 400 MLS/HR Furosemide 40 mg DAILY IV 09/24/24 10:00 objective Gen.: Patient lying in bed in medical ICU. Intubated on mechanical ventilator. Head: Normocephalic, atraumatic. Eyes: PERRLA. Ears: Normal external anatomy. Throat: Endotracheal tube and orogastric tube in place. Neck: Supple, trachea midline. Chest: Transmitted breath sounds bilaterally. Decreased air entry bilaterally. No wheezing. Bibasilar crackles. Cardiovascular: Positive S1, positive S2. Regular rate and rhythm. Abdomen: Positive bowel sounds in all 4 quadrants. Soft, nontender, nondistended. : Craft in place. Normal external genitalia. Rectal: Deferred. Skin: Warm, dry. Intact. Extremities: 2+ radial pulses bilaterally. No lower extremity edema. Neuro: Off sedation laboratory and microbiology Laboratory Tests 09/23/24 13:00 09/23/24 03:23 Test 09/23/24 03:23 Range/Units Serum Glucose 132 H 74-106 mg/dL Assessment/Plan Impression: Acute hypoxic respiratory failure On mechanical ventilator Cardiopulmonary arrest, s/p CPR with ROSC. Acute on chronic systolic/diastolic CHF Pneumonia Atrial fibrillation with RVR Liver cirrhosis Hx of nicotine dependence Obesity Events: Remains on vent support On AC mode; RR 18, VT 500, PEEP 5, FiO2 30% On Fentanyl drip, increased dose. Continue antibiotics Tube feeds for nutritional support Follow up report of MRI brain Follow up Neuro recommendations. Off pressors, hemodynamically stable. Diltiazem drip due to RVR - off this PM. ABG reviewed, compensated. Labs and imaging reviewed. Rest of plan as noted below. Plan: s/p intubation on mechanical ventilator. On AC mode; RR 18, VT 500, PEEP 5, FiO2 30% Titrate FIO2 to keep O2 saturation above 90%. VAP bundle. Daily ABG and CXR while intubated Off sedation NGT in place. Bronchodilators PRN Continue antibiotics. F/u cultures. Follow up Cardiology recommendations. Monitor blood pressure Antiepileptic - on Keppra Monitor hemoglobin Pressors as necessary for hemodynamic support Titrate to keep mean arterial pressure greater than 65 mmHg. Free water via NGT Diurese with Lasix BID Monitor renal function Monitor electrolytes. Supplement as necessary. Monitor ins and outs. Therapeutic Lovenox. Obesity - complicates all care. GI prophylaxis - Protonix. DVT prophylaxis - Lovenox. Prognosis: Poor given patient's multiple co-morbidities. Condition: Critical Rest of plan per hospitalist and other consultants. A total of 35 minutes of critical care time was spent reviewing the patient record, examining the patient, making a diagnostic and therapeutic plan, discussing this plan with the medical personnel, following up on diagnostic studies and following the patient for clinical stability excluding any and all procedures. At least 50% of this time was spent in direct, [id number] contact. Thank you, Dr. Cobb, for allowing me to participate in this patient's care. Further recommendations will depend on the patient's clinical course. Please do not hesitate to contact me if you have any questions or concerns. This medical document was created using an electronic medical record system with [employer] system. Although these documentations are being carefully reviewed, there may still be some phonetic and typographical changes. The errors are purely typographical, due to imperfection on the software program, and do not reflect any compromise in the patient's medical care. Dietary Evaluation Review Comments: 1) TF Pivot 1.5 Guy @ 55ml/hr. Start @ 20ml/hr, increase 10ml/hr Q4H until goal is reached. TF @ goal volume provides 1980 kcal (100% energy needs), 124 gm protein (100% protein needs), 1002 ml free water. 2) Water flush 250ml Q6H 3) TPN if NPO > 7 days 4) Monitor NPO status, lab values, wt trend, I/O Expected Outcomes/Goals: To meet at leasy 75% estimated needs within 7 days Fu 2-3 days Plan discussed with: Other (DELPHINE Bah) Critical Care Time(min): 35 TIBURCIO GAITAN MD Sep 23, 2024 23:52
[2024-09-24] VITALS (106 sets, daily range): BP systolic 94–145; BP diastolic 59–94; PULSE 73–129; RESP 12–37; TEMP 97.5–99.2; O2SAT 83–99
[2024-09-24 04:17] LABS: Hematocrit 24.5 % (41.0-53.0); Hemoglobin 7.9 g/dL (13.5-17.5); Mean Corpuscular Hemoglobin 25.9 pg (28.0-32.0); Mean Corpuscular Volume 80.8 fL (80.0-100.0); Nucleated Red Blood Cells % 0.5 %
[2024-09-24 04:20] LABS: Alanine Aminotransferase 38 U/L (7-40); Alkaline Phosphatase 92 U/L (46-116); Anion Gap 8 (5-15); BUN/Creatinine Ratio 28.8 (10.0-20.0); Chloride 104 mmol/L (98-107); Potassium 3.7 mmol/L (3.5-5.1)
[2024-09-24 04:37] LABS: Albumin 2.8 g/dL (3.2-4.8); Bilirubin, Total 2.7 mg/dL (0.2-1.0); Blood Urea Nitrogen 38 mg/dL (9-23); Calcium 8.3 mg/dL (8.7-10.4); Carbon Dioxide 36 mmol/L (20-31); Glucose 110 mg/dL (74-106); Sodium 148 mmol/L (136-145); Total Protein 5.1 g/dL (5.7-8.2)
--- NOTE | 2024-09-24 05:10 | DVH ---
EXAM: XR Chest, 1 View CLINICAL INDICATION: Pain TECHNIQUE: Frontal view of the chest. COMPARISON: XR Chest dated 09/22/2024 FINDINGS: LUNGS AND PLEURAL SPACES: See below. HEART: Cardiomegaly with mild congestion. MEDIASTINUM: Unremarkable. Normal mediastinal contour. BONES/JOINTS: Unremarkable. No acute fracture. TUBES, LINES AND DEVICES: The endotracheal tube (ETT) is in satisfactory position. Enteric tube tip cannot be seen but is below the diaphragm. Right peripherally inserted central catheter (PICC) tip in the superior vena cava. IMPRESSION: Cardiomegaly with mild congestion.
[2024-09-24 07:05] LABS: Base Excess 5.3 mmol/L (-2.0-3.0)
--- NOTE | 2024-09-24 09:12 | DVHPN2 ---
Progress Note - Dictate Date Seen: Sep 24, 2024 Medical Necessity Reason Pt with a Central, PICC or Fol: Yes The following are medically ne: Central Line, Craft Catheter Reason for craft catheter: Strict I&O Subjective Mr. Herrera is a 59 years old gentleman with a history of hypertension, dyslipidemia, cardiomyopathy, congestive heart failure, AFib, kidney stone, he was brought to the [facility] on 09/16/2024 with a chief company of cardiopulmonary arrest/status post CPR I have seen and examined the patient, discussed with his nurse, no seizure-like activity noticed, the patient is intubated, eyes open, and the eyes are mostly deviated to the upper right corner He is nonresponsive to verbal stimuli, visual thread Not on sedation ABG, 09/16/2024: Respiratory acidosis, WBC/HB/PLT/MCV, 09/17/2024: 8.9/10.3/248/80.3 PT/INR/PTT, 09/16/2024: 14.9/1.46/27.4 BUN/CR, 09/17/2019 43/1.23, 09/17/2024: 42/1.24 HCO3, 09/16/2024: 34, 09/17/2024: 38 GFR, 09/17/24: 66 TBI/AST/ALT/AP, 09/16/2024: 1.6/39/33/140, 09/17/2024: 3.6/46/30/91 Lactic acid, 09/16/24: 8, 2 TG/HDL/LDL/HDL, 08/29/24: 74/68/44/10 EEG, 09/17/2024: Mildly abnormal Chest X-ray, 09/17/2024: Lines and tubes in satisfactory position. No significant interval change Chest x-ray, 09/19/2024: 1. Mechanical ventilation. 2. Diffuse bilateral pulmonary opacities and bilateral pleural effusions which may be due to pneumonia and/or CHF. 3. Emphysema. 4. Cardiomegaly and pulmonary arterial hypertension. CT head, 09/16/2024: 1. No acute intracranial abnormality. 2. No significant change from 08/28/2024. 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 No acute intracranial abnormality. No acute interval change. CT, right thigh 09/22/2024: Large heterogeneous soft tissue mass in the proximal medial thigh adjacent to the femoral prosthesis measuring 26 cm in length by 11.6 cm in transverse dimension 12 cm in AP dimension. This most likely represents a large hematoma. MRI head, 09/23/2024: 1. Multiple scattered Tiny acute/recent infarcts: Right caudate body, high right parietal lobe, multiple in the bilateral cerebellar hemispheres, left caudate head, posterior left occipital lobe, high left parietal lobe, and anterior right frontal lobe. 2. Small chronic infarct in the left frontal lobe. 3. Mild chronic microvascular ischemic change. 4. Bilateral mastoid air cell effusions. MRI, right femur, 09/23/2024: Large intramuscular hematoma predominantly along the right adductor compartment limited evaluation without axial plane of view. Hematoma measures 12.6 cm and imaging finding likely related to high-grade tear of the presumably adductor ashwin vital signs Vital Sign Date Time Temp Pulse Resp B/P (MAP) Pulse Ox O2 Delivery O2 Flow Rate FiO2 09/24/24 07:26 108 18 129/81 (97) 96 30 09/24/24 06:00 Mechanical Ventilator+ 09/24/24 06:00 97.5 97.5 Total Intake and Output 09/23/24 09/23/24 09/24/24 15:00 23:00 07:00 Intake Total 147.5 ml 731 ml 1010 ml Output Total 1175 ml 750 ml Balance 147.5 ml -444 ml 260 ml medications Current Medications Medications Dose Ordered Sig/Renetta Route Start Time Stop Time Status Last Admin Dose Admin Norepinephrine Bitartrate 250 ml @ 3.75 mls/hr Q24H IV 09/16/24 17:45 09/23/24 21:21 3.75 MLS/HR Fentanyl Citrate 250 ml @ 2.5 mls/hr Q24H IV 09/16/24 17:45 09/24/24 00:06 15 MLS/HR Midazolam HCl 50 ml @ 1 mls/hr Q24H IV 09/16/24 19:45 09/18/24 10:37 9 MLS/HR Nitroglycerin 0.4 mg Q5MINP PRN SL 09/16/24 20:00 Morphine Sulfate 2 mg Q30M PRN IV 09/16/24 20:00 Cancel Ondansetron HCl 4 mg Q4HP PRN IV 09/16/24 20:00 Acetaminophen 650 mg Q6HP PRN PO 09/16/24 20:00 Albuterol 2.5 mg Q6HPRN PRN NEB 09/16/24 20:45 09/23/24 09:26 2.5 MG Piperacillin Sod/ Tazobactam Sod 100 ml @ 25 mls/hr Q8HR IV 09/16/24 22:00 09/24/24 06:05 25 MLS/HR Enoxaparin Sodium 90 mg Q12HR SC 09/17/24 22:00 09/23/24 21:49 90 MG Pantoprazole Sodium 40 mg DAILY IV 09/18/24 10:00 09/23/24 11:00 40 MG Morphine Sulfate 2 mg Q30M PRN IV 09/17/24 13:00 Digoxin 125 mcg DAILY IV 09/19/24 10:00 09/23/24 10:59 125 MCG Purified Water 100 ml Q6HR GT 09/19/24 18:00 09/24/24 06:06 100 ML Metoprolol Tartrate 25 mg BID PO 09/20/24 22:00 09/24/24 04:50 25 MG Enteral Nutritional Formula 1,000 ml 40ML/HR GT 09/20/24 15:30 09/23/24 11:22 1,000 ML Lorazepam 1 mg ONCE PRN IV 09/21/24 22:30 Diltiazem HCl 100 ml @ 5 mls/hr Q20H IV 09/22/24 06:45 09/22/24 18:47 5 MLS/HR Sodium Chloride 10 ml QSHIFT@10,22 IV 09/22/24 22:00 09/23/24 22:05 10 ML Levetiracetam 100 ml @ 400 mls/hr Q12H IV 09/22/24 15:00 09/24/24 02:30 400 MLS/HR Furosemide 40 mg DAILY IV 09/24/24 10:00 objective The patient is well-nourished and well-developed with no distress. The patient is intubated MENTAL STATUS: Subjective CRANIAL NERVES: Pupils are equal, round and reactive.There are corneal reflexes and doll's eyes phenomenon. No signs of facial weakness. There are gagging or coughing reflexes SENSATION: No responses to pain stimuli. MOTOR: Normal tone in the upper and lower extremity. Normal muscle bulk. No fasciculations. No spontaneous movement. REFLEXES: Deep tendon reflexes are symmetrical. No pathological reflexes. CEREBELLAR/COORDINATION: Deferred GAIT/STATION: deferred. laboratory and microbiology Laboratory Tests 09/24/24 03:10 Test 09/24/24 03:10 Range/Units Serum Glucose 110 H 74-106 mg/dL Problem List Coma, resolved Hypoxic encephalopathy Metabolic encephalopathy Toxic encephalopathy Cardiopulmonary arrest Respiratory failure Kidney failure Coagulopathy Elevated liver function tests Witnessed seizure/seizure-like activity Chronic stroke per CT scan AFib Right-sided hematoma Strokes ? Permanent vegetative status Assessment/Plan Monitoring Supportive treatment ICU care Follow-up EEG Follow-up lab Stabilize vitals/pressor drip Respiratory support/vent management Keppra 500 mg IV b.i.d. Ativan for seizure breakthrough IV antibiotics DVT prophylaxis/SCD Pulmonary consultation Nephrology consultation More recommendation per clinical course This medical document was created using an electronic medical record system with [employer] dictation system. Although this document has been carefully reviewed, there may still be some phonetic and typographical errors. These areas are purely typographical due to imperfections of the software programs, and do not reflect any compromise in the patient's medical care. Prognosis guarded Dietary Evaluation Review Comments: 1) TF Pivot 1.5 Guy @ 55ml/hr. Start @ 20ml/hr, increase 10ml/hr Q4H until goal is reached. TF @ goal volume provides 1980 kcal (100% energy needs), 124 gm protein (100% protein needs), 1002 ml free water. 2) Water flush 250ml Q6H 3) TPN if NPO > 7 days 4) Monitor NPO status, lab values, wt trend, I/O Expected Outcomes/Goals: To meet at leasy 75% estimated needs within 7 days Fu 2-3 days Plan discussed with: JOHNATHAN Chow MD Sep 24, 2024 09:12
[2024-09-24] MEDS: FUROSEMIDE 40 MG/4 ML VIAL IV SCH (11:07)
--- NOTE | 2024-09-24 11:58 | DVHPN2 ---
Consult Progress Note Date Seen: Sep 24, 2024 Subjective Other Systems: No overnight cardiac events reported Objective vital signs Vital Sign Date Time Temp Pulse Resp B/P (MAP) Pulse Ox O2 Delivery O2 Flow Rate FiO2 09/24/24 11:09 122 19 134/82 (99) 94 30 09/24/24 06:00 Mechanical Ventilator+ 09/24/24 06:00 97.5 97.5 Total Intake and Output 09/23/24 09/23/24 09/24/24 15:00 23:00 07:00 Intake Total 147.5 ml 1331 ml 1035 ml Output Total 1175 ml 750 ml Balance 147.5 ml 156 ml 285 ml medications Current Medications Medications Dose Ordered Sig/Renetta Route Start Time Stop Time Status Last Admin Dose Admin Norepinephrine Bitartrate 250 ml @ 3.75 mls/hr Q24H IV 09/16/24 17:45 09/23/24 21:21 3.75 MLS/HR Fentanyl Citrate 250 ml @ 2.5 mls/hr Q24H IV 09/16/24 17:45 09/24/24 00:06 15 MLS/HR Midazolam HCl 50 ml @ 1 mls/hr Q24H IV 09/16/24 19:45 09/18/24 10:37 9 MLS/HR Nitroglycerin 0.4 mg Q5MINP PRN SL 09/16/24 20:00 Morphine Sulfate 2 mg Q30M PRN IV 09/16/24 20:00 Cancel Ondansetron HCl 4 mg Q4HP PRN IV 09/16/24 20:00 Acetaminophen 650 mg Q6HP PRN PO 09/16/24 20:00 Albuterol 2.5 mg Q6HPRN PRN NEB 09/16/24 20:45 09/23/24 09:26 2.5 MG Piperacillin Sod/ Tazobactam Sod 100 ml @ 25 mls/hr Q8HR IV 09/16/24 22:00 09/24/24 06:05 25 MLS/HR Enoxaparin Sodium 90 mg Q12HR SC 09/17/24 22:00 09/23/24 21:49 90 MG Pantoprazole Sodium 40 mg DAILY IV 09/18/24 10:00 09/24/24 11:07 40 MG Morphine Sulfate 2 mg Q30M PRN IV 09/17/24 13:00 Digoxin 125 mcg DAILY IV 09/19/24 10:00 09/24/24 11:08 125 MCG Purified Water 100 ml Q6HR GT 09/19/24 18:00 09/24/24 06:06 100 ML Enteral Nutritional Formula 1,000 ml 40ML/HR GT 09/20/24 15:30 09/23/24 11:22 1,000 ML Lorazepam 1 mg ONCE PRN IV 09/21/24 22:30 Diltiazem HCl 100 ml @ 5 mls/hr Q20H IV 09/22/24 06:45 09/22/24 18:47 5 MLS/HR Sodium Chloride 10 ml QSHIFT@10,22 IV 09/22/24 22:00 09/23/24 22:05 10 ML Levetiracetam 100 ml @ 400 mls/hr Q12H IV 09/22/24 15:00 09/24/24 02:30 400 MLS/HR Furosemide 40 mg DAILY IV 09/24/24 10:00 09/24/24 11:07 40 MG Metoprolol Tartrate 25 mg Q12H PO 09/24/24 18:00 Examination: GENERAL:Abnormal (Pale), LUNGS:Abnormal (Endotracheally intubated), CVS:Abnormal (A-fib with RVR 120s bpm), NEURO:Abnormal laboratory and microbiology Laboratory Tests 09/24/24 03:10 Test 09/24/24 03:10 Range/Units Serum Glucose 110 H 74-106 mg/dL Problem List/Assessment/Plan Problem List/Assessment/Plan Sepsis with pneumonia Cardiopulmonary arrest with ROSC Multiple acute CVAs with questionable vegetative state Non ST-elevation Myocardial Infarction, questionable Type I Atrial fibrillation, likely persistent, controlled rate (on Eliquis) Acute on chronic decompensated HFimprEF, NYHA class IV Mitral valve stenosis/regurgitation, moderate degree Tricuspid valve regurgitation, severe degree Pulmonary hypertension Liver cirrhosis Seizures, ?new onset Obesity History of tobacco use Acute anemia with active bleed s/p PRBCs Plan/Recommendation (Dr. Ochoa) * Transthoracic echocardiogram revealed LVEF 55% * Moderate to severe tricuspid insufficiency with mild to moderate mitral insufficiency * Preload reduction as tolerated * Strict intake and output, daily weights, maintain fluid restriction * Discontinue anticoagulation therapy given acute anemia with active bleed * [id number] VASc score: 2 points, HAS-BLED score: 1 point * Avoid antiarrhythmics, likely persistent A-fib * Rate control, digoxin therapy and Cardizem drip * Replete electrolytes as necessary, K>4 and Mg>2 The patient is not a candidate for any invasive procedures given neurological status with questionable vegetative status, active bleeding requiring PRBCs, and grave prognosis. Kindly call cardiology as needed basis for any further recommendations. Thank you for allowing us to care for this patient. Critical care time spent: 35 minutes. This medical document was created using an electronic medical record system with voice recognition software and computerized dictation system. Although this document has been carefully reviewed, there might still be some phonetic and typographical errors. Occasional wrong-word or ``sound-alike substitutions may have occurred due to the inherent limitations of voice recognition software. These areas are purely typographical due to imperfections of the software programs and do not reflect any compromise in the patient's medical care. Please read the chart carefully and recognize, using context, where these substitutions have occurred. Plan discussed with: Other Dietary Evaluation Review Comments: 1) TF Pivot 1.5 Guy @ 55ml/hr. Start @ 20ml/hr, increase 10ml/hr Q4H until goal is reached. TF @ goal volume provides 1980 kcal (100% energy needs), 124 gm protein (100% protein needs), 1002 ml free water. 2) Water flush 250ml Q6H 3) TPN if NPO > 7 days 4) Monitor NPO status, lab values, wt trend, I/O Expected Outcomes/Goals: To meet at leasy 75% estimated needs within 7 days Fu 2-3 days Date of Service: Sep 24, 2024 Billing Provider: WILLA TOBAR Cardiology Common Codes: [id number] CARE 30-74 MIN WILLA TOBAR Sep 24, 2024 11:58
--- NOTE | 2024-09-24 12:04 | DVH ---
Indication: cva Technique: Real-time ultrasound images of the neck vessels with giron-scale, color and wave Doppler we re obtained. Comparison: None Findings: Mild atherosclerotic plaque bilaterally. The following peak systolic velocities were recorded in cm/sec: Right internal carotid: 51 Right common carotid: 77 Right external carotid: 113 Right internal/common carotid ratio: 1.5 Left internal carotid: 75 Left common carotid: 66 Left external carotid: 109 Left internal/common carotid ratio: 1.1 Right vertebral artery: Patent with normal antegrade direction of flow. Left vertebral artery: Patent with normal antegrade direction of flow. Impression: No hemodynamically significant stenosis by velocity criteria.
--- NOTE | 2024-09-24 13:27 | DVH ---
CHEST RADIOGRAPH Indication: CHECK NG TUBE PLACEMENT Technique: Frontal view of the chest. Comparison: XY CHEST PORTABLE on DOS: 09/24/24, XY CHEST PORTABLE on DOS: 09/22/24, XY CHEST PORTABLE o n DOS: 09/22/24, XY CHEST PORTABLE on DOS: 09/21/24, XY CHEST PORTABLE on DOS: 09/20/24, XY CHEST PORTAB LE on DOS: 09/24/24 FINDINGS: LUNGS AND PLEURAL SPACES: See below. HEART: Cardiomegaly with mild congestion. MEDIASTINUM: Unremarkable. Normal mediastinal contour. BONES/JOINTS: Unremarkable. No acute fracture. TUBES, LINES AND DEVICES: The endotracheal tube (ETT) is in satisfactory position. Enteric tube tip cannot be seen but is below the diaphragm. Right peripherally inserted central catheter (PICC) tip in the superior vena cava. Nasogastric tube tip in the stomach. IMPRESSION: Cardiomegaly with mild congestion. Nasogastric tube tip in the stomach.
--- NOTE | 2024-09-24 13:51 | DVHPN2 ---
Progress Note Date Seen: Sep 24, 2024 Medical Necessity Reason Pt with a Central, PICC or Fol: Yes The following are medically ne: Central Line, Craft Catheter Reason for craft catheter: Strict I&O Subjective Patient reports: No new complaints Review of Systems: HEENT:Normal, CVS:Normal, RESPIRATORY:Normal, GI:Normal, :Normal, MSK:Normal, NEURO:Normal Objective vital signs Vital Sign Date Time Temp Pulse Resp B/P (MAP) Pulse Ox O2 Delivery O2 Flow Rate FiO2 09/24/24 13:32 121 20 130/81 (97) 95 30 09/24/24 06:00 Mechanical Ventilator+ 09/24/24 06:00 97.5 97.5 Total Intake and Output 09/23/24 09/23/24 09/24/24 15:00 23:00 07:00 Intake Total 147.5 ml 1331 ml 1035 ml Output Total 1175 ml 750 ml Balance 147.5 ml 156 ml 285 ml medications Current Medications Medications Dose Ordered Sig/Renetta Route Start Time Stop Time Status Last Admin Dose Admin Norepinephrine Bitartrate 250 ml @ 3.75 mls/hr Q24H IV 09/16/24 17:45 09/23/24 21:21 3.75 MLS/HR Fentanyl Citrate 250 ml @ 2.5 mls/hr Q24H IV 09/16/24 17:45 09/24/24 00:06 15 MLS/HR Midazolam HCl 50 ml @ 1 mls/hr Q24H IV 09/16/24 19:45 09/18/24 10:37 9 MLS/HR Nitroglycerin 0.4 mg Q5MINP PRN SL 09/16/24 20:00 Morphine Sulfate 2 mg Q30M PRN IV 09/16/24 20:00 Cancel Ondansetron HCl 4 mg Q4HP PRN IV 09/16/24 20:00 Acetaminophen 650 mg Q6HP PRN PO 09/16/24 20:00 Albuterol 2.5 mg Q6HPRN PRN NEB 09/16/24 20:45 09/23/24 09:26 2.5 MG Piperacillin Sod/ Tazobactam Sod 100 ml @ 25 mls/hr Q8HR IV 09/16/24 22:00 09/24/24 06:05 25 MLS/HR Pantoprazole Sodium 40 mg DAILY IV 09/18/24 10:00 09/24/24 11:07 40 MG Morphine Sulfate 2 mg Q30M PRN IV 09/17/24 13:00 Digoxin 125 mcg DAILY IV 09/19/24 10:00 09/24/24 11:08 125 MCG Purified Water 100 ml Q6HR GT 09/19/24 18:00 09/24/24 06:06 100 ML Enteral Nutritional Formula 1,000 ml 40ML/HR GT 09/20/24 15:30 09/23/24 11:22 1,000 ML Lorazepam 1 mg ONCE PRN IV 09/21/24 22:30 Diltiazem HCl 100 ml @ 5 mls/hr Q20H IV 09/22/24 06:45 09/24/24 11:40 5 MLS/HR Sodium Chloride 10 ml QSHIFT@10,22 IV 09/22/24 22:00 09/23/24 22:05 10 ML Levetiracetam 100 ml @ 400 mls/hr Q12H IV 09/22/24 15:00 09/24/24 02:30 400 MLS/HR Furosemide 40 mg DAILY IV 09/24/24 10:00 09/24/24 11:07 40 MG Metoprolol Tartrate 25 mg Q12H PO 09/24/24 18:00 Examination: GENERAL:Normal, HEENT:Normal, NECK:Normal, LUNGS:Normal, LUNGS:Abnormal (intubated), CVS:Normal, ABDOMEN:Normal, MSK:Normal, MSK:Abnormal (right thigh hematoma), SKIN:Normal, NEURO:Normal, :Normal laboratory and microbiology Laboratory Tests 09/24/24 03:10 Test 09/24/24 03:10 Range/Units Serum Glucose 110 H 74-106 mg/dL Microbiology Date/Time Source Procedure Growth Status 09/22/24 19:40 Urine - Craft Port Urine Culture - Preliminary Resulted 09/22/24 19:10 Blood Blood Culture - Preliminary Resulted 09/22/24 18:34 Trachea Gram Stain - Final Resulted 09/22/24 18:34 Trachea Respiratory Culture - Preliminary Resulted Problem List/Assessment/Plan Problem List/Assessment/Plan #1 acute resp failure: cont acv #2 s/p cpr: neuro following, brain mri- multiple infarcts #3 acute on chronic systolic/diastolic heart failure: #4 shock ? cardiac ?septic: iv antibiotics, off pressors #5 right pneumonia ?aspiration: on zosyn #6 a fib with rvr: cardizem drip #7 rib fractures #8 liver cirrhosis: check hep panel #9 seizures; on keppra #10 anemia #11 nutrition: tube feedings long dw jessica Nichols- will extubate and proceed with terminal extubation Plan discussed with: Other (jessica Nichols) My Orders My Orders Orders - BECKY PAT MD Procedure Category Date Status Time Chest Portable XY 09/24/24 Resulted 12:50 Dietary Evaluation Review Comments: 1) TF Pivot 1.5 Guy @ 55ml/hr. Start @ 20ml/hr, increase 10ml/hr Q4H until goal is reached. TF @ goal volume provides 1980 kcal (100% energy needs), 124 gm protein (100% protein needs), 1002 ml free water. 2) Water flush 250ml Q6H 3) TPN if NPO > 7 days 4) Monitor NPO status, lab values, wt trend, I/O Expected Outcomes/Goals: To meet at leasy 75% estimated needs within 7 days Fu 2-3 days Critical Care Time (mins): 81 (critical care time including dw family is 81 mins) Date of Service: Sep 24, 2024 Billing Provider: BECKY PAT MD Common Visit Codes: [id number] CARE 30-74 MIN, [id number] CARE-EACH +30MIN BECKY PAT MD Sep 24, 2024 13:51
[2024-09-24] MEDS ORDERED: MORPHINE SULFATE INJ 2 MG/ml SYRG IV PRN (14:00)
[2024-09-24] MEDS ORDERED: LORazepam 2MG/ML-1ML VIAL IV PRN (14:00)
[2024-09-24] MEDS: LORazepam 2MG/ML-1ML VIAL ONE (16:59)
[2024-09-24] MEDS ORDERED: METOPROLOL TARTRATE 25 MG TAB PO SCH (18:00)
[2024-09-25] VITALS (60 sets, daily range): BP systolic 107–138; BP diastolic 68–89; PULSE 86–110; RESP 18–25; TEMP 98.3–98.6; O2SAT 88–100
[2024-09-25 04:06] LABS: Hemoglobin 7.3 g/dL (13.5-17.5)
[2024-09-25 04:08] LABS: Hematocrit 23.0 % (41.0-53.0); Mean Corpuscular Hemoglobin 25.9 pg (28.0-32.0); Mean Corpuscular Volume 81.6 fL (80.0-100.0); Nucleated Red Blood Cells % 0.7 %
[2024-09-25 04:22] LABS: Alanine Aminotransferase 38 U/L (7-40); Alkaline Phosphatase 104 U/L (46-116); Anion Gap 7 (5-15); Chloride 105 mmol/L (98-107); Glucose 97 mg/dL (74-106); Magnesium 2.3 mg/dL (1.6-2.6); Potassium 3.9 mmol/L (3.5-5.1)
[2024-09-25 04:23] LABS: BUN/Creatinine Ratio 36.0 (10.0-20.0)
[2024-09-25 04:36] LABS: Albumin 3.0 g/dL (3.2-4.8); Bilirubin, Total 3.1 mg/dL (0.2-1.0); Blood Urea Nitrogen 40 mg/dL (9-23); Calcium 8.6 mg/dL (8.7-10.4); Carbon Dioxide 37 mmol/L (20-31); Sodium 149 mmol/L (136-145); Total Protein 5.4 g/dL (5.7-8.2)
[2024-09-25 05:27] LABS: Bilirubin, Direct 2.3 mg/dL (<0.3)
--- NOTE | 2024-09-25 12:41 | DVHPN2 ---
Progress Note - Dictate Date Seen: Sep 25, 2024 Medical Necessity Reason Pt with a Central, PICC or Fol: Yes The following are medically ne: Central Line, Craft Catheter Reason for craft catheter: Strict I&O Subjective Mr. Herrera is a 59 years old gentleman with a history of hypertension, dyslipidemia, cardiomyopathy, congestive heart failure, AFib, kidney stone, he was brought to the [facility] on 09/16/2024 with a chief company of cardiopulmonary arrest/status post CPR I have seen and examined the patient, discussed with his nurse, no seizure-like activity noticed, the patient is intubated, eyes open in neutral position, he does not responsive to verbal stimuli, visual thread Not on sedation ABG, 09/16/2024: Respiratory acidosis, WBC/HB/PLT/MCV, 09/17/2024: 8.9/10.3/248/80.3 PT/INR/PTT, 09/16/2024: 14.9/1.46/27.4 BUN/CR, 09/17/2019 43/1.23, 09/17/2024: 42/1.24 HCO3, 09/16/2024: 34, 09/17/2024: 38 GFR, 09/17/24: 66 TBI/AST/ALT/AP, 09/16/2024: 1.6/39/33/140, 09/17/2024: 3.6/46/30/91 Lactic acid, 09/16/24: 8, 2 TG/HDL/LDL/HDL, 08/29/24: 74/68/44/10 EEG, 09/17/2024: Mildly abnormal Chest X-ray, 09/17/2024: Lines and tubes in satisfactory position. No significant interval change Chest x-ray, 09/19/2024: 1. Mechanical ventilation. 2. Diffuse bilateral pulmonary opacities and bilateral pleural effusions which may be due to pneumonia and/or CHF. 3. Emphysema. 4. Cardiomegaly and pulmonary arterial hypertension. CT head, 09/16/2024: 1. No acute intracranial abnormality. 2. No significant change from 08/28/2024. 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 No acute intracranial abnormality. No acute interval change. CT, right thigh 09/22/2024: Large heterogeneous soft tissue mass in the proximal medial thigh adjacent to the femoral prosthesis measuring 26 cm in length by 11.6 cm in transverse dimension 12 cm in AP dimension. This most likely represents a large hematoma. MRI head, 09/23/2024: 1. Multiple scattered Tiny acute/recent infarcts: Right caudate body, high right parietal lobe, multiple in the bilateral cerebellar hemispheres, left caudate head, posterior left occipital lobe, high left parietal lobe, and anterior right frontal lobe. 2. Small chronic infarct in the left frontal lobe. 3. Mild chronic microvascular ischemic change. 4. Bilateral mastoid air cell effusions. MRI, right femur, 09/23/2024: Large intramuscular hematoma predominantly along the right adductor compartment limited evaluation without axial plane of view. Hematoma measures 12.6 cm and imaging finding likely related to high-grade tear of the presumably adductor ashwin vital signs Vital Sign Date Time Temp Pulse Resp B/P (MAP) Pulse Ox O2 Delivery O2 Flow Rate FiO2 09/25/24 12:15 89 18 112/68 (83) 96 09/25/24 12:00 98.3 98.3 09/25/24 12:00 30 09/25/24 12:00 Mechanical Ventilator+ Total Intake and Output 09/24/24 09/24/24 09/25/24 15:00 23:00 07:00 Intake Total 152.5 ml 217.5 ml 80 ml Output Total 950 ml 660 ml Balance 152.5 ml -732.5 ml -580 ml medications Current Medications Medications Dose Ordered Sig/Renetta Route Start Time Stop Time Status Last Admin Dose Admin Nitroglycerin 0.4 mg Q5MINP PRN SL 09/16/24 20:00 Morphine Sulfate 2 mg Q30M PRN IV 09/16/24 20:00 Cancel Acetaminophen 650 mg Q6HP PRN PO 09/16/24 20:00 Morphine Sulfate 2 mg Q30M PRN IV 09/17/24 13:00 Sodium Chloride 10 ml QSHIFT@10,22 IV 09/22/24 22:00 09/25/24 11:24 10 ML Lorazepam 1 mg Q1HP PRN IV 09/24/24 14:00 Morphine Sulfate 2 mg Q1HP PRN IV 09/24/24 14:00 Diltiazem HCl 125 ml @ 2.5 mls/hr Q24H IV 09/25/24 00:15 09/25/24 02:44 10 MLS/HR objective The patient is well-nourished and well-developed with no distress. The patient is intubated MENTAL STATUS: Subjective CRANIAL NERVES: Pupils are equal, round and reactive.There are corneal reflexes and doll's eyes phenomenon. No signs of facial weakness. There are gagging or coughing reflexes SENSATION: No responses to pain stimuli. MOTOR: Normal tone in the upper and lower extremity. Normal muscle bulk. No fasciculations. No spontaneous movement. REFLEXES: Deep tendon reflexes are symmetrical. No pathological reflexes. CEREBELLAR/COORDINATION: Deferred GAIT/STATION: deferred. laboratory and microbiology Laboratory Tests 09/25/24 03:18 Test 09/25/24 03:18 Range/Units Serum Glucose 97 74-106 mg/dL Problem List Coma, resolved Hypoxic encephalopathy Metabolic encephalopathy Toxic encephalopathy Cardiopulmonary arrest Respiratory failure Kidney failure Coagulopathy Elevated liver function tests Witnessed seizure/seizure-like activity Chronic stroke per CT scan AFib Right-sided hematoma Strokes ? Permanent vegetative status Assessment/Plan Monitoring Supportive treatment ICU care Follow-up EEG Follow-up lab Stabilize vitals/pressor drip Respiratory support/vent management Keppra 500 mg IV b.i.d. Ativan for seizure breakthrough IV antibiotics DVT prophylaxis/SCD Pulmonary consultation Nephrology consultation More recommendation per clinical course This medical document was created using an electronic medical record system with [employer] dictation system. Although this document has been carefully reviewed, there may still be some phonetic and typographical errors. These areas are purely typographical due to imperfections of the software programs, and do not reflect any compromise in the patient's medical care. Prognosis guarded Dietary Evaluation Review Comments: 1) TF Pivot 1.5 Guy @ 55ml/hr. Start @ 20ml/hr, increase 10ml/hr Q4H until goal is reached. TF @ goal volume provides 1980 kcal (100% energy needs), 124 gm protein (100% protein needs), 1002 ml free water. 2) Water flush 250ml Q6H 3) TPN if NPO > 7 days 4) Monitor NPO status, lab values, wt trend, I/O Expected Outcomes/Goals: To meet at leasy 75% estimated needs within 7 days Fu 2-3 days Plan discussed with: Other JOHNATHAN BRICEÑO MD Sep 25, 2024 12:41
--- NOTE | 2024-09-25 18:54 | DVHEEG2 ---
Neurology EEG Procedural Note Procedural Note EXAM DATE: 09/24/2024 REFERRING DOCTOR: Dr. Briceño TECHNIQUE: Eighteen channels of EEG, 2 channels of EOG, and 1 channel of EKG were recorded using the International 10/20 system. CLINICAL DATA: The patient was referred for an EEG evaluation for the evidence of seizure disorder. MEDICATIONS: See the chart BACKGROUND ACTIVITY: There was significant amount of electrode artifacts in the recording, this record showed brief bursts of high-amplitude sharply short intervals of suppressed or relatively suppressed background activity over both hemispheres ACTIVATION: Hyperventilation: Not done Photic Stimulation: Not done Sleep: Nonresponsiveness IMPRESSION: This is a remarkably abnormal EEG, this EEG is consistent with so- called burst suppression, which is seen in hypoxic encephalopathy or 2nd stage of and seizure, please correlate clinically The EKG channel showed an irregular heart rate of 126 [place] [address] JOHNATHAN BRICEÑO MD Sep 25, 2024 18:54
== END 2024-09-25 09:34 | DRG 720 ==
LOC: EDUNIT# 17:11 → ER 17:11 → EDBD 17:11 → OVERFLOW 19:58 → ICU WEST 09-17 04:57 → UNDODISIN 09-25 09:34
PROVIDERS: ADMIT Internal Medicine; ATTEND Internal Medicine
PROC: 5A1955Z Respiratory Ventilation, Greater than 96 Consecutive Hours (ICD-10-PCS; principal; 2024-09-16)
PROC: 06HM33Z Insertion of Infusion Device into Right Femoral Vein, Percutaneous Approach (ICD-10-PCS; 2024-09-16)
PROC: 02HV33Z Insertion of Infusion Device into Superior Vena Cava, Percutaneous Approach (ICD-10-PCS; 2024-09-22)
PROC: B548ZZA Ultrasonography of Superior Vena Cava, Guidance (ICD-10-PCS; 2024-09-22)
PROC: 30233N1 Transfusion of Nonautologous Red Blood Cells into Peripheral Vein, Percutaneous Approach (ICD-10-PCS; 2024-09-23)
DX: A41.9 Sepsis, unspecified organism (principal); J96.01 Acute respiratory failure with hypoxia; I46.9 Cardiac arrest, cause unspecified; J69.0 Pneumonitis due to inhalation of food and vomit; R65.21 Severe sepsis with septic shock; R57.0 Cardiogenic shock; I21.4 Non-ST elevation (NSTEMI) myocardial infarction; G92.8 Other toxic encephalopathy; D68.9 Coagulation defect, unspecified; I42.9 Cardiomyopathy, unspecified; J18.9 Pneumonia, unspecified organism; S22.43XA Multiple fractures of ribs, bilateral, initial encounter for closed fracture; I50.43 Acute on chronic combined systolic (congestive) and diastolic (congestive) heart failure; G93.1 Anoxic brain damage, not elsewhere classified; N19 Unspecified kidney failure; J96.02 Acute respiratory failure with hypercapnia; E66.9 Obesity, unspecified; Z68.23 Body mass index [BMI] 23.0-23.9, adult; E78.5 Hyperlipidemia, unspecified; F17.210 Nicotine dependence, cigarettes, uncomplicated; I48.91 Unspecified atrial fibrillation; I11.0 Hypertensive heart disease with heart failure; E87.5 Hyperkalemia; K74.60 Unspecified cirrhosis of liver; Z66 Do not resuscitate; I08.1 Rheumatic disorders of both mitral and tricuspid valves; R56.9 Unspecified convulsions; D64.9 Anemia, unspecified; Z87.442 Personal history of urinary calculi; Z86.73 Personal history of transient ischemic attack (TIA), and cerebral infarction without residual deficits; X58.XXXA Exposure to other specified factors, initial encounter; Y93.89 Activity, other specified; Y92.89 Other specified places as the place of occurrence of the external cause; Y99.8 Other external cause status
CPT/HCPCS: 36415; 36556; 36569; 36600; 70450; 70551; 71045; 71250; 73700; 73718; 74176; 76937; 80048; 80053; 80061; 80074; 80162; 80307; 81001; 82140; 82248; 82805; 83605; 83735; 83880; 84100; 84443; 84484; 85007; 85014; 85018; 85025; 85027; 85610; 85730; 86850; 86900; 86901; 86920; 87040; 87070; 87081; 87086; 87205; 93005; 93306; 93886; 93926; 93971; 94002; 94003; 94640; 95819; 96365; 96375; 99291; G0378; J1815; J2470; J2543; J2704; J3480

== ENCOUNTER 2024-09-25 09:34 | Inpatient (IN) | payer OTHER ==
[~2024-09-25] VITALS: Ht 193 cm; Wt 109.5 kg
[2024-09-25] VITALS (58 sets, daily range): BP systolic 107–136; BP diastolic 56–84; PULSE 73–109; RESP 18–22; TEMP 98.1–98.9; O2SAT 93–100
[~2024-09-25 09:34] MED LIST changes: +ASPI-543 PO; +ATOR40TA52 PO; +DIGO0.25 PO; +DONE5TAB80 PO; +FLUT1AER17 IN; +LOSA-533 PO; +POTA-36 PO; +SILD50TA PO; +TAMS0.4C39 PO
[2024-09-25] MEDS ORDERED: NITROGLYCERIN 0.4 MG SL TAB SL PRN (14:15)
[2024-09-25] MEDS ORDERED: MORPHINE SULFATE INJ 2 MG/ml SYRG IV PRN (14:15)
--- NOTE | 2024-09-25 14:26 | DVHPN2 ---
Progress Note Date Seen: Sep 25, 2024 Medical Necessity Reason Pt with a Central, PICC or Fol: Yes The following are medically ne: Central Line, Craft Catheter Reason for craft catheter: Strict I&O Subjective Patient reports: No new complaints Review of Systems: HEENT:Normal, CVS:Normal, RESPIRATORY:Normal, GI:Normal, :Normal, MSK:Normal, NEURO:Normal Objective vital signs Vital Sign Date Time Temp Pulse Resp B/P (MAP) Pulse Ox O2 Delivery O2 Flow Rate FiO2 09/25/24 10:33 19 94 Mechanical Ventilator+ 30 30 09/25/24 10:30 96 121/78 (92) medications Current Medications Medications Dose Ordered Sig/Renetta Route Start Time Stop Time Status Last Admin Dose Admin Diltiazem HCl 100 ml @ 2.5 mls/hr Q24H IV 09/25/24 11:00 UNV Nitroglycerin 0.4 mg Q5MINP PRN SL 09/25/24 14:15 UNV Morphine Sulfate 2 mg Q30M PRN IV 09/25/24 14:15 UNV Piperacillin Sod/ Tazobactam Sod 100 ml @ 25 mls/hr Q8HR IV 09/25/24 22:00 UNV Pantoprazole Sodium 40 mg DAILY IV 09/26/24 10:00 UNV Enoxaparin Sodium 40 mg DAILY SC 09/26/24 10:00 UNV Examination: GENERAL:Normal, HEENT:Normal, NECK:Normal, LUNGS:Normal, LUNGS:Abnormal (intubated), CVS:Normal, ABDOMEN:Normal, MSK:Normal, SKIN:Normal, NEURO:Normal, :Normal Problem List/Assessment/Plan Problem List/Assessment/Plan #1 acute resp failure: cont acv #2 s/p cpr: neuro following, brain mri- multiple infarcts #3 acute on chronic systolic/diastolic heart failure: #4 shock ? cardiac ?septic: iv antibiotics, off pressors #5 right pneumonia ?aspiration: on zosyn #6 a fib with rvr: cardizem drip #7 rib fractures #8 liver cirrhosis: check hep panel #9 seizures; on keppra #10 anemia #11 nutrition: tube feedings patient is now organ donor candidate, ordered labs as requested by [facility] Plan discussed with: Other (rn) My Orders My Orders Orders - BECKY PAT MD Procedure Category Date Status Time Diltiazem 125mg/125ml [facility] 09/25/24 Logged Bag Kit (Cardizem) 11:00 Admit ADMIT 09/25/24 Transmitted 14:15 Nitroglycerin [facility] 09/25/24 Logged Sublingual (Ntrostat 14:15 Morphine Sulfate [facility] 09/25/24 Logged Injection 14:15 Stat Ekg For Chest [facility] 09/25/24 In Process Pain 14:15 Notify Of Changes [facility] 09/25/24 In Process From Base 14:15 Dry Finisher For [facility] 09/25/24 In Process 24 Hours 14:15 Emergency Dysrhythmia [facility] 09/25/24 In Process Protocol 14:15 Rhythm Strips Once [facility] 09/25/24 In Process Every Shift 14:15 Oxygen By Nasal RT 09/25/24 Transmitted Cannula 14:15 Piperacillin-Tazob [facility] 09/25/24 Logged 3.375gm (Zosyn 3.375g 22:00 Pantoprazole [facility] 09/26/24 Logged (Protonix) 10:00 Enoxaparin Sodium [facility] 09/26/24 Logged (Lovenox) 10:00 Complete Blood Count LAB 09/25/24 Logged 18:00 Complete Blood Count LAB 09/26/24 Verified 00:00 Complete Blood Count LAB 09/26/24 Verified 06:00 Complete Blood Count LAB 09/26/24 Verified 12:00 Complete Blood Count LAB 09/26/24 Verified 18:00 Complete Blood Count LAB 09/27/24 Verified 00:00 Complete Blood Count LAB 09/27/24 Verified 06:00 Complete Blood Count LAB 09/27/24 Verified 12:00 Complete Blood Count LAB 09/27/24 Verified 18:00 Ct Ab Pel With Iv Con CT 09/25/24 Logged Only 14:[address] 09/25/24 Logged 14:20 Urinalysis LAB 09/25/24 Uncollected 14:20 Critical Care Time (mins): 86 (critical care time excluding procedures is 86 mins) Date of Service: Sep 25, 2024 Billing Provider: BECKY PAT MD Common Visit Codes: [id number] CARE 30-74 MIN, [id number] CARE-EACH +30MIN BECKY PAT MD Sep 25, 2024 14:26
--- NOTE | 2024-09-25 15:47 | DVH ---
INDICATION: ONE LEGAGCY, CONTRAINDICATED FOR CT WITH CONTRAST TECHNIQUE: Multiple real-time sonographic images of the abdomen were obtained. COMPARISON: US ABDOMEN COMPLETE SONOGRAM on DOS: 08/28/24 FINDINGS: The liver is increased in echogenicity. The liver measures 18cm. No intrahepatic biliary d uctal dilatation is noted. The gallbladder wall measures 0.1 cm and is unremarkable. No gallstones or sludge is seen. Gallbla dder polyp measuring 0.3 cm. The common duct measures is not well visualized due to obscuration from bowel gas. No pericholecystic fluid is noted. The right kidney measures 12cm. No hydronephrosis. The left kidney measures 12cm. No hydronephrosis . The spleen measures 10cm, within normal limits. The echogenicity is within normal limits. The pancreas is not well visualized due to obscuration from bowel gas. The visualized portions of the IVC and aorta are grossly unremarkable. IMPRESSION: Gallbladder polyp measuring 0.4 cm. Hepatic steatosis and hepatomegaly.
[2024-09-25 16:50] LABS: Hematocrit 21.9 % (41.0-53.0); Mean Corpuscular Hemoglobin 26.1 pg (28.0-32.0); Mean Corpuscular Volume 83.2 fL (80.0-100.0); Nucleated Red Blood Cells % 0.4 %
[2024-09-25 16:54] LABS: Hemoglobin 6.9 g/dL (13.5-17.5)
[2024-09-25 17:03] LABS: INR 1.11 (0.9-1.15); Partial Thromboplastin Time 29.0 SEC (24.5-34.5); Prothrombin Time 11.6 sec (9.3-11.8)
[2024-09-25 17:05] LABS: Lipase 30 U/L (12-53)
[2024-09-25 17:06] LABS: Alanine Aminotransferase 37 U/L (7-40); Alkaline Phosphatase 99 U/L (46-116); Anion Gap 6 (5-15); BUN/Creatinine Ratio 44.3 (10.0-20.0); Chloride 107 mmol/L (98-107); Glucose 99 mg/dL (74-106); Magnesium 2.2 mg/dL (1.6-2.6); Potassium 3.7 mmol/L (3.5-5.1)
[2024-09-25 17:07] LABS: Amylase 50 U/L (30-118)
[2024-09-25 17:08] LABS: Albumin 2.7 g/dL (3.2-4.8); Bilirubin, Total 3.2 mg/dL (0.2-1.0); Blood Urea Nitrogen 39 mg/dL (9-23); Calcium 8.1 mg/dL (8.7-10.4); Carbon Dioxide 37 mmol/L (20-31); Sodium 150 mmol/L (136-145); Total Protein 4.7 g/dL (5.7-8.2)
[2024-09-25 18:35] LABS: Urine Protein, UAD TRACE (Negative)
--- NOTE | 2024-09-25 18:56 | DVHEEG2 ---
Neurology EEG Procedural Note Procedural Note EXAM DATE: 09/25/2024 REFERRING DOCTOR: Dr. Briceño TECHNIQUE: Eighteen channels of EEG, 2 channels of EOG, and 1 channel of EKG were recorded using the International 10/20 system. CLINICAL DATA: The patient was referred for an EEG evaluation for the evidence of seizure disorder. MEDICATIONS: See the chart BACKGROUND ACTIVITY: This record showed brief bursts of high-amplitude sharply short intervals of suppressed or relatively suppressed background activity over both hemispheres ACTIVATION: Hyperventilation: Not done Photic Stimulation: Not done Sleep: Nonresponsiveness IMPRESSION: This is a remarkably abnormal EEG, this EEG is consistent with so- called burst suppression pattern, which is seen in hypoxic encephalopathy or 2nd stage of anesthesia, please correlate clinically The EKG channel showed a regular heart rate of 90/min [place] [address] JOHNATHAN BRICEÑO MD Sep 25, 2024 18:56
[2024-09-25] MEDS: FREE WATER GT SCH (19:28)
--- NOTE | 2024-09-25 21:39 | DVH ---
EXAM: XY CHEST PORTABLE CLINICAL HISTORY: ngt verification TECHNIQUE: Single AP view of the chest WID: COMPARISON: XY CHEST PORTABLE on DOS: 09/24/24 FINDINGS: Lines and tubes: Endotracheal tube with the tip projecting 6.3 cm above the forest. Gastric tube laverne cends beneath the level of the diaphragm and tip not visualized in field of view. Right PICC in place with the tip projecting over the low SVC. Chest: Cardiomegaly and mild pulmonary vascular congestion. Small bilateral pleural effusions. No pneumothorax. Linear bibasilar opacities likely atelectasis. I nterstitial prominence in the lungs. The osseous structures are grossly intact. IMPRESSION: 1. Endotracheal tube, gastric tube, and right PICC in place as described. Gastric tube descends benea th the level of the diaphragm, tip not visualized in field of view. 2. Mild cardiomegaly, mild pulmonary vascular congestion, small bilateral pleural effusions, and inte rstitial edema.
[2024-09-25 22:22] LABS: Base Excess 9.4 mmol/L (-2.0-3.0)
[2024-09-25] MEDS: levETIRAcetam 500 mg/100ml 100 ML IV SCH (23:58)
[2024-09-26] VITALS (78 sets, daily range): BP systolic 94–285; BP diastolic 43–87; PULSE 73–146; RESP 14–32; TEMP 97.7–98.1; O2SAT 39–97
[2024-09-26] MEDS: PIPERACILLIN-TAZOB 3.375GM 100 ML IV SCH (00:23)
[2024-09-26 00:28] LABS: Hemoglobin 7.5 g/dL (13.5-17.5); Mean Corpuscular Hemoglobin 26.5 pg (28.0-32.0); Nucleated Red Blood Cells % 0.3 %
[2024-09-26 00:29] LABS: Hematocrit 23.5 % (41.0-53.0); Mean Corpuscular Volume 82.6 fL (80.0-100.0)
[2024-09-26 00:32] LABS: Alanine Aminotransferase 36 U/L (7-40); Alkaline Phosphatase 100 U/L (46-116); Anion Gap 6 (5-15); BUN/Creatinine Ratio 45.8 (10.0-20.0); Glucose 100 mg/dL (74-106); Magnesium 2.3 mg/dL (1.6-2.6); Potassium 3.5 mmol/L (3.5-5.1)
[2024-09-26 00:43] LABS: INR 1.13 (0.9-1.15); Partial Thromboplastin Time 28.7 SEC (24.5-34.5); Prothrombin Time 11.8 sec (9.3-11.8)
[2024-09-26 00:48] LABS: Albumin 2.9 g/dL (3.2-4.8); Bilirubin, Total 3.3 mg/dL (0.2-1.0); Blood Urea Nitrogen 38 mg/dL (9-23); Calcium 8.5 mg/dL (8.7-10.4); Carbon Dioxide 36 mmol/L (20-31); Chloride 108 mmol/L (98-107); Lipase 30 U/L (12-53); Sodium 150 mmol/L (136-145); Total Protein 5.3 g/dL (5.7-8.2)
[2024-09-26 00:49] LABS: Amylase 53 U/L (30-118)
[2024-09-26 06:34] LABS: Base Excess 9.2 mmol/L (-2.0-3.0)
[2024-09-26 06:46] LABS: INR 1.14 (0.9-1.15); Partial Thromboplastin Time 27.0 SEC (24.5-34.5); Prothrombin Time 11.9 sec (9.3-11.8)
[2024-09-26 06:55] LABS: Hemoglobin 7.3 g/dL (13.5-17.5)
[2024-09-26 06:59] LABS: Hematocrit 22.3 % (41.0-53.0); Mean Corpuscular Hemoglobin 27.3 pg (28.0-32.0); Mean Corpuscular Volume 83.1 fL (80.0-100.0); Nucleated Red Blood Cells % 0.2 %
[2024-09-26 07:00] LABS: Alanine Aminotransferase 34 U/L (7-40); Alkaline Phosphatase 97 U/L (46-116); Amylase 56 U/L (30-118); Anion Gap 7 (5-15); BUN/Creatinine Ratio 44.9 (10.0-20.0); Chloride 105 mmol/L (98-107); Glucose 90 mg/dL (74-106); Lipase 35 U/L (12-53); Magnesium 2.1 mg/dL (1.6-2.6)
[2024-09-26 07:05] LABS: Albumin 2.7 g/dL (3.2-4.8); Bilirubin, Total 3.3 mg/dL (0.2-1.0); Blood Urea Nitrogen 35 mg/dL (9-23); Calcium 8.4 mg/dL (8.7-10.4); Carbon Dioxide 35 mmol/L (20-31); Potassium 3.3 mmol/L (3.5-5.1); Sodium 147 mmol/L (136-145); Total Protein 5.1 g/dL (5.7-8.2)
--- NOTE | 2024-09-26 07:33 | ECG ---
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
[2024-09-26] MEDS ORDERED: ALBUMIN 25% 100 ML IV ONE (09:00)
[2024-09-26] MEDS ORDERED: FUROSEMIDE 100 MG/10ML VIAL IV ONE (09:00)
[2024-09-26] MEDS: PANTOPRAZOLE 40 MG/10 ML VIAL INJ IV SCH (10:00)
[2024-09-26] MEDS: ENOXAPARIN SOD 40 MG/0.4 ML SYRINGE SC SCH (10:00)
[2024-09-26] MEDS: HEPARIN SODIUM (PORCINE) 5000 UNITS/ML 1ML VIAL IV ONE (10:39)
[2024-09-26] MEDS: MORPHINE SULFATE INJ 2 MG/ml SYRG IV PRN (10:44)
[2024-09-26] MEDS: LORazepam 2MG/ML-1ML VIAL IM PRN (10:44)
--- NOTE | 2024-09-26 14:46 | DVHPN2 ---
Progress Note Date Seen: Sep 26, 2024 Medical Necessity Reason Pt with a Central, PICC or Fol: Yes The following are medically ne: Central Line, PICC Line, Craft Catheter Reason for craft catheter: Strict I&O Subjective Patient reports: No new complaints Review of Systems: HEENT:Normal, CVS:Normal, RESPIRATORY:Normal, GI:Normal, :Normal, MSK:Normal, NEURO:Normal Objective vital signs Vital Sign Date Time Temp Pulse Resp B/P (MAP) Pulse Ox O2 Delivery O2 Flow Rate FiO2 09/26/24 14:00 131 09/26/24 12:30 25 53 Room Air* 0 21 09/26/24 11:14 0/0 09/26/24 08:00 98.1 98.1 Total Intake and Output 09/25/24 09/25/24 09/26/24 15:00 23:00 07:00 Intake Total 20 ml 80 ml 2312.5 ml Output Total 800 ml 750 ml Balance 20 ml -720 ml 1562.5 ml medications Current Medications Medications Dose Ordered Sig/Renetta Route Start Time Stop Time Status Last Admin Dose Admin Diltiazem HCl 100 ml @ 2.5 mls/hr Q24H IV 09/25/24 11:00 Nitroglycerin 0.4 mg Q5MINP PRN SL 09/25/24 14:15 Morphine Sulfate 2 mg Q30M PRN IV 09/25/24 14:15 Piperacillin Sod/ Tazobactam Sod 100 ml @ 25 mls/hr Q8HR IV 09/25/24 22:00 09/26/24 06:15 25 MLS/HR Pantoprazole Sodium 40 mg DAILY IV 09/26/24 10:00 Enoxaparin Sodium 40 mg DAILY SC 09/26/24 10:00 Levetiracetam 100 ml @ 400 mls/hr BID IV 09/25/24 22:00 09/25/24 23:58 400 MLS/HR Purified Water 250 ml Q1HR GT 09/25/24 19:00 09/26/24 07:00 250 ML Lorazepam 1 mg Q1HP PRN IM 09/26/24 02:30 09/26/24 10:44 1 MG Morphine Sulfate 2 mg Q1HP PRN IV 09/26/24 02:30 09/26/24 10:44 2 MG Examination: GENERAL:Normal, HEENT:Normal, NECK:Normal, LUNGS:Normal, CVS:Normal, ABDOMEN:Normal, MSK:Normal, SKIN:Normal, NEURO:Normal, NEURO:Abnormal (unresposive), :Normal laboratory and microbiology Laboratory Tests 09/26/24 06:06 Test 09/26/24 06:06 Range/Units Serum Glucose 90 74-106 mg/dL Microbiology Date/Time Source Procedure Growth Status 09/25/24 16:20 Urine - [place] Urine Culture - Preliminary Resulted Problem List/Assessment/Plan Problem List/Assessment/Plan #1 acute resp failure: cont acv #2 s/p cpr: neuro following, brain mri- multiple infarcts #3 acute on chronic systolic/diastolic heart failure: #4 shock ? cardiac ?septic: iv antibiotics, off pressors #5 right pneumonia ?aspiration: on zosyn #6 a fib with rvr: cardizem drip #7 rib fractures #8 liver cirrhosis: check hep panel #9 seizures; on keppra #10 anemia #11 nutrition: tube feedings failed organ donation- comfort measures Plan discussed with: Other (brother Alida Nichols) My Orders My Orders Orders - BECKY PAT MD Procedure Category Date Status Time Abg W/ Co-Ox RT 09/25/24 Logged 22:00 Abg W/ Co-Ox RT 09/26/24 Logged 22:00 Abg W/ Co-Ox RT 09/27/24 Logged 10:00 Abdomen Complete US 09/25/24 Resulted Sonogram 14:28 Ventilator Orders RT 09/25/24 Transmitted 14:55 Blood Culture PETEY 09/25/24 In Process 16:32 Respiratory Culture PETEY 09/25/24 Logged W/ Gs 16:32 Urine Bacterial PETEY 09/25/24 In Process Culture 16:32 Imaging Transfer ORDERS 09/25/24 Transmitted Request 16:32 Type And Screen BBK 09/25/24 In Process 17:08 Communication Order ORDERS 09/25/24 Transmitted 17:40 A Line W/ Monitoring ORDERS 09/25/24 Transmitted ABP 18:03 Free Water PHA 09/25/24 In Process 19:00 Chest Portable XY 09/25/24 Resulted 20:25 Lorazepam 2mg/Ml Inj PHA 09/26/24 In Process (Ativan Inj) 02:30 Morphine Sulfate PHA 09/26/24 In Process Injection 02:30 Extubate JOSE 09/26/24 In Process 02:16 Urinalysis LAB 09/26/24 Logged 06:00 Abg W/ Co-Ox RT 09/26/24 Logged 06:00 Transfer Orders XFER 09/26/24 Transmitted 14:42 Critical Care Time (mins): 81 (critical care time including attending during organ donation process and dw family is 81 mins) Date of Service: Sep 26, 2024 Billing Provider: BECKY PAT MD Common Visit Codes: [id number] CARE 30-74 MIN, [id number] CARE-EACH +30MIN BECKY PAT MD Sep 26, 2024 14:45
[2024-09-26] MEDS ORDERED: LORazepam 2MG/ML-1ML VIAL IV PRN (16:45)
[2024-09-27] VITALS (7 sets, daily range): BP systolic 94–146; BP diastolic 71–90; PULSE 65–136; RESP 23–26; TEMP 97.7–98.6; O2SAT 56–84
--- NOTE | 2024-09-27 10:29 | DVHPN2 ---
Progress Note Date Seen: Sep 27, 2024 Medical Necessity Reason Pt with a Central, PICC or Fol: Yes The following are medically ne: Central Line, PICC Line, Craft Catheter Reason for craft catheter: Strict I&O Subjective Patient reports: No new complaints Review of Systems: HEENT:Normal, CVS:Normal, RESPIRATORY:Normal, GI:Normal, :Normal, MSK:Normal, NEURO:Normal Objective vital signs Vital Sign Date Time Temp Pulse Resp B/P (MAP) Pulse Ox O2 Delivery O2 Flow Rate FiO2 09/27/24 09:22 97.8 65 23 119/86 (97) 84 97.8 09/26/24 20:00 Nasal Cannula* 2 28 Total Intake and Output 09/26/24 09/26/24 09/27/24 15:00 23:00 07:00 Intake Total 50 ml 0 ml 0 ml Output Total 800 ml Balance 50 ml -800 ml 0 ml medications Current Medications Medications Dose Ordered Sig/Renetta Route Start Time Stop Time Status Last Admin Dose Admin Morphine Sulfate 2 mg Q1HP PRN IV 09/26/24 02:30 09/26/24 10:44 2 MG Lorazepam 1 mg Q1HP PRN IV 09/26/24 16:45 Examination: GENERAL:Normal, HEENT:Normal, NECK:Normal, LUNGS:Normal, LUNGS:Abnormal (RALES), CVS:Normal, ABDOMEN:Normal, MSK:Normal, SKIN:Normal, NEURO:Normal, NEURO:Abnormal (UNRESPONSIVE), :Normal laboratory and microbiology Laboratory Tests 09/26/24 06:06 Test 09/26/24 06:06 Range/Units Serum Glucose 90 74-106 mg/dL Microbiology Date/Time Source Procedure Growth Status 09/25/24 16:44 Blood Blood Culture - Preliminary NO GROWTH AFTER 24 HOURS OF INCUBATION. Resulted 09/25/24 16:20 Urine - [place] Urine Culture - Preliminary Resulted Problem List/Assessment/Plan Problem List/Assessment/Plan #1 acute resp failure: cont acv #2 s/p cpr: neuro following, brain mri- multiple infarcts #3 acute on chronic systolic/diastolic heart failure: #4 shock ? cardiac ?septic: iv antibiotics, off pressors #5 right pneumonia ?aspiration: on zosyn #6 a fib with rvr: cardizem drip #7 rib fractures #8 liver cirrhosis: check hep panel #9 seizures; on keppra #10 anemia failed organ donation- comfort measures- time spent 21 mins Plan discussed with: Other (RN) My Orders My Orders Orders - BECKY PAT MD Procedure Category Date Status Time Lorazepam 2mg/Ml Inj PHA 09/26/24 In Process (Ativan Inj) 16:45 * Wound Consult CONS 09/27/24 Transmitted * Dietary Consult CONS 09/27/24 Transmitted 10:06 Date of Service: Sep 27, 2024 Billing Provider: BECKY PAT MD Common Visit Codes: [id number] INP/OBS CARE(HIGH) Secondary Visit Codes: [id number] CARE PLAN 30 MINUTES BECKY PAT MD Sep 27, 2024 10:29
--- NOTE | 2024-09-27 18:22 | DVHINCON2 ---
Date Seen: Sep 27, 2024 Family History: Patient reports no known family medical history. Allergies: Coded Allergies: Iodine (Verified Allergy, Unknown, 08/27/24) Home Meds Active Scripts Carvedilol (COREG) 3.125 Mg Tab, 3.125 MG OR BID for 30 Days, #60 TAB 2 Refills Prov:YUMIKO FRANCISCO COMPOUNDER 09/03/24 Apixaban Base (ELIQUIS) 5 Mg Tab, 5 MG PO BID for 30 Days, #60 TAB Prov:YUMIKO FRANCISCO COMPOUNDER 09/03/24 Lactulose (Lactulose) 10 Gm/15 Ml Jackeline, 30 ML PO BID for 30 Days, #15 ML 1 Refill Prov:YUMIKO FRANCISCO COMPOUNDER 09/03/24 Reported Medications Ekngwfypwau-Yhcipjtxojqe-Cngje (Trelegy Ellipta 200-62.5-25 Mcg/INH) 1 Aer Aer, 1 AER IN DAILY, AER 09/17/24 Tamsulosin Hcl (Tamsulosin Hcl) 0.4 Mg Cap, 0.4 MG PO QPM for 30 Days, MG 09/17/24 Sildenafil Citrate (Viagra) 50 Mg Tab, 20 MG PO BID, TAB 09/17/24 Potassium Chloride (POTASSIUM CHLORIDE CR) 10 Meq Tb, 10 MEQ PO BID, TAB 09/17/24 Losartan Potassium (Losartan Potassium) 25 Mg Tab, 25 MG PO DAILY for 30 Days, MG 09/17/24 Donepezil Hydrochloride (DONEPEZIL HCL) 5 Mg Tab, 5 MG PO HS for 30 Days, MG 09/17/24 Digoxin (Digoxin) 250 Mcg Tab, 250 MCG PO DAILY, TAB 09/17/24 Atorvastatin Calcium (ATORVASTATIN CALCIUM) 40 Mg Tab, 1 TAB PO DAILY, #30 TAB 5 Refills 09/17/24 Aspirin (Aspir-Low) 81 Mg Tab, 81 MG PO DAILY for 30 Days, MG 09/17/24 Enalapril Maleate (Enalapril Maleate) 2.5 Mg Tab, 1 TAB PO BID 01/06/12 Furosemide (Furosemide) 20 Mg Tab, 40 MG PO BID 01/06/12 Vital Signs Vital Signs Date Time Temp Pulse Resp B/P (MAP) Pulse Ox O2 Delivery O2 Flow Rate FiO2 09/27/24 16:49 97.9 136 26 146/87 (106) 61 97.9 09/27/24 07:45 Nasal Cannula* 2 28 Labs/Diagnostic Data Labs Test 09/26/24 06:27 09/26/24 06:06 09/25/24 22:14 09/25/24 15:00 Range/Units Blood Gas Specimen Type Arterial Blood Gas Sample Site Arterial line Blood Gas Patient Temperature 37.0 Arterial Blood Date Drawn [id number] Arterial Blood pH 7.476 H 7.350-7.450 Arterial Blood Partial Pressure CO2 46.8 35.0-48.0 mmHg Arterial Blood Partial Pressure O2 68.1 L 83.0-108.0 mmHg Arterial Blood HCO3 33.8 H 21.0-28.0 mmol/L Arterial Blood Oxygen Saturation 92.8 L 94.0-98.0 % Arterial Blood Base Excess 9.2 H -2.0-3.0 mmol/L Arterial Blood Oxyhemoglobin 90.2 L 94.0-98.0 % Arterial Blood Carboxyhemoglobin 2.2 H 0.5-1.5 % Arterial Blood Methemoglobin 0.6 0.0-1.5 % Gerardo Test N/a Blood Gas Total Hemoglobin 8.00 L 13.5-17.5 g/dL Blood Gas Set Respiration Rate 18.0 Blood Gas Modality Vent - ac Blood Gas Spontaneous Rate 19 FiO2 % 30.0 Blood Gas Tidal Volume 500.0 White Blood Count 10.6 4.4-10.8 10^3/uL Red Blood Count 2.68 L 4.5-5.90 10^6/uL Hemoglobin 7.3 L 13.5-17.5 g/dL Hematocrit 22.3 L 41.0-53.0 % Mean Corpuscular Volume 83.1 80.0-100.0 fL Mean Corpuscular Hemoglobin 27.3 L 28.0-32.0 pg Mean Corpuscular Hemoglobin Concent 32.9 32.0-36.0 g/dL Red Cell Distribution Width 23.8 H 11.8-14.3 % Platelet Count 162 140-450 10^3/uL Mean Platelet Volume 8.8 6.9-10.8 fL Neutrophils (%) (Auto) 84.1 H 37.0-80.0 % Lymphocytes (%) (Auto) 7.8 L 10.0-50.0 % Monocytes (%) (Auto) 7.2 0.0-12.0 % Eosinophils (%) (Auto) 0.6 0.0-7.0 % Basophils (%) (Auto) 0.3 0.0-2.0 % Neutrophils # (Auto) 8.9 H 1.6-8.6 10 ^3/uL Lymphocytes # (Auto) 0.8 0.4-5.4 10 ^3/uL Monocytes # (Auto) 0.8 0-1.3 10 ^3/uL Eosinophils # (Auto) 0.1 0-0.8 10 ^3/uL Basophils # (Auto) 0 0-0.2 10 ^3/uL Nucleated Red Blood Cells 0.2 % Prothrombin Time 11.9 H 9.3-11.8 sec Prothrombin Time INR 1.14 0.9-1.15 Activated Partial Thromboplast Time 27.0 24.5-34.5 SEC Sodium Level 147 H 136-145 mmol/L Potassium Level 3.3 L 3.5-5.1 mmol/L Chloride Level 105 98-107 mmol/L Carbon Dioxide Level 35 H 20-31 mmol/L Anion Gap 7 5-15 Blood Urea Nitrogen 35 H 9-23 mg/dL Creatinine 0.78 0.700-1.30 mg/dL Glomerular Filtration Rate Calc 101 >90 mL/min BUN/Creatinine Ratio 44.9 H 10.0-20.0 Serum Glucose 90 74-106 mg/dL Calcium Level 8.4 L 8.7-10.4 mg/dL Phosphorus Level 2.8 2.4-5.1 mg/dL Magnesium Level 2.1 1.6-2.6 mg/dL Total Bilirubin 3.3 H 0.2-1.0 mg/dL Direct Bilirubin 2.4 H <0.3 mg/dL Aspartate Amino Transferase (AST) 76 H 13-40 U/L Alanine Aminotransferase (ALT) 34 7-40 U/L Alkaline Phosphatase 97 46-116 U/L Total Protein 5.1 L 5.7-8.2 g/dL Albumin 2.7 L 3.2-4.8 g/dL Amylase Level 56 30-118 U/L Lipase 35 12-53 U/L Blood Gas PEEP or CPAP 5.0 Urine Color Yellow Yellow Urine Clarity Clear Clear Urine pH 6.5 5.0-9.0 Urine Specific [place] 1.017 1.001-1.035 Urine Protein Trace H Negative Urine Ketones Negative Negative Urine Blood 3+ H Negative /uL Urine Nitrite Negative Negative Urine Bilirubin Negative Negative Urine Urobilinogen 3 H Negative mg/dL Urine Leukocyte Esterase Negative Negative /uL Urine RBC 35 0 - 3 /hpf Urine Microscopic WBC 4 H 0-3 /HPF Urine Squamous Epithelial Cells None seen <5 /hpf Urine Bacteria None seen None Seen /hpf Urine Glucose Normal Normal mg/dL Microbiology Date/Time Source Procedure Growth Status 09/25/24 16:44 Blood Blood Culture - Preliminary NO GROWTH AFTER 48 HOURS OF INCUBATION. Resulted 09/25/24 16:20 Urine - [place] Urine Culture - Preliminary Resulted Assessment Patient was initially admitted on September 16, 2024 status post cardiopulmonary arrest from a retirement. Patient was found unresponsive down for approximately 5 minutes before EMS arriving and was intubated on the field. Patient is a DNR DNI on comfort measures. Patient's past medical history and report shows CHF, hyperlipidemia, hypertensio n, and AFib. Patient reports also known that patients smokes and uses marijuana. Per reports from [facility] patient is here for acute respiratory failure, acute on chronic systolic versus diastolic heart failure, possible cardiac versus septic shock, possible aspiration pneumonia, AFib RVR on Cardizem drip, rib fractures, liver cirrhosis, seizures, and anemia. Upon my examination patient was identified with patient armband name and date of . Patient was pronounced by myself at 1806. No verbal or tactile stimuli noted. No pupillary reflexes noted. There is absence of breathing. No heart rate or pulse noted. No gag or cough also noted. Patient's stepbrother Bill was informed of the status. Plan discussed with: Other Date of Service: Sep 27, 2024 Billing Provider: BERNARDINO MONET Common Visit Codes: [id number] INP/OBS CARE (HIGH) BERNARDINO MONET Sep 27, 2024 18:22
--- NOTE | 2024-10-03 01:40 | DVHDS ---
DATE OF DISCHARGE: 09/27/2024 SUMMARY HISTORY OF PRESENT ILLNESS: The patient was a 59-year-old gentleman who was admitted after he was found to be in cardiac arrest [place] a jail. The patient had a history of congestive heart failure, hypertension, hyperlipidemia, and atrial fibrillation. HOSPITAL COURSE: The patient remained intubated and mechanically ventilated. Echocardiogram done showed an ejection fraction of about 55%. The patient was on IV pressors along with IV antibiotics. He was treated for aspiration pneumonia. The patient also had atrial fibrillation with rapid ventricular rate and was placed on a Cardizem drip. The patient was seen in Neurology consult by Dr. Juares. The patient had a brain MRI that showed multiple scattered infarcts in the brain along with a chronic infarct in the left frontal lobe. After discussion with the patient's family including the stepbrother, it was decided to make the patient a terminal wean. The patient was evaluated for organ donation; however, he did not meet criteria. The patient on 09/27/2024. FINAL DIAGNOSES: * Acute respiratory failure. * Status post CPR. * Multiple infarcts with hypoxic encephalopathy. * Crgou-zk-nppijvy systolic/diastolic heart failure. * Shock, questionable cardiac, questionable septic. * Right-sided pneumonia, likely aspiration. * Atrial fibrillation with rapid ventricular rate. * Rib fractures. * Liver cirrhosis. * Anemia. * Seizures. * DNR/Comfort Care. MD CINTIA Hatfield/EKT/HUMAIRA TID: [id number] RECEIPT: [id number]
== END 2024-09-27 18:06 | DRG 871 ==
LOC: UNDOADMIN 09:34 → ICU WEST 09:34 → TELE-CENTR 09-26 23:08
PROVIDERS: ADMIT Internal Medicine; ATTEND Internal Medicine
PROC: 30233N1 Transfusion of Nonautologous Red Blood Cells into Peripheral Vein, Percutaneous Approach (ICD-10-PCS; principal; 2024-09-25)
PROC: 5A1945Z Respiratory Ventilation, 24-96 Consecutive Hours (ICD-10-PCS; 2024-09-25)
DX: A41.9 Sepsis, unspecified organism (principal); I50.43 Acute on chronic combined systolic (congestive) and diastolic (congestive) heart failure; J96.00 Acute respiratory failure, unspecified whether with hypoxia or hypercapnia; J69.0 Pneumonitis due to inhalation of food and vomit; Z66 Do not resuscitate; R65.20 Severe sepsis without septic shock; I48.91 Unspecified atrial fibrillation; E78.5 Hyperlipidemia, unspecified; I11.0 Hypertensive heart disease with heart failure; K74.60 Unspecified cirrhosis of liver; D64.9 Anemia, unspecified; R56.9 Unspecified convulsions; R57.0 Cardiogenic shock; Z86.74 Personal history of sudden cardiac arrest; Z79.899 Other long term (current) drug therapy; Z79.82 Long term (current) use of aspirin
CPT/HCPCS: 36415; 36600; 71045; 76700; 80053; 81001; 82150; 82248; 82805; 83690; 83735; 84100; 85025; 85610; 85730; 86850; 86900; 86901; 86920; 87040; 87086; 93005; G0378; J2543